=== PATIENT | female | born 1960 | race Caucasian/White ===

== ENCOUNTER → 2021-06-12 14:57 | Outpatient (BNVA) | payer MEDICARE, MEDICAID, SELFPAY | PROVIDERS: PCP Hospitalist | DX: R32 Unspecified urinary incontinence (principal); Z79.899 Other long term (current) drug therapy | CPT/HCPCS: 99212 ==

== ENCOUNTER → 2021-06-26 13:21 | Outpatient (BNVA) | payer MEDICARE, MEDICAID, SELFPAY | PROVIDERS: PCP Hospitalist | DX: R32 Unspecified urinary incontinence (principal) | CPT/HCPCS: 51798; 99212 ==

== ENCOUNTER 2021-12-26 09:36 | Outpatient (REF) | payer MEDICARE, MEDICAID, SELFPAY ==
--- NOTE | ~2021-12-26 | CT_ITS ---
EXAMINATION: CT HEAD WITHOUT CONTRAST CLINICAL INFORMATION: Muscle weakness. COMPARISON: None TECHNIQUE: Contiguous axial imaging was performed from the skull base to vertex without intravenous administration of contrast. This CT examination was performed using dose optimization techniques as appropriate, variously including the following: *Automated exposure control *Adjustment of mA and/or kV according to patient size (this includes techniques or standardized protocols for targeted exams where dose is matched to indication/reason for exam; i.e. extremities or head) *Use of iterative reconstruction technique DLP: 751 mGy-cm FINDINGS: There is no evidence of acute intracranial hemorrhage or territorial infarction. No abnormal mass effect or midline shift is seen. Holloway to white matter differentiation is well preserved. No extra-axial fluid collections are identified. The lateral ventricles are symmetrical in size but mildly enlarged. There is diffuse periventricular hypodensity in both cerebral hemispheres without mass effect suggestive of chronic small vessel ischemia. Bone windows reveal midline and left frontal craniotomy changes. No scalp soft tissue abnormality. There is complete opacification of right sphenoid sinus. Rest of the paranasal sinuses and mastoid air cells are well-aerated. CT/CT head/brain wo con IMPRESSION: No acute intracranial process seen. Chronic right maxillary sinus inflammatory changes. Left frontal and midline craniotomy from previous intervention.
== END 2021-12-26 09:37 | disposition home or self-care (01) ==
LOC: HO.CT 09:36
PROVIDERS: Visit Provider Hospitalist
DX: M62.81 Muscle weakness (generalized) (principal)
CPT/HCPCS: 70450

== ENCOUNTER 2022-01-15 10:09 | Inpatient (IN) | payer MEDICARE, MEDICAID, SELFPAY ==
[2022-01-15] VITALS (9 sets, daily range): BP systolic 107–140; BP diastolic 72–93; PULSE 68–126; RESP 18–35; TEMP 36.7–37.3; O2SAT 86–100; BMI 22.3
--- NOTE | ~2022-01-15 | CT_ITS ---
EXAMINATION: CT HEAD WITHOUT CONTRAST CLINICAL INFORMATION: Increased confusion. COMPARISON: CT head from 12/26/2021. TECHNIQUE: Contiguous axial imaging was performed from the skull base to vertex without intravenous administration of contrast. This CT examination was performed using dose optimization techniques as appropriate, variously including the following: *Automated exposure control. *Adjustment of mA and/or kV according to patient size (this includes techniques or standardized protocols for targeted exams where dose is matched to indication/reason for exam; i.e. extremities or head). *Use of iterative reconstruction technique. DLP: 690 mGy-cm FINDINGS: Changes of chronic frontal craniotomy. There is no evidence of acute intracranial hemorrhage or edematous territorial infarction. Confluent hypoattenuation in the periventricular and deep white matter. [place]ay-white matter differentiation is preserved. Proportional prominence of the ventricles and sulcal spaces. No evidence for obstructive hydrocephalus. No abnormal mass effect or midline shift. No extra-axial fluid collections. Calcific atherosclerotic disease of the intracranial internal carotid and vertebral arteries. No hyperdense vessel sign. No acute soft tissue or osseous abnormalities. Near complete opacification of the right sphenoid air cell. Mild mucosal thickening of the remaining paranasal sinuses. The mastoid air cells and middle ear cavities are clear. Moderate degenerative arthropathy of the temporomandibular joints. CT/CT head/brain wo con IMPRESSION: 1. No evidence of acute intracranial hemorrhage or edematous territorial infarction. 2. Extensive underlying white matter disease. 3. Moderate generalized cerebral volume loss. 4. Near complete opacification of the right sphenoid air cell.
--- NOTE | ~2022-01-15 | XR_ITS ---
EXAMINATION: XR ABDOMEN KUB CLINICAL INDICATION: Follow-up ileus COMPARISON: None TECHNIQUE: AP view of the abdomen. FINDINGS: There are still distended loops of small bowel and retained oral contrast in the small bowel. Differential would include ileus and partial small bowel obstruction. There is interval decrease in mild dilatation of the colon. There is no evidence of free air. There is evidence of atherosclerotic disease. There are surgical clips over the left groin. There are degenerative changes of the lower lumbar spine. XR/XR abdomen 1V IMPRESSION: Distended loops of small bowel and residual oral contrast seen in small bowel. Differential would include ileus and partial small bowel obstruction. There is interval decrease in large bowel distention from previous scan.
--- NOTE | ~2022-01-15 | XR_ITS ---
EXAMINATION: XR CHEST CLINICAL INFORMATION: AMS COMPARISON: April 28, 2016 TECHNIQUE: AP portable view of the chest was obtained. FINDINGS: There is elevation of the left hemidiaphragm with some basilar disease present. This is chronic and was present on study of April 28, 2016. The cardiopericardial silhouette is enlarged. No evidence of pulmonary edema. No pneumothorax. There is blunting of the right costophrenic angle likely related to combination of small pleural effusion and atelectatic change. There is severe degenerative change of both glenohumeral joints. There are some low density sclerotic marginated lesions within the proximal left humerus. There is a sclerotic density seen overlying the proximal right humerus. Vascular calcifications are noted. There is distention of loops of bowel within the abdomen. XR/XR chest 1V IMPRESSION: Chronic elevation of the left hemidiaphragm with basilar disease. Right lower lobe disease with probable small effusion. Cardiomegaly without pulmonary edema. Severe degenerative change of the glenohumeral joints with deformity of the humeral heads.
--- NOTE | ~2022-01-15 | CT_ITS ---
EXAMINATION: CT ABDOMEN AND PELVIS WITH CONTRAST CLINICAL INFORMATION: Diffuse abdominal pain. Tender to palpate COMPARISON: None TECHNIQUE: Multidetector volumetric images were obtained from the superior aspect of the liver through the pubic symphysis following administration 80 mL of Omnipaque 350 intravenous contrast. Sagittal and coronal reformatted images were obtained on the technologist's workstation. Oral contrast: No This CT examination was performed using dose optimization techniques as appropriate, variously including the following: *Automated exposure control *Adjustment of mA and/or kV according to patient size (this includes techniques or standardized protocols for targeted exams where dose is matched to indication/reason for exam; i.e. extremities or head) *Use of iterative reconstruction technique DLP: 799 mGy-cm FINDINGS: LUNG BASES: There is a left lower lobe airspace opacity suggestive of infiltrate. The right lower lobe compressive atelectasis and/or infiltrate. Heart size enlarged. LIVER, GALLBLADDER, AND BILIARY TREE: The liver is enlarged in size, normal shape, and attenuation. There is a 1.7 cm hypodensity right hepatic lobe probable cyst. No additional lesions seen. No intrahepatic ductal dilatation. The gallbladder is significantly distended with no radiopaque gallstones or wall thickening. PANCREAS: Unremarkable. SPLEEN: Unremarkable. ADRENAL GLANDS: Unremarkable. KIDNEYS AND URETERS: The kidneys are normal in size, shape, and attenuation. No hydronephrosis, hydroureter, or calculi seen. No perinephric stranding. There are multiple bilateral renal cysts. Largest cyst midpole left kidney measures 2.4 cm. There is an extrarenal left kidney pelvis BLADDER: The bladder is significantly distended without any radiopaque calculi or wall thickening. GASTROINTESTINAL TRACT: There is scattered stool and gas seen in the right hepatic flexure the small bowel loops are prominent and distended with fluid and an majority with gas. No free air or free fluid seen ABDOMINAL WALL: No significant hernia is appreciated. LYMPH NODES: Normal. VASCULAR: There is atherosclerotic calcification of abdominal aorta without aneurysmal dilatation. PELVIC VISCERA: There is no free fluid or free air. No abnormal pelvic lymph nodes seen. The uterus is anteverted and appears unremarkable OSSEOUS STRUCTURES: There is grade 1 anterolisthesis L4 over L5. There are severe degenerative disc changes L4-L5 and mild degenerative disc changes L3-L4 and L5-S1 disc levels. CT/CT abdomen pelvis w con IMPRESSION: Significantly distended gallbladder likely from decreased by mouth intake. No radiopaque gallstones, duodenal calculi or radiopaque urinary bladder. The urinary bladder is significantly distended. Moderate gaseous prominence of small bowel loops with some of the loops containing fluid. No free air or inflammatory process seen in the abdomen. Multiple bilateral renal cysts. Fleischner guidelines were followed.
--- NOTE | ~2022-01-15 | CT_ITS ---
EXAMINATION: CT ABDOMEN AND PELVIS WITHOUT CONTRAST CLINICAL INFORMATION: Rule out small bowel obstruction COMPARISON: Previous CT scan earlier the same day TECHNIQUE: Multidetector volumetric imaging was performed from the superior aspect of the liver through the pubic symphysis. Sagittal and coronal reformatted images were obtained on the technologist's workstation. This CT examination was performed using dose optimization techniques as appropriate, variously including the following: *Automated exposure control *Adjustment of mA and/or kV according to patient size (this includes techniques or standardized protocols for targeted exams where dose is matched to indication/reason for exam; i.e. extremities or head) *Use of iterative reconstruction technique DLP: 747 mGy-cm FINDINGS: LUNG BASES: There is bilateral lower lobe airspace disease with air bronchograms suggestive of bilateral lower lobe pneumonia. The heart is enlarged. There is no pleural effusion. LIVER, GALLBLADDER, AND BILIARY TREE: The liver is normal in size, shape, and attenuation. No focal hepatic lesion or biliary ductal dilatation is present. The gallbladder is enlarged. No gallstones are seen by CT scan. This is similar to previous exam. There is no biliary duct dilatation. PANCREAS: Unremarkable. SPLEEN: Unremarkable. ADRENAL GLANDS: Unremarkable. KIDNEYS AND URETERS: There is excreted contrast seen in the bilateral collecting systems and ureters.There are left renal cysts. BLADDER: There is a Carver catheter in the bladder. There is excreted contrast seen in the bladder. GASTROINTESTINAL TRACT: The stomach is dilated. There are dilated loops of fluid-filled small bowel. This is similar to earlier exam. A transition zone is not appreciated. Differential would include ileus and partial small bowel obstruction. There is a stool the colon and the colon is distended. No transition zone is seen to suggest large bowel obstruction. The appendix is not seen. There is trace ascites. ABDOMINAL WALL: No significant hernia is appreciated. LYMPH NODES: Normal. VASCULAR: There is evidence of atherosclerotic disease. There is an aorto to left iliac bypass graft. PELVIC VISCERA: Unremarkable. OSSEOUS STRUCTURES: There is anterior subluxation of L4 with respect L5 there are degenerative changes of the lower lumbar spine. The bones are osteopenic. CT/CT abdomen pelvis wo con IMPRESSION: Bilateral lower lobe pneumonia. Very dilated fluid and contrast filled stomach. Possible aspiration should be considered. Dilated fluid-filled small bowel questionable for partial small bowel obstruction versus ileus. Distended colon and constipation. Very distended gallbladder similar to earlier exam. Left renal cysts. Severe atherosclerotic disease. Fleischner guidelines were followed.
--- NOTE | 2022-01-15 10:42 | ECG_ITS ---
Test Reason : TACHYCARDIA Blood Pressure : / mmHG Vent. Rate : 119 BPM Atrial Rate : 119 BPM P-R Int : 172 ms QRS Dur : 120 ms QT Int : 332 ms P-R-T Axes : 019 -28 056 degrees QTc Int : 467 ms Sinus tachycardia with Premature supraventricular complexes and Premature ventricular complexes or Fusion complexes Inferior infarct , age undetermined Anterolateral infarct, age undetermined. Abnormal ECG No previous ECGs available Referred By: Sally Barksdale Electronically Signed By:Soy Bui
--- NOTE | 2022-01-15 10:54 | ED_ITS ---
HPI - Abdominal Pain General Chief Complaint: Abdominal Pain Stated Complaint: NOT EATING,? OBSTRUCTION PER MD OF SNF Time Seen by Provider: 01/15/22 10:29 Source: patient Mode of arrival: ambulatory History of Present Illness HPI narrative: 62-year-old female with a past medical history of dementia, schizophrenia, dysphasia, COPD, diabetes, anemia, ETOH dependence, depression, TBI, BIBA from [facility] for anorexia/decreased p.o. intake, and abdominal pain x2-3 days also with reported increased confusion and mental status change. Per EMS questionable ileus versus mass on KUB at [facility]. ROS limited secondary to patient's baseline mental status/acute mental state MD elicited complaint: abdominal pain Onset (ago): day(s) Related Data Home Medications Medication Instructions Recorded Confirmed clopidogrel 75 mg tablet 75 mg PO DAILY 06/12/21 01/15/22 cyclobenzaprine 5 mg tablet 5 mg PO TID 06/12/21 01/15/22 fluticasone furoate 200 1 ea INHALATION DAILY 06/12/21 01/15/22 mcg-vilanterol 25 mcg/dose inhalation powder (Breo Ellipta) lurasidone 40 mg tablet (Latuda) 40 mg PO BEDTIME 06/12/21 01/15/22 oxybutynin chloride 10 mg 10 mg PO DAILY 06/12/21 01/15/22 tablet,extended release 24 hr simvastatin 20 mg tablet 20 mg PO BEDTIME 06/12/21 01/15/22 famotidine 40 mg tablet 40 mg PO DAILY 06/26/21 01/15/22 furosemide 40 mg tablet 40 mg PO DAILY 06/26/21 01/15/22 hydrocodone 5 mg-acetaminophen 325 1 tab PO QID 06/26/21 01/15/22 mg tablet lurasidone 60 mg tablet (Latuda) 60 mg PO BEDTIME 06/26/21 01/15/22 mirabegron 50 mg tablet,extended 50 mg PO BEDTIME 06/26/21 01/15/22 release 24 hr (Myrbetriq) paliperidone palmitate 156 mg/mL 156 mg IM Q28D 06/26/21 01/15/22 intramuscular syringe (Invega Sustenna) pramipexole 0.25 mg tablet 0.25 mg PO BEDTIME 06/26/21 01/15/22 trihexyphenidyl 5 mg tablet 5 mg PO TID 06/26/21 01/15/22 acetaminophen 325 mg tablet 325 mg PO QID 01/15/22 01/15/22 albuterol sulfate 90 mcg/actuation 4 inh INHALATION Q4H PRN 01/15/22 01/15/22 breath activated powder inhaler,sensor ascorbic acid (vitamin C) 500 mg 500 mg PO DAILY 01/15/22 01/15/22 tablet aspirin 81 mg chewable tablet 81 mg PO DAILY 01/15/22 01/15/22 cholecalciferol (vitamin D3) 1,250 1,250 mcg PO MO 01/15/22 01/15/22 mcg (50,000 unit) tablet docusate sodium 100 mg tablet 100 mg PO BID 01/15/22 01/15/22 lactulose 10 gram/15 mL oral 20 g PO Q12H PRN 01/15/22 01/15/22 solution lanolin alcohols-mineral 1 appl TOPICAL QPM 01/15/22 01/15/22 oil-w.petrolatum-ceresin topical cream (Minerin Creme) lithium carbonate 300 mg 300 mg PO BEDTIME 01/15/22 01/15/22 tablet,extended release menthol 5 % topical patch (Bengay 1 patch TOPICAL DAILY PRN 01/15/22 01/15/22 Ultra Strength (menthol)) metoprolol tartrate 25 mg tablet 25 mg PO BID 01/15/22 01/15/22 sennosides 8.6 mg tablet (senna) 17.2 mg PO BID 01/15/22 01/15/22 Allergies Allergy/AdvReac Type Severity Reaction Status Date / Time codeine [CODEINE] Allergy Unknown UNKNOWN Verified 06/26/21 13:29 lactose [LACTOSE] Allergy Unknown UNKNOWN Verified 06/26/21 13:29 meloxicam [MELOXICAM] Allergy Unknown UNKNOWN Verified 06/26/21 13:29 penicillin V Allergy Unknown Unknown Verified 06/26/21 13:29 Penicillins [PENICILLINS] Allergy Unknown UNKNOWN Verified 06/26/21 13:29 tetracycline [TETRACYCLINE] Allergy Unknown UNKNOWN Verified 06/26/21 13:29 Review of Systems Review of Systems Constitutional: No Fever, +anorexia Cardiovascular: No Chest Pain, No SOB Respiratory: No Cough, No Dyspnea Gastrointestinal: No Nausea, No Vomiting, + Abdominal pain Skin: No Skin Lesions, No rash ROS limited secondary to patient's baseline mental status Yes all other systems are reviewed and are negative [facility] Past Medical History Attestation statement: The following information was validated with the patient. 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 Bone disease Chronic pain Depressive disorder Diabetes mellitus, type II Edema GERD (gastroesophageal reflux disease) Hepatitis C Hernia HTN (hypertension) Hyperprolactinemia Hyponatremia Polydipsia Schizophrenia Urinary incontinence Surgical History History of surgery Social History Social History Patient Tobacco Use Status: Former Tobacco user Advance Directives: No Advance Directives Information Provided: No Physical Exam ED Vital Signs: Vital Signs - 24 hr 01/15/22 10:28 01/15/22 10:40 01/15/22 11:40 Temperature 99.1 F 99.1 F Pulse Rate 118 H 68 122 H Respiratory Rate 22 H 18 35 H Blood Pressure 134/93 H 113/89 130/77 Pulse Oximetry 98 98 86 L 01/15/22 14:00 01/15/22 16:43 Temperature 98.4 F Pulse Rate 126 H 101 H Respiratory Rate 20 22 H Blood Pressure 140/83 H 126/78 Pulse Oximetry 94 98 BMI result Body Mass Index 22.3 Const Other: Intermittently agitated General: alert and awake Orientation/consciousness: oriented to person HENPA Head: Yes normal to inspection and Yes atraumatic Ears: hearing grossly normal bilaterally General nose exam: Normal external nose present Face and sinus: Yes normal facial exam Throat: Yes posterior oropharynx normal Eyes General: appearance normal, both eyes and all related structures Pupils: Equal, round and reactive pupils present EOM: EOMs intact bilaterally Neck Neck: Yes normal visual inspection and Yes no lymphadenopathy Resp Effort & Inspection: normal respiratory effort and no respiratory distress Auscultation: clear to auscultation bilaterally, no rales, no rhonchi and no wheezes Cardio Rate: regular rate Heart sounds: S1 normal heart sound present and S2 normal heart sound present GI Inspection: Yes normal to inspection Palpation (GI): Soft to palpation, Tenderness to palpation present (GI) (Diffusely), no guarding and not rigid General: Yes no CVA tenderness Back/Spine/Pelvis Back: no CVA tenderness Skin Other: Healing ecchymosis /wounds to bilateral lower extremities Rashes: no rashes Neuro General: oriented to person, tone normal and moves all extremities Cranial nerves: Yes Equal, round and reactive pupils present Course Course Course Narrative: -1330--no leukocytosis. AST/ALT elevated likely acute on chronic from ETOH abuse. Ammonia mildly elevated to 64. BNP 158. Initial troponin 13.3 >will obtain 3 hour repeat. Labs otherwise unremarkable -1534--repeat troponin 15.8, mi unlikely. UA negative -1535--COVID-19 positive --Per [facility] patient tested positive for COVID in November, concern for reinfection XR chest 1V IMPRESSION: Chronic elevation of the left hemidiaphragm with basilar disease. Right lower lobe disease with probable small effusion. Cardiomegaly without pulmonary edema.? Severe degenerative change of the glenohumeral joints with deformity of the humeral heads. ? CT head/brain wo con IMPRESSION: 1. No evidence of acute intracranial hemorrhage or edematous territorial infarction. 2. Extensive underlying white matter disease. 3. Moderate generalized cerebral volume loss. 4. Near complete opacification of the right sphenoid air cell. CT abdomen pelvis w con IMPRESSION: Significantly distended gallbladder likely from decreased by mouth intake. No radiopaque gallstones, duodenal calculi or radiopaque urinary bladder. The urinary bladder is significantly distended. Moderate gaseous prominence of small bowel loops with some of the loops containing fluid. No free air or inflammatory process seen in the abdomen. Multiple bilateral renal cysts. LUNG BASES: There is a left lower lobe airspace opacity suggestive of infiltrate. The right lower lobe compressive atelectasis and/or infiltrate. Heart size enlarged. >> 1552--will cover with Cefepime to cover HCAP. Infection now suspected. Discussed CT findings with radiologist, no evidence of obstruction, distended loops of bowel likely from decreased p.o. intake -1700--D-dimer negative, PE unlikely > tachycardia still suspected from dehydration -LDH/CRP elevated -spoke to hospitalist about admission, concern for SBO/ileus or intra-abdominal pathology, additionally spoke to surgery Dr. Barnett who suspicious for ileus/gastroenteritis however reports if there is continued concern to obtain p.o. contrast study. There is no radiologist on tonight to perform Gastrografin FL, will obtain p.o. contrast CT for further eval. 1814--ED care transferred to MELINA Guillen pending CT and admission ? MDM - Abdominal Pain MDM Narrative Medical decision making narrative: 62-year-old female with a past medical history of dementia, schizophrenia, dysphasia, COPD, diabetes, anemia, ETOH dependence, depression, TBI, BIBA from [facility] for anorexia/decreased p.o. intake, and abdominal pain x2-3 days also with reported increased confusion and mental status change. On exam tachycardic likely from dehyrdation, tachypneic, A&O x1 (hx TBI), lungs CTA, abdomen soft diffusely tender. Concern for SBO/ileus vs mass vs diverticulitis/appendicitis or other intra-abdominal pathology. Rule out other infectious etiology and metabolic abnormalities. Lower concern for CVA/TIA Plan: EKG, labs, UA, CXR, head CT, CT abdomen/pelvis, IVF. Low concern for severe sepsis at this time her tachycardia likely from dehydration/agitation Medical Records Attestation: I reviewed the patient's medical records. Lab Data Attestation: I reviewed the patient's lab results. Result diagrams: 01/15/22 12:03 01/15/22 12:03 Labs: Lab Results 01/15/22 01/15/22 01/15/22 Range/Units 12:02 12:03 12:03 WBC 8.1 (4.8-10.8) X10*3/uL RBC 3.74 L (4.20-5.50) X10*6/uL Hgb 11.3 L (12.0-16.0) g/dl Hct 36.0 L (37.0-47.0) % MCV 96.3 (80.0-98.0) fL MCH 30.2 (27.0-33.0) pg MCHC 31.4 (31.0-35.0) g/dl RDW 15.5 (11.0-16.0) % Plt Count 369 (160-400) X10*3/uL MPV 9.8 (9.4-12.3) fL Immature Gran % (Auto) 0.4 (0.0-0.4) % Neut % (Auto) 73.6 H (45-73) % Lymph % (Auto) 18.3 L (20-40) % Bowman % (Auto) 7.5 (2-11) % Eos % (Auto) 0.0 (0-4) % Baso % (Auto) 0.2 (0-2) % Lymph # (Auto) 1.5 (1.2-4.9) X10*3/uL Bowman # (Auto) 0.6 (0.1-1.2) X10*3/uL Eos # (Auto) 0.0 (0.0-0.4) X10*3/uL Baso # (Auto) 0.0 (0.0-0.2) X10*3/uL Abs Immat Gran (auto) 0.03 (0.00-0.03) X10*3/uL Absolute Neuts (auto) 5.9 (2.0-8.3) x10*3/uL Absolute Nucleated RBC 0.000 (0.0-0.012) X10*3/uL Nucleated RBC % (auto) 0.0 (0.0-0.2) /100WBC D-Dimer High Sensitivty NG/ML Sodium 135 (135-145) mmol/L Potassium 4.6 (3.3-5.1) mmol/L Chloride 100 (96-108) mmol/L Carbon Dioxide 25 (22-29) mmol/L Anion Gap 15 (12-20) BUN 5 L (9-16) mg/dL Creatinine 0.61 (0.5-1.4) mg/dL Estim Creat Clear Calc 90.5 Estimated GFR > 60 Random Glucose 105 (60-115) mg/dL Lactic Acid (0.5-2.0) mmol/L Calcium 8.7 (8.4-10.2) mg/dL Magnesium 1.7 (1.6-2.6) mg/dL Ferritin (10-250) ng/mL Total Bilirubin 1.0 (0.0-1.0) mg/dL Direct Bilirubin 0.4 (0.0-0.5) mg/dL AST 103 H (5-31) U/L ALT 47 H (0-31) U/L Alkaline Phosphatase 97 (39-117) U/L Ammonia 64 H (13-55) umol/L Lactate Dehydrogenase (122-220) U/L Troponin I High Sens (<3.5-17.0) ng/L C-Reactive Protein (< or = 0.50) mg/dL B-Natriuretic Peptide (<100) pg/mL Total Protein 6.1 L (6.5-8.0) g/dL Albumin 2.8 L (3.5-5.0) g/dL Lipase 4 L (8-78) U/L Procalcitonin ng/mL Urine Color Urine Appearance Urine pH (5.0-8.0) Ur Specific [place] (1.005-1.025) Urine Protein (NEG-TRACE) MG/DL Urine Glucose (UA) (NEG) MG/DL Urine Ketones (NEG) MG/DL Urine Blood (NEG) Urine Nitrite (NEG) Ur Leukocyte Esterase (NEG) COVID-19 (AI) (Negative) COVID-19 Clin Com 01/15/22 01/15/22 01/15/22 Range/Units 12:03 12:03 14:57 WBC (4.8-10.8) X10*3/uL RBC (4.20-5.50) X10*6/uL Hgb (12.0-16.0) g/dl Hct (37.0-47.0) % MCV (80.0-98.0) fL MCH (27.0-33.0) pg MCHC (31.0-35.0) g/dl RDW (11.0-16.0) % Plt Count (160-400) X10*3/uL MPV (9.4-12.3) fL Immature Gran % (Auto) (0.0-0.4) % Neut % (Auto) (45-73) % Lymph % (Auto) (20-40) % Bowman % (Auto) (2-11) % Eos % (Auto) (0-4) % Baso % (Auto) (0-2) % Lymph # (Auto) (1.2-4.9) X10*3/uL Bowman # (Auto) (0.1-1.2) X10*3/uL Eos # (Auto) (0.0-0.4) X10*3/uL Baso # (Auto) (0.0-0.2) X10*3/uL Abs Immat Gran (auto) (0.00-0.03) X10*3/uL Absolute Neuts (auto) (2.0-8.3) x10*3/uL Absolute Nucleated RBC (0.0-0.012) X10*3/uL Nucleated RBC % (auto) (0.0-0.2) /100WBC D-Dimer High Sensitivty NG/ML Sodium (135-145) mmol/L Potassium (3.3-5.1) mmol/L Chloride (96-108) mmol/L Carbon Dioxide (22-29) mmol/L Anion Gap (12-20) BUN (9-16) mg/dL Creatinine (0.5-1.4) mg/dL Estim Creat Clear Calc Estimated GFR Random Glucose (60-115) mg/dL Lactic Acid 1.9 (0.5-2.0) mmol/L Calcium (8.4-10.2) mg/dL Magnesium (1.6-2.6) mg/dL Ferritin (10-250) ng/mL Total Bilirubin (0.0-1.0) mg/dL Direct Bilirubin (0.0-0.5) mg/dL AST (5-31) U/L ALT (0-31) U/L Alkaline Phosphatase (39-117) U/L Ammonia (13-55) umol/L Lactate Dehydrogenase (122-220) U/L Troponin I High Sens 13.3 (<3.5-17.0) ng/L C-Reactive Protein (< or = 0.50) mg/dL B-Natriuretic Peptide 158 H (<100) pg/mL Total Protein (6.5-8.0) g/dL Albumin (3.5-5.0) g/dL Lipase (8-78) U/L Procalcitonin ng/mL Urine Color Urine Appearance Urine pH (5.0-8.0) Ur Specific [place] (1.005-1.025) Urine Protein (NEG-TRACE) MG/DL Urine Glucose (UA) (NEG) MG/DL Urine Ketones (NEG) MG/DL Urine Blood (NEG) Urine Nitrite (NEG) Ur Leukocyte Esterase (NEG) COVID-19 (AI) Positive A (Negative) COVID-19 Clin Com See Note 01/15/22 01/15/22 01/15/22 Range/Units 14:57 15:06 16:39 WBC (4.8-10.8) X10*3/uL RBC (4.20-5.50) X10*6/uL Hgb (12.0-16.0) g/dl Hct (37.0-47.0) % MCV (80.0-98.0) fL MCH (27.0-33.0) pg MCHC (31.0-35.0) g/dl RDW (11.0-16.0) % Plt Count (160-400) X10*3/uL MPV (9.4-12.3) fL Immature Gran % (Auto) (0.0-0.4) % Neut % (Auto) (45-73) % Lymph % (Auto) (20-40) % Bowman % (Auto) (2-11) % Eos % (Auto) (0-4) % Baso % (Auto) (0-2) % Lymph # (Auto) (1.2-4.9) X10*3/uL Bowman # (Auto) (0.1-1.2) X10*3/uL Eos # (Auto) (0.0-0.4) X10*3/uL Baso # (Auto) (0.0-0.2) X10*3/uL Abs Immat Gran (auto) (0.00-0.03) X10*3/uL Absolute Neuts (auto) (2.0-8.3) x10*3/uL Absolute Nucleated RBC (0.0-0.012) X10*3/uL Nucleated RBC % (auto) (0.0-0.2) /100WBC D-Dimer High Sensitivty 168 NG/ML Sodium (135-145) mmol/L Potassium (3.3-5.1) mmol/L Chloride (96-108) mmol/L Carbon Dioxide (22-29) mmol/L Anion Gap (12-20) BUN (9-16) mg/dL Creatinine (0.5-1.4) mg/dL Estim Creat Clear Calc Estimated GFR Random Glucose (60-115) mg/dL Lactic Acid (0.5-2.0) mmol/L Calcium (8.4-10.2) mg/dL Magnesium (1.6-2.6) mg/dL Ferritin (10-250) ng/mL Total Bilirubin (0.0-1.0) mg/dL Direct Bilirubin (0.0-0.5) mg/dL AST (5-31) U/L ALT (0-31) U/L Alkaline Phosphatase (39-117) U/L Ammonia (13-55) umol/L Lactate Dehydrogenase (122-220) U/L Troponin I High Sens 15.8 (<3.5-17.0) ng/L C-Reactive Protein (< or = 0.50) mg/dL B-Natriuretic Peptide (<100) pg/mL Total Protein (6.5-8.0) g/dL Albumin (3.5-5.0) g/dL Lipase (8-78) U/L Procalcitonin ng/mL Urine Color YELLOW Urine Appearance CLEAR Urine pH 6.0 (5.0-8.0) Ur Specific [place] <= 1.005 (1.005-1.025) Urine Protein NEG (NEG-TRACE) MG/DL Urine Glucose (UA) NEG (NEG) MG/DL Urine Ketones NEG (NEG) MG/DL Urine Blood NEG (NEG) Urine Nitrite NEG (NEG) Ur Leukocyte Esterase NEG (NEG) COVID-19 (AI) (Negative) COVID-19 Clin Com 01/15/22 01/15/22 Range/Units 16:39 16:39 WBC (4.8-10.8) X10*3/uL RBC (4.20-5.50) X10*6/uL Hgb (12.0-16.0) g/dl Hct (37.0-47.0) % MCV (80.0-98.0) fL MCH (27.0-33.0) pg MCHC (31.0-35.0) g/dl RDW (11.0-16.0) % Plt Count (160-400) X10*3/uL MPV (9.4-12.3) fL Immature Gran % (Auto) (0.0-0.4) % Neut % (Auto) (45-73) % Lymph % (Auto) (20-40) % Bowman % (Auto) (2-11) % Eos % (Auto) (0-4) % Baso % (Auto) (0-2) % Lymph # (Auto) (1.2-4.9) X10*3/uL [place]man # (Auto) (0.1-1.2) X10*3/uL Eos # (Auto) (0.0-0.4) X10*3/uL Baso # (Auto) (0.0-0.2) X10*3/uL Abs Immat Gran (auto) (0.00-0.03) X10*3/uL Absolute Neuts (auto) (2.0-8.3) x10*3/uL Absolute Nucleated RBC (0.0-0.012) X10*3/uL Nucleated RBC % (auto) (0.0-0.2) /100WBC D-Dimer High Sensitivty NG/ML Sodium (135-145) mmol/L Potassium (3.3-5.1) mmol/L Chloride (96-108) mmol/L Carbon Dioxide (22-29) mmol/L Anion Gap (12-20) BUN (9-16) mg/dL Creatinine (0.5-1.4) mg/dL Estim Creat Clear Calc Estimated GFR Random Glucose (60-115) mg/dL Lactic Acid (0.5-2.0) mmol/L Calcium (8.4-10.2) mg/dL Magnesium (1.6-2.6) mg/dL Ferritin 166 (10-250) ng/mL Total Bilirubin (0.0-1.0) mg/dL Direct Bilirubin (0.0-0.5) mg/dL AST (5-31) U/L ALT (0-31) U/L Alkaline Phosphatase (39-117) U/L Ammonia (13-55) umol/L Lactate Dehydrogenase 231 H (122-220) U/L Troponin I High Sens (<3.5-17.0) ng/L C-Reactive Protein 2.74 H (< or = 0.50) mg/dL B-Natriuretic Peptide (<100) pg/mL Total Protein (6.5-8.0) g/dL Albumin (3.5-5.0) g/dL Lipase (8-78) U/L Procalcitonin 10.28 ng/mL Urine Color Urine Appearance Urine pH (5.0-8.0) Ur Specific [place] (1.005-1.025) Urine Protein (NEG-TRACE) MG/DL Urine Glucose (UA) (NEG) MG/DL Urine Ketones (NEG) MG/DL Urine Blood (NEG) Urine Nitrite (NEG) Ur Leukocyte Esterase (NEG) COVID-19 (AI) (Negative) COVID-19 Clin Com ECG Data ECG interpretation date: 01/15/22 ECG interpretation time: 10:54 Prior ECG tracings: not available for review Interpretation: EKG sinus tachycardia with premature supraventricular complexes and premature ventricular complexes. Rated 119. QTC 467. No STEMI. No previous EKGs to compare Discharge Plan Discharge Clinical Impression: Pneumonia, Acute dehydration, COVID-19 Patient Disposition: Admitted As Inpatient
--- NOTE | 2022-01-15 11:14 | PHA.MEDREC ---
Pharmacy Consult ? Medication Reconciliation Pharmacy has completed the medication reconciliation. Patient came from [facility] with medication list. Tried to call to confirm last dose of Invega however RN was not at a computer and said she would call back. Blanche Dimas, AnnalisaD
[2022-01-15 12:22] LABS: MANUAL DIFF FLAG NO
[2022-01-15 12:26] LABS: Basophils Percent Auto 0.2 % (0-2); Hemoglobin 11.3 g/dl (12.0-16.0); Imm Gran Abs Auto 0.03 X10*3/uL (0.00-0.03); Imm Gran Pct Auto 0.4 % (0.0-0.4); Lymphocytes Absolute Auto 1.5 X10*3/uL (1.2-4.9); Lymphocytes Percent Auto 18.3 % (20-40); Mean Corpuscular HGB Conc 31.4 g/dl (31.0-35.0); Mean Corpuscular Hemoglobin 30.2 pg (27.0-33.0); Mean Corpuscular Volume 96.3 fL (80.0-98.0); Mean Platelet Volume 9.8 fL (9.4-12.3); Monocytes Absolute Auto 0.6 X10*3/uL (0.1-1.2); Monocytes Percent Auto 7.5 % (2-11); Neutrophils Absolute Auto 5.9 x10*3/uL (2.0-8.3); Neutrophils Percent Auto 73.6 % (45-73); Platelet Count 369 X10*3/uL (160-400); Red Blood Count 3.74 X10*6/uL (4.20-5.50); Red Cell Distribution Width 15.5 % (11.0-16.0); White Blood Count 8.1 X10*3/uL (4.8-10.8)
[2022-01-15 12:37] LABS: Lactic Acid 1.9 mmol/L (0.5-2.0)
[2022-01-15 12:45] LABS: Ammonia 64 umol/L (13-55)
[2022-01-15 12:48] LABS: B Type Natriuretic Peptide 158 pg/mL (<100); Troponin-I High Sensitivity 13.3 ng/L (<3.5-17.0)
[2022-01-15 12:59] LABS: Alanine Aminotransferase 47 U/L (0-31); Albumin Level 2.8 g/dL (3.5-5.0); Alkaline Phosphatase 97 U/L (39-117); Anion Gap 15 (12-20); Aspartate Amino Transferase 103 U/L (5-31); Bilirubin Direct 0.4 mg/dL (0.0-0.5); Blood Urea Nitrogen 5 mg/dL (9-16); Calcium 8.7 mg/dL (8.4-10.2); Carbon Dioxide 25 mmol/L (22-29); Chloride 100 mmol/L (96-108); Creatinine Clr Calc Pharmacy 90.5; Estimated Glomerular Filt Rate > 60; Glucose Random 105 mg/dL (60-115); Lipase 4 U/L (8-78); Magnesium 1.7 mg/dL (1.6-2.6); Potassium 4.6 mmol/L (3.3-5.1); Sodium 135 mmol/L (135-145); Total Protein 6.1 g/dL (6.5-8.0)
[2022-01-15] MEDS: 0.9 % Sodium Chloride 1,000 ML 999 ML IV ×2 (13:01→14:11)
--- NOTE | 2022-01-15 13:58 | PC.NURSE ---
Pt back from CT scan at this time, mood is labile, alternately yelling nonsensically at staff and then apologizing. Plan for straight cath to obtain a urine. Skin wd, resp reg and even, some congestion noted. 90-04% on room air, pt keeps removing nasal canula.
[2022-01-15] MEDS: iohexoL 350 MG/ML 100 ML INFUS..BTL IV (14:03)
[2022-01-15] MEDS: LORazepam 2 MG/ML VIAL 1 MG IVPUSH (14:08)
[2022-01-15 15:19] LABS: Appearance Urine CLEAR; Color Urine YELLOW; Glucose Urine UA NEG (NEG); Leukocyte Esterase Urine NEG (NEG); Nitrite Urine NEG (NEG); Specific Gravity - Urine <= 1.005 (1.005-1.025); Urine Blood NEG (NEG); Urine Ketones NEG (NEG); Urine Protein NEG (NEG-TRACE)
[2022-01-15 15:28] LABS: COVID-19 Test Positive (Negative)
[2022-01-15 15:30] LABS: Troponin-I High Sensitivity 15.8 ng/L (<3.5-17.0)
[2022-01-15 16:52] LABS: D Dimer High Sensitivity 168 NG/ML
[2022-01-15 16:56] LABS: C Reactive Protein 2.74 mg/dL (< or = 0.50); Lactate Dehydrogenase 231 U/L (122-220)
[2022-01-15] MEDS: cefEPime HCl 2 GM in 0.9 % Sodium Chloride 50 ML IV (16:56)
[2022-01-15 17:18] LABS: Procalcitonin 10.28 ng/mL
[2022-01-15 17:19] LABS: Ferritin 166 ng/mL (10-250)
[2022-01-15] MEDS: vancomycin HCL 750 MG in 0.9 % Sodium Chloride 250 ML 265 MG IV (19:47)
[2022-01-15] MEDS: Diatrizoate Meglumine, Sodium 30 ML SOLUTION PO (20:15)
--- NOTE | 2022-01-15 23:20 | P.HPHOSP_ITS ---
History of Present Illness Date of Service: 01/15/22 Chief Complaint: decreased oral intake 62-year-old female with a past medical history of hypertension, hyperlipidemia, diabetes, CAD, peripheral vascular disease, COPD on supplemental oxygen as needed, history of hep C, history of hyponatremia, history of TBI, history of recurrent left shoulder dislocation, generalized muscle weakness, paranoid schizophrenia, major depressive disorder, PTSD, GERD, dysphagia, history of hyperprolactinemia, diaphragmatic hernia, chronic pain syndrome, history of COVID-19 positive, [facility] with a c hief complaint of poor oral intake for the past few days and abdominal discomfort. patient unable to provide history. Most of the history obtained from the records and ER staff Per ER team who when spoken to the [facility] staff reported that patient has not been eating for the past 2-3 days and has been complaining of abdominal discomfort. KUB showed possible ileus; sent to the ER for further evaluation. ER team also reported that patient was more confused than her baseline. CT abdomen pelvis showed distended stomach, small bowel concerning for partial SBO, notified general surgery team. CT scan also showed multifocal pneumonia with concerns for aspiration. Patient was started on empiric antibiotics. Admitted to the hospital for further management PMFSH 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 Bone disease Chronic pain Depressive disorder Diabetes mellitus, type II Edema GERD (gastroesophageal reflux disease) Hepatitis C Hernia HTN (hypertension) Hyperprolactinemia Hyponatremia Polydipsia Schizophrenia Urinary incontinence Surgical History History of surgery Social History Alcohol intake: unknown Patient Tobacco Use Status: Former Tobacco user Use of substances other than those prescribed or required for medical reasons: Unknown Advance Directives: No Advance Directives Information Provided: No Meds Allergies Allergy/AdvReac Type Severity Reaction Status Date / Time codeine [CODEINE] Allergy Unknown UNKNOWN Verified 06/26/21 13:29 lactose [LACTOSE] Allergy Unknown UNKNOWN Verified 06/26/21 13:29 meloxicam [MELOXICAM] Allergy Unknown UNKNOWN Verified 06/26/21 13:29 penicillin V Allergy Unknown Unknown Verified 06/26/21 13:29 Penicillins [PENICILLINS] Allergy Unknown UNKNOWN Verified 06/26/21 13:29 tetracycline [TETRACYCLINE] Allergy Unknown UNKNOWN Verified 06/26/21 13:29 Active Medications: Current Medications Acetaminophen (Acetaminophen Supp 650 Mg Supp.Rect) 650 mg TN Q6H PRN PRN Reason: Pain, Mild (Pain Scale 1-3) Dexamethasone Sodium Phosphate (Dexamethasone Sod Phosphate 4 Mg/Ml Vial) 6 mg IVPUSH DAILY [facility] Enoxaparin Sodium (Enoxaparin Sodium 40 Mg/0.4 Ml Syringe) 40 mg SUBCUT Q24H [facility] Vancomycin HCl 1,000 mg/ (Sodium Chloride) 270 mls @ 270 mls/hr IV Q12H [facility] Ceftriaxone Sodium 1 gm/ (Sodium Chloride) 50 mls @ 100 mls/hr IV Q12H [facility] Pharmacy Consult (Consult Rx Perform Med Rec) 1 each MISCELLANE ONCE PRN PRN Reason: Consult order Pharmacy Consult (Consult Rx Vancomycin Dosing) 1 each MISCELLANE DAILY PRN PRN Reason: Consult order Sodium Chloride (0.9 % Sodium Chloride Flush 3 Ml Syringe) 3 ml IVFLUSH QSHIFT [facility] Home Medications Medication Instructions Recorded Confirmed Last Taken Type clopidogrel 75 mg tablet 75 mg PO DAILY 06/12/21 01/15/22 Unknown History cyclobenzaprine 5 mg tablet 5 mg PO TID 06/12/21 01/15/22 Unknown History fluticasone furoate 200 1 ea INHALATION DAILY 06/12/21 01/15/22 Unknown History mcg-vilanterol 25 mcg/dose inhalation powder (Breo Ellipta) lurasidone 40 mg tablet (Latuda) 40 mg PO BEDTIME 06/12/21 01/15/22 Unknown History oxybutynin chloride 10 mg 10 mg PO DAILY 06/12/21 01/15/22 Unknown History tablet,extended release 24 hr simvastatin 20 mg tablet 20 mg PO BEDTIME 06/12/21 01/15/22 Unknown History famotidine 40 mg tablet 40 mg PO DAILY 06/26/21 01/15/22 Unknown History furosemide 40 mg tablet 40 mg PO DAILY 06/26/21 01/15/22 Unknown History hydrocodone 5 mg-acetaminophen 325 1 tab PO QID 06/26/21 01/15/22 Unknown History mg tablet lurasidone 60 mg tablet (Latuda) 60 mg PO BEDTIME 06/26/21 01/15/22 Unknown History mirabegron 50 mg tablet,extended 50 mg PO BEDTIME 06/26/21 01/15/22 Unknown History release 24 hr (Myrbetriq) paliperidone palmitate 156 mg/mL 156 mg IM Q28D 06/26/21 01/15/22 Unknown History intramuscular syringe (Invega Sustenna) pramipexole 0.25 mg tablet 0.25 mg PO BEDTIME 06/26/21 01/15/22 Unknown History trihexyphenidyl 5 mg tablet 5 mg PO TID 06/26/21 01/15/22 Unknown History acetaminophen 325 mg tablet 325 mg PO QID 01/15/22 01/15/22 Unknown History albuterol sulfate 90 mcg/actuation 4 inh INHALATION Q4H PRN 01/15/22 01/15/22 Unknown History breath activated powder inhaler,sensor ascorbic acid (vitamin C) 500 mg 500 mg PO DAILY 01/15/22 01/15/22 Unknown History tablet aspirin 81 mg chewable tablet 81 mg PO DAILY 01/15/22 01/15/22 Unknown History cholecalciferol (vitamin D3) 1,250 1,250 mcg PO MO 01/15/22 01/15/22 Unknown History mcg (50,000 unit) tablet docusate sodium 100 mg tablet 100 mg PO BID 01/15/22 01/15/22 Unknown History lactulose 10 gram/15 mL oral 20 g PO Q12H PRN 01/15/22 01/15/22 Unknown History solution lanolin alcohols-mineral 1 appl TOPICAL QPM 01/15/22 01/15/22 Unknown History oil-w.petrolatum-ceresin topical cream (Minerin Creme) lithium carbonate 300 mg 300 mg PO BEDTIME 01/15/22 01/15/22 Unknown History tablet,extended release menthol 5 % topical patch (Bengay 1 patch TOPICAL DAILY PRN 01/15/22 01/15/22 Unknown History Ultra Strength (menthol)) metoprolol tartrate 25 mg tablet 25 mg PO BID 01/15/22 01/15/22 Unknown History sennosides 8.6 mg tablet (senna) 17.2 mg PO BID 01/15/22 01/15/22 Unknown History Physical Exam Vital Signs and Narrative: Vital Signs: Last Vital Signs Temp 98.0 F 01/15/22 22:20 Pulse 107 H 01/15/22 22:20 Resp 20 01/15/22 22:20 BP 107/72 01/15/22 22:20 Pulse Ox 100 01/15/22 22:20 Oxygen Flow Rate 2 01/15/22 10:40 BMI result Body Mass Index 22.3 Gen: Appears be in no acute distress. patient lying in the bed on supplemental oxygen. Mildly tachycardic and tachypneic on telemetry. Patient response to verbal stimulus by moaning and giving simple answers. Oriented james es 1-2. HEENT: NCAT, Moist mucosa. Pulmonary: Coarse breath sounds, fair air entry CVS: Normal S1-S2 Abdomen: BS+, Soft, Mildly tender diffusely. Extremities: Warm well perfused Neuro: Alert and awake. patient able to move extremities. Limited exam. Results Labs CBC and Chem 7: 01/15/22 12:03 01/15/22 12:03 Labs: Laboratory Results - last 24 hr 01/15/22 01/15/22 01/15/22 12:02 12:03 12:03 MCV 96.3 MCH 30.2 MCHC 31.4 RDW 15.5 Plt Count 369 MPV 9.8 Immature Gran % (Auto) 0.4 Neut % (Auto) 73.6 H Lymph % (Auto) 18.3 L [place] % (Auto) 7.5 Eos % (Auto) 0.0 Baso % (Auto) 0.2 Lymph # (Auto) 1.5 [place] # (Auto) 0.6 Eos # (Auto) 0.0 Baso # (Auto) 0.0 Abs Immat Gran (auto) 0.03 Absolute Neuts (auto) 5.9 Absolute Nucleated RBC 0.000 Nucleated RBC % (auto) 0.0 D-Dimer High Sensitivty Anion Gap 15 Estim Creat Clear Calc 90.5 Estimated GFR > 60 Random Glucose 105 Lactic Acid Calcium 8.7 Magnesium 1.7 Ferritin Total Bilirubin 1.0 Direct Bilirubin 0.4 AST 103 H ALT 47 H Alkaline Phosphatase 97 Ammonia 64 H Lactate Dehydrogenase C-Reactive Protein B-Natriuretic Peptide Total Protein 6.1 L Albumin 2.8 L Lipase 4 L Procalcitonin Urine Color Urine Appearance Urine pH Ur Specific [place] Urine Protein Urine Glucose (UA) Urine Ketones Urine Blood Urine Nitrite Ur Leukocyte Esterase COVID-19 (AI) COVID-19 Clin Com 0301/15/22 01/15/22 12:03 12:03 14:57 MCV MCH MCHC RDW Plt Count MPV Immature Gran % (Auto) Neut % (Auto) Lymph % (Auto) [place] % (Auto) Eos % (Auto) Baso % (Auto) Lymph # (Auto) [place] # (Auto) Eos # (Auto) Baso # (Auto) Abs Immat Gran (auto) Absolute Neuts (auto) Absolute Nucleated RBC Nucleated RBC % (auto) D-Dimer High Sensitivty Anion Gap Estim Creat Clear Calc Estimated GFR Random Glucose Lactic Acid 1.9 Calcium Magnesium Ferritin Total Bilirubin Direct Bilirubin AST ALT Alkaline Phosphatase Ammonia Lactate Dehydrogenase C-Reactive Protein B-Natriuretic Peptide 158 H Total Protein Albumin Lipase Procalcitonin Urine Color Urine Appearance Urine pH Ur Specific [place] Urine Protein Urine Glucose (UA) Urine Ketones Urine Blood Urine Nitrite Ur Leukocyte Esterase COVID-19 (AI) Positive [employer] Com See Note 01/15/22 01/15/22 01/15/22 14:57 16:39 16:39 MCV MCH MCHC RDW Plt Count MPV Immature Gran % (Auto) Neut % (Auto) Lymph % (Auto) [place] % (Auto) Eos % (Auto) Baso % (Auto) Lymph # (Auto) [place] # (Auto) Eos # (Auto) Baso # (Auto) Abs Immat Gran (auto) Absolute Neuts (auto) Absolute Nucleated RBC Nucleated RBC % (auto) D-Dimer High Sensitivty 168 Anion Gap Estim Creat Clear Calc Estimated GFR Random Glucose Lactic Acid Calcium Magnesium Ferritin 166 Total Bilirubin Direct Bilirubin AST ALT Alkaline Phosphatase Ammonia Lactate Dehydrogenase 231 H C-Reactive Protein 2.74 H B-Natriuretic Peptide Total Protein Albumin Lipase Procalcitonin Urine Color YELLOW Urine Appearance CLEAR Urine pH 6.0 Ur Specific [place] <= 1.005 Urine Protein NEG Urine Glucose (UA) NEG Urine Ketones NEG Urine Blood NEG Urine Nitrite NEG Ur Leukocyte Esterase NEG COVID-19 (AI) COVID-[employer] 01/15/22 16:39 MCV MCH MCHC RDW Plt Count MPV Immature Gran % (Auto) Neut % (Auto) Lymph % (Auto) [place] % (Auto) Eos % (Auto) Baso % (Auto) Lymph # (Auto) [place] # (Auto) Eos # (Auto) Baso # (Auto) Abs Immat Gran (auto) Absolute Neuts (auto) Absolute Nucleated RBC Nucleated RBC % (auto) D-Dimer High Sensitivty Anion Gap Estim Creat Clear Calc Estimated GFR Random Glucose Lactic Acid Calcium Magnesium Ferritin Total Bilirubin Direct Bilirubin AST ALT Alkaline Phosphatase Ammonia Lactate Dehydrogenase C-Reactive Protein B-Natriuretic Peptide Total Protein Albumin Lipase Procalcitonin 10.28 Urine Color Urine Appearance Urine pH Ur Specific [place] Urine Protein Urine Glucose (UA) Urine Ketones Urine Blood Urine Nitrite Ur Leukocyte Esterase COVID-19 (AI) COVID-19 Clin Com Imaging Radiologist's Impressions: Impressions Chest X-Ray 01/15/22 12:10 IMPRESSION: Chronic elevation of the left hemidiaphragm with basilar disease. Right lower lobe disease with probable small effusion. Cardiomegaly without pulmonary edema. Severe degenerative change of the glenohumeral joints with deformity of the humeral heads. Abdomen/Pelvis CT 01/15/22 14:01 IMPRESSION: Significantly distended gallbladder likely from decreased by mouth intake. No radiopaque gallstones, duodenal calculi or radiopaque urinary bladder. The urinary bladder is significantly distended. Moderate gaseous prominence of small bowel loops with some of the loops containing fluid. No free air or inflammatory process seen in the abdomen. Multiple bilateral renal cysts. Fleischner guidelines were followed. Head CT 01/15/22 14:01 IMPRESSION: 1. No evidence of acute intracranial hemorrhage or edematous territorial infarction. 2. Extensive underlying white matter disease. 3. Moderate generalized cerebral volume loss. 4. Near complete opacification of the right sphenoid air cell. Abdomen/Pelvis CT 01/15/22 21:36 IMPRESSION: Bilateral lower lobe pneumonia. Very dilated fluid and contrast filled stomach. Possible aspiration should be considered. Dilated fluid-filled small bowel questionable for partial small bowel obstruction versus ileus. Distended colon and constipation. Very distended gallbladder similar to earlier exam. Left renal cysts. Severe atherosclerotic disease. Fleischner guidelines were followed. Assessment and Plan (1) Pneumonia: Status: Acute (2) Acute dehydration: Status: Acute (3) COVID-19: Status: Acute (4) Failure to thrive in adult: Status: Acute Plan 62-year-old female with a past medical history of hypertension, hyperlipidemia, diabetes, CAD, peripheral vascular disease, COPD on supplemental oxygen as needed, history of hep C, history of hyponatremia, history of TBI, history of recurrent left shoulder dislocation, generalized muscle weakness, paranoid schizophrenia, major depressive disorder, PTSD, GERD, dysphagia, history of hyperprolactinemia, diaphragmatic hernia, chronic pain syndrome, history of COVID-19 positive, presented from the [facility] with a chief complaint of poor oral intake for the past few days and abdominal discomfort. Noted to have following conditions Altered mental status: Toxic metabolic encephalopathy. CT head showed no acute findings. Supportive care. COVID-19 Positive: patient hypoxic to 91% on room air. Will give the patient on Decadron 6 mg Id consult for further recommendations Pneumonia: Hcap/ concern for aspiration pneumonia. Continue IV vancomycin and Zosyn aspiration precautions Speech and swallow eval NPO Partial SBO /dilated stomach/dilated gallbladder: General surgery was notified by the ER team. History of diabetes: Insulin sliding scale History of hypertension: Continue home metoprolol with holding parameters history of schizoaffective disorder/PTSD /major depression: Continue home medications DVT prophylaxis: Lovenox Code status: Full code- as per paperwork from the [facility]. Tried to reach the patient's guardian -Kavya Frantz - [phone]; unable to reach; could not leave the message as voicemail is full. Quality Stroke Does the patient have a stroke diagnosis?: No VTE Prior VTE?: No VTE Risk Level:: Medical - moderate - high VTE Device Contraindication: Treatment Not Indicated VTE Drug Contraindication: N/A - Med Ordered
[2022-01-15] MEDS: Enoxaparin Sodium 40 MG/0.4 ML SYRINGE SUBCUT (23:59)
[2022-01-15] MEDS: cefTRIAXone sodium 1 GM in 0.9 % Sodium Chloride 50 ML IV (23:59)
--- NOTE | 2022-01-16 00:02 | PC.NURSE ---
Pharmacy called this RN to verify last time Invega shot was given as it is due q28d. This RN assessed MAR but was unable to find Invega listed. Pharmacy aware. Per pharmacy, plan for AM pharmacy to review. Pt medicated per MAR. Pt resting on stretcher in nad breathing with ease on RA, VSS.
[2022-01-16 00:13] VITALS: BP 116/74; PULSE 108; RESP 22; O2SAT 100
[2022-01-16 01:10] LABS: Glucose, Whole Blood 94 mg/dL (60-115)
--- NOTE | 2022-01-16 03:02 | PC.NURSE ---
Pt asleep on stretcher in between care in nad, breathing with ease on baseline NC with equal chest rise and fall bilaterally. Pt legs repositioned during rounding as pt's L leg was pressed against siderail of stretcher. Pt awoke and stated I was doing fine and I was comfortable until you came in here. This RN provides reassurance and encourages pt to return to sleep. Stretcher remains in low locked position, rails raised, call santiago within reach. Red fall prevention socks and red fall star sign posted.
[2022-01-16 03:03] VITALS: BP 124/78; PULSE 116; RESP 22; TEMP 37; O2SAT 98
[2022-01-16 05:44] VITALS: BP 125/77; PULSE 110; RESP 24; O2SAT 97
--- NOTE | 2022-01-16 05:45 | PC.NURSE ---
Pt yelled out requesting water. This RN to bedside, pt reminded that she is NPO but this RN provided swabs to mouth to provide moisture. Pt expresses appreciation, smiles, requests swab again. Pt then begins yelling again, requesting pepsi. This RN reminds pt of NPO status. This RN offers to reposition patient on stretcher. Pt yells, refuses, states get this monster out of here. Pt allowed to rest in position of comfort. Pt remains on bedside playground monitor, ST, VSS. Pt stretcher in low locked position, rails raised, call santiago within reach.
[2022-01-16 06:09] LABS: MANUAL DIFF FLAG NO
[2022-01-16 06:14] LABS: Basophils Percent Auto 0.2 % (0-2); Hematocrit 33.2 % (37.0-47.0); Hemoglobin 10.4 g/dl (12.0-16.0); Imm Gran Abs Auto 0.03 X10*3/uL (0.00-0.03); Imm Gran Pct Auto 0.5 % (0.0-0.4); Lymphocytes Percent Auto 16.3 % (20-40); Mean Corpuscular HGB Conc 31.3 g/dl (31.0-35.0); Mean Corpuscular Hemoglobin 30.2 pg (27.0-33.0); Mean Corpuscular Volume 96.5 fL (80.0-98.0); Mean Platelet Volume 9.6 fL (9.4-12.3); Monocytes Absolute Auto 0.5 X10*3/uL (0.1-1.2); Monocytes Percent Auto 7.8 % (2-11); Neutrophils Absolute Auto 4.8 x10*3/uL (2.0-8.3); Neutrophils Percent Auto 75.2 % (45-73); Platelet Count 325 X10*3/uL (160-400); Red Blood Count 3.44 X10*6/uL (4.20-5.50); Red Cell Distribution Width 15.6 % (11.0-16.0); White Blood Count 6.4 X10*3/uL (4.8-10.8)
[2022-01-16 06:34] LABS: Magnesium 1.5 mg/dL (1.6-2.6)
[2022-01-16 06:49] LABS: Anion Gap 10 (12-20); Blood Urea Nitrogen 6 mg/dL (9-16); Calcium 8.2 mg/dL (8.4-10.2); Carbon Dioxide 28 mmol/L (22-29); Chloride 106 mmol/L (96-108); Creatinine Clr Calc Pharmacy 110.5; Estimated Glomerular Filt Rate > 60; Glucose Random 91 mg/dL (60-115); Sodium 141 mmol/L (135-145)
--- NOTE | 2022-01-16 06:58 | PC.NURSE ---
Report given to GRICELDA Flanagan
--- NOTE | 2022-01-16 07:11 | PHA.PROG ---
Admission Date/Time: January 15, 2022 23:15 Indication: Pneumonia/COVID + Weight in k.7 kg Adjusted body weight in K.8 KG [place] body weight in K.6 kg Obesity Dosing Indication % IBW: 105 % Serum Creatinine - Last 168 Hours 01/15/22 01/16/22 12:03 06:05 Creatinine 0.61 0.50 Estimated CrCl and GFR - Last 168 Hours 01/15/22 01/16/22 12:03 06:05 Estim Creat Clear Calc 90.5 110.5 Estimated GFR > 60 > 60 Vancomycin Loading Dose: N/A Current Vancomycin Dosing Regimen: 1250 mg Q12H Date and Time for next Vancomycin Level to be drawn: 01/17 @ 0600 Pharmacist Comments on Vancomycin Plan: While patient is older patient has a great % IBW as well as kidney function First dose vancomycin 750 mg given in the ED 01/15 @ 1947. This is not an adequate loading dose for the patient. Will give vancomcyin 1250 mg Q12H for at least two dose to get patient is therapeutic levels after third dose. Vancomycin 1250 mg Q12H has an expected to a therapuetic regimen with an AUC of 564 with a trough of 16.4 If patient's trough is higher than expected will need to decrease dose to 1000 mg Q12H Pharmacy will continue to monitor renal function daily Blanche Dimas PharmD Vancomycin dosing will take advantage of [employer] as a clinical decision support tool that uses Bayesian modeling to calculate individual patient's pharmacokinetic parameters and forecast the patient's drug concentration time course with the target goal AUC 24 range of 400 - 600 mg/L/hr.
[2022-01-16 07:14] LABS: Potassium 2.8 mmol/L (3.3-5.1)
[2022-01-16 07:42] LABS: Glucose, Whole Blood 96 mg/dL (60-115)
[2022-01-16] MEDS: Clopidogrel Bisulfate 75 MG TABLET PO (08:14)
[2022-01-16] MEDS: Metoprolol Tartrate 25 MG TABLET PO ×2 (08:14→21:21)
[2022-01-16] MEDS: Sennosides 8.6 MG TABLET 17.2 MG PO ×2 (08:14→21:21)
[2022-01-16] MEDS: Aspirin 81 MG TAB.CHEW PO (08:14)
[2022-01-16] MEDS: Atorvastatin Calcium 10 MG TABLET PO (08:15)
[2022-01-16] MEDS: Cyclobenzaprine HCl 5 MG TABLET PO ×3 (08:15→21:20)
[2022-01-16] MEDS: Famotidine 20 MG TABLET 40 MG PO (08:15)
--- NOTE | 2022-01-16 08:18 | P.CONGS_ITS ---
History of Present Illness Consult details Consult date: 01/16/22 Narrative: 62-year-old female with multiple medical problems including traumatic brain injury, schizophrenia, COPD and coronary disease, brought to the ER from the half-way yesterday because of poor oral intake for a few days now. She apparently had also some abdominal discomfort. It was also reported that she may have had some altered mental status. There was no report of nausea or vomiting. The patient is a very poor historian. She answers some questions but mostly rambles and is difficult to understand. She seems to be bed-bound for years now. She did state to me that she had back pain and pain on her buttocks. She says she has pain all over her body as well. She had a CAT scan last night showing distended stomach and small bowel with question of partial small-bowel obstruction. Surgery was therefore consulted. 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 Bone disease Chronic pain Depressive disorder Diabetes mellitus, type II Edema GERD (gastroesophageal reflux disease) Hepatitis C Hernia HTN (hypertension) Hyperprolactinemia Hyponatremia Polydipsia Schizophrenia Urinary incontinence Surgical History Surgical History History of surgery Social History Social History Household Members: None Housing: [facility] Do you presently have visiting nurse or other home services: No (from snf) Unable to assess alcohol history related to: Unknown Alcohol intake: unknown Patient Tobacco Use Status: Former Tobacco user service: No Current occupational status: disabled Meds Allergies Allergy/AdvReac Type Severity Reaction Status Date / Time codeine [CODEINE] Allergy Unknown UNKNOWN Verified 06/26/21 13:29 lactose [LACTOSE] Allergy Unknown UNKNOWN Verified 06/26/21 13:29 meloxicam [MELOXICAM] Allergy Unknown UNKNOWN Verified 06/26/21 13:29 penicillin V Allergy Unknown Unknown Verified 06/26/21 13:29 Penicillins [PENICILLINS] Allergy Unknown UNKNOWN Verified 06/26/21 13:29 tetracycline [TETRACYCLINE] Allergy Unknown UNKNOWN Verified 06/26/21 13:29 Active Medications: Current Medications Acetaminophen (Acetaminophen Supp 650 Mg Supp.Rect) 650 mg [place] Q6H PRN PRN Reason: Pain, Mild (Pain Scale 1-3) Aspirin (Aspirin 81 Mg Tab.Chew) 81 mg PO DAILY [facility] Last Admin: 01/16/22 08:14 Dose: 81 mg Documented by: Atorvastatin Calcium (Atorvastatin Calcium 10 Mg Tablet) 10 mg PO DAILY [facility] Last Admin: 01/16/22 08:15 Dose: 10 mg Documented by: Clopidogrel Bisulfate (Clopidogrel Bisulfate 75 Mg Tablet) 75 mg PO DAILY [facility] Last Admin: 01/16/22 08:14 Dose: 75 mg Documented by: Cyclobenzaprine HCl (Cyclobenzaprine Hcl 5 Mg Tablet) 5 mg PO TID [facility] Last Admin: 01/16/22 08:15 Dose: 5 mg Documented by: Dextrose (Dextrose 50 % 25 Gm/50 Ml Syringe) 25 gm IVPUSH Q15M PRN; Protocol PRN Reason: per Hypoglycemia Standing Ord. Docusate Sodium (Docusate Sodium 100 Mg Capsule) 100 mg PO BID [facility] Enoxaparin Sodium (Enoxaparin Sodium 40 Mg/0.4 Ml Syringe) 40 mg SUBCUT Q24H [facility] Last Admin: 01/15/22 23:59 Dose: 40 mg Documented by: Famotidine (Famotidine 20 Mg Tablet) 40 mg PO DAILY [facility] Last Admin: 01/16/22 08:15 Dose: 40 mg Documented by: Glucose (Glucose Gel 15 Gm Gel..Gram.) 15 gm PO Q15M PRN; Protocol PRN Reason: per Hypoglycemia Standing Ord. Ceftriaxone Sodium 1 gm/ (Sodium Chloride) 50 mls @ 100 mls/hr IV Q12H [facility] Last Infusion: 01/16/22 01:05 Dose: Infused Documented by: Vancomycin HCl 1,250 mg/ (Sodium Chloride) 250 mls @ 166.667 mls/hr IV Q12H [facility] Insulin Human Lispro (Insulin Lispro 100 Unit/Ml 3 Ml Vial) 0 unit SUBCUT QIDACHS [facility]; Protocol Last Admin: 01/16/22 07:56 Dose: Not Given Documented by: Thornhill Carbonate (Thornhill Carbonate Er 300 Mg Tablet.Er) 300 mg PO BEDTIME [facility] Lurasidone HCl (Lurasidone Hcl 40 Mg Tablet) 40 mg PO BEDTIME [facility] Lurasidone HCl (Lurasidone Hcl 40 Mg Tablet) 60 mg PO BEDTIME [facility] Metoprolol Tartrate (Metoprolol Tartrate 25 Mg Tablet) 25 mg PO BID [facility]; Protocol Last Admin: 01/16/22 08:14 Dose: 25 mg Documented by: Mirabegron (Mirabegron 50 Mg Tab.Er.24h) 50 mg PO BEDTIME [facility] Paliperidone Palmitate (Paliperidone Palmitate 156 Mg/Ml Syringe) 156 mg IM Q28D [facility] Pharmacy Consult (Consult Rx Perform Med Rec) 1 each MISCELLANE ONCE PRN PRN Reason: Consult order Pharmacy Consult (Consult Rx Vancomycin Dosing) 1 each MISCELLANE DAILY PRN PRN Reason: Consult order Pramipexole Dihydrochloride (Pramipexole Di-Hcl 0.25 Mg Tablet) 0.25 mg PO BEDTIME [facility] Senna (Sennosides 8.6 Mg Tablet) 17.2 mg PO BID [facility] Last Admin: 01/16/22 08:14 Dose: 17.2 mg Documented by: Sodium Chloride (0.9 % Sodium Chloride Flush 3 Ml Syringe) 3 ml IVFLUSH QSHIFT [facility] Last Admin: 01/16/22 00:00 Dose: Not Given Documented by: Trihexyphenidyl HCl (Trihexyphenidyl Hcl 2 Mg Tablet) 5 mg PO TID [facility] Trolamine Salicylate/Aloe Vera (Trolamine Salicylate 10%/Aloe Cream 35.4 Gm) 1 appl TOPICAL DAILY PRN PRN Reason: LOWER BACK, RIGHT KNEE PAIN Home Medications Medication Instructions Recorded Confirmed Last Taken Type clopidogrel 75 mg tablet 75 mg PO DAILY 06/12/21 01/15/22 Unknown History cyclobenzaprine 5 mg tablet 5 mg PO TID 06/12/21 01/15/22 Unknown History fluticasone furoate 200 1 ea INHALATION DAILY 06/12/21 01/15/22 Unknown History mcg-vilanterol 25 mcg/dose inhalation powder (Breo Ellipta) lurasidone 40 mg tablet (Latuda) 40 mg PO BEDTIME 06/12/21 01/15/22 Unknown History oxybutynin chloride 10 mg 10 mg PO DAILY 06/12/21 01/15/22 Unknown History tablet,extended release 24 hr simvastatin 20 mg tablet 20 mg PO BEDTIME 06/12/21 01/15/22 Unknown History famotidine 40 mg tablet 40 mg PO DAILY 06/26/21 01/15/22 Unknown History furosemide 40 mg tablet 40 mg PO DAILY 06/26/21 01/15/22 Unknown History hydrocodone 5 mg-acetaminophen 325 1 tab PO QID 06/26/21 01/15/22 Unknown History mg tablet lurasidone 60 mg tablet (Latuda) 60 mg PO BEDTIME 06/26/21 01/15/22 Unknown History mirabegron 50 mg tablet,extended 50 mg PO BEDTIME 06/26/21 01/15/22 Unknown History release 24 hr (Myrbetriq) paliperidone palmitate 156 mg/mL 156 mg IM Q28D 06/26/21 01/15/22 Unknown History intramuscular syringe (Invega Sustenna) pramipexole 0.25 mg tablet 0.25 mg PO BEDTIME 06/26/21 01/15/22 Unknown History trihexyphenidyl 5 mg tablet 5 mg PO TID 06/26/21 01/15/22 Unknown History acetaminophen 325 mg tablet 325 mg PO QID 01/15/22 01/15/22 Unknown History albuterol sulfate 90 mcg/actuation 4 inh INHALATION Q4H PRN 01/15/22 01/15/22 Unknown History breath activated powder inhaler,sensor ascorbic acid (vitamin C) 500 mg 500 mg PO DAILY 01/15/22 01/15/22 Unknown History tablet aspirin 81 mg chewable tablet 81 mg PO DAILY 01/15/22 01/15/22 Unknown History cholecalciferol (vitamin D3) 1,250 1,250 mcg PO MO 01/15/22 01/15/22 Unknown History mcg (50,000 unit) tablet docusate sodium 100 mg tablet 100 mg PO BID 01/15/22 01/15/22 Unknown History lactulose 10 gram/15 mL oral 20 g PO Q12H PRN 01/15/22 01/15/22 Unknown History solution lanolin alcohols-mineral 1 appl TOPICAL QPM 01/15/22 01/15/22 Unknown History oil-w.petrolatum-ceresin topical cream (Minerin Creme) lithium carbonate 300 mg 300 mg PO BEDTIME 01/15/22 01/15/22 Unknown History tablet,extended release menthol 5 % topical patch (Bengay 1 patch TOPICAL DAILY PRN 01/15/22 01/15/22 Unknown History Ultra Strength (menthol)) metoprolol tartrate 25 mg tablet 25 mg PO BID 01/15/22 01/15/22 Unknown History sennosides 8.6 mg tablet (senna) 17.2 mg PO BID 01/15/22 01/15/22 Unknown History Physical Exam Vital Signs: Vital Signs: Last Vital Signs Temp 98.6 F 01/16/22 03:03 Pulse 110 H 01/16/22 05:44 Resp 24 H 01/16/22 05:44 BP 125/77 01/16/22 05:44 Pulse Ox 97 01/16/22 05:44 Oxygen Flow Rate 2 01/15/22 10:40 BMI result Body Mass Index 22.3 Const: Other: Awake, appears very frail answer some questions although often unintelligible and with repetitious words General: no acute distress Resp: Other: A little short of breath Cardio: Rate: tachycardic GI: Other: Soft, no guarding rebound, no obvious tenderness, no palpable masses Results Labs Result diagrams: 01/19/22 08:43 01/19/22 08:43 Labs: Abnormal lab results 01/15/22 01/15/22 01/15/22 Range/Units 12:02 12:03 12:03 RBC 3.74 L (4.20-5.50) X10*6/uL Hgb 11.3 L (12.0-16.0) g/dl Hct 36.0 L (37.0-47.0) % Immature Gran % (Auto) (0.0-0.4) % Neut % (Auto) 73.6 H (45-73) % Lymph % (Auto) 18.3 L (20-40) % Lymph # (Auto) (1.2-4.9) X10*3/uL Potassium (3.3-5.1) mmol/L Anion Gap (12-20) BUN 5 L (9-16) mg/dL Calcium (8.4-10.2) mg/dL Magnesium (1.6-2.6) mg/dL AST 103 H (5-31) U/L ALT 47 H (0-31) U/L Ammonia 64 H (13-55) umol/L Lactate Dehydrogenase (122-220) U/L C-Reactive Protein (< or = 0.50) mg/dL B-Natriuretic Peptide (<100) pg/mL Total Protein 6.1 L (6.5-8.0) g/dL Albumin 2.8 L (3.5-5.0) g/dL Lipase 4 L (8-78) U/L COVID-19 (AI) (Negative) 01/15/22 01/15/22 01/15/22 Range/Units 12:03 14:57 16:39 RBC (4.20-5.50) X10*6/uL Hgb (12.0-16.0) g/dl Hct (37.0-47.0) % Immature Gran % (Auto) (0.0-0.4) % Neut % (Auto) (45-73) % Lymph % (Auto) (20-40) % Lymph # (Auto) (1.2-4.9) X10*3/uL Potassium (3.3-5.1) mmol/L Anion Gap (12-20) BUN (9-16) mg/dL Calcium (8.4-10.2) mg/dL Magnesium (1.6-2.6) mg/dL AST (5-31) U/L ALT (0-31) U/L Ammonia (13-55) umol/L Lactate Dehydrogenase 231 H (122-220) U/L C-Reactive Protein 2.74 H (< or = 0.50) mg/dL B-Natriuretic Peptide 158 H (<100) pg/mL Total Protein (6.5-8.0) g/dL Albumin (3.5-5.0) g/dL Lipase (8-78) U/L COVID-19 (AI) Positive A (Negative) 01/16/22 01/16/22 01/16/22 Range/Units 06:05 06:05 06:05 RBC 3.44 L (4.20-5.50) X10*6/uL Hgb 10.4 L (12.0-16.0) g/dl Hct 33.2 L (37.0-47.0) % Immature Gran % (Auto) 0.5 H (0.0-0.4) % Neut % (Auto) 75.2 H (45-73) % Lymph % (Auto) 16.3 L (20-40) % Lymph # (Auto) 1.0 L (1.2-4.9) X10*3/uL Potassium 2.8 L D (3.3-5.1) mmol/L Anion Gap 10 L (12-20) BUN 6 L (9-16) mg/dL Calcium 8.2 L (8.4-10.2) mg/dL Magnesium 1.5 L (1.6-2.6) mg/dL AST (5-31) U/L ALT (0-31) U/L Ammonia (13-55) umol/L Lactate Dehydrogenase (122-220) U/L C-Reactive Protein (< or = 0.50) mg/dL B-Natriuretic Peptide (<100) pg/mL Total Protein (6.5-8.0) g/dL Albumin (3.5-5.0) g/dL Lipase (8-78) U/L COVID-19 (AI) (Negative) Short CBC 01/15/22 01/16/22 Range/Units 12:03 06:05 WBC 8.1 6.4 (4.8-10.8) X10*3/uL Hgb 11.3 L 10.4 L (12.0-16.0) g/dl Hct 36.0 L 33.2 L (37.0-47.0) % Plt Count 369 325 (160-400) X10*3/uL BMP 01/15/22 01/16/22 12:03 06:05 Sodium 135 141 Potassium 4.6 2.8 L D Chloride 100 106 Carbon Dioxide 25 28 BUN 5 L 6 L Creatinine 0.61 0.50 Calcium 8.7 8.2 L Liver Function 01/15/22 Range/Units 12:03 Total Bilirubin 1.0 (0.0-1.0) mg/dL Direct Bilirubin 0.4 (0.0-0.5) mg/dL AST 103 H (5-31) U/L ALT 47 H (0-31) U/L Alkaline Phosphatase 97 (39-117) U/L Albumin 2.8 L (3.5-5.0) g/dL Urine 01/15/22 Range/Units 14:57 Urine Color YELLOW Urine Appearance CLEAR Urine pH 6.0 (5.0-8.0) Ur Specific [place] <= 1.005 (1.005-1.025) Urine Protein NEG (NEG-TRACE) MG/DL Urine Glucose (UA) NEG (NEG) MG/DL All other labs normal. Assessment and Plan (1) Failure to thrive in adult: Status: Acute I have reviewed her CAT scan. The does have distension of the stomach and small bowel diffusely. However, I do not see any transition point. Furthermore, she does have gas in the distal colon and rectum. I do not feel that she has obstruction at this time. Overall clinical picture suggests more of an ileus.She has a very benign exam as well. Her imaging studies are suggestive of a pneumonia. I plan on reviewing her CAT scan with the radiologist. In the meantime, it may be best to also plan for swallow eval for her. I will follow along while she is in the hospital. Procedures Date of Service Date of Service: 01/16/22
[2022-01-16] MEDS: vancomycin HCL 1,250 MG in 0.9 % Sodium Chloride 250 ML 166.67 MG IV (08:26)
[2022-01-16] MEDS: Paliperidone Palmitate 156 MG/ML SYRINGE IM (08:30)
[2022-01-16] MEDS: Trihexyphenidyl HCL 2 MG TABLET 5 MG PO ×3 (08:35→21:19)
--- NOTE | 2022-01-16 09:51 | HO.PM.IMPN ---
Subjective Subjective Date of Service: 01/16/22 Interval History: cc: abnormal abd xray, decreased appetite interval history: no copmlaints, didnt know why she was in hospital Cardiovascular Cardiovascular: Reports no additional cardiovascular complaints Respiratory Respiratory: Reports no additional respiratory complaints Physical Exam Vital Signs: Vital Signs: Last Vital Signs Temp 98.6 F 01/16/22 03:03 Pulse 110 H 01/16/22 05:44 Resp 24 H 01/16/22 05:44 BP 125/77 01/16/22 05:44 Pulse Ox 97 01/16/22 05:44 Oxygen Flow Rate 2 01/15/22 10:40 BMI result Body Mass Index 22.3 General: AO X 2, no acute distress Resp: diminished bilateral, no accessory muscles used CVS: S1,S2,RRR GI: soft, distended, non tender Neuro: motor grossly intact, alert Psych: appropriate affect, impaired insight Objective Data Active Medications Acetaminophen (Acetaminophen Supp 650 Mg Supp.Rect) 650 mg MO Q6H PRN PRN Reason: Pain, Mild (Pain Scale 1-3) Aspirin (Aspirin 81 Mg Tab.Chew) 81 mg PO DAILY [facility] Last Admin: 01/16/22 08:14 Dose: 81 mg Documented by: EVELYN Atorvastatin Calcium (Atorvastatin Calcium 10 Mg Tablet) 10 mg PO DAILY [facility] Last Admin: 01/16/22 08:15 Dose: 10 mg Documented by: EVELYN Clopidogrel Bisulfate (Clopidogrel Bisulfate 75 Mg Tablet) 75 mg PO DAILY [facility] Last Admin: 01/16/22 08:14 Dose: 75 mg Documented by: EVELYN Cyclobenzaprine HCl (Cyclobenzaprine Hcl 5 Mg Tablet) 5 mg PO TID [facility] Last Admin: 01/16/22 08:15 Dose: 5 mg Documented by: EVELYN Dextrose (Dextrose 50 % 25 Gm/50 Ml Syringe) 25 gm IVPUSH Q15M PRN; Protocol PRN Reason: per Hypoglycemia Standing Ord. Docusate Sodium (Docusate Sodium 100 Mg Capsule) 100 mg PO BID [facility] Enoxaparin Sodium (Enoxaparin Sodium 40 Mg/0.4 Ml Syringe) 40 mg SUBCUT Q24H [facility] Last Admin: 01/15/22 23:59 Dose: 40 mg Documented by: PRAFUL Famotidine (Famotidine 20 Mg Tablet) 40 mg PO DAILY [facility] Last Admin: 01/16/22 08:15 Dose: 40 mg Documented by: EVELYN Glucose (Glucose Gel 15 Gm Gel..Gram.) 15 gm PO Q15M PRN; Protocol PRN Reason: per Hypoglycemia Standing Ord. Ceftriaxone Sodium 1 gm/ (Sodium Chloride) 50 mls @ 100 mls/hr IV Q12H [facility] Last Infusion: 01/16/22 01:05 Dose: 0 mls/hr Documented by: PRAFUL Insulin Human Lispro (Insulin Lispro 100 Unit/Ml 3 Ml Vial) 0 unit SUBCUT QIDACHS [facility]; Protocol Last Admin: 01/16/22 07:56 Dose: Not Given Documented by: EVELYN Non-Admin Reason: does not need coverage [place] Carbonate ([place] Carbonate Er 300 Mg Tablet.Er) 300 mg PO BEDTIME [facility] Lurasidone HCl (Lurasidone Hcl 40 Mg Tablet) 40 mg PO BEDTIME [facility] Lurasidone HCl (Lurasidone Hcl 40 Mg Tablet) 60 mg PO BEDTIME [facility] Magnesium Oxide (Magnesium Oxide 400 Mg Tablet) 400 mg PO BIDPC [facility] Metoprolol Tartrate (Metoprolol Tartrate 25 Mg Tablet) 25 mg PO BID [facility]; Protocol Last Admin: 01/16/22 08:14 Dose: 25 mg Documented by: EVELYN Mirabegron (Mirabegron 50 Mg Tab.Er.24h) 50 mg PO BEDTIME [facility] Paliperidone Palmitate (Paliperidone Palmitate 156 Mg/Ml Syringe) 156 mg IM Q28D [facility] Last Admin: 01/16/22 08:30 Dose: 156 mg Documented by: ITALO Pharmacy Consult (Consult Rx Perform Med Rec) 1 each MISCELLANE ONCE PRN PRN Reason: Consult order Pharmacy Consult (Consult Rx Vancomycin Dosing) 1 each MISCELLANE DAILY PRN PRN Reason: Consult order Pramipexole Dihydrochloride (Pramipexole Di-Hcl 0.25 Mg Tablet) 0.25 mg PO BEDTIME [facility] Senna (Sennosides 8.6 Mg Tablet) 17.2 mg PO BID [facility] Last Admin: 01/16/22 08:14 Dose: 17.2 mg Documented by: EVELYN Sodium Chloride (0.9 % Sodium Chloride Flush 3 Ml Syringe) 3 ml IVFLUSH QSHIFT [facility] Last Admin: 01/16/22 08:36 Dose: Not Given Documented by: ITALO Non-Admin Reason: IV Running Trihexyphenidyl HCl (Trihexyphenidyl Hcl 2 Mg Tablet) 5 mg PO TID [facility] Last Admin: 01/16/22 08:35 Dose: 5 mg Documented by: ITALO Trolamine Salicylate/Aloe Vera (Trolamine Salicylate 10%/Aloe Cream 35.4 Gm) 1 appl TOPICAL DAILY PRN PRN Reason: LOWER BACK, RIGHT KNEE PAIN Labs CBC & Chem 7: 01/16/22 06:05 01/16/22 06:05 Labs: Laboratory Results - last 24 hr 01/15/22 01/15/22 01/15/22 12:02 12:03 12:03 MCV 96.3 MCH 30.2 MCHC 31.4 RDW 15.5 Plt Count 369 MPV 9.8 Immature Gran % (Auto) 0.4 Neut % (Auto) 73.6 H Lymph % (Auto) 18.3 L [place] % (Auto) 7.5 Eos % (Auto) 0.0 Baso % (Auto) 0.2 Lymph # (Auto) 1.5 [place] # (Auto) 0.6 Eos # (Auto) 0.0 Baso # (Auto) 0.0 Abs Immat Gran (auto) 0.03 Absolute Neuts (auto) 5.9 Absolute Nucleated RBC 0.000 Nucleated RBC % (auto) 0.0 D-Dimer High Sensitivty Anion Gap 15 Estim Creat Clear Calc 90.5 Estimated GFR > 60 POC Glucose Random Glucose 105 Lactic Acid Calcium 8.7 Magnesium 1.7 Ferritin Total Bilirubin 1.0 Direct Bilirubin 0.4 AST 103 H ALT 47 H Alkaline Phosphatase 97 Ammonia 64 H Lactate Dehydrogenase C-Reactive Protein B-Natriuretic Peptide Total Protein 6.1 L Albumin 2.8 L Lipase 4 L Procalcitonin Urine Color Urine Appearance Urine pH Ur Specific Anita Urine Protein Urine Glucose (UA) Urine Ketones Urine Blood Urine Nitrite Ur Leukocyte Esterase COVID-19 (AI) COVID-19 Clin Com 01/15/22 01/15/22 01/15/22 12:03 12:03 14:57 MCV MCH MCHC RDW Plt Count MPV Immature Gran % (Auto) Neut % (Auto) Lymph % (Auto) [place] % (Auto) Eos % (Auto) Baso % (Auto) Lymph # (Auto) [place] # (Auto) Eos # (Auto) Baso # (Auto) Abs Immat Gran (auto) Absolute Neuts (auto) Absolute Nucleated RBC Nucleated RBC % (auto) D-Dimer High Sensitivty Anion Gap Estim Creat Clear Calc Estimated GFR POC Glucose Random Glucose Lactic Acid 1.9 Calcium Magnesium Ferritin Total Bilirubin Direct Bilirubin AST ALT Alkaline Phosphatase Ammonia Lactate Dehydrogenase C-Reactive Protein B-Natriuretic Peptide 158 H Total Protein Albumin Lipase Procalcitonin Urine Color Urine Appearance Urine pH Ur Specific [place]ita Urine Protein Urine Glucose (UA) Urine Ketones Urine Blood Urine Nitrite Ur Leukocyte Esterase COVID-19 (AI) Positive A COVID-19 Clin Com See Note 01/15/22 01/15/22 01/15/22 14:57 16:39 16:39 MCV MCH MCHC RDW Plt Count MPV Immature Gran % (Auto) Neut % (Auto) Lymph % (Auto) [place] % (Auto) Eos % (Auto) Baso % (Auto) Lymph # (Auto) [place] # (Auto) Eos # (Auto) Baso # (Auto) Abs Immat Gran (auto) Absolute Neuts (auto) Absolute Nucleated RBC Nucleated RBC % (auto) D-Dimer High Sensitivty 168 Anion Gap Estim Creat Clear Calc Estimated GFR POC Glucose Random Glucose Lactic Acid Calcium Magnesium Ferritin 166 Total Bilirubin Direct Bilirubin AST ALT Alkaline Phosphatase Ammonia Lactate Dehydrogenase 231 H C-Reactive Protein 2.74 H B-Natriuretic Peptide Total Protein Albumin Lipase Procalcitonin Urine Color YELLOW Urine Appearance CLEAR Urine pH 6.0 Ur Specific [place]ita <= 1.005 Urine Protein NEG Urine Glucose (UA) NEG Urine Ketones NEG Urine Blood NEG Urine Nitrite NEG Ur Leukocyte Esterase NEG COVID-19 (AI) COVID-19 Clin Com 01/15/22 01/16/22 01/16/22 16:39 01:06 06:05 MCV 96.5 MCH 30.2 MCHC 31.3 RDW 15.6 Plt Count 325 MPV 9.6 Immature Gran % (Auto) 0.5 H Neut % (Auto) 75.2 H Lymph % (Auto) 16.3 L [place] % (Auto) 7.8 Eos % (Auto) 0.0 Baso % (Auto) 0.2 Lymph # (Auto) 1.0 L [place] # (Auto) 0.5 Eos # (Auto) 0.0 Baso # (Auto) 0.0 Abs Immat Gran (auto) 0.03 Absolute Neuts (auto) 4.8 Absolute Nucleated RBC 0.000 Nucleated RBC % (auto) 0.0 D-Dimer High Sensitivty Anion Gap Estim Creat Clear Calc Estimated GFR POC Glucose 94 Random Glucose Lactic Acid Calcium Magnesium Ferritin Total Bilirubin Direct Bilirubin AST ALT Alkaline Phosphatase Ammonia Lactate Dehydrogenase C-Reactive Protein B-Natriuretic Peptide Total Protein Albumin Lipase Procalcitonin 10.28 Urine Color Urine Appearance Urine pH Ur Specific [place] Urine Protein Urine Glucose (UA) Urine Ketones Urine Blood Urine Nitrite Ur Leukocyte Esterase COVID-19 (AI) COVID-19 Clin Com 01/16/22 01/16/22 01/16/22 06:05 06:05 07:38 MCV MCH MCHC RDW Plt Count MPV Immature Gran % (Auto) Neut % (Auto) Lymph % (Auto) [place] % (Auto) Eos % (Auto) Baso % (Auto) Lymph # (Auto) [place] # (Auto) Eos # (Auto) Baso # (Auto) Abs Immat Gran (auto) Absolute Neuts (auto) Absolute Nucleated RBC Nucleated RBC % (auto) D-Dimer High Sensitivty Anion Gap 10 L Estim Creat Clear Calc 110.5 Estimated GFR > 60 POC Glucose 96 Random Glucose 91 Lactic Acid Calcium 8.2 L Magnesium 1.5 L Ferritin Total Bilirubin Direct Bilirubin AST ALT Alkaline Phosphatase Ammonia Lactate Dehydrogenase C-Reactive Protein B-Natriuretic Peptide Total Protein Albumin Lipase Procalcitonin Urine Color Urine Appearance Urine pH Ur Specific [place]ita Urine Protein Urine Glucose (UA) Urine Ketones Urine Blood Urine Nitrite Ur Leukocyte Esterase COVID-19 (AI) COVID-19 Clin Com Assessment and Plan (1) Failure to thrive in adult: Status: Acute Plan 62F sent in for decreased appetite. decreased appetite, FTT due to ileus. hold opiates, oxybutinin surgery following covid 19 positive was also positive about 6 weeks ago, ?reinfection vs slow clearance not hypoxic, will dc decadron follow up ID, keep airborne precautions for now hypokalemia 2.8, replace and monitor hypomagnesemia 1.5, replace and monitor bilateral lung opacities on CT concern for aspiratoin pneumonia dc vancomycin conitnue rocephin BIRTHING NURSE eval chronic hypoxic respiratory failue due to COPD on 2L home o2 at baseline DM insulin schizoaffective latuda, lithium invega received today CAD/PVD DAPL, statin reason for continued hospitalization: severe electrolyte abnormalities requiring close monitoring and replacement, awaiting return of bowel function dvt prophylaxis - lovenox full code Quality Stroke Does the patient have a stroke diagnosis?: No VTE Prior VTE?: No VTE Risk Level:: Medical - moderate - high VTE Device Contraindication: Treatment Not Indicated VTE Drug Contraindication: N/A - Med Ordered
[2022-01-16] MEDS: Potassium Chloride ER 20 MEQ TAB.ER.PRT 40 MEQ PO (10:34)
[2022-01-16] MEDS: Magnesium Oxide 400 MG TABLET PO ×2 (10:35→18:10)
--- NOTE | 2022-01-16 11:24 | MHC.SL.SWA ---
Speech Pathologist Impression: Risk of Aspiration Due to: Medically Fragile Neurological Condition History of Pneumonia Poor PO Intake Reduced Cognition Dysphasia Diet Status: Liquid Consistency and Strategies for Safe Swallow: Liquid Intake Recommendation: [place] Thick Liquid Intake Strategies: Small Sips No Straws Liquids by Teaspoon Only Solid Food Consistency: Dietary Recommendations: Pureed (NDD1) Additional Modifications to Solid Foods: Close supervision & 1-1 support during all meals, w/ monitor for signs of aspiration. Oral Medication Intake: Crushed with Puree Please contact the pharmacy regarding appropriate crushable or liquid drug formulations that are available whenever modified delivery is recommended. Compensatory Strategies and Precautions to be Taken for Safe Swallow: Sitting Upright (90 deg) No Straw Liquids from Spoon Small Bites and Sips Alternate Liquids/Solids Oral Check Supervision While Eating and Drinking for Safe Swallow: Total Supervision (1:1) Foods to Avoid: sticky, very congealed foods. Swallowing Recommended Treatments: Compens. Strategy Educat. Recommendation for Speech: Inpatient Speech Therapy Comment: Pt presents w/Oral Phase Dysphagia, w/ clinical s/s aspiration on cup sip of thin liquid, aspiration risk due to reduced cognition, maladaptive oral transit of liquid/solid bolus. Pt masticates liquid and solid textures w/prolonged, disorganized oral phase of swallow. If currently advancing from NPO, recommend diet consistencies of PUREE (NDD1) w/NECTAR THICK liquids, PILLS CRUSHED in PUREE. Pt will need full assistance and full supervision for all meals w/ close monitor to include: Alternating liquids and solids, periodic oral check, liquids from tsp, close monitor for signs of aspiration. Recommend continue to provide frequent oral care, to include damp swabs to moisturize mouth. MD, Nursing, Nutrition notified of recommendation by secure text. Frequency/Duration: Date Range for Service Req: Timeline to reassess: Lace Roller Operator Clinican/Clinical Fellow: No Supervisory Statement: I have reviewed and agree with the student/clinical fellow's documentation: N/A Speech Language Pathologist: Silvana Roberts M.A., CCC-FISH BUTCHER
[2022-01-16 11:30] VITALS: BP 116/74; PULSE 84; RESP 19; O2SAT 95
[2022-01-16] MEDS: Potassium Chloride/H20 10 MEQ/100 ML PIGGYBACK 100 MEQ IV ×2 (11:37→13:17)
[2022-01-16] MEDS: cefTRIAXone sodium 1 GM in 0.9 % Sodium Chloride 50 ML IV ×2 (11:41→22:32)
--- NOTE | 2022-01-16 12:46 | P.CNID_ITS ---
History of Present Illness Data of Consult Service Date: 01/16/22 Requesting physician: Adriel Montoya Primary Care Provider: Unknown Physician HPI Reason for consult: aspiration,positive COVID [facility] with abdominal discomfort epigastric 5/10 She has bilatera LLL pneumonia and distended GB There is concern over SBO She has positive COVID,unknown duration here Review of Systems Review of Systems: Yes Unobtainable due to mental condition [facility] Past Medical History Medical History (Updated 01/18/22 @ 15:01 by Caitie Ji MD) Anemia Aspiration pneumonia 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 Bone disease Chronic pain Depressive disorder Diabetes mellitus, type II Edema GERD (gastroesophageal reflux disease) Hepatitis C Hernia HTN (hypertension) Hyperprolactinemia Hyponatremia Polydipsia Schizophrenia Urinary incontinence Family History Family history: reviewed and not pertinent Surgical History Surgical History History of surgery Social History Social History Household Members: None Housing: [facility] Do you presently have visiting nurse or other home services: No (from snf) Unable to assess alcohol history related to: Unknown Alcohol intake: unknown Patient Tobacco Use Status: Former Tobacco user service: No Current occupational status: disabled Meds Allergies Allergy/AdvReac Type Severity Reaction Status Date / Time codeine [CODEINE] Allergy Unknown UNKNOWN Verified 06/26/21 13:29 lactose [LACTOSE] Allergy Unknown UNKNOWN Verified 06/26/21 13:29 meloxicam [MELOXICAM] Allergy Unknown UNKNOWN Verified 06/26/21 13:29 penicillin V Allergy Unknown Unknown Verified 06/26/21 13:29 Penicillins [PENICILLINS] Allergy Unknown UNKNOWN Verified 06/26/21 13:29 tetracycline [TETRACYCLINE] Allergy Unknown UNKNOWN Verified 06/26/21 13:29 Active Medications: Current Medications Acetaminophen (Acetaminophen Supp 650 Mg Supp.Rect) 650 mg MO Q6H PRN PRN Reason: Pain, Mild (Pain Scale 1-3) Aspirin (Aspirin 81 Mg Tab.Chew) 81 mg PO DAILY [facility] Last Admin: 01/16/22 08:14 Dose: 81 mg Documented by: Atorvastatin Calcium (Atorvastatin Calcium 10 Mg Tablet) 10 mg PO DAILY [facility] Last Admin: 01/16/22 08:15 Dose: 10 mg Documented by: Clopidogrel Bisulfate (Clopidogrel Bisulfate 75 Mg Tablet) 75 mg PO DAILY [facility] Last Admin: 01/16/22 08:14 Dose: 75 mg Documented by: Cyclobenzaprine HCl (Cyclobenzaprine Hcl 5 Mg Tablet) 5 mg PO TID [facility] Last Admin: 01/16/22 08:15 Dose: 5 mg Documented by: Dextrose (Dextrose 50 % 25 Gm/50 Ml Syringe) 25 gm IVPUSH Q15M PRN; Protocol PRN Reason: per Hypoglycemia Standing Ord. Docusate Sodium (Docusate Sodium 100 Mg Capsule) 100 mg PO BID [facility] Last Admin: 01/16/22 10:40 Dose: Not Given Documented by: Enoxaparin Sodium (Enoxaparin Sodium 40 Mg/0.4 Ml Syringe) 40 mg SUBCUT Q24H [facility] Last Admin: 01/15/22 23:59 Dose: 40 mg Documented by: Famotidine (Famotidine 20 Mg Tablet) 40 mg PO DAILY [facility] Last Admin: 01/16/22 08:15 Dose: 40 mg Documented by: Glucose (Glucose Gel 15 Gm Gel..Gram.) 15 gm PO Q15M PRN; Protocol PRN Reason: per Hypoglycemia Standing Ord. Ceftriaxone Sodium 1 gm/ (Sodium Chloride) 50 mls @ 100 mls/hr IV Q12H [facility] Last Infusion: 01/16/22 12:13 Dose: Infused Documented by: Insulin Human Lispro (Insulin Lispro 100 Unit/Ml 3 Ml Vial) 0 unit SUBCUT QIDACHS [facility]; Protocol Last Admin: 01/16/22 07:56 Dose: Not Given Documented by: [place] Carbonate ([place] Carbonate Er 300 Mg Tablet.Er) 300 mg PO BEDTIME [facility] Lurasidone HCl (Lurasidone Hcl 40 Mg Tablet) 40 mg PO BEDTIME [facility] Lurasidone HCl (Lurasidone Hcl 40 Mg Tablet) 60 mg PO BEDTIME [facility] Magnesium Oxide (Magnesium Oxide 400 Mg Tablet) 400 mg [facility] Last Admin: 01/16/22 10:35 Dose: 400 mg Documented by: Metoprolol Tartrate (Metoprolol Tartrate 25 Mg Tablet) 25 mg PO BID [facility]; Protocol Last Admin: 01/16/22 08:14 Dose: 25 mg Documented by: Mirabegron (Mirabegron 50 Mg Tab.Er.24h) 50 mg PO BEDTIME [facility] Paliperidone Palmitate (Paliperidone Palmitate 156 Mg/Ml Syringe) 156 mg IM Q28D [facility] Last Admin: 01/16/22 08:30 Dose: 156 mg Documented by: Pharmacy Consult (Consult Rx Perform Med Rec) 1 each MISCELLANE ONCE PRN PRN Reason: Consult order Pharmacy Consult (Consult Rx Vancomycin Dosing) 1 each MISCELLANE DAILY PRN PRN Reason: Consult order Pramipexole Dihydrochloride (Pramipexole Di-Hcl 0.25 Mg Tablet) 0.25 mg PO BEDTIME [facility] Senna (Sennosides 8.6 Mg Tablet) 17.2 mg PO BID [facility] Last Admin: 01/16/22 08:14 Dose: 17.2 mg Documented by: Sodium Chloride (0.9 % Sodium Chloride Flush 3 Ml Syringe) 3 ml IVFLUSH QSHIFT [facility] Last Admin: 01/16/22 08:36 Dose: Not Given Documented by: Trihexyphenidyl HCl (Trihexyphenidyl Hcl 2 Mg Tablet) 5 mg PO TID [facility] Last Admin: 01/16/22 08:35 Dose: 5 mg Documented by: Trolamine Salicylate/Aloe Vera (Trolamine Salicylate 10%/Aloe Cream 35.4 Gm) 1 appl TOPICAL DAILY PRN PRN Reason: LOWER BACK, RIGHT KNEE PAIN Home Medications Medication Instructions Recorded Confirmed Last Taken Type clopidogrel 75 mg tablet 75 mg PO DAILY 06/12/21 01/15/22 Unknown History fluticasone furoate 200 1 ea INHALATION DAILY 06/12/21 01/15/22 Unknown History mcg-vilanterol 25 mcg/dose inhalation powder (Breo Ellipta) lurasidone 40 mg tablet (Latuda) 40 mg PO BEDTIME 06/12/21 01/15/22 Unknown History simvastatin 20 mg tablet 20 mg PO BEDTIME 06/12/21 01/15/22 Unknown History famotidine 40 mg tablet 40 mg PO DAILY 06/26/21 01/15/22 Unknown History lurasidone 60 mg tablet (Latuda) 60 mg PO BEDTIME 06/26/21 01/15/22 Unknown History mirabegron 50 mg tablet,extended 50 mg PO BEDTIME 06/26/21 01/15/22 Unknown History release 24 hr (Myrbetriq) paliperidone palmitate 156 mg/mL 156 mg IM Q28D 06/26/21 01/15/22 Unknown History intramuscular syringe (Invega Sustenna) pramipexole 0.25 mg tablet 0.25 mg PO BEDTIME 06/26/21 01/15/22 Unknown History trihexyphenidyl 5 mg tablet 5 mg PO TID 06/26/21 01/15/22 Unknown History acetaminophen 325 mg tablet 325 mg PO QID 01/15/22 01/15/22 Unknown History albuterol sulfate 90 mcg/actuation 4 inh INHALATION Q4H PRN 01/15/22 01/15/22 Unknown History breath activated powder inhaler,sensor ascorbic acid (vitamin C) 500 mg 500 mg PO DAILY 01/15/22 01/15/22 Unknown History tablet aspirin 81 mg chewable tablet 81 mg PO DAILY 01/15/22 01/15/22 Unknown History cholecalciferol (vitamin D3) 1,250 1,250 mcg PO MO 01/15/22 01/15/22 Unknown History mcg (50,000 unit) tablet docusate sodium 100 mg tablet 100 mg PO BID 01/15/22 01/15/22 Unknown History lactulose 10 gram/15 mL oral 20 g PO Q12H PRN 01/15/22 01/15/22 Unknown History solution lanolin alcohols-mineral 1 appl TOPICAL QPM 01/15/22 01/15/22 Unknown History oil-w.petrolatum-ceresin topical cream (Minerin Creme) lithium carbonate 300 mg 300 mg PO BEDTIME 01/15/22 01/15/22 Unknown History tablet,extended release menthol 5 % topical patch (Bengay 1 patch TOPICAL DAILY PRN 01/15/22 01/15/22 Unknown History Ultra Strength (menthol)) metoprolol tartrate 25 mg tablet 25 mg PO BID 01/15/22 01/15/22 Unknown History sennosides 8.6 mg tablet (senna) 17.2 mg PO BID 01/15/22 01/15/22 Unknown History Physical Exam Vital Signs: Vital Signs: Last Vital Signs Temp 98.6 F 01/16/22 03:03 Pulse 84 01/16/22 11:30 Resp 19 01/16/22 11:30 BP 116/74 01/16/22 11:30 Pulse Ox 95 01/16/22 11:30 Oxygen Flow Rate 2 01/15/22 10:40 BMI result Body Mass Index 22.3 Const: General: cooperative HENMT: Head: Yes normal to inspection Mouth: Normal oral and palatal mucosa present Resp: Other: decreased breath sounds two liters Cardio: Rate: regular rate Rhythm: regular rhythm GI: Palpation (GI): Soft to palpation and nontender Extrem: Other: bruises left leg Results Labs CBC & Chem 7: 01/21/22 06:11 01/21/22 06:11 Labs: Short CBC 01/16/22 Range/Units 06:05 WBC 6.4 (4.8-10.8) X10*3/uL Hgb 10.4 L (12.0-16.0) g/dl Hct 33.2 L (37.0-47.0) % Plt Count 325 (160-400) X10*3/uL BMP 01/15/22 01/16/22 12:03 06:05 Sodium 135 141 Potassium 4.6 2.8 L D Chloride 100 106 Carbon Dioxide 25 28 BUN 5 L 6 L Creatinine 0.61 0.50 Calcium 8.7 8.2 L Liver Function 01/15/22 Range/Units 12:03 Total Bilirubin 1.0 (0.0-1.0) mg/dL Direct Bilirubin 0.4 (0.0-0.5) mg/dL AST 103 H (5-31) U/L ALT 47 H (0-31) U/L Alkaline Phosphatase 97 (39-117) U/L Albumin 2.8 L (3.5-5.0) g/dL Urine 01/15/22 Range/Units 14:57 Urine Color YELLOW Urine Appearance CLEAR Urine pH 6.0 (5.0-8.0) Ur Specific [place] <= 1.005 (1.005-1.025) Urine Protein NEG (NEG-TRACE) MG/DL Urine Glucose (UA) NEG (NEG) MG/DL Assessment and Plan (1) Pneumonia: Status: Acute Likely aspiration Would favor 5-7 days Cefepime and Flagyl (2) COVID-19: Status: Acute There is COVID but not sure if old as patient says had COVID before but is unreliable historian Plan Will research prior COVID tests No COVID treatment at this time and isolate until further info available
[2022-01-16 12:56] LABS: Glucose, Whole Blood 96 mg/dL (60-115)
[2022-01-16] MEDS: metroNIDAZOLE/NS 500 MG/100 ML PIGGYBACK 100 MG IV ×2 (14:38→21:22)
--- NOTE | 2022-01-16 16:03 | MHC.CM.PN ---
PT IS A LTC RESIDENT OF [facility]. A T/C WAS PLACED TO PTS LEGAL GUARDIAN, GLEN SANTOS ([phone]) A VM MESSAGE WAS LEFT INFORMING HER OF PTS ADMISSION AND MEDICARE RIGHTS. A COPY OF PTS IMM WILL BE FAXED TO HER AT THE NUMBER PROVIDED ON HER VM [phone]. DCP RETURN TO [facility] VIA BLS
[2022-01-16] MEDS: 0.9 % Sodium Chloride Flush 3 ML SYRINGE IVFLUSH ×2 (16:31→21:21)
[2022-01-16 17:36] VITALS: BP 130/82; PULSE 107; RESP 15; TEMP 36.5; O2SAT 91
[2022-01-16 17:46] LABS: Glucose, Whole Blood 103 mg/dL (60-115)
--- NOTE | 2022-01-16 19:07 | PC.NURSE ---
While getting report, Panchito MADISON makes this RN aware that pt had removed rutledge catheter today. Pt has since been incontinent of urine and inc care has been provided per Panchito. This RN made Dr Bergman aware as Panchito [facility] hospitalist was not made aware previously.
[2022-01-16 20:00] VITALS: BP 120/72; PULSE 120; RESP 18; TEMP 37.2; O2SAT 96
--- NOTE | 2022-01-16 20:04 | PC.NURSE ---
Pt bladder scanned, 10ml in bladder, Dr Bergman made aware. No orders for rutledge at this time.
[2022-01-16 20:48] LABS: Glucose, Whole Blood 98 mg/dL (60-115)
[2022-01-16 21:20] VITALS: BMI 22.3
[2022-01-16] MEDS: Lurasidone HCl 40 MG TABLET 60 MG PO (21:20)
[2022-01-16] MEDS: Lurasidone HCl 40 MG TABLET PO (21:20)
[2022-01-16] MEDS: Pramipexole Di-HCL 0.25 MG TABLET PO (21:20)
[2022-01-16] MEDS: Lithium Carbonate ER 300 MG TABLET.ER PO (21:21)
[2022-01-16] MEDS: Mirabegron 50 MG TAB.ER.24H PO (21:21)
[2022-01-16] MEDS: Enoxaparin Sodium 40 MG/0.4 ML SYRINGE SUBCUT (22:32)
[2022-01-17] VITALS (8 sets, daily range): BP systolic 97–140; BP diastolic 60–86; PULSE 89–124; RESP 18–30; TEMP 35.7–37.1; O2SAT 90–98
[2022-01-17] MEDS: metroNIDAZOLE/NS 500 MG/100 ML PIGGYBACK 100 MG IV ×3 (05:28→20:36)
[2022-01-17 07:18] LABS: Anion Gap 9 (12-20); Blood Urea Nitrogen 6 mg/dL (9-16); Calcium 8.1 mg/dL (8.4-10.2); Carbon Dioxide 25 mmol/L (22-29); Chloride 109 mmol/L (96-108); Creatinine Clr Calc Pharmacy 112.7; Estimated Glomerular Filt Rate > 60; Glucose Fasting 91 mg/dL (60-99); Magnesium 1.8 mg/dL (1.6-2.6); Potassium 3.2 mmol/L (3.3-5.1); Sodium 140 mmol/L (135-145)
[2022-01-17 07:26] LABS: Glucose, Whole Blood 82 mg/dL (60-115)
[2022-01-17] MEDS: Potassium Chloride ER 20 MEQ TAB.ER.PRT 40 MEQ PO (08:37)
[2022-01-17] MEDS: Sennosides 8.6 MG TABLET 17.2 MG PO ×2 (08:38→20:38)
[2022-01-17] MEDS: Famotidine 20 MG TABLET 40 MG PO (08:38)
[2022-01-17] MEDS: 0.9 % Sodium Chloride Flush 3 ML SYRINGE IVFLUSH ×3 (08:38→20:40)
[2022-01-17] MEDS: Cyclobenzaprine HCl 5 MG TABLET PO ×3 (08:38→20:38)
[2022-01-17] MEDS: Clopidogrel Bisulfate 75 MG TABLET PO (08:38)
[2022-01-17] MEDS: Trihexyphenidyl HCL 2 MG TABLET 5 MG PO ×3 (08:39→20:37)
[2022-01-17] MEDS: Aspirin 81 MG TAB.CHEW PO (08:39)
[2022-01-17] MEDS: Magnesium Oxide 400 MG TABLET PO ×2 (08:39→17:27)
[2022-01-17] MEDS: Atorvastatin Calcium 10 MG TABLET PO (08:39)
[2022-01-17 09:26] LABS: Hematocrit 32.4 % (37.0-47.0); Mean Corpuscular HGB Conc 30.9 g/dl (31.0-35.0); Mean Corpuscular Volume 97.3 fL (80.0-98.0); Mean Platelet Volume 9.3 fL (9.4-12.3); Platelet Count 329 X10*3/uL (160-400); Red Blood Count 3.33 X10*6/uL (4.20-5.50); White Blood Count 5.1 X10*3/uL (4.8-10.8)
--- NOTE | 2022-01-17 09:53 | P.PNIM_ITS ---
Subjective Subjective Date of Service: 01/17/22 Interval History: cc: ftt, abd distension interval history: feeling better, hungy Cardiovascular Cardiovascular: Reports no additional cardiovascular complaints Respiratory Respiratory: Reports no additional respiratory complaints Physical Exam Vital Signs: Vital Signs: Last Vital Signs Temp 98.5 F 01/17/22 07:25 Pulse 90 01/17/22 07:25 Resp 19 01/17/22 07:25 BP 97/73 01/17/22 07:25 Pulse Ox 92 01/17/22 07:25 Oxygen Flow Rate 2 01/15/22 10:40 BMI result Body Mass Index 22.3 General: AO X 2, no acute distress Resp:? diminished bilateral, no accessory muscles used CVS: S1,S2,RRR GI: soft, distension resolved, non tender Neuro:? motor grossly intact, alert Psych: appropriate affect, impaired insight? Objective Data Active Medications Acetaminophen (Acetaminophen Supp 650 Mg Supp.Rect) 650 mg [place] Q6H PRN PRN Reason: Pain, Mild (Pain Scale 1-3) Aspirin (Aspirin 81 Mg Tab.Chew) 81 mg PO DAILY [facility] Last Admin: 01/17/22 08:39 Dose: 81 mg Documented by: DONA Atorvastatin Calcium (Atorvastatin Calcium 10 Mg Tablet) 10 mg PO DAILY [facility] Last Admin: 01/17/22 08:39 Dose: 10 mg Documented by: DONA Clopidogrel Bisulfate (Clopidogrel Bisulfate 75 Mg Tablet) 75 mg PO DAILY [facility] Last Admin: 01/17/22 08:38 Dose: 75 mg Documented by: DONA Cyclobenzaprine HCl (Cyclobenzaprine Hcl 5 Mg Tablet) 5 mg PO TID [facility] Last Admin: 01/17/22 08:38 Dose: 5 mg Documented by: DONA Dextrose (Dextrose 50 % 25 Gm/50 Ml Syringe) 25 gm IVPUSH Q15M PRN; Protocol PRN Reason: per Hypoglycemia Standing Ord. Docusate Sodium (Docusate Sodium 100 Mg Capsule) 100 mg PO BID [facility] Last Admin: 01/17/22 09:03 Dose: Not Given Documented by: DONA Non-Admin Reason: pt spit out Enoxaparin Sodium (Enoxaparin Sodium 40 Mg/0.4 Ml Syringe) 40 mg SUBCUT Q24H [facility] Last Admin: 01/16/22 22:32 Dose: 40 mg Documented by: JOHN Famotidine (Famotidine 20 Mg Tablet) 40 mg PO DAILY [facility] Last Admin: 01/17/22 08:38 Dose: 40 mg Documented by: DONA Glucose (Glucose Gel 15 Gm Gel..Gram.) 15 gm PO Q15M PRN; Protocol PRN Reason: per Hypoglycemia Standing Ord. Ceftriaxone Sodium 1 gm/ (Sodium Chloride) 50 mls @ 100 mls/hr IV Q12H [facility] Last Infusion: 01/16/22 23:34 Dose: 0 mls/hr Documented by: JOHN Metronidazole (Flagyl) 500 mg in 100 mls @ 100 mls/hr IV Q8H [facility] Last Infusion: 01/17/22 07:26 Dose: 0 mls/hr Documented by: DONA Insulin Human Lispro (Insulin Lispro 100 Unit/Ml 3 Ml Vial) 0 unit SUBCUT QIDACHS [facility]; Protocol Last Admin: 01/17/22 07:48 Dose: Not Given Documented by: DONA Non-Admin Reason: No Insulin Coverage [place] Carbonate ([place] Carbonate Er 300 Mg Tablet.Er) 300 mg PO BEDTIME [facility] Last Admin: 01/16/22 21:21 Dose: 300 mg Documented by: JOHN Lurasidone HCl (Lurasidone Hcl 40 Mg Tablet) 40 mg PO BEDTIME [facility] Last Admin: 01/16/22 21:20 Dose: 40 mg Documented by: JOHN Lurasidone HCl (Lurasidone Hcl 40 Mg Tablet) 60 mg PO BEDTIME [facility] Last Admin: 01/16/22 21:20 Dose: 60 mg Documented by: JOHN [facility] ([facility] Mg [facility] Last Admin: 01/17/22 08:39 Dose: 400 mg Documented by: DONA Metoprolol Tartrate (Metoprolol Tartrate 25 Mg Tablet) 25 mg PO BID [facility]; Pr otocol Last Admin: 01/17/22 08:40 Dose: Not Given Documented by: DONA Non-Admin Reason: Decreased Blood Pressure Mirabegron (Mirabegron 50 Mg Tab.Er.24h) 50 mg PO BEDTIME [facility] Last Admin: 01/16/22 21:21 Dose: 50 mg Documented by: JOHN Paliperidone Palmitate (Paliperidone Palmitate 156 Mg/Ml Syringe) 156 mg IM Q28D [facility] Last Admin: 01/16/22 08:30 Dose: 156 mg Documented by: ITALO Pharmacy Consult (Consult Rx Perform Med Rec) 1 each MISCELLANE ONCE PRN PRN Reason: Consult order Pharmacy Consult (Consult Rx Vancomycin Dosing) 1 each MISCELLANE DAILY PRN PRN Reason: Consult order Pramipexole Dihydrochloride (Pramipexole Di-Hcl 0.25 Mg Tablet) 0.25 mg PO BEDTIME [facility] Last Admin: 01/16/22 21:20 Dose: 0.25 mg Documented by: ANTOIC Senna (Sennosides 8.6 Mg Tablet) 17.2 mg PO BID [facility] Last Admin: 01/17/22 08:38 Dose: 17.2 mg Documented by: DONA Sodium Chloride (0.9 % Sodium Chloride Flush 3 Ml Syringe) 3 ml IVFLUSH QSHIFT [facility] Last Admin: 01/17/22 08:38 Dose: 3 ml Documented by: DONA Trihexyphenidyl HCl (Trihexyphenidyl Hcl 2 Mg Tablet) 5 mg PO TID [facility] Last Admin: 01/17/22 08:39 Dose: 5 mg Documented by: DONA Trolamine Salicylate/Aloe Vera (Trolamine Salicylate 10%/Aloe Cream 35.4 Gm) 1 appl TOPICAL DAILY PRN PRN Reason: LOWER BACK, RIGHT KNEE PAIN Labs CBC & Chem 7: 01/17/22 09:12 01/17/22 06:32 Labs: Laboratory Results - last 24 hr 01/16/22 01/16/22 01/16/22 12:51 17:42 20:41 MCV MCH MCHC RDW Plt Count MPV Absolute Nucleated RBC Nucleated RBC % (auto) Anion Gap Estim Creat Clear Calc Estimated GFR POC Glucose 96 103 98 Fasting Glucose Calcium Magnesium 01/17/22 01/17/22 01/17/22 06:32 07:18 09:12 MCV 97.3 MCH 30.0 MCHC 30.9 L RDW 16.0 Plt Count 329 MPV 9.3 L Absolute Nucleated RBC 0.000 Nucleated RBC % (auto) 0.0 Anion Gap 9 L Estim Creat Clear Calc 112.7 Estimated GFR > 60 POC Glucose 82 Fasting Glucose 91 Calcium 8.1 L Magnesium 1.8 Microbiology Microbiology Results: Microbiology 01/15/22 15:06 Blood Culture - Preliminary Blood - Venous No growth after 24 hours. 01/15/22 12:02 Blood Culture - Preliminary Blood - Venous No growth after 24 hours. Assessment and Plan (1) Failure to thrive in adult: Status: Acute Plan 62F sent in for decreased appetite. decreased appetite, FTT due to ileus. holding opiates, oxybutinin appears improving check repeat kub, advance diet covid 19 positive was also positive 11/26/21 ID appreciated, likely nonviable viral shedding would not retest for 3 months from infection hypokalemia improved to 3.2, replace and monitor hypomagnesemia improved to 1.8, replace and monitor bilateral lung opacities on CT concern for aspiration pneumonia rocephin, flagyl [employer] appreciated - nectar thick liquids chronic hypoxic respiratory failue due to COPD on 2L home o2 at baseline DM insulin schizoaffective latuda, lithium invega received 01/16/22 CAD/PVD DAPL, statin reason for continued hospitalization: improved, but awaiting return of bowel function and ability to tolerate po as high risk for recurrent ileus and ftt. dvt prophylaxis - lovenox full code Quality Stroke Does the patient have a stroke diagnosis?: No VTE Prior VTE?: No VTE Risk Level:: Medical - moderate - high VTE Device Contraindication: Treatment Not Indicated VTE Drug Contraindication: N/A - Med Ordered
--- NOTE | 2022-01-17 10:29 | MHC.IC ---
COVID admission reported to renny Cornejo RN patient tested positive for COVID on 12/08/21 done at [facility] reference lab, patient vaccinated with Pfizer, 11/21/20, 12/12/20 and 09/08/21
--- NOTE | 2022-01-17 11:08 | PC.NURSE ---
Skin/Wound assessment completed. Patient has incontinent skin dermatitis to leon area, groin, buttocks and sacrum/lower back. Queenie barrier cream applied to all areas and an incontinent wrap applied. Patient also has scabbed blisters to left leg. Sween 24 moisturizer applied to bilateral legs. Right arm is swollen with some bruising. Airloss mattress and repositioning q 2 h implemented.
--- NOTE | 2022-01-17 11:11 | MHC.SLORD ---
Speech Language Pathology Order Status: Offered oral care with substantially dry mouth and observable debris removed and dry mucosa. She was then offered small sips of water with good effect. Though she is known to have a premorbid diet of nectar thick liquid at her facility, she may be a candidate for the Sanders free water Protocol .
[2022-01-17 11:13] LABS: Glucose, Whole Blood 93 mg/dL (60-115)
[2022-01-17] MEDS: cefTRIAXone sodium 1 GM in 0.9 % Sodium Chloride 50 ML IV ×2 (11:19→22:33)
--- NOTE | 2022-01-17 12:59 | MHC.CM.PN ---
Female 62 DX HCAP COVID per MD rounds Illeus+. No discharge today. Plan is to advance diet. DP return to [facility] via S.
--- NOTE | 2022-01-17 13:57 | P.PNGS_ITS ---
Subjective Subjective Date of Service: 01/20/22 Interval history: tested positive for COVID no vomitting tolerating oral intake pt difficult to understand Physical Exam Vital Signs: Vital Signs: Last Vital Signs Temp 96.2 F L 01/17/22 11:30 Pulse 109 H 01/17/22 13:30 Resp 22 H 01/17/22 13:30 BP 97/64 01/17/22 11:30 Pulse Ox 93 01/17/22 11:30 Oxygen Flow Rate 2 01/15/22 10:40 BMI result Body Mass Index 22.3 Const: General: comfortable and no acute distress Resp: Other: some shortness of breath Cardio: Rate: regular rate GI: Palpation (GI): Soft to palpation and nontender Objective Data Active Medications Acetaminophen (Acetaminophen Supp 650 Mg Supp.Rect) 650 mg [place] Q6H PRN PRN Reason: Pain, Mild (Pain Scale 1-3) Aspirin (Aspirin 81 Mg Tab.Chew) 81 mg PO DAILY [facility] Last Admin: 01/17/22 08:39 Dose: 81 mg Documented by: DONA Atorvastatin Calcium (Atorvastatin Calcium 10 Mg Tablet) 10 mg PO DAILY [facility] Last Admin: 01/17/22 08:39 Dose: 10 mg Documented by: DONA Clopidogrel Bisulfate (Clopidogrel Bisulfate 75 Mg Tablet) 75 mg PO DAILY [facility] Last Admin: 01/17/22 08:38 Dose: 75 mg Documented by: DONA Cyclobenzaprine HCl (Cyclobenzaprine Hcl 5 Mg Tablet) 5 mg PO TID [facility] Last Admin: 01/17/22 08:38 Dose: 5 mg Documented by: DONA Dextrose (Dextrose 50 % 25 Gm/50 Ml Syringe) 25 gm IVPUSH Q15M PRN; Protocol PRN Reason: per Hypoglycemia Standing Ord. Docusate Sodium (Docusate Sodium 100 Mg Capsule) 100 mg PO BID [facility] Last Admin: 01/17/22 09:03 Dose: Not Given Documented by: DONA Non-Admin Reason: pt spit out Enoxaparin Sodium (Enoxaparin Sodium 40 Mg/0.4 Ml Syringe) 40 mg SUBCUT Q24H [facility] Last Admin: 01/16/22 22:32 Dose: 40 mg Documented by: ANTOIC Famotidine (Famotidine 20 Mg Tablet) 40 mg PO DAILY [facility] Last Admin: 01/17/22 08:38 Dose: 40 mg Documented by: DONA Glucose (Glucose Gel 15 Gm Gel..Gram.) 15 gm PO Q15M PRN; Protocol PRN Reason: per Hypoglycemia Standing Ord. Ceftriaxone Sodium 1 gm/ (Sodium Chloride) 50 mls @ 100 mls/hr IV Q12H [facility] Last Infusion: 01/17/22 11:54 Dose: 0 mls/hr Documented by: DONA Metronidazole (Flagyl) 500 mg in 100 mls @ 100 mls/hr IV Q8H [facility] Last Admin: 01/17/22 13:06 Dose: 100 mls/hr Documented by: DONA Insulin Human Lispro (Insulin Lispro 100 Unit/Ml 3 Ml Vial) 0 unit SUBCUT QIDACHS [facility]; Protocol Last Admin: 01/17/22 11:17 Dose: Not Given Documented by: DONA Non-Admin Reason: No Insulin Coverage [place] Carbonate ([place] Carbonate Er 300 Mg Tablet.Er) 300 mg PO BEDTIME [facility] Last Admin: 01/16/22 21:21 Dose: 300 mg Documented by: JOHN Lurasidone HCl (Lurasidone Hcl 40 Mg Tablet) 40 mg PO BEDTIME [facility] Last Admin: 01/16/22 21:20 Dose: 40 mg Documented by: JOHN Lurasidone HCl (Lurasidone Hcl 40 Mg Tablet) 60 mg PO BEDTIME [facility] Last Admin: 01/16/22 21:20 Dose: 60 mg Documented by: JOHN Magnesium Oxide (Magnesium Oxide 400 Mg Tablet) 400 mg PO BIDPC [facility] Last Admin: 01/17/22 08:39 Dose: 400 mg Documented by: DONA Metoprolol Tartrate (Metoprolol Tartrate 25 Mg Tablet) 25 mg PO BID [facility]; Protocol Last Admin: 01/17/22 08:40 Dose: Not Given Documented by: DONA Non-Admin Reason: Decreased Blood Pressure Mirabegron (Mirabegron 50 Mg Tab.Er.24h) 50 mg PO BEDTIME [facility] Last Admin: 01/16/22 21:21 Dose: 50 mg Documented by: JOHN Paliperidone Palmitate (Paliperidone Palmitate 156 Mg/Ml Syringe) 156 mg IM Q28D [facility] Last Admin: 01/16/22 08:30 Dose: 156 mg Documented by: ITALO Pharmacy Consult (Consult Rx Perform Med Rec) 1 each MISCELLANE ONCE PRN PRN Reason: Consult order Pharmacy Consult (Consult Rx Vancomycin Dosing) 1 each MISCELLANE DAILY PRN PRN Reason: Consult order Pramipexole Dihydrochloride (Pramipexole Di-Hcl 0.25 Mg Tablet) 0.25 mg PO BEDTIME [facility] Last Admin: 01/16/22 21:20 Dose: 0.25 mg Documented by: ANTOIC Senna (Sennosides 8.6 Mg Tablet) 17.2 mg PO BID [facility] Last Admin: 01/17/22 08:38 Dose: 17.2 mg Documented by: DONA Sodium Chloride (0.9 % Sodium Chloride Flush 3 Ml Syringe) 3 ml IVFLUSH QSHIFT [facility] Last Admin: 01/17/22 08:38 Dose: 3 ml Documented by: DONA Trihexyphenidyl HCl (Trihexyphenidyl Hcl 2 Mg Tablet) 5 mg PO TID [facility] Last Admin: 01/17/22 08:39 Dose: 5 mg Documented by: DONA Trolamine Salicylate/Aloe Vera (Trolamine Salicylate 10%/Aloe Cream 35.4 Gm) 1 appl TOPICAL DAILY PRN PRN Reason: LOWER BACK, RIGHT KNEE PAIN Labs CBC & Chem 7: 01/19/22 08:43 01/19/22 08:43 Labs: Laboratory Results - last 24 hr 01/16/22 01/16/22 01/17/22 17:42 20:41 06:32 MCV MCH MCHC RDW Plt Count MPV Absolute Nucleated RBC Nucleated RBC % (auto) Anion Gap 9 L Estim Creat Clear Calc 112.7 Estimated GFR > 60 POC Glucose 103 98 Fasting Glucose 91 Calcium 8.1 L Magnesium 1.8 01/17/22 01/17/22 01/17/22 07:18 09:12 11:04 MCV 97.3 MCH 30.0 MCHC 30.9 L RDW 16.0 Plt Count 329 MPV 9.3 L Absolute Nucleated RBC 0.000 Nucleated RBC % (auto) 0.0 Anion Gap Estim Creat Clear Calc Estimated GFR POC Glucose 82 93 Fasting Glucose Calcium Magnesium Microbiology Microbiology Results: Microbiology 01/15/22 15:06 Blood Culture - Preliminary Blood - Venous No growth after 24 hours. 01/15/22 12:02 Blood Culture - Preliminary Blood - Venous No growth after 24 hours. Procedures Date of Service Date of Service: 01/17/22 Progress Note: A&P Assessment and plan (1) Failure to thrive in adult: Status: Acute Assessment and Plan: abdl exam benign no obvious tenderness, no rebound or guarding ffup KUB - distended small bowel loops, less distension of colon likely ileus no surgical intervention necessary at this time Fall Risk Details Current Medications: Current Medications Acetaminophen (Acetaminophen Supp 650 Mg Supp.Rect) 650 mg [place] Q6H PRN PRN Reason: Pain, Mild (Pain Scale 1-3) Aspirin (Aspirin 81 Mg Tab.Chew) 81 mg PO DAILY [facility] Last Admin: 01/17/22 08:39 Dose: 81 mg Documented by: Atorvastatin Calcium (Atorvastatin Calcium 10 Mg Tablet) 10 mg PO DAILY [facility] Last Admin: 01/17/22 08:39 Dose: 10 mg Documented by: Clopidogrel Bisulfate (Clopidogrel Bisulfate 75 Mg Tablet) 75 mg PO DAILY [facility] Last Admin: 01/17/22 08:38 Dose: 75 mg Documented by: Cyclobenzaprine HCl (Cyclobenzaprine Hcl 5 Mg Tablet) 5 mg PO TID [facility] Last Admin: 01/17/22 08:38 Dose: 5 mg Documented by: Dextrose (Dextrose 50 % 25 Gm/50 Ml Syringe) 25 gm IVPUSH Q15M PRN; Protocol PRN Reason: per Hypoglycemia Standing Ord. Docusate Sodium (Docusate Sodium 100 Mg Capsule) 100 mg PO BID [facility] Last Admin: 01/17/22 09:03 Dose: Not Given Documented by: Enoxaparin Sodium (Enoxaparin Sodium 40 Mg/0.4 Ml Syringe) 40 mg SUBCUT Q24H [facility] Last Admin: 01/16/22 22:32 Dose: 40 mg Documented by: Famotidine (Famotidine 20 Mg Tablet) 40 mg PO DAILY [facility] Last Admin: 01/17/22 08:38 Dose: 40 mg Documented by: Glucose (Glucose Gel 15 Gm Gel..Gram.) 15 gm PO Q15M PRN; Protocol PRN Reason: per Hypoglycemia Standing Ord. Ceftriaxone Sodium 1 gm/ (Sodium Chloride) 50 mls @ 100 mls/hr IV Q12H [facility] Last Infusion: 01/17/22 11:54 Dose: Infused Documented by: Metronidazole (Flagyl) 500 mg in 100 mls @ 100 mls/hr IV Q8H [facility] Last Admin: 01/17/22 13:06 Dose: 100 mls/hr Documented by: Insulin Human Lispro (Insulin Lispro 100 Unit/Ml 3 Ml Vial) 0 unit SUBCUT QIDACHS [facility]; Protocol Last Admin: 01/17/22 11:17 Dose: Not Given Documented by: [place] Carbonate ([place] Carbonate Er 300 Mg Tablet.Er) 300 mg PO BEDTIME [facility] Last Admin: 01/16/22 21:21 Dose: 300 mg Documented by: Lurasidone HCl (Lurasidone Hcl 40 Mg Tablet) 40 mg PO BEDTIME [facility] Last Admin: 01/16/22 21:20 Dose: 40 mg Documented by: Lurasidone HCl (Lurasidone Hcl 40 Mg Tablet) 60 mg PO BEDTIME [facility] Last Admin: 01/16/22 21:20 Dose: 60 mg Documented by: Magnesium Oxide (Magnesium Oxide 400 Mg Tablet) [facility] Last Admin: 01/17/22 08:39 Dose: 400 mg Documented by: Metoprolol Tartrate (Metoprolol Tartrate 25 Mg Tablet) 25 mg PO BID [facility]; Protocol Last Admin: 01/17/22 08:40 Dose: Not Given Documented by: Mirabegron (Mirabegron 50 Mg Tab.Er.24h) 50 mg PO BEDTIME [facility] Last Admin: 01/16/22 21:21 Dose: 50 mg Documented by: Paliperidone Palmitate (Paliperidone Palmitate 156 Mg/Ml Syringe) 156 mg IM Q28D [facility] Last Admin: 01/16/22 08:30 Dose: 156 mg Documented by: Pharmacy Consult (Consult Rx Perform Med Rec) 1 each MISCELLANE ONCE PRN PRN Reason: Consult order Pharmacy Consult (Consult Rx Vancomycin Dosing) 1 each MISCELLANE DAILY PRN PRN Reason: Consult order Pramipexole Dihydrochloride (Pramipexole Di-Hcl 0.25 Mg Tablet) 0.25 mg PO BEDTIME [facility] Last Admin: 01/16/22 21:20 Dose: 0.25 mg Documented by: Senna (Sennosides 8.6 Mg Tablet) 17.2 mg PO BID [facility] Last Admin: 01/17/22 08:38 Dose: 17.2 mg Documented by: Sodium Chloride (0.9 % Sodium Chloride Flush 3 Ml Syringe) 3 ml IVFLUSH QSHIFT [facility] Last Admin: 01/17/22 08:38 Dose: 3 ml Documented by: Trihexyphenidyl HCl (Trihexyphenidyl Hcl 2 Mg Tablet) 5 mg PO TID [facility] Last Admin: 01/17/22 08:39 Dose: 5 mg Documented by: Trolamine Salicylate/Aloe Vera (Trolamine Salicylate 10%/Aloe Cream 35.4 Gm) 1 appl TOPICAL DAILY PRN PRN Reason: LOWER BACK, RIGHT KNEE PAIN Time Spent With Patient Time: Total time spent is greater than 50% in coordination of care (as documented) at patient's floor/unit and/or counseling patient: Time with patient: 15 - 24 minutes Quality Stroke Does the patient have a stroke diagnosis?: No VTE Prior VTE?: No VTE Risk Level:: Medical - moderate - high VTE Device Contraindication: Treatment Not Indicated VTE Drug Contraindication: N/A - Med Ordered
[2022-01-17 15:34] LABS: Glucose, Whole Blood 129 mg/dL (60-115)
[2022-01-17 19:50] LABS: Glucose, Whole Blood 126 mg/dL (60-115)
[2022-01-17] MEDS: Lurasidone HCl 40 MG TABLET PO (20:37)
[2022-01-17] MEDS: Lurasidone HCl 40 MG TABLET 60 MG PO (20:37)
[2022-01-17] MEDS: Mirabegron 50 MG TAB.ER.24H PO (20:37)
[2022-01-17] MEDS: Docusate Sodium 100 MG CAPSULE PO (20:38)
[2022-01-17] MEDS: Metoprolol Tartrate 25 MG TABLET PO (20:38)
[2022-01-17] MEDS: Lithium Carbonate ER 300 MG TABLET.ER PO (20:39)
[2022-01-17] MEDS: Pramipexole Di-HCL 0.25 MG TABLET PO (20:39)
[2022-01-17] MEDS: Enoxaparin Sodium 40 MG/0.4 ML SYRINGE SUBCUT (22:33)
[2022-01-18 03:45] VITALS: BP 123/74; PULSE 85; RESP 19; TEMP 36.8; O2SAT 99
[2022-01-18] MEDS: metroNIDAZOLE/NS 500 MG/100 ML PIGGYBACK 100 MG IV ×3 (06:03→20:29)
[2022-01-18 06:45] LABS: Anion Gap 7 (12-20); Blood Urea Nitrogen 4 mg/dL (9-16); Calcium 8.6 mg/dL (8.4-10.2); Carbon Dioxide 27 mmol/L (22-29); Chloride 110 mmol/L (96-108); Creatinine Clr Calc Pharmacy 108.3; Estimated Glomerular Filt Rate > 60; Glucose Fasting 125 mg/dL (60-99); Potassium 3.7 mmol/L (3.3-5.1); Sodium 140 mmol/L (135-145)
[2022-01-18 07:32] VITALS: BP 124/83; PULSE 95; RESP 18; TEMP 36.6; O2SAT 99
[2022-01-18 07:40] LABS: Glucose, Whole Blood 106 mg/dL (60-115)
--- NOTE | 2022-01-18 10:14 | HO.PM.IMPN ---
Subjective Subjective Date of Service: 01/18/22 Interval History: cc: abd pain, ftt interval history: no complaints, but has not passed stool, reports being hungry but has not eaten much Cardiovascular Cardiovascular: Reports no additional cardiovascular complaints Respiratory Respiratory: Reports no additional respiratory complaints Physical Exam Vital Signs: Vital Signs: Last Vital Signs Temp 97.8 F 01/18/22 07:32 Pulse 95 01/18/22 07:32 Resp 18 01/18/22 07:32 BP 124/83 01/18/22 07:32 Pulse Ox 99 01/18/22 07:32 Oxygen Flow Rate 2 01/15/22 10:40 BMI result Body Mass Index 22.3 General: AO X 2, no acute distress Resp:? diminished bilateral, no accessory muscles used CVS: S1,S2,RRR, 1+ le edema GI: soft, distension improved, non tender Neuro:? contracted, alert Psych: flat affect, impaired insight? Objective Data Active Medications Acetaminophen (Acetaminophen Supp 650 Mg Supp.Rect) 650 mg [place] Q6H PRN PRN Reason: Pain, Mild (Pain Scale 1-3) Aspirin (Aspirin 81 Mg Tab.Chew) 81 mg PO DAILY [facility] Last Admin: 01/17/22 08:39 Dose: 81 mg Documented by: DONA Atorvastatin Calcium (Atorvastatin Calcium 10 Mg Tablet) 10 mg PO DAILY [facility] Last Admin: 01/17/22 08:39 Dose: 10 mg Documented by: DONA Clopidogrel Bisulfate (Clopidogrel Bisulfate 75 Mg Tablet) 75 mg PO DAILY [facility] Last Admin: 01/17/22 08:38 Dose: 75 mg Documented by: DONA Cyclobenzaprine HCl (Cyclobenzaprine Hcl 5 Mg Tablet) 5 mg PO TID [facility] Last Admin: 01/17/22 20:38 Dose: 5 mg Documented by: ANGELIQUE Dextrose (Dextrose 50 % 25 Gm/50 Ml Vial) 25 gm IVPUSH Q15M PRN; Protocol PRN Reason: per Hypoglycemia Standing Ord. Docusate Sodium (Docusate Sodium 100 Mg Capsule) 100 mg PO BID [facility] Last Admin: 01/17/22 20:38 Dose: 100 mg Documented by: ANGELIQUE Enoxaparin Sodium (Enoxaparin Sodium 40 Mg/0.4 Ml Syringe) 40 mg SUBCUT Q24H [facility] Last Admin: 01/17/22 22:33 Dose: 40 mg Documented by: ANGELIQUE Famotidine (Famotidine 20 Mg Tablet) 40 mg PO DAILY [facility] Last Admin: 01/17/22 08:38 Dose: 40 mg Documented by: DONA Glucose (Glucose Gel 15 Gm Gel..Gram.) 15 gm PO Q15M PRN; Protocol PRN Reason: per Hypoglycemia Standing Ord. Ceftriaxone Sodium 1 gm/ (Sodium Chloride) 50 mls @ 100 mls/hr IV Q12H [facility] Last Infusion: 01/17/22 23:12 Dose: 0 mls/hr Documented by: ANGELIQUE Metronidazole (Flagyl) 500 mg in 100 mls @ 100 mls/hr IV Q8H [facility] Last Infusion: 01/18/22 07:06 Dose: 0 mls/hr Documented by: ANGELIQUE Insulin Human Lispro (Insulin Lispro 100 Unit/Ml 3 Ml Vial) 0 unit SUBCUT QIDACHS [facility]; Protocol Last Admin: 01/17/22 20:39 Dose: Not Given Documented by: ANGELIQUE Non-Admin Reason: No Insulin Coverage [place] Carbonate ([place] Carbonate Er 300 Mg Tablet.Er) 300 mg PO BEDTIME [facility] Last Admin: 01/17/22 20:39 Dose: 300 mg Documented by: ANGELIQUE Lurasidone HCl (Lurasidone Hcl 40 Mg Tablet) 40 mg PO BEDTIME [facility] Last Admin: 01/17/22 20:37 Dose: 40 mg Documented by: ANGELIQUE Lurasidone HCl (Lurasidone Hcl 40 Mg Tablet) 60 mg PO BEDTIME [facility] Last Admin: 01/17/22 20:37 Dose: 60 mg Documented by: ANGELIQUE Magnesium Oxide (Magnesium Oxide 400 Mg Tablet) 400 mg PO BIDPC [facility] Last Admin: 01/17/22 17:27 Dose: 400 mg Documented by: DONA Metoprolol Tartrate (Metoprolol Tartrate 25 Mg Tablet) 25 mg PO BID [facility]; Protocol Last Admin: 01/17/22 20:38 Dose: 25 mg Documented by: ANGELIQUE Mirabegron (Mirabegron 50 Mg Tab.Er.24h) 50 mg PO BEDTIME [facility] Last Admin: 01/17/22 20:37 Dose: 50 mg Documented by: ANGELIQUE Paliperidone Palmitate (Paliperidone Palmitate 156 Mg/Ml Syringe) 156 mg IM Q28D [facility] Last Admin: 01/16/22 08:30 Dose: 156 mg Documented by: ITALO Pharmacy Consult (Consult Rx Perform Med Rec) 1 each MISCELLANE ONCE PRN PRN Reason: Consult order Pharmacy Consult (Consult Rx Vancomycin Dosing) 1 each MISCELLANE DAILY PRN PRN Reason: Consult order Pramipexole Dihydrochloride (Pramipexole Di-Hcl 0.25 Mg Tablet) 0.25 mg PO BEDTIME [facility] Last Admin: 01/17/22 20:39 Dose: 0.25 mg Documented by: ANGELIQUE Senna (Sennosides 8.6 Mg Tablet) 17.2 mg PO BID [facility] Last Admin: 01/17/22 20:38 Dose: 17.2 mg Documented by: ANGELIQUE Sodium Chloride (0.9 % Sodium Chloride Flush 3 Ml Syringe) 3 ml IVFLUSH QSHIFT [facility] Last Admin: 01/17/22 20:40 Dose: 3 ml Documented by: ANGELIQUE Trihexyphenidyl HCl (Trihexyphenidyl Hcl 2 Mg Tablet) 5 mg PO TID [facility] Last Admin: 01/17/22 20:37 Dose: 5 mg Documented by: ANGELIQUE Trolamine Salicylate/Aloe Vera (Trolamine Salicylate 10%/Aloe Cream 35.4 Gm) 1 appl TOPICAL DAILY PRN PRN Reason: LOWER BACK, RIGHT KNEE PAIN Labs CBC & Chem 7: 01/17/22 09:12 01/18/22 06:13 Labs: Laboratory Results - last 24 hr 01/17/22 01/17/22 01/17/22 11:04 15:28 19:41 Anion Gap Estim Creat Clear Calc Estimated GFR POC Glucose 93 129 H 126 H Fasting Glucose Calcium Magnesium 01/18/22 01/18/22 06:13 07:34 Anion Gap 7 L Estim Creat Clear Calc 108.3 Estimated GFR > 60 POC Glucose 106 Fasting Glucose 125 H Calcium 8.6 D Magnesium 2.0 Microbiology Microbiology Results: Microbiology 01/15/22 15:06 Blood Culture - Preliminary Blood - Venous No growth after 48 hours. 01/15/22 12:02 Blood Culture - Preliminary Blood - Venous No growth after 48 hours. Assessment and Plan (1) Failure to thrive in adult: Status: Acute Plan 62F sent in for decreased appetite. decreased appetite, FTT due to ileus. 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 dvt prophylaxis - lovenox full code Quality Stroke Does the patient have a stroke diagnosis?: No VTE Prior VTE?: No VTE Risk Level:: Medical - moderate - high VTE Device Contraindication: Treatment Not Indicated VTE Drug Contraindication: N/A - Med Ordered
[2022-01-18 10:49] VITALS: BP 109/83; PULSE 100; RESP 18; TEMP 36.6; O2SAT 99
[2022-01-18 11:06] LABS: Glucose, Whole Blood 109 mg/dL (60-115)
[2022-01-18] MEDS: Trihexyphenidyl HCL 2 MG TABLET 5 MG PO ×3 (11:14→20:31)
[2022-01-18] MEDS: Famotidine 20 MG TABLET 40 MG PO (11:18)
[2022-01-18] MEDS: Magnesium Oxide 400 MG TABLET PO ×2 (11:18→18:00)
[2022-01-18] MEDS: Clopidogrel Bisulfate 75 MG TABLET PO (11:19)
[2022-01-18] MEDS: Sennosides 8.6 MG TABLET 17.2 MG PO ×2 (11:19→20:31)
[2022-01-18] MEDS: Cyclobenzaprine HCl 5 MG TABLET PO ×3 (11:19→20:31)
[2022-01-18] MEDS: Metoprolol Tartrate 25 MG TABLET PO ×2 (11:20→20:30)
[2022-01-18] MEDS: Atorvastatin Calcium 10 MG TABLET PO (11:21)
[2022-01-18] MEDS: Aspirin 81 MG TAB.CHEW PO (11:21)
[2022-01-18] MEDS: 0.9 % Sodium Chloride Flush 3 ML SYRINGE IVFLUSH ×3 (11:27→20:30)
[2022-01-18] MEDS: cefTRIAXone sodium 1 GM in 0.9 % Sodium Chloride 50 ML IV ×2 (11:27→22:38)
--- NOTE | 2022-01-18 15:00 | P.PNID_ITS ---
Subjective Subjective Date of Service: 01/18/22 Critical Care Time (minutes): 15 Comment: patient no change day Ceftriaxone and flagyl Objective Data Labs CBC & Chem 7: 01/21/22 06:11 01/21/22 06:11 Labs: Laboratory Results - last 24 hr 01/17/22 01/17/22 01/18/22 15:28 19:41 06:13 Sodium 140 Potassium 3.7 Chloride 110 H Carbon Dioxide 27 Anion Gap 7 L BUN 4 L Creatinine 0.51 Estim Creat Clear Calc 108.3 Estimated GFR > 60 POC Glucose 129 H 126 H Fasting Glucose 125 H Calcium 8.6 D Magnesium 2.0 01/18/22 01/18/22 07:34 10:53 Sodium Potassium Chloride Carbon Dioxide Anion Gap BUN Creatinine Estim Creat Clear Calc Estimated GFR POC Glucose 106 109 Fasting Glucose Calcium Magnesium Microbiology Microbiology Results: Microbiology 01/15/22 15:06 Blood - Venous Blood Culture - Preliminary No growth after 48 hours. 01/15/22 12:02 Blood - Venous Blood Culture - Preliminary No growth after 48 hours. Physical Exam 2 Vital Signs: Vital Signs: Last Vital Signs Temp 97.9 F 01/18/22 10:49 Pulse 100 01/18/22 10:49 Resp 18 01/18/22 10:49 BP 109/83 01/18/22 10:49 Pulse Ox 99 01/18/22 10:49 Oxygen Flow Rate 2 01/15/22 10:40 BMI result Body Mass Index 22.3 Const: General: cooperative Resp: Effort & Inspection: normal respiratory effort Cardio: Rate: regular rate Rhythm: regular rhythm GI: Palpation (GI): Soft to palpation and nontender Skin: General skin exam: no rashes or lesions noted Assessment and Plan Assessment and plan (1) Aspiration pneumonia: Status: Acute Assessment and Plan: Day Ceftriaxone and Flagyl Plan Continue above antibiotics Ensure swallowing well Time Spent With Patient Time: Total time spent is greater than 50% in coordination of care (as documented) at patient's floor/unit and/or counseling patient: Time with patient: 15 - 24 minutes
[2022-01-18 15:34] VITALS: BP 110/70; PULSE 94; RESP 18; TEMP 36.1; O2SAT 94
[2022-01-18 16:19] LABS: Glucose, Whole Blood 184 mg/dL (60-115)
[2022-01-18 17:44] LABS: Estimated Average Glucose 91 mg/dL; Hemoglobin A1c % 4.8 %
[2022-01-18] MEDS: Insulin Lispro 100 UNIT/ML 3 ML VIAL SUBCUT (18:01)
[2022-01-18 19:55] VITALS: BP 131/85; PULSE 88; RESP 16; TEMP 36.1; O2SAT 98
[2022-01-18 20:16] LABS: Glucose, Whole Blood 94 mg/dL (60-115)
[2022-01-18] MEDS: Lurasidone HCl 40 MG TABLET 60 MG PO (20:30)
[2022-01-18] MEDS: Mirabegron 50 MG TAB.ER.24H PO (20:30)
[2022-01-18] MEDS: Lurasidone HCl 40 MG TABLET PO (20:30)
[2022-01-18] MEDS: Lithium Carbonate ER 300 MG TABLET.ER PO (20:31)
[2022-01-18] MEDS: Pramipexole Di-HCL 0.25 MG TABLET PO (20:31)
[2022-01-18] MEDS: Docusate Sodium 100 MG CAPSULE PO (20:32)
[2022-01-18] MEDS: Enoxaparin Sodium 40 MG/0.4 ML SYRINGE SUBCUT (22:38)
[2022-01-19] VITALS: BP 120/78; PULSE 112; RESP 24; TEMP 37.1; O2SAT 94
[2022-01-19 03:03] VITALS: BP 125/92; PULSE 92; RESP 20; TEMP 36.4; O2SAT 100
[2022-01-19] MEDS: metroNIDAZOLE/NS 500 MG/100 ML PIGGYBACK 100 MG IV ×3 (05:04→22:27)
[2022-01-19 07:17] LABS: Glucose, Whole Blood 85 mg/dL (60-115)
[2022-01-19 08:00] VITALS: BP 117/73; PULSE 111; RESP 16; TEMP 36.7; O2SAT 94
[2022-01-19 08:50] LABS: Hematocrit 38.1 % (37.0-47.0); Hemoglobin 11.7 g/dl (12.0-16.0); Mean Corpuscular HGB Conc 30.7 g/dl (31.0-35.0); Mean Corpuscular Hemoglobin 30.7 pg (27.0-33.0); Mean Platelet Volume 9.3 fL (9.4-12.3); Platelet Count 314 X10*3/uL (160-400); Red Blood Count 3.81 X10*6/uL (4.20-5.50); Red Cell Distribution Width 16.4 % (11.0-16.0); White Blood Count 7.8 X10*3/uL (4.8-10.8)
[2022-01-19 09:09] LABS: Anion Gap 11 (12-20); Blood Urea Nitrogen 4 mg/dL (9-16); Calcium 9.6 mg/dL (8.4-10.2); Carbon Dioxide 26 mmol/L (22-29); Chloride 109 mmol/L (96-108); Creatinine Clr Calc Pharmacy 106.3; Estimated Glomerular Filt Rate > 60; Glucose Fasting 87 mg/dL (60-99); Potassium 3.8 mmol/L (3.3-5.1); Sodium 142 mmol/L (135-145)
--- NOTE | 2022-01-19 09:18 | HO.PM.IMPN ---
Subjective Subjective Date of Service: 01/19/22 Interval History: cc: ftt interval history: no distress, but not eating much, no bm Cardiovascular Cardiovascular: Reports no additional cardiovascular complaints Respiratory Respiratory: Reports no additional respiratory complaints Physical Exam Vital Signs: Vital Signs: Last Vital Signs Temp 98.0 F 01/19/22 08:00 Pulse 111 H 01/19/22 08:00 Resp 16 01/19/22 08:00 BP 117/73 01/19/22 08:00 Pulse Ox 94 01/19/22 08:00 Oxygen Flow Rate 2 01/15/22 10:40 BMI result Body Mass Index 22.3 General: AO X 2, no acute distress Resp:? diminished bilateral, no accessory muscles used CVS: S1,S2,RRR, 1+ le edema GI: soft, distension improved, non tender Neuro:? contracted, alert Psych: flat affect, impaired insight? Objective Data Active Medications Acetaminophen (Acetaminophen Supp 650 Mg Supp.Rect) 650 mg [place] Q6H PRN PRN Reason: Pain, Mild (Pain Scale 1-3) Aspirin (Aspirin 81 Mg Tab.Chew) 81 mg PO DAILY [facility] Last Admin: 01/18/22 11:21 Dose: 81 mg Documented by: ZAINA Atorvastatin Calcium (Atorvastatin Calcium 10 Mg Tablet) 10 mg PO DAILY [facility] Last Admin: 01/18/22 11:21 Dose: 10 mg Documented by: ZAINA Clopidogrel Bisulfate (Clopidogrel Bisulfate 75 Mg Tablet) 75 mg PO DAILY [facility] Last Admin: 01/18/22 11:19 Dose: 75 mg Documented by: ZAINA Cyclobenzaprine HCl (Cyclobenzaprine Hcl 5 Mg Tablet) 5 mg PO TID [facility] Last Admin: 01/18/22 20:31 Dose: 5 mg Documented by: ANGELIQUE Dextrose (Dextrose 50 % 25 Gm/50 Ml Vial) 25 gm IVPUSH Q15M PRN; Protocol PRN Reason: per Hypoglycemia Standing Ord. Docusate Sodium (Docusate Sodium 100 Mg Capsule) 100 mg PO BID [facility] Last Admin: 01/18/22 20:32 Dose: 100 mg Documented by: ANGELIQUE Enoxaparin Sodium (Enoxaparin Sodium 40 Mg/0.4 Ml Syringe) 40 mg SUBCUT Q24H [facility]PL[facility] Last Admin: 01/18/22 22:38 Dose: 40 mg Documented by: ANGELIQUE Famotidine (Famotidine 20 Mg Tablet) 40 mg PO DAILY [facility] Last Admin: 01/18/22 11:18 Dose: 40 mg Documented by: ZAINA Glucose (Glucose Gel 15 Gm Gel..Gram.) 15 gm PO Q15M PRN; Protocol PRN Reason: per Hypoglycemia Standing Ord. Ceftriaxone Sodium 1 gm/ (Sodium Chloride) 50 mls @ 100 mls/hr IV Q12H [facility]PL[facility] Last Infusion: 01/18/22 23:08 Dose: 0 mls/hr Documented by: ANGELIQUE Metronidazole (Flagyl) 500 mg in 100 mls @ 100 mls/hr IV Q8H [facility]PL[facility] Last Infusion: 01/19/22 06:10 Dose: 0 mls/hr Documented by: ANGELIQUE Insulin Human Lispro (Insulin Lispro 100 Unit/Ml 3 Ml Vial) 0 unit SUBCUT QIDACHS REPLACED BY [facility]; Protocol Last Admin: 01/18/22 20:30 Dose: Not Given Documented by: ANGELIQUE Non-Admin Reason: No Insulin Coverage [place] Carbonate ([place] Carbonate Er 300 Mg Tablet.Er) 300 mg PO BEDTIME REPL[facility]ED [facility] Last Admin: 01/18/22 20:31 Dose: 300 mg Documented by: ANGELIQUE Lurasidone HCl (Lurasidone Hcl 40 Mg Tablet) 40 mg PO BEDTIME [facility]PL[facility] Last Admin: 01/18/22 20:30 Dose: 40 mg Documented by: ANGELIQUE Lurasidone HCl (Lurasidone Hcl 40 Mg Tablet) 60 mg PO BEDTIME [facility]PL[facility] Last Admin: 01/18/22 20:30 Dose: 60 mg Documented by: ANGELIQUE Magnesium Oxide (Magnesium Oxide 400 Mg Tablet) 400 mg PO BIDPC REPLACED BY [facility] Last Admin: 01/18/22 18:00 Dose: 400 mg Documented by: ZAINA Metoprolol Tartrate (Metoprolol Tartrate 25 Mg Tablet) 25 mg PO BID [facility]; Protocol Last Admin: 01/18/22 20:30 Dose: 25 mg Documented by: ANGELIQUE Mirabegron (Mirabegron 50 Mg Tab.Er.24h) 50 mg PO BEDTIME [facility]PL[facility] Last Admin: 01/18/22 20:30 Dose: 50 mg Documented by: ANGELIQUE Paliperidone Palmitate (Paliperidone Palmitate 156 Mg/Ml Syringe) 156 mg IM Q28D [facility]PL[facility] Last Admin: 01/16/22 08:30 Dose: 156 mg Documented by: ITALO Pharmacy Consult (Consult Rx Perform Med Rec) 1 each MISCELLANE ONCE PRN PRN Reason: Consult order Pharmacy Consult (Consult Rx Vancomycin Dosing) 1 each MISCELLANE DAILY PRN PRN Reason: Consult order Pramipexole Dihydrochloride (Pramipexole Di-Hcl 0.25 Mg Tablet) 0.25 mg PO BEDTIME [facility]PL[facility] Last Admin: 01/18/22 20:31 Dose: 0.25 mg Documented by: ANGELIQUE Senna (Sennosides 8.6 Mg Tablet) 17.2 mg PO BID [facility]PL[facility] Last Admin: 01/18/22 20:31 Dose: 17.2 mg Documented by: ANGELIQUE Sodium Chloride (0.9 % Sodium Chloride Flush 3 Ml Syringe) 3 ml IVFLUSH QSHIFT REPLACED BY [facility] Last Admin: 01/18/22 20:30 Dose: 3 ml Documented by: ANGELIQUE Trihexyphenidyl HCl (Trihexyphenidyl Hcl 2 Mg Tablet) 5 mg PO TID [facility] Last Admin: 01/18/22 20:31 Dose: 5 mg Documented by: ANGELIQUE Trolamine Salicylate/Aloe Vera (Trolamine Salicylate 10%/Aloe Cream 35.4 Gm) 1 appl TOPICAL DAILY PRN PRN Reason: LOWER BACK, RIGHT KNEE PAIN Labs CBC & Chem 7: 01/19/22 08:43 01/19/22 08:43 Labs: Laboratory Results - last 24 hr 01/17/22 01/18/22 01/18/22 09:12 06:13 10:53 MCV Cancelled MCH Cancelled MCHC Cancelled RDW Cancelled Plt Count Cancelled MPV Cancelled Absolute Nucleated RBC Cancelled Nucleated RBC % (auto) Cancelled Anion Gap Estim Creat Clear Calc Estimated GFR POC Glucose 109 Fasting Glucose Estimat Average Glucose 91 Hemoglobin A1c % 4.8 Calcium 01/18/22 01/18/22 01/19/22 16:05 19:57 07:12 MCV MCH MCHC RDW Plt Count MPV Absolute Nucleated RBC Nucleated RBC % (auto) Anion Gap Estim Creat Clear Calc Estimated GFR POC Glucose 184 H 94 85 Fasting Glucose Estimat Average Glucose Hemoglobin A1c % Calcium 01/19/22 01/19/22 08:43 08:43 MCV 100.0 H MCH 30.7 MCHC 30.7 L RDW 16.4 H Plt Count 314 MPV 9.3 L Absolute Nucleated RBC 0.000 Nucleated RBC % (auto) 0.0 Anion Gap 11 L Estim Creat Clear Calc 106.3 Estimated GFR > 60 POC Glucose Fasting Glucose 87 Estimat Average Glucose Hemoglobin A1c % Calcium 9.6 D Assessment and Plan (1) Failure to thrive in adult: Status: Acute Plan 62F sent in for decreased appetite. decreased appetite, FTT due to ileus. 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 dvt prophylaxis - lovenox full code Quality Stroke Does the patient have a stroke diagnosis?: No VTE Prior VTE?: No VTE Risk Level:: Medical - moderate - high VTE Device Contraindication: Treatment Not Indicated VTE Drug Contraindication: N/A - Med Ordered
[2022-01-19] MEDS: Famotidine 20 MG TABLET 40 MG PO (11:04)
[2022-01-19] MEDS: Aspirin 81 MG TAB.CHEW PO (11:05)
[2022-01-19] MEDS: Metoprolol Tartrate 25 MG TABLET PO ×2 (11:05→20:47)
[2022-01-19] MEDS: Clopidogrel Bisulfate 75 MG TABLET PO (11:06)
[2022-01-19] MEDS: Cyclobenzaprine HCl 5 MG TABLET PO ×3 (11:06→20:46)
[2022-01-19] MEDS: Atorvastatin Calcium 10 MG TABLET PO (11:06)
[2022-01-19] MEDS: Magnesium Oxide 400 MG TABLET PO ×2 (11:06→15:57)
[2022-01-19] MEDS: Trihexyphenidyl HCL 2 MG TABLET 5 MG PO ×3 (11:07→20:45)
[2022-01-19] MEDS: Sennosides 8.6 MG TABLET 17.2 MG PO ×2 (11:07→20:44)
[2022-01-19] MEDS: cefTRIAXone sodium 1 GM in 0.9 % Sodium Chloride 50 ML IV ×2 (11:13→23:34)
[2022-01-19] MEDS: 0.9 % Sodium Chloride Flush 3 ML SYRINGE IVFLUSH ×2 (11:13→20:51)
[2022-01-19 11:22] LABS: Glucose, Whole Blood 152 mg/dL (60-115)
[2022-01-19 12:00] VITALS: BP 100/64; PULSE 106; RESP 16; TEMP 36.8; O2SAT 93
[2022-01-19 15:43] VITALS: BP 100/61; PULSE 97; RESP 18; TEMP 36.1; O2SAT 100
[2022-01-19 16:14] LABS: Glucose, Whole Blood 143 mg/dL (60-115)
--- NOTE | 2022-01-19 16:56 | PC.NURSE ---
Pt has a skin tear on her right lower arm, maybe from tape removal? MD notified, photo taken and placed in chart, foam dressing applied.
[2022-01-19 19:16] VITALS: BP 117/62; PULSE 97; RESP 17; TEMP 36.2; O2SAT 94
[2022-01-19 20:08] LABS: Glucose, Whole Blood 149 mg/dL (60-115)
[2022-01-19] MEDS: Docusate Sodium 100 MG CAPSULE PO (20:46)
[2022-01-19] MEDS: Lurasidone HCl 40 MG TABLET 60 MG PO (20:47)
[2022-01-19] MEDS: Lurasidone HCl 40 MG TABLET PO (20:47)
[2022-01-19] MEDS: Pramipexole Di-HCL 0.25 MG TABLET PO (20:48)
[2022-01-19] MEDS: Mirabegron 50 MG TAB.ER.24H PO (20:48)
[2022-01-19] MEDS: Lithium Carbonate ER 300 MG TABLET.ER PO (20:48)
[2022-01-19] MEDS: Enoxaparin Sodium 40 MG/0.4 ML SYRINGE SUBCUT (23:35)
[2022-01-20] VITALS: BP 117/82; PULSE 86; RESP 19; O2SAT 92
[2022-01-20 03:38] VITALS: BP 128/78; PULSE 82; RESP 18; TEMP 35.9; O2SAT 96
[2022-01-20] MEDS: metroNIDAZOLE/NS 500 MG/100 ML PIGGYBACK 100 MG IV ×3 (06:09→21:32)
[2022-01-20 07:14] VITALS: BP 132/79; PULSE 98; RESP 20; TEMP 36.8; O2SAT 92
[2022-01-20 07:40] LABS: Glucose, Whole Blood 102 mg/dL (60-115)
[2022-01-20] MEDS: Atorvastatin Calcium 10 MG TABLET PO (08:35)
[2022-01-20] MEDS: Magnesium Oxide 400 MG TABLET PO ×2 (08:35→16:03)
[2022-01-20] MEDS: Metoprolol Tartrate 25 MG TABLET PO ×2 (08:35→21:29)
[2022-01-20] MEDS: Cyclobenzaprine HCl 5 MG TABLET PO ×3 (08:35→21:30)
[2022-01-20] MEDS: Famotidine 20 MG TABLET 40 MG PO (08:35)
[2022-01-20] MEDS: Docusate Sodium 100 MG CAPSULE PO ×2 (08:35→21:30)
[2022-01-20] MEDS: Clopidogrel Bisulfate 75 MG TABLET PO (08:36)
[2022-01-20] MEDS: Sennosides 8.6 MG TABLET 17.2 MG PO ×2 (08:37→21:31)
[2022-01-20] MEDS: Trihexyphenidyl HCL 2 MG TABLET 5 MG PO ×3 (08:37→21:29)
[2022-01-20] MEDS: Aspirin 81 MG TAB.CHEW PO (08:37)
[2022-01-20] MEDS: 0.9 % Sodium Chloride Flush 3 ML SYRINGE IVFLUSH ×2 (08:38→15:09)
--- NOTE | 2022-01-20 08:58 | P.PNIM_ITS ---
Subjective Subjective Date of Service: 01/20/22 Interval History: cc: ftt interval history: no bm, poor intake Cardiovascular Cardiovascular: Reports no additional cardiovascular complaints Respiratory Respiratory: Reports no additional respiratory complaints Physical Exam Vital Signs: Vital Signs: Last Vital Signs Temp 98.2 F 01/20/22 07:14 Pulse 98 01/20/22 07:14 Resp 20 01/20/22 07:14 BP 132/79 01/20/22 07:14 Pulse Ox 92 01/20/22 07:14 Oxygen Flow Rate 2 01/15/22 10:40 BMI result Body Mass Index 22.3 General: AO X 2, no acute distress Resp:? diminished bilateral, no accessory muscles used CVS: S1,S2,RRR, 1+ le edema GI: soft, distension improved, non tender Neuro:? contracted, alert Psych: flat affect, impaired insight? Objective Data Active Medications Acetaminophen (Acetaminophen Supp 650 Mg Supp.Rect) 650 mg [place] Q6H PRN PRN Reason: Pain, Mild (Pain Scale 1-3) Aspirin (Aspirin 81 Mg Tab.Chew) 81 mg PO DAILY [facility] Last Admin: 01/20/22 08:37 Dose: 81 mg Documented by: TRISTAN Atorvastatin Calcium (Atorvastatin Calcium 10 Mg Tablet) 10 mg PO DAILY [facility] Last Admin: 01/20/22 08:35 Dose: 10 mg Documented by: TRISTAN Clopidogrel Bisulfate (Clopidogrel Bisulfate 75 Mg Tablet) 75 mg PO DAILY [facility] Last Admin: 01/20/22 08:36 Dose: 75 mg Documented by: TRISTAN Cyclobenzaprine HCl (Cyclobenzaprine Hcl 5 Mg Tablet) 5 mg PO TID [facility] Last Admin: 01/20/22 08:35 Dose: 5 mg Documented by: TRISTAN Dextrose (Dextrose 50 % 25 Gm/50 Ml Vial) 25 gm IVPUSH Q15M PRN; Protocol PRN Reason: per Hypoglycemia Standing Ord. Docusate Sodium (Docusate Sodium 100 Mg Capsule) 100 mg PO BID [facility] Last Admin: 01/20/22 08:35 Dose: 100 mg Documented by: TRISTAN Enoxaparin Sodium (Enoxaparin Sodium 40 Mg/0.4 Ml Syringe) 40 mg SUBCUT Q24H [facility] Last Admin: 01/19/22 23:35 Dose: 40 mg Documented by: DANY Famotidine (Famotidine 20 Mg Tablet) 40 mg PO DAILY [facility] Last Admin: 01/20/22 08:35 Dose: 40 mg Documented by: TRISTAN Glucose (Glucose Gel 15 Gm Gel..Gram.) 15 gm PO Q15M PRN; Protocol PRN Reason: per Hypoglycemia Standing Ord. Ceftriaxone Sodium 1 gm/ (Sodium Chloride) 50 mls @ 100 mls/hr IV Q12H [facility] Last Infusion: 01/20/22 00:37 Dose: 0 mls/hr Documented by: DANY Metronidazole (Flagyl) 500 mg in 100 mls @ 100 mls/hr IV Q8H [facility] Last Infusion: 01/20/22 08:26 Dose: 100 mls/hr Documented by: TRISTAN Insulin Human Lispro (Insulin Lispro 100 Unit/Ml 3 Ml Vial) 0 unit SUBCUT QIDACHS [facility]; Protocol Last Admin: 01/20/22 08:24 Dose: Not Given Documented by: TRISTAN Non-Admin Reason: No Insulin Coverage [place] Carbonate ([place] Carbonate Er 300 Mg Tablet.Er) 300 mg PO BEDTIME [facility] Last Admin: 01/19/22 20:48 Dose: 300 mg Documented by: DANY Lurasidone HCl (Lurasidone Hcl 40 Mg Tablet) 40 mg PO BEDTIME [facility] Last Admin: 01/19/22 20:47 Dose: 40 mg Documented by: DANY Lurasidone HCl (Lurasidone Hcl 40 Mg Tablet) 60 mg PO BEDTIME [facility] Last Admin: 01/19/22 20:47 Dose: 60 mg Documented by: DANY Comments: y Magnesium Oxide (Magnesium Oxide 400 Mg Tablet) 400 mg PO BIDPC [facility] Last Admin: 01/20/22 08:35 Dose: 400 mg Documented by: TRISTAN Metoprolol Tartrate (Metoprolol Tartrate 25 Mg Tablet) 25 mg PO BID [facility]; Protocol Last Admin: 01/20/22 08:35 Dose: 25 mg Documented by: TRISTAN Mirabegron (Mirabegron 50 Mg Tab.Er.24h) 50 mg PO BEDTIME [facility] Last Admin: 01/19/22 20:48 Dose: 50 mg Documented by: DANY Paliperidone Palmitate (Paliperidone Palmitate 156 Mg/Ml Syringe) 156 mg IM Q28D [facility] Last Admin: 01/16/22 08:30 Dose: 156 mg Documented by: ITALO Pharmacy Consult (Consult Rx Perform Med Rec) 1 each MISCELLANE ONCE PRN PRN Reason: Consult order Pharmacy Consult (Consult Rx Vancomycin Dosing) 1 each MISCELLANE DAILY PRN PRN Reason: Consult order Pramipexole Dihydrochloride (Pramipexole Di-Hcl 0.25 Mg Tablet) 0.25 mg PO BEDTIME [facility] Last Admin: 01/19/22 20:48 Dose: 0.25 mg Documented by: DANY Senna (Sennosides 8.6 Mg Tablet) 17.2 mg PO BID [facility] Last Admin: 01/20/22 08:37 Dose: 17.2 mg Documented by: TRISTAN Sodium Chloride (0.9 % Sodium Chloride Flush 3 Ml Syringe) 3 ml IVFLUSH QSHIFT [facility] Last Admin: 01/20/22 08:38 Dose: 3 ml Documented by: TRISTAN Trihexyphenidyl HCl (Trihexyphenidyl Hcl 2 Mg Tablet) 5 mg PO TID [facility] Last Admin: 01/20/22 08:37 Dose: 5 mg Documented by: TRISTAN Trolamine Salicylate/Aloe Vera (Trolamine Salicylate 10%/Aloe Cream 35.4 Gm) 1 appl TOPICAL DAILY PRN PRN Reason: LOWER BACK, RIGHT KNEE PAIN Labs CBC & Chem 7: 01/19/22 08:43 01/19/22 08:43 Labs: Laboratory Results - last 24 hr 01/19/22 01/19/22 01/19/22 08:43 11:18 16:10 Anion Gap 11 L Estim Creat Clear Calc 106.3 Estimated GFR > 60 POC Glucose 152 H 143 H Fasting Glucose 87 Calcium 9.6 D 01/19/22 01/20/22 20:04 07:13 Anion Gap Estim Creat Clear Calc Estimated GFR POC Glucose 149 H 102 Fasting Glucose Calcium Assessment and Plan (1) Failure to thrive in adult: Status: Acute Plan 62F sent in for decreased appetite. decreased appetite, FTT due to ileus. 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 dvt prophylaxis - lovenox full code Quality Stroke Does the patient have a stroke diagnosis?: No VTE Prior VTE?: No VTE Risk Level:: Medical - moderate - high VTE Device Contraindication: Treatment Not Indicated VTE Drug Contraindication: N/A - Med Ordered
--- NOTE | 2022-01-20 10:57 | MHC.CM.PN ---
Per ROUNDS discussion, Patient is not yet medically cleared to return to [facility] (has not passed stool, not eating, IV Ceftriaxone, IV Flagyl);CM will continue to follow for dc planning.
[2022-01-20 11:13] LABS: Glucose, Whole Blood 165 mg/dL (60-115)
[2022-01-20] MEDS: cefTRIAXone sodium 1 GM in 0.9 % Sodium Chloride 50 ML IV ×2 (12:25→22:30)
[2022-01-20] MEDS: Insulin Lispro 100 UNIT/ML 3 ML VIAL SUBCUT (12:25)
[2022-01-20 15:41] VITALS: BP 117/80; PULSE 89; RESP 18; TEMP 37.1; O2SAT 98
[2022-01-20 16:00] LABS: Glucose, Whole Blood 83 mg/dL (60-115)
--- NOTE | 2022-01-20 16:27 | MHC.SLORD ---
Speech Language Pathology Order Status: [employer] BLACKSMITH called and spoke to staff at [facility]- She is reportedly on minced and moist solids and thin liquids at baseline. Patient evaluated by [employer] BLACKSMITH during this admission and recommended pureed solids (NDD1) and nectar thick liquids. Plan to re-evaluate tomorrow.
[2022-01-20 19:11] VITALS: BP 118/86; PULSE 88; RESP 18; TEMP 37.1; O2SAT 91
[2022-01-20 19:37] LABS: Glucose, Whole Blood 103 mg/dL (60-115)
[2022-01-20] MEDS: Lithium Carbonate ER 300 MG TABLET.ER PO (21:30)
[2022-01-20] MEDS: Mirabegron 50 MG TAB.ER.24H PO (21:31)
[2022-01-20] MEDS: Lurasidone HCl 40 MG TABLET PO (21:31)
[2022-01-20] MEDS: Pramipexole Di-HCL 0.25 MG TABLET PO (21:32)
[2022-01-20] MEDS: Lurasidone HCl 40 MG TABLET 60 MG PO (21:32)
[2022-01-20] MEDS: Enoxaparin Sodium 40 MG/0.4 ML SYRINGE SUBCUT (22:30)
[2022-01-20 23:56] VITALS: BP 116/78; PULSE 82; RESP 18; TEMP 35.8; O2SAT 93
[2022-01-21] MEDS: 0.9 % Sodium Chloride Flush 3 ML SYRINGE IVFLUSH ×2 (02:10→08:09)
[2022-01-21 04:00] VITALS: BP 119/68; PULSE 80; RESP 18; TEMP 36; O2SAT 94
[2022-01-21] MEDS: metroNIDAZOLE/NS 500 MG/100 ML PIGGYBACK 100 MG IV (05:45)
[2022-01-21 06:27] LABS: Hematocrit 33.2 % (37.0-47.0); Hemoglobin 10.4 g/dl (12.0-16.0); Mean Corpuscular HGB Conc 31.3 g/dl (31.0-35.0); Mean Corpuscular Hemoglobin 30.7 pg (27.0-33.0); Mean Corpuscular Volume 97.9 fL (80.0-98.0); Mean Platelet Volume 9.6 fL (9.4-12.3); Platelet Count 259 X10*3/uL (160-400); Red Blood Count 3.39 X10*6/uL (4.20-5.50); Red Cell Distribution Width 16.7 % (11.0-16.0); White Blood Count 6.5 X10*3/uL (4.8-10.8)
[2022-01-21 06:42] LABS: Anion Gap 6 (12-20); Blood Urea Nitrogen 6 mg/dL (9-16); Calcium 9.1 mg/dL (8.4-10.2); Carbon Dioxide 28 mmol/L (22-29); Chloride 111 mmol/L (96-108); Creatinine Clr Calc Pharmacy 112.7; Estimated Glomerular Filt Rate > 60; Glucose Fasting 81 mg/dL (60-99); Potassium 3.9 mmol/L (3.3-5.1); Sodium 141 mmol/L (135-145)
[2022-01-21 07:31] VITALS: BP 128/81; PULSE 98; RESP 18; TEMP 36.6; O2SAT 96
[2022-01-21 07:44] LABS: Glucose, Whole Blood 78 mg/dL (60-115)
[2022-01-21] MEDS: Docusate Sodium 100 MG CAPSULE PO (08:08)
[2022-01-21] MEDS: Sennosides 8.6 MG TABLET 17.2 MG PO (08:08)
[2022-01-21] MEDS: Aspirin 81 MG TAB.CHEW PO (08:08)
[2022-01-21] MEDS: Cyclobenzaprine HCl 5 MG TABLET PO (08:08)
[2022-01-21] MEDS: Metoprolol Tartrate 25 MG TABLET PO (08:09)
[2022-01-21] MEDS: Trihexyphenidyl HCL 2 MG TABLET 5 MG PO (08:09)
[2022-01-21] MEDS: Atorvastatin Calcium 10 MG TABLET PO (08:09)
[2022-01-21] MEDS: Magnesium Oxide 400 MG TABLET PO (08:09)
[2022-01-21] MEDS: Clopidogrel Bisulfate 75 MG TABLET PO (08:09)
[2022-01-21] MEDS: Famotidine 20 MG TABLET 40 MG PO (08:09)
--- NOTE | 2022-01-21 09:45 | PM.DS ---
DS: Providers Provider Date of Service: 01/21/22 Date of admission: 01/15/22 23:15 Primary care physician: Javier Torres DO Consults: 01/15/22 23:15 Consult to Infectious Diseases Routine Consulting Provider: Caitie Ji Reason for consultation: covid; hcap 01/16/22 00:49 Consult to General Surgery Routine Consulting Provider: Edel Barnett Reason for consultation: Partial SBO /dilated stomach/dilated gallbladder DS: Diagnosis Discharge Diagnosis (1) Failure to thrive in adult: Status: Acute DS: Summary Hospital Course Hospital Course: from initital hpi: Chief Complaint: decreased oral intake ? 62-year-old female with a past medical history of hypertension, hyperlipidemia, diabetes,? CAD, peripheral vascular disease, COPD on supplemental oxygen as needed, history of hep C, history of hyponatremia, history of TBI, history of recurrent left shoulder dislocation, generalized muscle weakness, paranoid schizophrenia, major depressive disorder, PTSD, GERD, dysphagia, history of hyperprolactinemia,? diaphragmatic hernia, chronic pain syndrome, history of COVID-19 positive, presented from the [place] [facility] with a chief complaint of poor oral intake for the past few days and abdominal discomfort. ?patient unable to provide history.? Most of the history obtained from the records and ER staff Per ER team who when spoken to the [place] staff reported that patient has not been eating for the past 2-3 days and has been complaining of abdominal discomfort.? KUB showed possible ileus; sent to the ER for further evaluation.? ER team also reported that patient was more confused than her baseline. CT abdomen pelvis showed distended stomach, small bowel concerning for partial SBO,? notified general surgery team.? ? CT scan also showed multifocal pneumonia with concerns for aspiration.? Patient was started on empiric antibiotics.? Admitted to the hospital for further management hospital course: patient was admitted for decreased appetite, failure to thrive due to ileus. Her opiates and oxybutynin were held, she was given small frequent meals and eventually passed stool. Her abdomen is much less distended and she is not complaining of any pain, her appetite significantly improved. Patient incidentally tested positive for COVID-19. She was seen by infectious disease who felt that this was likely nonviable viral shedding from her previous infection in November of 2021, recommended no further retesting for 3 months from initial infection ( 02/24/2022). patient had some electrolyte abnormalities of hypokalemia and hypomagnesemia which were repleted and resolved. Patient was also noted to have aspiration pneumonia. She was treated with 6 days of ceftriaxone and Flagyl. She was seen by speech therapy recommended continuing pureed solids and nectar thick liquids. For patient's chronic hypoxic respiratory failure due to COPD she was continued on 2 L home O2. for Her diabetes she was considered to on insulin. for her schizoaffective disorder she was continued on Latuda lithium, she received her Invega dose on 01/16/2022. For her coronary disease and peripheral vascular disease she was continued on dual antiplatelet and statin. Patient is back to baseline will be discharged to group home facility. Time Spent with Patient Time attestation: Total time spent providing and/or coordinating discharge services: Discharge coordination time: Greater than 30 minutes Quality: Stroke Does the patient have a stroke diagnosis?: No Physical Exam Vital Signs: Vital Signs: Last Vital Signs Temp 97.8 F 01/21/22 07:31 Pulse 98 01/21/22 07:31 Resp 18 01/21/22 07:31 BP 128/81 01/21/22 07:31 Pulse Ox 96 01/21/22 07:31 Oxygen Flow Rate 2 01/15/22 10:40 BMI result Body Mass Index 22.3 General: AO X 2, no acute distress Resp:? diminished bilateral, no accessory muscles used CVS: S1,S2,RRR, 1+ le edema GI: soft, distension improved, non tender Neuro:? contracted, alert Psych: flat affect, impaired insight? DS: Data Data Completed and Pending Labs on day of discharge: Laboratory Results - last 24 hr 01/20/22 01/20/22 01/20/22 10:59 15:42 19:17 WBC RBC Hgb Hct MCV MCH MCHC RDW Plt Count MPV Absolute Nucleated RBC Nucleated RBC % (auto) Sodium Potassium Chloride Carbon Dioxide Anion Gap BUN Creatinine Estim Creat Clear Calc Estimated GFR POC Glucose 165 H 83 103 Fasting Glucose Calcium 01/21/22 01/21/22 01/21/22 06:11 06:11 07:34 WBC 6.5 RBC 3.39 L Hgb 10.4 L Hct 33.2 L MCV 97.9 MCH 30.7 MCHC 31.3 RDW 16.7 H Plt Count 259 MPV 9.6 Absolute Nucleated RBC 0.000 Nucleated RBC % (auto) 0.0 Sodium 141 Potassium 3.9 Chloride 111 H Carbon Dioxide 28 Anion Gap 6 L BUN 6 L Creatinine 0.49 L Estim Creat Clear Calc 112.7 Estimated GFR > 60 POC Glucose 78 Fasting Glucose 81 Calcium 9.1 Discharge Plan Discharge Patient Disposition: Xfer SNF Discharge Diagnosis: pneumonia, ileus Referrals: Javier Torres DO [Primary Care Provider] - 1 Week Discharge Medications: Continued sennosides [senna] 8.6 mg Tablet 17.2 mg PO BID 0RF acetaminophen 325 mg Tablet 325 mg PO QID 0RF lithium carbonate 300 mg Tablet Extended Release 300 mg PO BEDTIME 0RF ascorbic acid (vitamin C) 500 mg Tablet 500 mg PO DAILY 0RF aspirin 81 mg Tablet,Chewable 81 mg PO DAILY 0RF docusate sodium 100 mg Tablet 100 mg PO BID 0RF Bengay Ultra Strength(menthol) 5 % Adhesive Patch,Medicated 1 patch TOPICAL DAILY PRN (Reason: LOWER BACK, RIGHT KNEE PAIN) 0RF metoprolol tartrate 25 mg Tablet 25 mg PO BID 0RF lactulose 10 gram/15 mL Solution 20 g PO Q12H PRN (Reason: Constipation) 0RF Minerin Creme Cream 1 appl TOPICAL QPM 0RF cholecalciferol (vitamin D3) 1,250 mcg (50,000 unit) Tablet 1,250 mcg PO MO 0RF albuterol sulfate 90 mcg/actuation Aero Powdr Breath Act W/Sensor 4 inh INHALATION Q4H PRN (Reason: Wheezing) 0RF clopidogrel 75 mg tablet 75 mg PO DAILY 0RF Latuda 40 mg tablet 40 mg PO BEDTIME 0RF simvastatin 20 mg tablet 20 mg PO BEDTIME 0RF Breo Ellipta 200-25 mcg/dose blister with device 1 ea inhalation DAILY 0RF Myrbetriq 50 mg tablet extended release 24 hr 50 mg PO BEDTIME 0RF Invega Sustenna 156 mg/mL syringe 156 mg IM Q28D 0RF Latuda 60 mg tablet 60 mg PO BEDTIME 0RF famotidine 40 mg tablet 40 mg PO DAILY 0RF pramipexole 0.25 mg tablet 0.25 mg PO BEDTIME 0RF trihexyphenidyl 5 mg tablet 5 mg PO TID 0RF Discontinued cyclobenzaprine 5 mg tablet 5 mg PO TID 0RF oxybutynin chloride 10 mg tablet extended release 24hr 10 mg PO DAILY 0RF hydrocodone-acetaminophen 5-325 mg tablet 1 tab PO QID 0RF furosemide 40 mg tablet 40 mg PO DAILY 0RF Discharge Orders: Discharge Order (Routine); Ordered 01/21/22 Ordered By: Adriel Montoya Diet: advance to usual diet Activity on Discharge: As tolerated Stand Alone Forms: Patient Portal Discharge page Care Plan Goals: avoid hospitalizations Health Concerns: ileus Plan of Treatment: stop meds that promote ileus such as oxybutini, opiates, flexeril small frequent meals pureed solids with nectar thick liquids to avoid aspiratoin Assessment: see above
[2022-01-21 11:21] LABS: COVID-19 Test Positive (Negative); IDNOW Serial# 16C4AD1C
--- NOTE | 2022-01-21 11:28 | MHC.CM.PN ---
Patient has been medically cleared for dc to SNF/LTC today. Patient will return to [facility] today at 1PM, via [facility]. CM has left a detailed message for Guardian/Kavya, informing her of the dc plan and addressing the IMM. Original IMM will be mailed certified letter to Kavya and a copy has been placed on the chart.
[2022-01-21 11:35] LABS: Glucose, Whole Blood 133 mg/dL (60-115)
[2022-01-21] MEDS: cefTRIAXone sodium 1 GM in 0.9 % Sodium Chloride 50 ML IV (12:33)
--- NOTE | 2022-01-21 12:43 | MHC.INPTTRAN ---
Patient known to facility. Patient denying abdomenal pain, no nausea/vomiting. +bowel sounds.
--- NOTE | 2022-01-21 13:21 | MHC.SL.SWA ---
Speech Pathologist Impression: Risk of Aspiration Due to: Medically Fragile Neurological Condition History of Pneumonia Poor PO Intake Reduced Cognition Dysphasia Diet Status: Liquid Consistency and Strategies for Safe Swallow: Liquid Intake Recommendation: [place] Thick Liquid Intake Strategies: Small Sips No Straws Solid Food Consistency: Dietary Recommendations: Pureed (NDD1) Additional Modifications to Solid Foods: Close supervision & 1-1 support during all meals, w/ monitor for signs of aspiration. Oral Medication Intake: Crushed with Puree Please contact the pharmacy regarding appropriate crushable or liquid drug formulations that are available whenever modified delivery is recommended. Compensatory Strategies and Precautions to be Taken for Safe Swallow: Sitting Upright (90 deg) No Straw Liquids from Cup Liquids from Spoon Alternate Liquids/Solids Supervision While Eating and Drinking for Safe Swallow: Total Supervision (1:1) Foods to Avoid: sticky, very congealed foods. Swallowing Recommended Treatments: Compens. Strategy Educat. Recommendation for Speech: Inpatient Speech Therapy Comment: Pt seen this morning for re-assessment/toleration of current diet. Pt was very talkative, but communication was not coherent. Pt readily took tsps of puree, with chewing and mashing of the tongue still evident, w/slow transit of bolus as a result, timely swallow w/no clinical signs of aspiration. Pt again demonstrated maladaptive chewing/mashing behavior on thin liquid, w/ anterior escape of liquid noted. Pt tolerated nectar thick consistency, although again produced maladaptive/disorganized oral phase, no clinical s/s aspiration. Recommend continue on current diet of PUREE (NDD1) w/ NECTAR thick liquids. Frequency/Duration: Date Range for Service Req: Timeline to reassess: Automobile Racer Clinican/Clinical Fellow: No Supervisory Statement: I have reviewed and agree with the student/clinical fellow's documentation: N/A Speech Language Pathologist: Silvana Roberts M.A., CCC-RN INTERN
== END 2022-01-21 14:30 | disposition skilled nursing facility (03) | DRG 177 ==
LOC: HO.ED 18:21 → HO.EDOVER 23:22 → HO.IMC 01-16 18:44
PROVIDERS: Physician Assistant; Admitting Provider Hospitalist; Emergency Provider Emergency Medicine; PCP Hospitalist; Visit Provider Internal Medicine
DX: J69.0 Pneumonitis due to inhalation of food and vomit (principal); U07.1 COVID-19; J96.11 Chronic respiratory failure with hypoxia; K56.7 Ileus, unspecified; F03.90 Unspecified dementia, unspecified severity, without behavioral disturbance, psychotic disturbance, mood disturbance, and anxiety; F20.9 Schizophrenia, unspecified; I25.10 Atherosclerotic heart disease of native coronary artery without angina pectoris; E86.0 Dehydration; R62.7 Adult failure to thrive; E83.42 Hypomagnesemia; E87.6 Hypokalemia; E11.51 Type 2 diabetes mellitus with diabetic peripheral angiopathy without gangrene; Z68.22 Body mass index [BMI] 22.0-22.9, adult; G89.4 Chronic pain syndrome; Z87.820 Personal history of traumatic brain injury; Z99.81 Dependence on supplemental oxygen; Z87.891 Personal history of nicotine dependence; Z88.0 Allergy status to penicillin; Z88.5 Allergy status to narcotic agent; Z88.6 Allergy status to analgesic agent; Z79.02 Long term (current) use of antithrombotics/antiplatelets; Z79.51 Long term (current) use of inhaled steroids; Z79.82 Long term (current) use of aspirin; Z79.899 Other long term (current) drug therapy
CPT/HCPCS: 36415; 70450; 71045; 74018; 74176; 74177; 80048; 80076; 81003; 82140; 82728; 82947; 83036; 83605; 83615; 83690; 83735; 83880; 84145; 84484; 85025; 85027; 85379; 86140; 87040; 87635; 92526; 92610; 93005; 96361; 96365; 96375; 99285; J0692; J0696; J1650; J2060; J2426; J3370; Q9967

== ENCOUNTER → 2022-02-11 14:40 | Outpatient (BNVA) | payer MEDICARE, MEDICAID, SELFPAY | PROVIDERS: PCP Hospitalist | DX: Z13.89 Encounter for screening for other disorder (principal) | CPT/HCPCS: Q3014 ==

== ENCOUNTER 2022-03-13 09:44 | Inpatient (IN) | payer MEDICARE, MEDICAID, SELFPAY ==
[2022-03-13] VITALS (26 sets, daily range): BP systolic 67–138; BP diastolic 37–76; PULSE 25–129; RESP 12–34; TEMP 35–37.4; O2SAT 93–100; BMI 21.1; BMI 20.9
--- NOTE | ~2022-03-13 | XR_ITS ---
EXAMINATION: XR CHEST CLINICAL INFORMATION: ET tube placement COMPARISON: Film same day TECHNIQUE: Frontal view of the chest was obtained. FINDINGS: The ET tube appears to terminate 6.3 cm above the vera. Developing left basilar opacity consistent with atelectasis/infiltrate. The right lung shows some minimal developing opacity in the right midlung. No obvious failure. XR/XR chest 1V IMPRESSION: ET tube appears to terminate 6.3 cm above the vera. At the level the clavicular heads. Developing left basilar infiltrate/atelectasis.
--- NOTE | ~2022-03-13 | XR_ITS ---
EXAMINATION: XR CHEST CLINICAL INFORMATION: Shortness of breath COMPARISON: 01/15/2022 TECHNIQUE: Frontal view of the chest was obtained. FINDINGS: Again seen is cardiomegaly and chronic elevation of the left hemidiaphragm with gaseous distention of bowel beneath. Previously seen right-sided pleural effusion appears to have resolved. Some minimal bibasilar atelectasis appears improved since the prior study. Again noted are severe degenerative changes in both shoulders. XR/XR chest 1V IMPRESSION: No acute intrathoracic disease. Chronic elevation of hemidiaphragm.
--- NOTE | ~2022-03-13 | CT_ITS ---
EXAMINATION: CT ABDOMEN AND PELVIS WITHOUT AND WITH CONTRAST CLINICAL INFORMATION: GI bleed with bright red blood per rectum COMPARISON: CT abdomen pelvis 01/15/2022 TECHNIQUE: Multidetector volumetric imaging was performed from the superior aspect of the liver through the pubic symphysis initially without contrast and subsequently following administration of 80 mL of Omnipaque 350. A third set of CT scans was performed after 2 minutes delay. Sagittal and coronal reformatted images were obtained on the technologist's workstation. This CT examination was performed using dose optimization techniques as appropriate, variously including the following: *Automated exposure control *Adjustment of mA and/or kV according to patient size (this includes techniques or standardized protocols for targeted exams where dose is matched to indication/reason for exam; i.e. extremities or head) *Use of iterative reconstruction technique DLP: 1348 mGy-cm FINDINGS: LUNG BASES: Again seen is bilateral lower lobe atelectasis/scarring and a elevated left hemidiaphragm. LIVER, GALLBLADDER, AND BILIARY TREE: The liver is enlarged measuring 21.9 cm in greatest cephalocaudad dimension. Previously, the liver was even larger at 24.4 cm. Attenuation is normal. A benign cyst is noted just beneath the right hemidiaphragm, unchanged.. No worrisome solid focal hepatic lesion or biliary ductal dilatation is present. The gallbladder is contracted on the current scan exam whereas it was rather markedly dilated on the prior study. Some small posteriorly layering gallstones are present without evidence of cholecystitis. PANCREAS: Unremarkable. SPLEEN: Unremarkable. ADRENAL GLANDS: Small fat density adrenal nodules are seen consistent with benign adenomas. KIDNEYS AND URETERS: The kidneys are normal in size, shape, and attenuation. Bilateral benign Bosniak class I renal cysts are present measuring under 1 cm to up to 2.2 cm. No solid renal masses. No hydronephrosis, hydroureter, or calculi seen. No perinephric stranding. BLADDER: Unremarkable. GASTROINTESTINAL TRACT: There is no evidence of active GI bleeding. High density material seen in the cecum with present on the noncontrast exams (9:56). There is a rounded dense area of calcification seen in a small bowel loop which was also present on noncontrast sequences (9:69). The small and large bowel are otherwise unremarkable. The appendix is not seen. ABDOMINAL WALL: No significant hernia is appreciated. LYMPH NODES: No retroperitoneal lymphadenopathy. VASCULAR: Extensive vascular atherosclerotic disease is present involving the aorta and iliofemoral vessels with a aorta to left iliac artery bypass graft. PELVIC VISCERA: A retroverted uterus is present. A small amount of air is seen in the endometrial canal. An abnormal adnexal mass or free intraperitoneal fluid is not seen. An ovoid calcification in the right cul-de-sac is unchanged, possibly an old infarcted epiploic appendage. This is not a worrisome finding. OSSEOUS STRUCTURES: Severe degenerative changes present at L4-L5 with marked grade 1 anterolisthesis of L4 upon L5. Milder changes present at L5-S1. CT/CT gi bleed abd pel wo/w con IMPRESSION: 1. There is no evidence of active bleeding at this time. 2. Incidental note made of hepatomegaly, cholelithiasis, adrenal adenomas extensive peripheral vascular disease and severe degenerative changes in the lower lumbosacral spine. Fleischner guidelines were followed.
--- NOTE | ~2022-03-13 | XR_ITS ---
EXAMINATION: XR CHEST CLINICAL INFORMATION: Intubation. COMPARISON: Chest radiograph 03/05/2022 7:[address] abdomen 03/13/2022. TECHNIQUE: Frontal view of the chest was obtained. FINDINGS: An endotracheal tube terminates 5 cm superior to the vera. A right internal jugular catheter terminates in the region of the caval atrial junction. The heart size is normal. Airspace opacification obscuring the left hemidiaphragmatic margin is noted. Dense mitral annulus calcifications. No pneumothoraces. Chronic degenerative changes of the left and right shoulders. Chronic appearing posterior manic deformity of multiple right lateral rib segments. Partial visualization of multiple thoracic vertebral body compression deformities. XR/XR chest 1V IMPRESSION: *Endotracheal tube terminating 5 cm superior to the vera. *Right internal jugular catheter terminating in the region of the cavoatrial junction. *Moderate focal left base airspace opacity unchanged compared with 03/13/2022 7:13 PM suspicious for atelectasis and/or consolidation.
--- NOTE | 2022-03-13 09:45 | ECG_ITS ---
Test Reason : hypotensive Blood Pressure : / mmHG Vent. Rate : 120 BPM Atrial Rate : 120 BPM P-R Int : 152 ms QRS Dur : 104 ms QT Int : 284 ms P-R-T Axes : 042 -27 158 degrees QTc Int : 401 ms Sinus tachycardia with occasional Premature ventricular complexes Inferior infarct (cited on or before 15-JAN-2022) Anterolateral infarct , age undetermined Abnormal ECG When compared with ECG of 15-JAN-2022 10:54, No significant changes seen Referred By: Samara Rashid Electronically Signed By:PRINCESS GONZALEZ
--- NOTE | 2022-03-13 10:12 | ED.GIBLEED ---
HPI - GI Bleed General Chief complaint: GI Bleed Stated complaint: rectal bleeding/low bp 75/49 Time Seen by Provider: 03/13/22 09:45 Source: patient, EMS and old records reviewed Mode of arrival: EMS Limitations: other (poor historian) History of Present Illness HPI Narrative: on aspirin and plavix - had large amounts of black watery diarrhea this AM at SNF was hypotensive and hypoxic per SNF on levofloxacin for URI at this time. MD complaint: melena Onset (ago): hour(s) (at 9am this AM) Pain Consistency: constant Severity: severe Relieving factors: none Exacerbating factors: none Context: other (aspirin, plavix, chronic steroid use) Associated symptoms: nausea, malaise and easy bruising Treatments Prior to Arrival: none Related Data Home Medications Medication Instructions Recorded Confirmed clopidogrel 75 mg tablet 75 mg PO DAILY 06/12/21 03/13/22 fluticasone furoate 200 1 ea INHALATION DAILY 06/12/21 03/13/22 mcg-vilanterol 25 mcg/dose inhalation powder (Breo Ellipta) lurasidone 40 mg tablet (Latuda) 40 mg PO BEDTIME 06/12/21 03/13/22 simvastatin 20 mg tablet 20 mg PO BEDTIME 06/12/21 03/13/22 famotidine 40 mg tablet 40 mg PO BEDTIME 06/26/21 03/13/22 lurasidone 60 mg tablet (Latuda) 60 mg PO BEDTIME 06/26/21 03/13/22 paliperidone palmitate 156 mg/mL 156 mg IM Q28D 06/26/21 03/13/22 intramuscular syringe (Invega Sustenna) pramipexole 0.25 mg tablet 0.25 mg PO BEDTIME 06/26/21 03/13/22 trihexyphenidyl 5 mg tablet 5 mg PO TID 06/26/21 03/13/22 acetaminophen 325 mg tablet 650 mg PO Q4H PRN 01/15/22 03/13/22 albuterol sulfate 90 mcg/actuation 4 inh INHALATION Q4H PRN 01/15/22 03/13/22 breath activated powder inhaler,sensor ascorbic acid (vitamin C) 500 mg 500 mg PO DAILY 01/15/22 03/13/22 tablet aspirin 81 mg chewable tablet 81 mg PO DAILY 01/15/22 03/13/22 docusate sodium 100 mg tablet 100 mg PO BID 01/15/22 03/13/22 lactulose 10 gram/15 mL oral 20 g PO Q12H PRN 01/15/22 03/13/22 solution lanolin alcohols-mineral 1 appl TOPICAL BEDTIME 01/15/22 03/13/22 oil-w.petrolatum-ceresin topical cream (Minerin Creme) lithium carbonate 300 mg 300 mg PO BEDTIME 01/15/22 03/13/22 tablet,extended release menthol 5 % topical patch (Bengay 1 patch TOPICAL DAILY PRN 01/15/22 03/13/22 Ultra Strength (menthol)) metoprolol tartrate 25 mg tablet 25 mg PO BID 01/15/22 03/13/22 sennosides 8.6 mg tablet (senna) 17.2 mg PO BID PRN 01/15/22 03/13/22 furosemide 40 mg tablet 40 mg PO DAILY 02/11/22 03/13/22 acetaminophen 325 mg tablet 325 mg PO QID 03/13/22 03/13/22 aluminum-mag hydroxide-simethicone 30 ml PO Q6H PRN 03/13/22 03/13/22 200 mg-200 mg-20 mg/5 mL oral susp bisacodyl 10 mg rectal suppository 10 mg TN DAILY PRN 03/13/22 03/13/22 glucagon HCl 1 mg solution for 1 mg SUBCUT Q20M PRN 03/13/22 03/13/22 injection (Glucagon (HCl) Emergency Kit) guaifenesin 100 mg/5 mL oral liquid 200 mg PO Q6H PRN 03/13/22 03/13/22 levofloxacin 500 mg tablet 1 tab PO DAILY 03/13/22 03/13/22 naloxone 4 mg/actuation nasal 4 mg INTRANASAL Q3M PRN 03/13/22 03/13/22 spray (Narcan) prednisone 10 mg tablet 30 mg PO DAILY 03/13/22 03/13/22 sodium phosphates 19 gram-7 118 ml TN DAILY PRN 03/13/22 03/13/22 gram/118 mL enema (Fleet Enema) Allergies Allergy/AdvReac Type Severity Reaction Status Date / Time codeine [CODEINE] Allergy Unknown UNKNOWN Verified 02/11/22 14:47 lactose [LACTOSE] Allergy Unknown UNKNOWN Verified 02/11/22 14:47 meloxicam [MELOXICAM] Allergy Unknown UNKNOWN Verified 02/11/22 14:47 penicillin V Allergy Unknown Unknown Verified 02/11/22 14:47 Penicillins [PENICILLINS] Allergy Unknown UNKNOWN Verified 02/11/22 14:47 tetracycline [TETRACYCLINE] Allergy Unknown UNKNOWN Verified 02/11/22 14:47 Review of Systems Review of Systems: Constitutional : No Weight loss, No Fever, pos Chills ENT/Mouth : No sore throat, No Rhinorrhea Eyes: No Swelling, No Redness Cardiovascular : No Chest Pain, pos SOB, NoEdema Respiratory : No Cough, No Sputum, No Wheezing Gastrointestinal : Positive Nausea, no Vomiting, positive Diarrhea, positive abdominal Pain, No Hematochezia, pos Melena Genitourinary : No Dysuria, No Urinary Frequency, No Hematuria, No Urgency Musculoskeletal : No joint pain, No Myalgias, No Joint Swelling Skin : No Skin Lesions, No rash Neuro : pos Weakness, No Numbness, No Dizziness, No Headache Psych : No Anxiety/Panic, No Depression Heme/Lymph: No Bruising, No Lymphadenopathy Endocrine : No Polyuria, No Polydipsia All other systems reviewed and are negative. [facility], [facility] Past Medical History Attestation statement: The following information was validated with the patient. 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 Bone disease Chronic pain Depressive disorder Diabetes mellitus, type II Edema GERD (gastroesophageal reflux disease) Hepatitis C Hernia HTN (hypertension) Hyperprolactinemia Hyponatremia Polydipsia Schizophrenia Urinary incontinence Surgical History History of surgery Social History Social History Household Members: None Housing: Intermediate Do you presently have visiting nurse or other home services: No (from [facility]) Unable to assess alcohol history related to: Unknown Alcohol intake: unknown Patient Tobacco Use Status: Former Tobacco user Use of substances other than those prescribed or required for medical reasons: Unable to respond Advance Directives: No Advance Directives Information Provided: No Patient : No service: No Current occupational status: disabled Physical Exam Vital Signs: Vital Signs: Last Vital Signs Temp 98.4 F 03/13/22 13:39 Pulse 123 H 04/28/22 13:39 Resp 28 H 03/13/22 13:39 BP 127/73 03/13/22 13:39 Pulse Ox 99 03/13/22 10:16 BMI result Body Mass Index 21.1 Appearance: Alert. Oriented X2 person and place. Mild acute distress. Eyes: Pupils equal, round and reactive to light. ENT: Pharynx dry MM Neck: Normal inspection. Neck supple. CVS: tachycardic heart rate and rhythm. Pulses normal. Respiratory: No respiratory distress. Breath sounds very coarse with a loud cough Abdomen: Soft and nontender. Rectum: black stools noted Skin: Skin warm and dry. pale skin color. poor skin turgor. Extremities: No lower extremity edema. diffuse bruising noted on extremities Neuro: Oriented [address] No motor deficit. No sensory deficit. Course Course Course Narrative: 100% on 2L NC after xopenex taken off NRB 2 UPRBCs ordered BP currently stable lactic acidosis elevated due to GIB and not infection or severe sepsis delay in type and screen - active bleeding, tachycardic, dropped 5 points one unit of uncrossmatched blood ordered message sent to Dr. Duque [id number] - at bedside will repeat CBC after blood plan for endoscopy this afternoon Kavya Rios legal appointed guardian aware of plan and transfusions as well as need for endoscopy admit to ICU given plan EGD and suspect she will fail procedure and will need good post care recovery MDM - GI Bleed MDM Narrative Medical decision making narrative: 62 [facility] female [facility] with schizophrenia, chronic resp failure on O2, CAD on aspirin and plavix, PVD, is also on chronic steroids - she has been on levofloxacin for reported URI symptoms comes in with c/o multiple bouts of black stools at [facility] - found to be hypotensive and tachycardic - at this time IVF, type and screen, protonix and drip ordered, needs neb treatment will try to wean to NC, suspect UGIB source at this time. Planned admit. Patient is full code per SNF forms. Lab Data Result diagrams: 03/13/22 10:14 03/13/22 10:13 Labs: Lab Results 03/13/22 03/13/22 03/13/22 Range/Units 10:13 10:13 10:13 WBC (4.8-10.8) X10*3/uL RBC (4.20-5.50) X10*6/uL Hgb (12.0-16.0) g/dl Hct (37.0-47.0) % MCV (80.0-98.0) fL MCH (27.0-33.0) pg MCHC (31.0-35.0) g/dl RDW (11.0-16.0) % Plt Count (160-400) X10*3/uL MPV (9.4-12.3) fL Immature Gran % (Auto) (0.0-0.4) % Neut % (Auto) (45-73) % Lymph % (Auto) (20-40) % [place] % (Auto) (2-11) % Eos % (Auto) (0-4) % Baso % (Auto) (0-2) % Lymph # (Auto) (1.2-4.9) X10*3/uL Richardson # (Auto) (0.1-1.2) X10*3/uL Eos # (Auto) (0.0-0.4) X10*3/uL Baso # (Auto) (0.0-0.2) X10*3/uL Abs Immat Gran (auto) (0.00-0.03) X10*3/uL Absolute Neuts (auto) (2.0-8.3) x10*3/uL Absolute Nucleated RBC (0.0-0.012) X10*3/uL Nucleated RBC % (auto) (0.0-0.2) /100WBC PT (9.9-13.0) SEC INR (0.9-1.1) APTT (24.1-38.0) SEC Sodium 130 L (135-145) mmol/L Potassium 4.5 (3.3-5.1) mmol/L Chloride 94 L (96-108) mmol/L Carbon Dioxide 30 H (22-29) mmol/L Anion Gap 11 L (12-20) BUN 54 H D (9-16) mg/dL Creatinine 0.58 (0.5-1.4) mg/dL Estim Creat Clear Calc 88.1 Estimated GFR > 60 Random Glucose 139 H (60-115) mg/dL Lactic Acid 3.1 H* (0.5-2.0) mmol/L Calcium 9.4 (8.4-10.2) mg/dL Magnesium 1.5 L (1.6-2.6) mg/dL Total Bilirubin 0.3 (0.0-1.0) mg/dL Direct Bilirubin < 0.2 (0.0-0.5) mg/dL AST 13 D (5-31) U/L ALT 10 (0-31) U/L Alkaline Phosphatase 24 L D (39-117) U/L Troponin I High Sens (<3.5-17.0) ng/L B-Natriuretic Peptide (<100) pg/mL Total Protein 4.5 L D (6.5-8.0) g/dL Albumin 2.8 L (3.5-5.0) g/dL Lipase 7 L (8-78) U/L Stool Occult Blood (NEGATIVE) [place] (0.60-1.20) mmol/L COVID-19 (AI) Negative (Negative) COVID-19 Clin Com See Note Blood Type Antibody Screen Crossmatch 03/13/22 03/13/22 03/13/22 Range/Units 10:14 10:14 10:14 WBC 13.8 H (4.8-10.8) X10*3/uL RBC 1.82 L D (4.20-5.50) X10*6/uL Hgb 5.1 L* D (12.0-16.0) g/dl Hct 16.4 L* D (37.0-47.0) % MCV 90.1 (80.0-98.0) fL MCH 28.0 (27.0-33.0) pg MCHC 31.1 (31.0-35.0) g/dl RDW 14.1 (11.0-16.0) % Plt Count 295 (160-400) X10*3/uL MPV 10.1 (9.4-12.3) fL Immature Gran % (Auto) 0.7 H (0.0-0.4) % Neut % (Auto) 88.9 H (45-73) % Lymph % (Auto) 4.6 L (20-40) % Richardson % (Auto) 5.7 (2-11) % Eos % (Auto) 0.0 (0-4) % Baso % (Auto) 0.1 (0-2) % Lymph # (Auto) 0.6 L (1.2-4.9) X10*3/uL Richardson # (Auto) 0.8 (0.1-1.2) X10*3/uL Eos # (Auto) 0.0 (0.0-0.4) X10*3/uL Baso # (Auto) 0.0 (0.0-0.2) X10*3/uL Abs Immat Gran (auto) 0.10 H (0.00-0.03) X10*3/uL Absolute Neuts (auto) 12.3 H (2.0-8.3) x10*3/uL Absolute Nucleated RBC 0.000 (0.0-0.012) X10*3/uL Nucleated RBC % (auto) 0.0 (0.0-0.2) /100WBC PT 14.5 H (9.9-13.0) SEC INR 1.3 H (0.9-1.1) APTT 20.6 L (24.1-38.0) SEC Sodium (135-145) mmol/L Potassium (3.3-5.1) mmol/L Chloride (96-108) mmol/L Carbon Dioxide (22-29) mmol/L Anion Gap (12-20) BUN (9-16) mg/dL Creatinine (0.5-1.4) mg/dL Estim Creat Clear Calc Estimated GFR Random Glucose (60-115) mg/dL Lactic Acid (0.5-2.0) mmol/L Calcium (8.4-10.2) mg/dL Magnesium (1.6-2.6) mg/dL Total Bilirubin (0.0-1.0) mg/dL Direct Bilirubin (0.0-0.5) mg/dL AST (5-31) U/L ALT (0-31) U/L Alkaline Phosphatase (39-117) U/L Troponin I High Sens 20.1 H (<3.5-17.0) ng/L B-Natriuretic Peptide 259 H (<100) pg/mL Total Protein (6.5-8.0) g/dL Albumin (3.5-5.0) g/dL Lipase (8-78) U/L Stool Occult Blood (NEGATIVE) [place] (0.60-1.20) mmol/L COVID-19 (AI) (Negative) COVID-19 Clin Com Blood Type Antibody Screen Crossmatch 03/13/22 03/13/22 03/13/22 Range/Units 10:14 10:14 10:49 WBC (4.8-10.8) X10*3/uL RBC (4.20-5.50) X10*6/uL Hgb (12.0-16.0) g/dl Hct (37.0-47.0) % MCV (80.0-98.0) fL MCH (27.0-33.0) pg MCHC (31.0-35.0) g/dl RDW (11.0-16.0) % Plt Count (160-400) X10*3/uL MPV (9.4-12.3) fL Immature Gran % (Auto) (0.0-0.4) % Neut % (Auto) (45-73) % Lymph % (Auto) (20-40) % Richardson % (Auto) (2-11) % Eos % (Auto) (0-4) % Baso % (Auto) (0-2) % Lymph # (Auto) (1.2-4.9) X10*3/uL Richardson # (Auto) (0.1-1.2) X10*3/uL Eos # (Auto) (0.0-0.4) X10*3/uL Baso # (Auto) (0.0-0.2) X10*3/uL Abs Immat Gran (auto) (0.00-0.03) X10*3/uL Absolute Neuts (auto) (2.0-8.3) x10*3/uL Absolute Nucleated RBC (0.0-0.012) X10*3/uL Nucleated RBC % (auto) (0.0-0.2) /100WBC PT (9.9-13.0) SEC INR (0.9-1.1) APTT (24.1-38.0) SEC Sodium (135-145) mmol/L Potassium (3.3-5.1) mmol/L Chloride (96-108) mmol/L Carbon Dioxide (22-29) mmol/L Anion Gap (12-20) BUN (9-16) mg/dL Creatinine (0.5-1.4) mg/dL Estim Creat Clear Calc Estimated GFR Random Glucose (60-115) mg/dL Lactic Acid (0.5-2.0) mmol/L Calcium (8.4-10.2) mg/dL Magnesium (1.6-2.6) mg/dL Total Bilirubin (0.0-1.0) mg/dL Direct Bilirubin (0.0-0.5) mg/dL AST (5-31) U/L ALT (0-31) U/L Alkaline Phosphatase (39-117) U/L Troponin I High Sens (<3.5-17.0) ng/L B-Natriuretic Peptide (<100) pg/mL Total Protein (6.5-8.0) g/dL Albumin (3.5-5.0) g/dL Lipase (8-78) U/L Stool Occult Blood POSITIVE (NEGATIVE) [place] 0.41 L (0.60-1.20) mmol/L COVID-19 (AI) (Negative) COVID-19 Clin Com Blood Type A Positive Antibody Screen NEGATIVE Crossmatch See Detail ECG Data Attestation: I personally reviewed and interpreted this ECG as follows: ECG interpretation date: 03/13/22 ECG interpretation time: 10:49 Interpretation: Rate: 120 Rhythm: sinus tachycardia [place]: normal Normal P waves. Normal JARAD. Normal QRS complex. ST T wave : nonspecific no BONI qTC: normal prior studies: no acute ischemia The study has been interpreted contemporaneously by me. . Procedures EJ/Peripheral Line Neck R: Time Out Performed: Yes Skin Cleansed in Sterile Fashion: Yes Size (gauge): 18 IV Secured and Dressing Applied: Yes Patient Tolerated Procedure: well and no complications Critical Care Time Critical Care Time Critical Care Time: Yes Total Critical Care Time: 90 Attestation: review of records, IVF bolus, transfusion of 3 packed units of RBCs, medical consult, discussion with guardian I attest to this time spent taking care of the patient Discharge Plan Discharge Clinical Impression: Acute upper gastrointestinal bleeding, Acute blood loss anemia, Acidosis, lactic Patient Disposition: Admitted As Inpatient
[2022-03-13 10:21] LABS: MANUAL DIFF FLAG NO
[2022-03-13] MEDS: Pantoprazole Sodium 40 MG/10 ML VIAL IVPUSH (10:23)
[2022-03-13] MEDS: 0.9 % Sodium Chloride 1,000 ML 999 ML IVCONT (10:24)
[2022-03-13 10:30] LABS: Basophils Percent Auto 0.1 % (0-2); Imm Gran Pct Auto 0.7 % (0.0-0.4); Lymphocytes Absolute Auto 0.6 X10*3/uL (1.2-4.9); Lymphocytes Percent Auto 4.6 % (20-40); Mean Corpuscular HGB Conc 31.1 g/dl (31.0-35.0); Mean Corpuscular Volume 90.1 fL (80.0-98.0); Mean Platelet Volume 10.1 fL (9.4-12.3); Monocytes Absolute Auto 0.8 X10*3/uL (0.1-1.2); Monocytes Percent Auto 5.7 % (2-11); Neutrophils Absolute Auto 12.3 x10*3/uL (2.0-8.3); Neutrophils Percent Auto 88.9 % (45-73); Platelet Count 295 X10*3/uL (160-400); Red Blood Count 1.82 X10*6/uL (4.20-5.50); Red Cell Distribution Width 14.1 % (11.0-16.0); White Blood Count 13.8 X10*3/uL (4.8-10.8)
[2022-03-13 10:36] LABS: OBS Int Ctl Valid YES; OBS1 POSITIVE (NEGATIVE)
[2022-03-13 10:38] LABS: Lithium 0.41 mmol/L (0.60-1.20)
[2022-03-13 10:42] LABS: Lactic Acid 3.1 mmol/L (0.5-2.0)
[2022-03-13 10:44] LABS: Hematocrit 16.4 % (37.0-47.0); Hemoglobin 5.1 g/dl (12.0-16.0)
[2022-03-13 10:45] LABS: Alanine Aminotransferase 10 U/L (0-31); Albumin Level 2.8 g/dL (3.5-5.0); Alkaline Phosphatase 24 U/L (39-117); Anion Gap 11 (12-20); Aspartate Amino Transferase 13 U/L (5-31); Bilirubin Direct < 0.2 mg/dL (0.0-0.5); Bilirubin Total 0.3 mg/dL (0.0-1.0); Blood Urea Nitrogen 54 mg/dL (9-16); COVID-19 Test Negative (Negative); Calcium 9.4 mg/dL (8.4-10.2); Carbon Dioxide 30 mmol/L (22-29); Chloride 94 mmol/L (96-108); Creatinine Clr Calc Pharmacy 88.1; Estimated Glomerular Filt Rate > 60; Glucose Random 139 mg/dL (60-115); IDNOW Serial# 16C4AD1C; Lipase 7 U/L (8-78); Magnesium 1.5 mg/dL (1.6-2.6); Potassium 4.5 mmol/L (3.3-5.1); Sodium 130 mmol/L (135-145); Total Protein 4.5 g/dL (6.5-8.0)
[2022-03-13 10:47] LABS: INTERNATIONAL NORM RATIO 1.3 (0.9-1.1); Prothrombin Time 14.5 SEC (9.9-13.0)
[2022-03-13 10:48] LABS: B Type Natriuretic Peptide 259 pg/mL (<100); Troponin-I High Sensitivity 20.1 ng/L (<3.5-17.0)
--- NOTE | 2022-03-13 11:02 | PHA.MEDREC ---
Pharmacy Consult ? Medication Reconciliation Pharmacy has completed the medication reconciliation. Pt was put on levofloxacin 500mg QD x 10 days on 03/04/22. She was also started on a prednisone taper on 03/11/22 for 30mg qd x 3 days, 20mg qd x 3 days, 10mg qd x 3 days. Rosalinda Montenegro, AnnalisaD
[2022-03-13 11:04] LABS: Partial Thromboplastin Time 20.6 SEC (24.1-38.0)
[2022-03-13] MEDS: iohexoL 350 MG/ML 100 ML INFUS..BTL 80 ML IV (11:28)
--- NOTE | 2022-03-13 11:33 | P.CNGI_ITS ---
History of Present Illness Data of Consult Service Date: 03/13/22 Requesting physician: Samara Rashid Primary Care Provider: Javier Torres DO HPI Reason for consult: UGI Bleed 62 YF with schizophrenia, type 2 diabetes mellitus, hypertension, hepatitis C, hyperprolactinemia, hyponatremia, urinary frequency and incontinence, history of alcohol dependence, GERD, bone disease. Pt was transferred from [facility] to [facility] with GI bleeding today Pt has atherosclerotic cardiovascular disease involving the retina and is on aspirin and plavix. Patient has COPD and is on home oxygen at 2 liters/minute by nasal cannula. Pt reported to have a large amounts of black watery diarrhea at 9 am today at SNF and was hypotensive and hypoxic per SNF Pt is on levofloxacin for URI at this time. Context: other (aspirin, plavix, chronic steroid use) Associated symptoms: nausea, malaise and easy bruising Pt is a poor historian due to schizophrenia and is alert and oriented Labs showed H&H of 5.1 and 16.4 (H&H was 10.4 and 33.2 on 01/21/2022). BUN elevated at 54, INR 1.3. Stool Hemoccult was positive. IMAGING STUDIES: 03/13/[address] SCAN SHOWED: 1.? There is no evidence of active bleeding at this time. 2.? Incidental note made of hepatomegaly, cholelithiasis, adrenal adenomas extensive peripheral vascular disease and severe degenerative changes in the lower lumbosacral spine.? Review of Systems Review of Systems: Cardiovascular : No Chest Pain, pos SOB, NoEdema Respiratory : No Cough, No Sputum, No Wheezing Gastrointestinal : Positive Nausea, no Vomiting, positive Diarrhea, positive abdominal Pain, No Hematochezia, pos Melena Genitourinary : No Dysuria, No Urinary Frequency, No Hematuria, No Urgency Musculoskeletal : No joint pain, No Myalgias, No Joint Swelling Skin : No Skin Lesions, No rash Neuro : pos Weakness, No Numbness, No Dizziness, No Headache Psych : No Anxiety/Panic, No Depression Heme/Lymph: No Bruising, No Lymphadenopathy Endocrine : No Polyuria, No Polydipsia All other systems reviewed and are negative. Constitutional: Constitutional: Denies fever(s) and Denies weight loss Gastrointestinal: Gastrointestinal: Denies abdominal pain, Reports diarrhea and Reports nausea PMFSH Past Medical History Medical History (Updated 03/14/22 @ 10:30 by Jim Odom MD) Anemia Aspiration pneumonia 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 Bone disease Chronic pain Depressive disorder Diabetes mellitus, type II Edema GERD (gastroesophageal reflux disease) Hepatitis C Hernia HTN (hypertension) Hyperprolactinemia Hyponatremia Polydipsia Schizophrenia Urinary incontinence Surgical History Surgical History History of surgery Social History Social History Household Members: Unknown / Unable to assess Housing: [facility] Housing Other:: [facility] Do you presently have visiting nurse or other home services: No (from snf) Unable to assess alcohol history related to: Unknown Alcohol intake: unknown Patient Tobacco Use Status: Former Tobacco user service: No Current occupational status: disabled Meds Allergies Allergy/AdvReac Type Severity Reaction Status Date / Time codeine [CODEINE] Allergy Unknown UNKNOWN Verified 02/11/22 14:47 lactose [LACTOSE] Allergy Unknown UNKNOWN Verified 02/11/22 14:47 meloxicam [MELOXICAM] Allergy Unknown UNKNOWN Verified 02/11/22 14:47 penicillin V Allergy Unknown Unknown Verified 02/11/22 14:47 Penicillins [PENICILLINS] Allergy Unknown UNKNOWN Verified 02/11/22 14:47 tetracycline [TETRACYCLINE] Allergy Unknown UNKNOWN Verified 02/11/22 14:47 Active Medications: Current Medications Pantoprazole Sodium 80 mg/ (Sodium Chloride) 100 mls @ 10 mls/hr IV .Q10H [facility] Pharmacy Consult (Consult Rx Perform Med Rec) 1 each MISCELLANE ONCE PRN PRN Reason: Consult order Home Medications Medication Instructions Recorded Confirmed Last Taken Type clopidogrel 75 mg tablet 75 mg PO DAILY 06/12/21 03/13/22 Unknown History fluticasone furoate 200 1 ea INHALATION DAILY 06/12/21 03/13/22 Unknown History mcg-vilanterol 25 mcg/dose inhalation powder (Breo Ellipta) lurasidone 40 mg tablet (Latuda) 40 mg PO BEDTIME 06/12/21 03/13/22 Unknown History simvastatin 20 mg tablet 20 mg PO BEDTIME 06/12/21 03/13/22 Unknown History famotidine 40 mg tablet 40 mg PO BEDTIME 06/26/21 03/13/22 Unknown History lurasidone 60 mg tablet (Latuda) 60 mg PO BEDTIME 06/26/21 03/13/22 Unknown History paliperidone palmitate 156 mg/mL 156 mg IM Q28D 06/26/21 03/13/22 02/13/22 History intramuscular syringe (Invega Sustenna) pramipexole 0.25 mg tablet 0.25 mg PO BEDTIME 06/26/21 03/13/22 Unknown History trihexyphenidyl 5 mg tablet 5 mg PO TID 06/26/21 03/13/22 Unknown History acetaminophen 325 mg tablet 650 mg PO Q4H PRN 01/15/22 03/13/22 Unknown History albuterol sulfate 90 mcg/actuation 4 inh INHALATION Q4H PRN 01/15/22 03/13/22 Unknown History breath activated powder inhaler,sensor ascorbic acid (vitamin C) 500 mg 500 mg PO DAILY 01/15/22 03/13/22 Unknown History tablet aspirin 81 mg chewable tablet 81 mg PO DAILY 01/15/22 03/13/22 Unknown History docusate sodium 100 mg tablet 100 mg PO BID 01/15/22 03/13/22 Unknown History lactulose 10 gram/15 mL oral 20 g PO Q12H PRN 01/15/22 03/13/22 Unknown History solution lanolin alcohols-mineral 1 appl TOPICAL BEDTIME 01/15/22 03/13/22 Unknown History oil-w.petrolatum-ceresin topical cream (Minerin Creme) lithium carbonate 300 mg 300 mg PO BEDTIME 01/15/22 03/13/22 Unknown History tablet,extended release menthol 5 % topical patch (Bengay 1 patch TOPICAL DAILY PRN 01/15/22 03/13/22 Unknown History Ultra Strength (menthol)) metoprolol tartrate 25 mg tablet 25 mg PO BID 01/15/22 03/13/22 Unknown History sennosides 8.6 mg tablet (senna) 17.2 mg PO BID PRN 01/15/22 03/13/22 Unknown History furosemide 40 mg tablet 40 mg PO DAILY 02/11/22 03/13/22 Unknown History acetaminophen 325 mg tablet 325 mg PO QID 03/13/22 03/13/22 Unknown History aluminum-mag hydroxide-simethicone 30 ml PO Q6H PRN 03/13/22 03/13/22 Unknown History 200 mg-200 mg-20 mg/5 mL oral susp bisacodyl 10 mg rectal suppository 10 mg [place] DAILY PRN 03/13/22 03/13/22 Unknown History glucagon HCl 1 mg solution for 1 mg SUBCUT Q20M PRN 03/13/22 03/13/22 Unknown History injection (Glucagon (HCl) Emergency Kit) guaifenesin 100 mg/5 mL oral liquid 200 mg PO Q6H PRN 03/13/22 03/13/22 Unknown History levofloxacin 500 mg tablet 1 tab PO DAILY 03/13/22 03/13/22 Unknown History naloxone 4 mg/actuation nasal 4 mg INTRANASAL Q3M PRN 03/13/22 03/13/22 Unknown History spray (Narcan) prednisone 10 mg tablet 30 mg PO DAILY 03/13/22 03/13/22 Unknown History sodium phosphates 19 gram-7 118 ml [place] DAILY PRN 03/13/22 03/13/22 Unknown History gram/118 mL enema (Fleet Enema) Physical Exam Vital Signs: Vital Signs: Last Vital Signs Temp 98.0 F 03/13/22 09:52 Pulse 103 H 03/13/22 10:26 Resp 26 H 03/13/22 10:26 BP 103/57 L 03/13/22 09:52 Pulse Ox 99 03/13/22 10:16 BMI result Body Mass Index 21.1 Const: General: healthy appearing and no acute distress Nutritional Appearance: average body habitus Orientation/consciousness: patient oriented x3 Limitations: no limitations HEENT: Head: Yes normal to inspection Ears: hearing grossly normal bilaterally Eyes: Sclerae: sclerae normal Pupils: Equal, round and reactive pupils present Neck: Neck: Yes normal visual inspection Chest: Chest palpation & inspection: normal inspection of the chest Resp: Effort & Inspection: normal respiratory effort Auscultation: diminished lung sounds Cardio: Palpation: normal PMI Rate: regular rate Rhythm: regular rhythm Heart sounds: S1 normal heart sound present, S2 normal heart sound present and no murmurs GI: Palpation (GI): Soft to palpation, nontender and No hepatosplenomegaly present Auscultation: normal bowel sounds Rectal Exam - Female: deferred Skin: General skin exam: no rashes or lesions noted Neuro: General: patient oriented x3, gait normal and moves all extremities Cranial nerves: Yes Equal, round and reactive pupils present Psych: Appearance: grossly normal Mental Status: mental status grossly normal Results Labs CBC & Chem 7: 03/14/22 14:14 03/14/22 05:13 Labs: Short CBC 03/13/22 03/13/22 03/13/22 Range/Units 10:13 10:14 10:14 WBC 13.8 H (4.8-10.8) X10*3/uL Hgb 5.1 L* D (12.0-16.0) g/dl Hct 16.4 L* D (37.0-47.0) % Plt Count 295 (160-400) X10*3/uL BUN 54 H D (9-16) mg/dL Troponin I High Sens 20.1 H (<3.5-17.0) ng/L BMP 03/13/22 10:13 Sodium 130 L Potassium 4.5 Chloride 94 L Carbon Dioxide 30 H BUN 54 H D Creatinine 0.58 Calcium 9.4 Liver Function 03/13/22 Range/Units 10:13 Total Bilirubin 0.3 (0.0-1.0) mg/dL Direct Bilirubin < 0.2 (0.0-0.5) mg/dL AST 13 D (5-31) U/L ALT 10 (0-31) U/L Alkaline Phosphatase 24 L D (39-117) U/L Albumin 2.8 L (3.5-5.0) g/dL Assessment and Plan (1) Acute upper gastrointestinal bleeding: Status: Acute (2) Acute blood loss anemia: Status: Acute Plan 62 YF with schizophrenia, type 2 diabetes mellitus, hypertension, hepatitis C, hyperprolactinemia, hyponatremia, urinary frequency and incontinence, history of alcohol dependence, GERD, bone disease. Pt has atherosclerotic cardiovascular disease involving the retina and is on aspirin and plavix. Patient has COPD and is on home oxygen at 2 liters/minute by nasal cannula. She was transferred from [facility] to [facility] with GI bleeding today Pt reported to have a large amounts of black watery diarrhea at 9 am today at SNF and was hypotensive and hypoxic per SNF Labs showed H&H of 5.1 and 16.4 (H&H was 10.4 and 33.2 on 01/21/2022). BUN elevated at 54, INR 1.3. Stool Hemoccult was positive. UGI bleed likely from PUD, UGI AVM or dieulafoy, erosive esophagitis. Esophageal or gastric varices are less likely since pt does not have a hx of cirrhosis. RECOMMENDATIONS: 1. Agree with resuscitation with 3 units of packed red blood cells. 2. IV PPI infusion 3. Proceed with urgent upper endoscopy after patient has been transfused. Pt's legal guardian is Kavya Rios # [phone]. Patient's legal guardian was called and she was not available till Thursday (03/17/22) and voice mail not accepting messages. EGD was declared emergent and consent form was signed by Dr Alexandra (an esthesiologist) and Dr Duque since patient unable to give consent and her legal guardian was not available Procedures Date of Service Date of Service: 03/13/22
[2022-03-13] MEDS: Pantoprazole Sodium 80 MG in 0.9 % Sodium Chloride 80 ML 10 MG IV ×2 (11:36→21:40)
--- NOTE | 2022-03-13 11:40 | PC.NURSE ---
BP remains alert. BP stable. O-negative blood infusing at this time. Sats high 90s on 2 liters which is her baseline. GI and ER physician at bedside. Plan for continued transfusions as needed and EGD. Guardian updated by physician on pt's care.
--- NOTE | 2022-03-13 11:47 | PC.NURSE ---
Assisting RN attempted to document 15min VS in TAR but was unable. VS documented seperately. No S/S of transfusion reaction noted at this time.
[2022-03-13 12:18] LABS: Reflex Lactate? Lactic Acid Added
--- NOTE | 2022-03-13 13:27 | PC.NURSE ---
Second unit of blood transfusing at this time via right EJ. BP stable. HR in 120s. Pt's mentation remains unchaged. Protonix infusing. No BM noted since arrival to the ED. [facility] at bedside for eval.
--- NOTE | 2022-03-13 14:09 | PC.NURSE ---
Report given to surgical staff
[2022-03-13 14:13] LABS: Troponin-I High Sensitivity 24.2 ng/L (<3.5-17.0)
[2022-03-13 14:17] LABS: ~Lactic Acid-LAB USE ONLY 2.8 mmol/L (0.5-2.0)
--- NOTE | 2022-03-13 14:49 | PM.CCHP ---
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 and an EKG that demonstrates probable anterior 0 apical infarct of on dated age presents with Ng increased shortness of breath hypotension and melanotic stool found to have a hemoglobin of 5 and of course guaiac-positive clearly an upper GI bleed she responded to a L of IV fluids and is receiving the 2nd of 3 units of packed red cells due later to have a an EGD currently has a negative CT scan evidence of a left-sided diaphragmatic defect probably with some bowel in the left chest and then my bedside echo confirmed that there is extensive apical akinesis and and relative hypokinesis of the base of the heart as well so she is diffusely myopathic at best 25% ejection fraction with heavy mitral annular calcification but no evidence of aortic stenosis Review of Systems Review of Systems: Yes Unobtainable due to mental status PMFSH Past Medical History 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 Bone disease Chronic pain Depressive disorder Diabetes mellitus, type II Edema GERD (gastroesophageal reflux disease) Hepatitis C Hernia HTN (hypertension) Hyperprolactinemia Hyponatremia Polydipsia Schizophrenia Urinary incontinence Surgical History Surgical History History of surgery Social History Social History Household Members: None Housing: [facility] Do you presently have visiting nurse or other home services: No (from snf) Unable to assess alcohol history related to: Unknown Alcohol intake: unknown Patient Tobacco Use Status: Former Tobacco user Use of substances other than those prescribed or required for medical reasons: Unable to respond Advance Directives: No Advance Directives Information Provided: No Patient : No service: No Current occupational status: disabled Meds Allergies Allergy/AdvReac Type Severity Reaction Status Date / Time codeine [CODEINE] Allergy Unknown UNKNOWN Verified 02/11/22 14:47 lactose [LACTOSE] Allergy Unknown UNKNOWN Verified 02/11/22 14:47 meloxicam [MELOXICAM] Allergy Unknown UNKNOWN Verified 02/11/22 14:47 penicillin V Allergy Unknown Unknown Verified 02/11/22 14:47 Penicillins [PENICILLINS] Allergy Unknown UNKNOWN Verified 02/11/22 14:47 tetracycline [TETRACYCLINE] Allergy Unknown UNKNOWN Verified 02/11/22 14:47 Active Medications: Current Medications Albuterol/Ipratropium (Albuterol/Iprat 2.5/0.5mg 3 Ml Ampul.Neb) 3 ml INHALE RQ4H [facility] Hydrocortisone Sodium Succinate (Hydrocortisone Sod Succ/Pf 100 Mg Vial) 50 mg IVPUSH BID [facility] Pantoprazole Sodium 80 mg/ (Sodium Chloride) 100 mls @ 10 mls/hr IV .Q10H [facility] Last Admin: 03/13/22 11:36 Dose: 8 mg/hr, 10 mls/hr Documented by: Phenylephrine HCl 20 mg/ (Sodium Chloride) 252 mls @ 0 mls/hr IVCONT .Q0M BR[facility]; Protocol Hurt Carbonate (Hurt Carbonate Er 300 Mg Tablet.Er) 300 mg PO BEDTIME [facility] Lurasidone HCl (Lurasidone Hcl 20 Mg Tablet) 60 mg PO BEDTIME [facility] Lurasidone HCl (Lurasidone Hcl 40 Mg Tablet) 40 mg PO BEDTIME [facility] Metoprolol Tartrate (Metoprolol Tartrate 25 Mg Tablet) 25 mg PO BID BRENT; Protocol Pharmacy Consult (Consult Rx Perform Med Rec) 1 each MISCELLANE ONCE PRN PRN Reason: Consult order Pramipexole Dihydrochloride (Pramipexole Di-Hcl 0.25 Mg Tablet) 0.25 mg PO BEDTIME [facility] Home Medications Medication Instructions Recorded Confirmed Last Taken Type clopidogrel 75 mg tablet 75 mg PO DAILY 06/12/21 03/13/22 Unknown History fluticasone furoate 200 1 ea INHALATION DAILY 06/12/21 03/13/22 Unknown History mcg-vilanterol 25 mcg/dose inhalation powder (Breo Ellipta) lurasidone 40 mg tablet (Latuda) 40 mg PO BEDTIME 06/12/21 03/13/22 Unknown History simvastatin 20 mg tablet 20 mg PO BEDTIME 06/12/21 03/13/22 Unknown History famotidine 40 mg tablet 40 mg PO BEDTIME 06/26/21 03/13/22 Unknown History lurasidone 60 mg tablet (Latuda) 60 mg PO BEDTIME 06/26/21 03/13/22 Unknown History paliperidone palmitate 156 mg/mL 156 mg IM Q28D 06/26/21 03/13/22 02/13/22 History intramuscular syringe (Invega Sustenna) pramipexole 0.25 mg tablet 0.25 mg PO BEDTIME 06/26/21 03/13/22 Unknown History trihexyphenidyl 5 mg tablet 5 mg PO TID 06/26/21 03/13/22 Unknown History acetaminophen 325 mg tablet 650 mg PO Q4H PRN 01/15/22 03/13/22 Unknown History albuterol sulfate 90 mcg/actuation 4 inh INHALATION Q4H PRN 01/15/22 03/13/22 Unknown History breath activated powder inhaler,sensor ascorbic acid (vitamin C) 500 mg 500 mg PO DAILY 01/15/22 03/13/22 Unknown History tablet aspirin 81 mg chewable tablet 81 mg PO DAILY 01/15/22 03/13/22 Unknown History docusate sodium 100 mg tablet 100 mg PO BID 01/15/22 03/13/22 Unknown History lactulose 10 gram/15 mL oral 20 g PO Q12H PRN 01/15/22 03/13/22 Unknown History solution lanolin alcohols-mineral 1 appl TOPICAL BEDTIME 01/15/22 03/13/22 Unknown History oil-w.petrolatum-ceresin topical cream (Minerin Creme) lithium carbonate 300 mg 300 mg PO BEDTIME 01/15/22 03/13/22 Unknown History tablet,extended release menthol 5 % topical patch (Bengay 1 patch TOPICAL DAILY PRN 01/15/22 03/13/22 Unknown History Ultra Strength (menthol)) metoprolol tartrate 25 mg tablet 25 mg PO BID 01/15/22 03/13/22 Unknown History sennosides 8.6 mg tablet (senna) 17.2 mg PO BID PRN 01/15/22 03/13/22 Unknown History furosemide 40 mg tablet 40 mg PO DAILY 02/11/22 03/13/22 Unknown History acetaminophen 325 mg tablet 325 mg PO QID 03/13/22 03/13/22 Unknown History aluminum-mag hydroxide-simethicone 30 ml PO Q6H PRN 03/13/22 03/13/22 Unknown History 200 mg-200 mg-20 mg/5 mL oral susp bisacodyl 10 mg rectal suppository 10 mg [place] DAILY PRN 03/13/22 03/13/22 Unknown History glucagon HCl 1 mg solution for 1 mg SUBCUT Q20M PRN 03/13/22 03/13/22 Unknown History injection (Glucagon (HCl) Emergency Kit) guaifenesin 100 mg/5 mL oral liquid 200 mg PO Q6H PRN 03/13/22 03/13/22 Unknown History levofloxacin 500 mg tablet 1 tab PO DAILY 03/13/22 03/13/22 Unknown History naloxone 4 mg/actuation nasal 4 mg INTRANASAL Q3M PRN 03/13/22 03/13/22 Unknown History spray (Narcan) prednisone 10 mg tablet 30 mg PO DAILY 03/13/22 03/13/22 Unknown History sodium phosphates 19 gram-7 118 ml [place] DAILY PRN 03/13/22 03/13/22 Unknown History gram/118 mL enema (Fleet Enema) Physical Exam Vital Signs: Vital Signs: Last Vital Signs Temp 98.4 F 03/13/22 13:39 Pulse 123 H 03/13/22 13:39 Resp 28 H 03/13/22 13:39 BP 127/73 03/13/22 13:39 Pulse Ox 99 03/13/22 10:16 BMI result Body Mass Index 21.1 Blood pressure is now 128 but heart rate remains in sinus mechanism at 01:28 as well and she is making some diaphragmatic effort for expiration Abdomen is soft no organomegaly Cardiac function by bedside echo Markedly diminished breath sounds bilaterally Skin is intact no acrocyanosis Results Labs CBC and Chem 7: 03/13/22 10:14 03/13/22 10:13 Labs: Laboratory Results - last 24 hr 03/13/22 03/13/22 03/13/22 10:13 10:13 10:13 MCV MCH MCHC RDW Plt Count MPV Immature Gran % (Auto) Neut % (Auto) Lymph % (Auto) [place] % (Auto) Eos % (Auto) Baso % (Auto) Lymph # (Auto) [place] # (Auto) Eos # (Auto) Baso # (Auto) Abs Immat Gran (auto) Absolute Neuts (auto) Absolute Nucleated RBC Nucleated RBC % (auto) PT INR APTT Anion Gap 11 L Estim Creat Clear Calc 88.1 Estimated GFR > 60 Random Glucose 139 H Lactic Acid 3.1 H* Lactic Acid F/U @ 2Hr Calcium 9.4 Magnesium 1.5 L Total Bilirubin 0.3 Direct Bilirubin < 0.2 AST 13 D ALT 10 Alkaline Phosphatase 24 L D Troponin I High Sens B-Natriuretic Peptide Total Protein 4.5 L D Albumin 2.8 L Lipase 7 L Stool Occult Blood Hurt COVID-19 (AI) Negative COVID-19 Clin Com See Note Blood Type Antibody Screen Crossmatch 03/13/22 03/13/22 03/13/22 10:14 10:14 10:14 MCV 90.1 MCH 28.0 MCHC 31.1 RDW 14.1 Plt Count 295 MPV 10.1 Immature Gran % (Auto) 0.7 H Neut % (Auto) 88.9 H Lymph % (Auto) 4.6 L [place] % (Auto) 5.7 Eos % (Auto) 0.0 Baso % (Auto) 0.1 Lymph # (Auto) 0.6 L [place] # (Auto) 0.8 Eos # (Auto) 0.0 Baso # (Auto) 0.0 Abs Immat Gran (auto) 0.10 H Absolute Neuts (auto) 12.3 H Absolute Nucleated RBC 0.000 Nucleated RBC % (auto) 0.0 PT 14.5 H INR 1.3 H APTT 20.6 L Anion Gap Estim Creat Clear Calc Estimated GFR Random Glucose Lactic Acid Lactic Acid F/U @ 2Hr Calcium Magnesium Total Bilirubin Direct Bilirubin AST ALT Alkaline Phosphatase Troponin I High Sens 20.1 H B-Natriuretic Peptide 259 H Total Protein Albumin Lipase Stool Occult Blood Hurt COVID-19 (AI) COVID-19 opvizor Com Blood Type Antibody Screen Crossmatch 03/13/22 03/13/22 03/13/22 10:14 10:14 10:49 MCV MCH MCHC RDW Plt Count MPV Immature Gran % (Auto) Neut % (Auto) Lymph % (Auto) [place] % (Auto) Eos % (Auto) Baso % (Auto) Lymph # (Auto) [place] # (Auto) Eos # (Auto) Baso # (Auto) Abs Immat Gran (auto) Absolute Neuts (auto) Absolute Nucleated RBC Nucleated RBC % (auto) PT INR APTT Anion Gap Estim Creat Clear Calc Estimated GFR Random Glucose Lactic Acid Lactic Acid F/U @ 2Hr Calcium Magnesium Total Bilirubin Direct Bilirubin AST ALT Alkaline Phosphatase Troponin I High Sens B-Natriuretic Peptide Total Protein Albumin Lipase Stool Occult Blood POSITIVE Hurt 0.41 L COVID-19 (AI) COVID-19 opvizor Com Blood Type A Positive Antibody Screen NEGATIVE Crossmatch See Detail 03/13/22 03/13/22 13:43 13:43 MCV MCH MCHC RDW Plt Count MPV Immature Gran % (Auto) Neut % (Auto) Lymph % (Auto) [place] % (Auto) Eos % (Auto) Baso % (Auto) Lymph # (Auto) [place] # (Auto) Eos # (Auto) Baso # (Auto) Abs Immat Gran (auto) Absolute Neuts (auto) Absolute Nucleated RBC Nucleated RBC % (auto) PT INR APTT Anion Gap Estim Creat Clear Calc Estimated GFR Random Glucose Lactic Acid Lactic Acid F/U @ 2Hr 2.8 H* Calcium Magnesium Total Bilirubin Direct Bilirubin AST ALT Alkaline Phosphatase Troponin I High Sens 24.2 H B-Natriuretic Peptide Total Protein Albumin Lipase Stool Occult Blood Hurt COVID-19 (AI) COVID-19 opvizor Com Blood Type Antibody Screen Crossmatch Imaging Radiologist's Impressions: Impressions Chest X-Ray 03/13/22 10:40 IMPRESSION: No acute intrathoracic disease. Chronic elevation of hemidiaphragm. Abdomen/Pelvis CT 03/13/22 11:33 IMPRESSION: 1. There is no evidence of active bleeding at this time. 2. Incidental note made of hepatomegaly, cholelithiasis, adrenal adenomas extensive peripheral vascular disease and severe degenerative changes in the lower lumbosacral spine. Fleischner guidelines were followed. Assessment and Plan (1) Acute upper gastrointestinal bleeding: Status: Acute (2) Acute blood loss anemia: Status: Acute (3) Acidosis, lactic: Status: Acute (4) Old anterior wall myocardial infarction: Status: Acute (5) CHF (congestive heart failure): Status: Acute (6) COPD (chronic obstructive pulmonary disease) with emphysema: Status: Acute Plan In this instance but complicates her is the acute blood loss anemia creating a a problem with high output congestive heart failure because she has an underlying ischemic cardiomyopathy and a previous anterior wall infarct and that is the cause of her lactic acidosis this is not at all aseptic issue and of course she is a significant risk the no for the EGD which a is a necessity in I would of course personally recommend that she be intubated and possibly even remain intubated overnight once all done peak and I would try to keep and an NG tube in if possible just due to be able to give her some of her necessary medicines for her schizophrenia and once we hopefully achieve source control for the bleeding we have to be very careful about volume of fluid administration and risk of a congestive heart failure which I think the ventilator with play a large role in preventing
[2022-03-13 15:47] LABS: Reflex Lactate? 2 Y
[2022-03-13 16:07] LABS: Hematocrit 26.5 % (37.0-47.0); Hemoglobin 8.9 g/dl (12.0-16.0); Mean Corpuscular HGB Conc 33.6 g/dl (31.0-35.0); Mean Corpuscular Hemoglobin 30.4 pg (27.0-33.0); Mean Corpuscular Volume 90.4 fL (80.0-98.0); Mean Platelet Volume 10.4 fL (9.4-12.3); Platelet Count 179 X10*3/uL (160-400); Red Blood Count 2.93 X10*6/uL (4.20-5.50); White Blood Count 23.4 X10*3/uL (4.8-10.8)
[2022-03-13 16:37] LABS: Cancel Lactic Acid Canceled
[2022-03-13 16:41] LABS: ~Lactic Acid-LAB USE ONLY 2.1 mmol/L (0.5-2.0)
--- NOTE | 2022-03-13 17:27 | PC.NURSE ---
Report given to [employer] and OR nurse. OR staff here for pt pick-up
--- NOTE | 2022-03-13 17:38 | P.CONAN_ITS ---
HPI - Anesthesia Eval Consult details Narrative: Acute GI bleeding PMFSH Active Problems Active Problems: All Active Problems (Updated 03/13/22 @ 15:05 by Bakari Bailey MD) COPD (chronic obstructive pulmonary disease) with emphysema (Acute) CHF (congestive heart failure) (Acute) Old anterior wall myocardial infarction (Acute) Acute upper gastrointestinal bleeding (Acute) Acute blood loss anemia (Acute) Acidosis, lactic (Acute) Aspiration pneumonia (Acute) Failure to thrive in adult (Acute) Pneumonia (Acute) Acute dehydration (Acute) COVID-19 (Acute) Urinary incontinence (Acute) Past Medical History 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 Bone disease Chronic pain Depressive disorder Diabetes mellitus, type II Edema GERD (gastroesophageal reflux disease) Hepatitis C Hernia HTN (hypertension) Hyperprolactinemia Hyponatremia Polydipsia Schizophrenia Urinary incontinence Family History Family history of problems with anesthesia: No Surgical History Surgical History History of surgery History of Problems with Anesthesia: No Social History Social History Household Members: None Housing: Long Term Do you presently have visiting nurse or other home services: No (from snf) Unable to assess alcohol history related to: Unknown Alcohol intake: unknown Patient Tobacco Use Status: Former Tobacco user Use of substances other than those prescribed or required for medical reasons: Unable to respond Advance Directives: No Advance Directives Information Provided: No Patient : No service: No Current occupational status: disabled Meds Allergies Allergy/AdvReac Type Severity Reaction Status Date / Time codeine [CODEINE] Allergy Unknown UNKNOWN Verified 02/11/22 14:47 lactose [LACTOSE] Allergy Unknown UNKNOWN Verified 02/11/22 14:47 meloxicam [MELOXICAM] Allergy Unknown UNKNOWN Verified 02/11/22 14:47 penicillin V Allergy Unknown Unknown Verified 02/11/22 14:47 Penicillins [PENICILLINS] Allergy Unknown UNKNOWN Verified 02/11/22 14:47 tetracycline [TETRACYCLINE] Allergy Unknown UNKNOWN Verified 02/11/22 14:47 Active Medications: Current Medications Albuterol/Ipratropium (Albuterol/Iprat 2.5/0.5mg 3 Ml Ampul.Neb) 3 ml INHALE RQ4H [facility] Last Admin: 03/13/22 15:34 Dose: Not Given Documented by: Hydrocortisone Sodium Succinate (Hydrocortisone Sod Succ/Pf 100 Mg Vial) 50 mg IVPUSH BID BRENT Pantoprazole Sodium 80 mg/ (Sodium Chloride) 100 mls @ 10 mls/hr IV .Q10H [facility] Last Admin: 03/13/22 11:36 Dose: 8 mg/hr, 10 mls/hr Documented by: Phenylephrine HCl 20 mg/ (Sodium Chloride) 252 mls @ 0 mls/hr IVCONT .Q0M BRENT; Protocol Norborne Carbonate (Norborne Carbonate Er 300 Mg Tablet.Er) 300 mg PO BEDTIME BRENT Lurasidone HCl (Lurasidone Hcl 20 Mg Tablet) 60 mg PO BEDTIME BRENT Lurasidone HCl (Lurasidone Hcl 40 Mg Tablet) 40 mg PO BEDTIME BRENT Metoprolol Tartrate (Metoprolol Tartrate 25 Mg Tablet) 25 mg PO BID BRENT; Protocol Pharmacy Consult (Consult Rx Perform Med Rec) 1 each MISCELLANE ONCE PRN PRN Reason: Consult order Pramipexole Dihydrochloride (Pramipexole Di-Hcl 0.25 Mg Tablet) 0.25 mg PO BEDTIME [facility] Home Medications Medication Instructions Recorded Confirmed Last Taken Type clopidogrel 75 mg tablet 75 mg PO DAILY 06/12/21 03/13/22 Unknown History fluticasone furoate 200 1 ea INHALATION DAILY 06/12/21 03/13/22 Unknown History mcg-vilanterol 25 mcg/dose inhalation powder (Breo Ellipta) lurasidone 40 mg tablet (Latuda) 40 mg PO BEDTIME 06/12/21 03/13/22 Unknown History simvastatin 20 mg tablet 20 mg PO BEDTIME 06/12/21 03/13/22 Unknown History famotidine 40 mg tablet 40 mg PO BEDTIME 06/26/21 03/13/22 Unknown History lurasidone 60 mg tablet (Latuda) 60 mg PO BEDTIME 06/26/21 03/13/22 Unknown History paliperidone palmitate 156 mg/mL 156 mg IM Q28D 06/26/21 03/13/22 02/13/22 History intramuscular syringe (Invega Sustenna) pramipexole 0.25 mg tablet 0.25 mg PO BEDTIME 06/26/21 03/13/22 Unknown History trihexyphenidyl 5 mg tablet 5 mg PO TID 06/26/21 03/13/22 Unknown History acetaminophen 325 mg tablet 650 mg PO Q4H PRN 01/15/22 03/13/22 Unknown History albuterol sulfate 90 mcg/actuation 4 inh INHALATION Q4H PRN 01/15/22 03/13/22 Unknown History breath activated powder inhaler,sensor ascorbic acid (vitamin C) 500 mg 500 mg PO DAILY 01/15/22 03/13/22 Unknown History tablet aspirin 81 mg chewable tablet 81 mg PO DAILY 01/15/22 03/13/22 Unknown History docusate sodium 100 mg tablet 100 mg PO BID 01/15/22 03/13/22 Unknown History lactulose 10 gram/15 mL oral 20 g PO Q12H PRN 01/15/22 03/13/22 Unknown History solution lanolin alcohols-mineral 1 appl TOPICAL BEDTIME 01/15/22 03/13/22 Unknown History oil-w.petrolatum-ceresin topical cream (Minerin Creme) lithium carbonate 300 mg 300 mg PO BEDTIME 01/15/22 03/13/22 Unknown History tablet,extended release menthol 5 % topical patch (Bengay 1 patch TOPICAL DAILY PRN 01/15/22 03/13/22 Unknown History Ultra Strength (menthol)) metoprolol tartrate 25 mg tablet 25 mg PO BID 01/15/22 03/13/22 Unknown History sennosides 8.6 mg tablet (senna) 17.2 mg PO BID PRN 01/15/22 03/13/22 Unknown History furosemide 40 mg tablet 40 mg PO DAILY 02/11/22 03/13/22 Unknown History acetaminophen 325 mg tablet 325 mg PO QID 03/13/22 03/13/22 Unknown History aluminum-mag hydroxide-simethicone 30 ml PO Q6H PRN 03/13/22 03/13/22 Unknown History 200 mg-200 mg-20 mg/5 mL oral susp bisacodyl 10 mg rectal suppository 10 mg [place] DAILY PRN 03/13/22 03/13/22 Unknown History glucagon HCl 1 mg solution for 1 mg SUBCUT Q20M PRN 03/13/22 03/13/22 Unknown History injection (Glucagon (HCl) Emergency Kit) guaifenesin 100 mg/5 mL oral liquid 200 mg PO Q6H PRN 03/13/22 03/13/22 Unknown History levofloxacin 500 mg tablet 1 tab PO DAILY 03/13/22 03/13/22 Unknown History naloxone 4 mg/actuation nasal 4 mg INTRANASAL Q3M PRN 03/13/22 03/13/22 Unknown History spray (Narcan) prednisone 10 mg tablet 30 mg PO DAILY 03/13/22 03/13/22 Unknown History sodium phosphates 19 gram-7 118 ml [place] DAILY PRN 03/13/22 03/13/22 Unknown History gram/118 mL enema (Fleet Enema) Exam Exam Date and Time: March 13, 2022 1738 Height,Weight and Vital Signs: Height 5 ft 5 in Weight 57.5 kg Last Vital Signs Temp 98.6 F 03/13/22 15:36 Pulse 129 H 03/13/22 15:37 Resp 20 03/13/22 15:54 BP 128/72 03/13/22 15:37 Pulse Ox 99 03/13/22 10:16 Pertinent Lab Results Pertinent Lab Results: Laboratory Tests 03/13/22 03/13/22 03/13/22 10:13 10:13 10:13 WBC RBC Hgb Hct MCV MCH MCHC RDW Plt Count MPV Immature Gran % (Auto) Neut % (Auto) Lymph % (Auto) [place] % (Auto) Eos % (Auto) Baso % (Auto) Lymph # (Auto) [place] # (Auto) Eos # (Auto) Baso # (Auto) Abs Immat Gran (auto) Absolute Neuts (auto) Absolute Nucleated RBC Nucleated RBC % (auto) PT INR APTT Sodium 130 L Potassium 4.5 Chloride 94 L Carbon Dioxide 30 H Anion Gap 11 L BUN 54 H D Creatinine 0.58 Estim Creat Clear Calc 88.1 Estimated GFR > 60 Random Glucose 139 H Lactic Acid 3.1 H* Lactic Acid F/U @ 2Hr Lactic Acid F/U @ 4Hr Calcium 9.4 Magnesium 1.5 L Total Bilirubin 0.3 Direct Bilirubin < 0.2 AST 13 D ALT 10 Alkaline Phosphatase 24 L D Troponin I High Sens B-Natriuretic Peptide Total Protein 4.5 L D Albumin 2.8 L Lipase 7 L Stool Occult Blood Norborne COVID-19 (AI) Negative COVID-19 Clin Com See Note Blood Type Antibody Screen Crossmatch 04/28/22 04/28/22 04/28/22 10:14 10:14 10:14 WBC 13.8 H RBC 1.82 L D Hgb 5.1 L* D Hct 16.4 L* D MCV 90.1 MCH 28.0 MCHC 31.1 RDW 14.1 Plt Count 295 MPV 10.1 Immature Gran % (Auto) 0.7 H Neut % (Auto) 88.9 H Lymph % (Auto) 4.6 L [place] % (Auto) 5.7 Eos % (Auto) 0.0 Baso % (Auto) 0.1 Lymph # (Auto) 0.6 L [place] # (Auto) 0.8 Eos # (Auto) 0.0 Baso # (Auto) 0.0 Abs Immat Gran (auto) 0.10 H Absolute Neuts (auto) 12.3 H Absolute Nucleated RBC 0.000 Nucleated RBC % (auto) 0.0 PT 14.5 H INR 1.3 H APTT 20.6 L Sodium Potassium Chloride Carbon Dioxide Anion Gap BUN Creatinine Estim Creat Clear Calc Estimated GFR Random Glucose Lactic Acid Lactic Acid F/U @ 2Hr Lactic Acid F/U @ 4Hr Calcium Magnesium Total Bilirubin Direct Bilirubin AST ALT Alkaline Phosphatase Troponin I High Sens 20.1 H B-Natriuretic Peptide 259 H Total Protein Albumin Lipase Stool Occult Blood Norborne COVID-19 (AI) Quvium Blood Type Antibody Screen Crossmatch 03/13/22 03/13/22 03/13/22 10:14 10:14 10:49 WBC RBC Hgb Hct MCV MCH MCHC RDW Plt Count MPV Immature Gran % (Auto) Neut % (Auto) Lymph % (Auto) [place] % (Auto) Eos % (Auto) Baso % (Auto) Lymph # (Auto) [place] # (Auto) Eos # (Auto) Baso # (Auto) Abs Immat Gran (auto) Absolute Neuts (auto) Absolute Nucleated RBC Nucleated RBC % (auto) PT INR APTT Sodium Potassium Chloride Carbon Dioxide Anion Gap BUN Creatinine Estim Creat Clear Calc Estimated GFR Random Glucose Lactic Acid Lactic Acid F/U @ 2Hr Lactic Acid F/U @ 4Hr Calcium Magnesium Total Bilirubin Direct Bilirubin AST ALT Alkaline Phosphatase Troponin I High Sens B-Natriuretic Peptide Total Protein Albumin Lipase Stool Occult Blood POSITIVE Norborne 0.41 L COVID-19 (AI) CallsFreeCallsIDRisktail Blood Type A Positive Antibody Screen NEGATIVE Crossmatch See Detail 0403/13/22 03/13/22 13:43 13:43 15:03 WBC Cancelled RBC Cancelled Hgb Cancelled Hct Cancelled MCV Cancelled MCH Cancelled MCHC Cancelled RDW Cancelled Plt Count Cancelled MPV Cancelled Immature Gran % (Auto) Neut % (Auto) Lymph % (Auto) [place] % (Auto) Eos % (Auto) Baso % (Auto) Lymph # (Auto) [place] # (Auto) Eos # (Auto) Baso # (Auto) Abs Immat Gran (auto) Absolute Neuts (auto) Absolute Nucleated RBC Cancelled Nucleated RBC % (auto) Cancelled PT INR APTT Sodium Potassium Chloride Carbon Dioxide Anion Gap BUN Creatinine Estim Creat Clear Calc Estimated GFR Random Glucose Lactic Acid Lactic Acid F/U @ 2Hr 2.8 H* Lactic Acid F/U @ 4Hr Calcium Magnesium Total Bilirubin Direct Bilirubin AST ALT Alkaline Phosphatase Troponin I High Sens 24.2 H B-Natriuretic Peptide Total Protein Albumin Lipase Stool Occult Blood Norborne COVID-19 (AI) COVIDRisktail Blood Type Antibody Screen Crossmatch 03/13/22 03/13/22 15:53 16:19 WBC 23.4 H RBC 2.93 L D Hgb 8.9 L D Hct 26.5 L D MCV 90.4 MCH 30.4 MCHC 33.6 RDW 14.0 Plt Count 179 D MPV 10.4 Immature Gran % (Auto) Neut % (Auto) Lymph % (Auto) [place] % (Auto) Eos % (Auto) Baso % (Auto) Lymph # (Auto) [place] # (Auto) Eos # (Auto) Baso # (Auto) Abs Immat Gran (auto) Absolute Neuts (auto) Absolute Nucleated RBC 0.000 Nucleated RBC % (auto) 0.0 PT INR APTT Sodium Potassium Chloride Carbon Dioxide Anion Gap BUN Creatinine Estim Creat Clear Calc Estimated GFR Random Glucose Lactic Acid Lactic Acid F/U @ 2Hr Lactic Acid F/U @ 4Hr 2.1 H* Calcium Magnesium Total Bilirubin Direct Bilirubin AST ALT Alkaline Phosphatase Troponin I High Sens B-Natriuretic Peptide Total Protein Albumin Lipase Stool Occult Blood Norborne COVID-19 (AI) COVID-REPP Blood Type Antibody Screen Crossmatch Airway Mallampati Class: II TM Dist: >3cm Neck ROM: Full Heart: RRR Lungs: CTA Assessment and Plan Assessment Anesthesia Assessment: Anesthesia Plan Discussed and Chart Reviewed Final Anesthetic Review Family History of Problems with Anesthesia: No History of Problems with Anesthesia: No NPO: Yes ASA Class: IV and Emergency Final Preanesthetic Review: Meds/Haygs Chart Reviewed and Consent Obtained/Reviewed Patient Risk: High Procedure Risk: Low Anesthetic Plan Anesthetic Plan: GA Disposition: Inp. Admit - ICU
--- NOTE | 2022-03-13 18:25 | PM.OP ---
Brief Operative Note Date of Service: 03/13/22 Pre-op diagnosis: UGI bleed Post-op diagnosis: other (DU with visible vessel, hiatal hernia, GERD) Procedure: FLEXIBLE TRANSORAL UPPER GASTROINTESTINAL ENDOSCOPY WITH HEMOCLIP PLACEMENT Consent: Indications for the procedure and potential complications of bleeding, perforation, reaction to medications and missed diagnosis were discussed with the patient and informed consent was obtained. Instrument: Olympus GIF H 190 mid size upper endoscope Monitoring: Vital signs and clinical assessment, continuous EKG monitoring, Pulse oximetry, Carbon Dioxide monitoring and blood pressure monitoring were done throughout the procedure. Procedure: The patient was placed in the left lateral decubitis position and pre-procedure medications were administered and a bite block was placed. The endoscope was inserted into the mouth and advanced under direct vision to the third part of duodenum. A careful inspection was made as the upper endoscope was withdrawn including a retroflexed examination of the proximal stomach; Findings and interventions are described below. Findings: Larynx: ETT in place Esophagus: Tortuous esophagus with increased tertiary contractions without stricture or ring. GE junction at 34 cms, small hiatal hernia from 34-36 cm. Two 2-3 cms long tongues of suspected Contreras's - no biopsies were obtained since pt is on Plavix and aspirin Stomach: Clear bile noted in the stomach which was suctioned. Mild gastric erythema. Grade 2 flap valve on retroflexed examination of the cardia. Duodenum: A large 2.5 to 3 cms ulcer in the posterosuperior wall of the duodenal bulb with a non bleeding visible vessel at the lower edge of the ulcer. A resolution clip was placed over the visible veseel Normal descending duodenum Intervention: Hemoclip placement. No biopsies were obtained since pt is on Plavix and aspirin Impression and Post Procedure Diagnosis: Endoscopy Findings: ESOPHAGUS: Tortuous esophagus with increased tertiary contractions without stricture or ring. GE junction at 34 cms, small hiatal hernia from 34-36 cm. Two 2-3 cms long tongues of suspected Contreras's STOMACH: Clear bile noted in the stomach which was suctioned. Mild gastric erythema. DUODENUM: A large 2.5 to 3 cms ulcer in the posterosuperior wall of the duodenal bulb with a non bleeding visible vessel at the lower edge of the ulcer. Plan: Monitor H & H q 8 hrly x 24 hrs. Continue IV PPI infusion for 72 hrs. Repeat EGD in 6 to 8 weeks for confirm DU has healed. Above findings were reviewed with the Dr Odom Surgeon: Mari Duque MD Anesthesia: GETA (Dr Alexandra) Was an African History Professor used for this Procedure?: Yes African History Professor: Tami Ramirez Estimated blood loss (mL): 0 Pathology: none sent Condition: stable Disposition: ICU
--- NOTE | 2022-03-13 18:43 | W.PM.OPN ---
Operative Note Operative Note Date of Service: 03/13/22 Narrative: Pre-op diagnosis: UGI bleed Post-op diagnosis: other (DU with visible vessel, hiatal hernia, GERD) Procedure: FLEXIBLE TRANSORAL UPPER GASTROINTESTINAL ENDOSCOPY WITH HEMOCLIP PLACEMENT Consent:?Indications for the procedure and potential complications of bleeding, perforation, reaction to medications and missed diagnosis were discussed with the patient and informed consent was obtained. Instrument:?Olympus GIF H 190 mid size upper endoscope Monitoring: Vital signs and clinical assessment, continuous EKG monitoring, Pulse oximetry, Carbon Dioxide monitoring and blood pressure monitoring were done throughout the procedure. Procedure:?The patient was placed in the left lateral decubitis position and pre-procedure medications were administered and a bite block was placed. The endoscope was inserted into the mouth and advanced under direct vision to the third part of duodenum. A careful inspection was made as the upper endoscope was withdrawn including a retroflexed examination of the proximal stomach; Findings and interventions are described below. Findings: Larynx:? ETT in place Esophagus:? Tortuous esophagus with increased tertiary contractions without stricture or ring. GE junction at 34 cms, small hiatal hernia from 34-36 cm.? Two 2-3 cms long tongues of suspected Contreras's - no biopsies were obtained since pt is on Plavix and aspirin Stomach: Clear bile noted in the stomach which was suctioned.? Mild gastric erythema. Grade 2 flap valve on retroflexed examination of the cardia. Duodenum: A large 2.5 to 3 cms ulcer in the posterosuperior wall of the duodenal bulb with a non bleeding visible vessel at the lower edge of the ulcer.? A resolution clip was placed over the visible veseel Normal descending duodenum Intervention: Hemoclip placement.? No biopsies were obtained since pt is on Plavix and aspirin Impression and Post Procedure Diagnosis: Endoscopy Findings: ESOPHAGUS: Tortuous esophagus with increased tertiary contractions without stricture or ring. GE junction at 34 cms, small hiatal hernia from 34-36 cm.? Two 2-3 cms long tongues of suspected Contreras's STOMACH: Clear bile noted in the stomach which was suctioned.? Mild gastric erythema. DUODENUM: A large 2.5 to 3 cms ulcer in the posterosuperior wall of the duodenal bulb with a non bleeding visible vessel at the lower edge of the ulcer. Plan: Monitor H & H q 8 hrly x 24 hrs. Continue IV PPI infusion for 72 hrs. Repeat EGD in 6 to 8 weeks for confirm DU has healed. Above findings were reviewed with the Dr Odom Surgeon: Mari Duque MD Anesthesia: GETA (Dr Alexandra) Was an Financial Institution Manager used for this Procedure?: Yes Financial Institution Manager: Tami Ramirez Estimated blood loss (mL): 0 Pathology: none sent Condition: stable Disposition: ICU
[2022-03-13] MEDS: propofoL 1,000 MG/100 ML VIAL 10.35 MG IVCONT (18:51)
--- NOTE | 2022-03-13 19:30 | PC.NURSE ---
OG NOT PLACED PER MD.
[2022-03-13] MEDS: Phenylephrine HCL 20 MG in 0.9 % Sodium Chloride 250 ML 21.74 MG IVCONT (19:48)
[2022-03-13] MEDS: Albuterol/Iprat 2.5/0.5MG 3 ML AMPUL.NEB INHALE (20:39)
[2022-03-13 22:09] LABS: MANUAL DIFF FLAG NO
[2022-03-13 22:11] LABS: Basophils Percent Auto 0.1 % (0-2); Hematocrit 29.3 % (37.0-47.0); Hemoglobin 10.1 g/dl (12.0-16.0); Imm Gran Abs Auto 0.16 X10*3/uL (0.00-0.03); Imm Gran Pct Auto 0.7 % (0.0-0.4); Lymphocytes Absolute Auto 2.1 X10*3/uL (1.2-4.9); Lymphocytes Percent Auto 8.7 % (20-40); Mean Corpuscular HGB Conc 34.5 g/dl (31.0-35.0); Mean Corpuscular Hemoglobin 30.9 pg (27.0-33.0); Mean Corpuscular Volume 89.6 fL (80.0-98.0); Mean Platelet Volume 10.1 fL (9.4-12.3); Monocytes Absolute Auto 1.2 X10*3/uL (0.1-1.2); Monocytes Percent Auto 4.9 % (2-11); Neutrophils Absolute Auto 20.8 x10*3/uL (2.0-8.3); Neutrophils Percent Auto 85.6 % (45-73); Platelet Count 252 X10*3/uL (160-400); Red Blood Count 3.27 X10*6/uL (4.20-5.50); SCAN SMEAR FLAG 1; White Blood Count 24.3 X10*3/uL (4.8-10.8)
[2022-03-13] MEDS: Chlorhexidine Gluc Oral Rinse 15 ML MOUTHWASH BUCCAL (22:27)
[2022-03-13 22:30] LABS: Anion Gap 10 (12-20); Blood Urea Nitrogen 39 mg/dL (9-16); Calcium 9.1 mg/dL (8.4-10.2); Carbon Dioxide 27 mmol/L (22-29); Chloride 100 mmol/L (96-108); Creatinine Clr Calc Pharmacy 89.7; Estimated Glomerular Filt Rate > 60; Glucose Random 138 mg/dL (60-115); Magnesium 1.5 mg/dL (1.6-2.6); Potassium 3.2 mmol/L (3.3-5.1); Sodium 134 mmol/L (135-145)
[2022-03-13] MEDS: 0.9 % Sodium Chloride Flush 3 ML SYRINGE IVFLUSH (23:45)
[2022-03-13] MEDS: Phenylephrine HCL 20 MG in 0.9 % Sodium Chloride 250 ML 86.94 MG IVCONT (23:52)
[2022-03-14] VITALS (36 sets, daily range): BP systolic 97–122; BP diastolic 49–71; PULSE 75–114; RESP 14–94; TEMP 34.9–37.6; O2SAT 90–99; BMI 21.6
--- NOTE | 2022-03-14 00:04 | W.PM.CCHP ---
Procedures Date of Service Date of Service: 03/14/22 Central Line Placement Right IJ: Central Line Comments: venous access Consent for Procedure: Emergent-no informed consent obtained Time out performed: Yes Sterile Technique Used: Yes Patient placed on monitor/pulse ox: Yes MD prep: mask, gown and gloves Central line prep: Chlorhexidine scrub Ultrasound used for placement: Yes Central line lumen inserted: triple Post procedure: sutured in place, good blood return, all ports aspirated, flushed, capped and sterile dressing applied Post procedure x-ray: tip of catheter in good position and no pneumothorax seen Patient tolerated procedure: well and no complications Complications: none
[2022-03-14] MEDS: Albuterol/Iprat 2.5/0.5MG 3 ML AMPUL.NEB INHALE ×6 (00:36→21:25)
[2022-03-14] MEDS: Potassium Chloride/H20 40 MEQ/100 ML PIGGYBACK 50 MEQ IV (00:42)
[2022-03-14] MEDS: Magnesium Sulfate/H2O 2 GM/50 ML PIGGYBACK IV (00:42)
[2022-03-14] MEDS: propofoL 1,000 MG/100 ML VIAL 17.25 MG IVCONT (00:46)
[2022-03-14] MEDS: Phenylephrine HCL 20 MG in 0.9 % Sodium Chloride 250 ML 86.94 MG IVCONT (02:32)
--- NOTE | 2022-03-14 04:08 | PC.NURSE ---
CARE ASSUMED 23:15...REMAINS TUBED/VENTED....PROPOFOL/NEOSYNEPHRINE/PROTONIX DRIPS PER JAN....IV'S INFUSING TO RIGHT FOOT AND ARM...ELECTROLYTE REPLACEMENTS ORDERED BY ICU PA....PERIPHERAL IV ACCESS MARGINAL...ICU PA INSERTED RIGHT JUGULAR TLC W/O INCIDENT.....CXR DONE ..ETT ADVANCED 2CM TO 22CM PER ICU PA...NSR..FREQUENT PAC'S AND PVC'S AT ...KCL/MGSO4 INFUSED PER JAN WITH DECREASED ECTOPY...MULTIPLE WOUNDS/BRUISES TO EXTREMETIES AND BUTTOCKS/SACRUM...SEE PHOTOS
[2022-03-14] MEDS: Phenylephrine HCL 20 MG in 0.9 % Sodium Chloride 250 ML 60.86 MG IVCONT (05:05)
[2022-03-14] MEDS: propofoL 1,000 MG/100 ML VIAL 13.8 MG IVCONT (05:05)
[2022-03-14] MEDS: Pantoprazole Sodium 80 MG in 0.9 % Sodium Chloride 80 ML 10 MG IV ×2 (05:17→16:49)
[2022-03-14 05:34] LABS: VBG Base Excess 3.5 mmol/L; VBG HCO3 27 mmol/L (22-26); VBG pCO2 37 mmHg; VBG pH 7.46 (7.32-7.43); VBG pO2 57 mmHg
[2022-03-14 05:36] LABS: MANUAL DIFF FLAG NO
[2022-03-14 05:43] LABS: Basophils Percent Auto 0.1 % (0-2); Hematocrit 26.3 % (37.0-47.0); Hemoglobin 8.9 g/dl (12.0-16.0); Imm Gran Abs Auto 0.09 X10*3/uL (0.00-0.03); Imm Gran Pct Auto 0.5 % (0.0-0.4); Lymphocytes Absolute Auto 1.5 X10*3/uL (1.2-4.9); Lymphocytes Percent Auto 7.4 % (20-40); Mean Corpuscular HGB Conc 33.8 g/dl (31.0-35.0); Mean Corpuscular Hemoglobin 30.4 pg (27.0-33.0); Mean Corpuscular Volume 89.8 fL (80.0-98.0); Monocytes Absolute Auto 0.8 X10*3/uL (0.1-1.2); Monocytes Percent Auto 4.2 % (2-11); NRBC Pct Auto 0.1 /100WBC (0.0-0.2); Neutrophils Absolute Auto 17.3 x10*3/uL (2.0-8.3); Neutrophils Percent Auto 87.8 % (45-73); Platelet Count 274 X10*3/uL (160-400); Red Blood Count 2.93 X10*6/uL (4.20-5.50); Red Cell Distribution Width 14.3 % (11.0-16.0); White Blood Count 19.7 X10*3/uL (4.8-10.8)
[2022-03-14 05:58] LABS: Alanine Aminotransferase 18 U/L (0-31); Albumin Level 2.7 g/dL (3.5-5.0); Alkaline Phosphatase 27 U/L (39-117); Anion Gap 9 (12-20); Aspartate Amino Transferase 22 U/L (5-31); Bilirubin Total 1.1 mg/dL (0.0-1.0); Blood Urea Nitrogen 29 mg/dL (9-16); Calcium 9.1 mg/dL (8.4-10.2); Carbon Dioxide 28 mmol/L (22-29); Chloride 104 mmol/L (96-108); Creatinine Clr Calc Pharmacy 92.9; Estimated Glomerular Filt Rate > 60; Glucose Random 122 mg/dL (60-115); Magnesium 2.2 mg/dL (1.6-2.6); Potassium 3.5 mmol/L (3.3-5.1); Sodium 137 mmol/L (135-145); Total Protein 4.4 g/dL (6.5-8.0)
[2022-03-14] MEDS: Potassium Phosphate/NS 15 MMOL/250 ML PLAST..BAG 62.5 MMOL IV (06:59)
[2022-03-14] MEDS: 0.9 % Sodium Chloride Flush 3 ML SYRINGE IVFLUSH ×2 (07:01→16:49)
[2022-03-14 08:44] LABS: Venous Blood Gas Refer to POC result
[2022-03-14] MEDS: Albumin Human 25 % 100 ML IV ×3 (08:56→20:02)
[2022-03-14] MEDS: Chlorhexidine Gluc Oral Rinse 15 ML MOUTHWASH BUCCAL (08:56)
--- NOTE | 2022-03-14 09:48 | MHC.CM.PN ---
Pt presented to ICU from [facility] where she is a LTC resident. Pt with repaired UGIB in OR. Presently being extubated with plans to transfer to the MS floor later in the day if she remains stable. Call placed to pt's guardian Kavya Rios at [phone] to update her on pt's status and plans for return to [facility]: message left requesting a callback. Call placed to [facility]; spoke with the community arts [facility] manager, Noreen. Pt is nonambulatory and a 2 assist for all transfers and toileting. She is able to feed herself with supervision. Pt is vaxed x 3 and is a full code. Plans are for a return to [facility] when medically stable via BLS
--- NOTE | 2022-03-14 10:10 | P.CDIC_ITS ---
CDI Concurrent Query Documentation Clarification: PHYSICIAN'S DOCUMENTATION REQUEST Date of Query: 03/14/22 1011 Patient Name: Radha Martinez Admit Date: 03/13/22 Dear Doctor, A review of the medical record indicates additional documentation may be needed. Please review below and update the documentation accordingly. Clinical Indicators: Risk Factors/Clinical Indicators/Treatments GI consult 03/13 - COPD on home oxygen, 2 liters/min by NC. Hypoxic per SNF. RR 25/ 34 on RA placed on 2 liters NC ICU admit-mechanical vent support. Recognized standard criteria for respiratory failure includes: (Source: [facility] Hospitalist Sep 2013) ABGs (1 or more) Symptoms: ? PO2 <60 or RA SpO2 <91% ? Tachypnea, SOB, dyspnea ? PcO2 >50 and pH <7.35 ? Pallor or cyanosis ? pO2 decrease or pcO2 increase ? Anxiety or restlessness by 10 mm/Hg from baseline if known Supplemental O2 requirement of 40% or more Intubation is not required Clarify which of the following accurately represents the patient's respiratory status: * Chronic respiratory failure home O2 dependent * Acute on chronic hypoxic respiratory failure * COPD exacerbation * COPD with acute lower respiratory infection * Hypoxia * Other (please specify) * Unable to determine Use of terms such as suspected, likely, concern for, or probable (associated with a specific diagnosis that is being evaluated, monitored, or treated as if it exists) are acceptable and can be coded in the inpatient setting, when documented at the time of discharge. Thank you, Petty Sam [facility], CDIS Extension: [phone] Please use your independent medical judgment in providing your response. THIS QUERY IS PART OF THE PERMANENT MEDICAL RECORD Provider Response: Other (Chronic respiratory failure supplemental oxygen dependent.) Other Diagnosis: Chronic respiratory failure supplemental oxygen dependent.
--- NOTE | 2022-03-14 10:27 | PM.CCPN ---
Subjective Subjective Date of Service: 03/14/22 Interval History: 62-year-old lady with underlying history of schizophrenia, [facility] resident, also systolic congestive heart failure with EF of 25-30%, COPD on 2 L of supplemental O2, diabetes mellitus, hepatitis-C admitted on 03/13/2022 with melanotic stools and initial hemoglobin level of 5 point taper. Patient was evaluated by Gastroenterology and has had upper endoscopy demonstrating large duodenal ulcer with visible vessel but no active bleeding that was clipped. Patient remained intubated after the procedure and was transferred to intensive care unit on vasopressor support. She received 3 units of packed red blood cells. Her hemoglobin stabilized at 9. No events overnight. No rebleeding. Extubated this a.m.. Critical Care Time (minutes): 45 Physical Exam Vital Signs: Vital Signs: Last Vital Signs Temp 99.3 F 03/14/22 10:00 Pulse 99 03/14/22 10:00 Resp 34 H 03/14/22 10:00 BP 101/55 L 03/14/22 10:00 Pulse Ox 95 03/14/22 10:00 BMI result Body Mass Index 21.6 Const: General: no acute distress, alert and awake Eyes: Sclerae: sclerae normal EOM: EOMs intact bilaterally Neck: Neck: Yes no lymphadenopathy, Yes trachea midline and Yes supple Resp: Effort & Inspection: normal respiratory effort and no respiratory distress Auscultation: clear to auscultation bilaterally Cardio: Rate: tachycardic Rhythm: regular rhythm Heart sounds: no gallops, no murmurs and no rubs GI: Palpation (GI): Soft to palpation and Other GI palpation findings present ( Nontender) Auscultation: normal bowel sounds Extrem: General: Yes no pedal edema, No clubbing and No cyanosis Objective Data Labs CBC & Chem 7: 03/14/22 05:13 03/14/22 05:13 Labs: Laboratory Results - last 24 hr 03/13/22 03/13/22 03/13/22 10:13 10:13 10:13 WBC RBC Hgb Hct MCV MCH MCHC RDW Plt Count MPV Immature Gran % (Auto) Neut % (Auto) Lymph % (Auto) Desha % (Auto) Eos % (Auto) Baso % (Auto) Lymph # (Auto) Desha # (Auto) Eos # (Auto) Baso # (Auto) Abs Immat Gran (auto) Absolute Neuts (auto) Absolute Nucleated RBC Nucleated RBC % (auto) Smear Path Review PT INR APTT VBG pH VBG pCO2 VBG pO2 VBG HCO3 VBG O2 Saturation VBG Base Excess Sodium 130 L Potassium 4.5 Chloride 94 L Carbon Dioxide 30 H Anion Gap 11 L BUN 54 H D Creatinine 0.58 Estim Creat Clear Calc 88.1 Estimated GFR > 60 Random Glucose 139 H Lactic Acid 3.1 H* Lactic Acid F/U @ 2Hr Lactic Acid F/U @ 4Hr Calcium 9.4 Phosphorus Magnesium 1.5 L Total Bilirubin 0.3 Direct Bilirubin < 0.2 AST 13 D ALT 10 Alkaline Phosphatase 24 L D Troponin I High Sens B-Natriuretic Peptide Total Protein 4.5 L D Albumin 2.8 L Lipase 7 L Stool Occult Blood [place] COVID-19 (AI) Negative COVID-19 Clin Com See Note Blood Type Antibody Screen Crossmatch 03/13/22 03/13/22 03/13/22 10:14 10:14 10:14 WBC 13.8 H RBC 1.82 L D Hgb 5.1 L* D Hct 16.4 L* D MCV 90.1 MCH 28.0 MCHC 31.1 RDW 14.1 Plt Count 295 MPV 10.1 Immature Gran % (Auto) 0.7 H Neut % (Auto) 88.9 H Lymph % (Auto) 4.6 L Desha % (Auto) 5.7 Eos % (Auto) 0.0 Baso % (Auto) 0.1 Lymph # (Auto) 0.6 L Desha # (Auto) 0.8 Eos # (Auto) 0.0 Baso # (Auto) 0.0 Abs Immat Gran (auto) 0.10 H Absolute Neuts (auto) 12.3 H Absolute Nucleated RBC 0.000 Nucleated RBC % (auto) 0.0 Smear Path Review SEE NOTE PT 14.5 H INR 1.3 H APTT 20.6 L VBG pH VBG pCO2 VBG pO2 VBG HCO3 VBG O2 Saturation VBG Base Excess Sodium Potassium Chloride Carbon Dioxide Anion Gap BUN Creatinine Estim Creat Clear Calc Estimated GFR Random Glucose Lactic Acid Lactic Acid F/U @ 2Hr Lactic Acid F/U @ 4Hr Calcium Phosphorus Magnesium Total Bilirubin Direct Bilirubin AST ALT Alkaline Phosphatase Troponin I High Sens 20.1 H B-Natriuretic Peptide 259 H Total Protein Albumin Lipase Stool Occult Blood [place] COVID-19 (AI) [employer] Blood Type Antibody Screen Crossmatch 03/13/22 03/13/22 03/13/22 10:14 10:14 10:49 WBC RBC Hgb Hct MCV MCH MCHC RDW Plt Count MPV Immature Gran % (Auto) Neut % (Auto) Lymph % (Auto) Desha % (Auto) Eos % (Auto) Baso % (Auto) Lymph # (Auto) Desha # (Auto) Eos # (Auto) Baso # (Auto) Abs Immat Gran (auto) Absolute Neuts (auto) Absolute Nucleated RBC Nucleated RBC % (auto) Smear Path Review PT INR APTT VBG pH VBG pCO2 VBG pO2 VBG HCO3 VBG O2 Saturation VBG Base Excess Sodium Potassium Chloride Carbon Dioxide Anion Gap BUN Creatinine Estim Creat Clear Calc Estimated GFR Random Glucose Lactic Acid Lactic Acid F/U @ 2Hr Lactic Acid F/U @ 4Hr Calcium Phosphorus Magnesium Total Bilirubin Direct Bilirubin AST ALT Alkaline Phosphatase Troponin I High Sens B-Natriuretic Peptide Total Protein Albumin Lipase Stool Occult Blood POSITIVE [place] 0.41 L COVID-19 (AI) [employer] Blood Type A Positive Antibody Screen NEGATIVE Crossmatch See Detail 03/13/22 03/13/22 03/13/22 13:43 13:43 15:03 WBC Cancelled RBC Cancelled Hgb Cancelled Hct Cancelled MCV Cancelled MCH Cancelled MCHC Cancelled RDW Cancelled Plt Count Cancelled MPV Cancelled Immature Gran % (Auto) Neut % (Auto) Lymph % (Auto) Desha % (Auto) Eos % (Auto) Baso % (Auto) Lymph # (Auto) Desha # (Auto) Eos # (Auto) Baso # (Auto) Abs Immat Gran (auto) Absolute Neuts (auto) Absolute Nucleated RBC Cancelled Nucleated RBC % (auto) Cancelled Smear Path Review PT INR APTT VBG pH VBG pCO2 VBG pO2 VBG HCO3 VBG O2 Saturation VBG Base Excess Sodium Potassium Chloride Carbon Dioxide Anion Gap BUN Creatinine Estim Creat Clear Calc Estimated GFR Random Glucose Lactic Acid Lactic Acid F/U @ 2Hr 2.8 H* Lactic Acid F/U @ 4Hr Calcium Phosphorus Magnesium Total Bilirubin Direct Bilirubin AST ALT Alkaline Phosphatase Troponin I High Sens 24.2 H B-Natriuretic Peptide Total Protein Albumin Lipase Stool Occult Blood [place] COVID-19 (AI) [employer]-[email or web address] Clin Com Blood Type Antibody Screen Crossmatch 03/13/22 03/13/22 03/13/22 15:53 16:19 22:05 WBC 23.4 H 24.3 H RBC 2.93 L D 3.27 L Hgb 8.9 L D 10.1 L Hct 26.5 L D 29.3 L MCV 90.4 89.6 MCH 30.4 30.9 MCHC 33.6 34.5 RDW 14.0 14.0 Plt Count 179 D 252 D MPV 10.4 10.1 Immature Gran % (Auto) 0.7 H Neut % (Auto) 85.6 H Lymph % (Auto) 8.7 L Desha % (Auto) 4.9 Eos % (Auto) 0.0 Baso % (Auto) 0.1 Lymph # (Auto) 2.1 Desha # (Auto) 1.2 Eos # (Auto) 0.0 Baso # (Auto) 0.0 Abs Immat Gran (auto) 0.16 H Absolute Neuts (auto) 20.8 H Absolute Nucleated RBC 0.000 0.000 Nucleated RBC % (auto) 0.0 0.0 Smear Path Review PT INR APTT VBG pH VBG pCO2 VBG pO2 VBG HCO3 VBG O2 Saturation VBG Base Excess Sodium Potassium Chloride Carbon Dioxide Anion Gap BUN Creatinine Estim Creat Clear Calc Estimated GFR Random Glucose Lactic Acid Lactic Acid F/U @ 2Hr Lactic Acid F/U @ 4Hr 2.1 H* Calcium Phosphorus Magnesium Total Bilirubin Direct Bilirubin AST ALT Alkaline Phosphatase Troponin I High Sens B-Natriuretic Peptide Total Protein Albumin Lipase Stool Occult Blood [place] COVID-19 (AI) COVID-19 [employer] Com Blood Type Antibody Screen Crossmatch 03/13/22 03/14/22 03/14/22 22:05 05:13 05:13 WBC 19.7 H RBC 2.93 L Hgb 8.9 L Hct 26.3 L MCV 89.8 MCH 30.4 MCHC 33.8 RDW 14.3 Plt Count 274 MPV 10.0 Immature Gran % (Auto) 0.5 H Neut % (Auto) 87.8 H Lymph % (Auto) 7.4 L Desha % (Auto) 4.2 Eos % (Auto) 0.0 Baso % (Auto) 0.1 Lymph # (Auto) 1.5 Desha # (Auto) 0.8 Eos # (Auto) 0.0 Baso # (Auto) 0.0 Abs Immat Gran (auto) 0.09 H Absolute Neuts (auto) 17.3 H Absolute Nucleated RBC 0.020 H Nucleated RBC % (auto) 0.1 Smear Path Review PT INR APTT VBG pH VBG pCO2 VBG pO2 VBG HCO3 VBG O2 Saturation VBG Base Excess Sodium 134 L 137 Potassium 3.2 L D 3.5 Chloride 100 104 Carbon Dioxide 27 28 Anion Gap 10 L 9 L BUN 39 H 29 H Creatinine 0.57 0.55 Estim Creat Clear Calc 89.7 92.9 Estimated GFR > 60 > 60 Random Glucose 138 H 122 H Lactic Acid Lactic Acid F/U @ 2Hr Lactic Acid F/U @ 4Hr Calcium 9.1 9.1 Phosphorus 2.0 L Magnesium 1.5 L 2.2 Total Bilirubin 1.1 H Direct Bilirubin AST 22 D ALT 18 Alkaline Phosphatase 27 L Troponin I High Sens B-Natriuretic Peptide Total Protein 4.4 L Albumin 2.7 L Lipase Stool Occult Blood [place] COVID-19 (AI) [employer] Blood Type Antibody Screen Crossmatch 03/14/22 05:26 WBC RBC Hgb Hct MCV MCH MCHC RDW Plt Count MPV Immature Gran % (Auto) Neut % (Auto) Lymph % (Auto) Desha % (Auto) Eos % (Auto) Baso % (Auto) Lymph # (Auto) Desha # (Auto) Eos # (Auto) Baso # (Auto) Abs Immat Gran (auto) Absolute Neuts (auto) Absolute Nucleated RBC Nucleated RBC % (auto) Smear Path Review PT INR APTT VBG pH 7.46 H VBG pCO2 37 VBG pO2 57 VBG HCO3 27 H VBG O2 Saturation 87.0 VBG Base Excess 3.5 Sodium Potassium Chloride Carbon Dioxide Anion Gap BUN Creatinine Estim Creat Clear Calc Estimated GFR Random Glucose Lactic Acid Lactic Acid F/U @ 2Hr Lactic Acid F/U @ 4Hr Calcium Phosphorus Magnesium Total Bilirubin Direct Bilirubin AST ALT Alkaline Phosphatase Troponin I High Sens B-Natriuretic Peptide Total Protein Albumin Lipase Stool Occult Blood [place] COVID-19 (AI) [employer] Blood Type Antibody Screen Crossmatch Progress Note: A&P Assessment and plan (1) Acute upper gastrointestinal bleeding: Status: Acute (2) CHF (congestive heart failure): Status: Acute (3) COPD (chronic obstructive pulmonary disease) with emphysema: Status: Acute (4) Schizophrenia: Status: Acute (5) Diabetes mellitus, type II: Status: Acute (6) Hepatitis C: Status: Acute Plan Assessment: 62-year-old lady with underlying schizophrenia and systolic congestive heart failure admitted with subacute upper GI bleed, now status post endoscopy with clipping of a vessel in a large duodenal also Plan: Neuro: No acute issues. Cardiac: Titrated off pressor support. Underlying history of systolic congestive heart failure. Pulmonary: Extubated this a.m. uneventfully. Underlying COPD on 2 L of supplemental O2. Renal: No acute issues. Underlying history of chronic hyponatremia. Endo: No acute issues. Underlying history of diabetes mellitus. GI: Subacute upper GI bleed status post endoscopic evaluation demonstrating large duodenal ulcer with non bleeding vessel that was clipped. Gastroenterology service care appreciated. Continue PPI drip for 72 hours as per GI recommendations. ID: No acute issues Heme/Onc: Subacute hemorrhagic anemia. Hemoglobin stabilized. Transfusion threshold of 7. Continue to monitor hemoglobin level. Psych: No acute issues. Underlying history of schizophrenia. Miscellaneous: No acute issues. Prophylaxis: PPI drip Diet: NPO Critical care time spent: 45 minutes Quality Stroke Does the patient have a stroke diagnosis?: No VTE Prior VTE?: No VTE Risk Level:: Medical - moderate - high VTE Device Contraindication: N/A - Device Ordered VTE Drug Contraindication: Treatment Not Tolerated
--- NOTE | 2022-03-14 11:31 | MHC.CDI.CONC ---
CDI Concurrent Query Documentation Clarification: PHYSICIAN'S DOCUMENTATION REQUEST Date of Query: 03/14/22 1131 Patient Name: Radha Martinez Admit Date: 03/13/22 Dear Doctor, A review of the medical record indicates additional documentation may be needed. Please review below and update the documentation accordingly. Risk Factors/Clinical Indicators/Treatments Lab findings: magnesium 1.5 L Magnesium sulfate IV once - 03/13/22. Please indicate in your progress notes if you are in agreement that the above diagnosis is valid for this patient: LABS: Hypomagnesemia or other etiology of labs: Yes, [ ] is a valid diagnosis for this patient No, [ ] is a not a valid diagnosis for this patient Other (please specify) Unable to determine Use of terms such as suspected, likely, concern for, or probable (associated with a specific diagnosis that is being evaluated, monitored, or treated as if it exists) are acceptable and can be coded in the inpatient setting, when documented at the time of discharge. Thank you, Petty Sam [facility], CDIS Extension: [phone] Please use your independent medical judgment in providing your response. THIS QUERY IS PART OF THE PERMANENT MEDICAL RECORD Provider Response: Other ( Hypomagnesemia) Other Diagnosis: Hypomagnesemia
[2022-03-14 14:18] LABS: MANUAL DIFF FLAG NO
[2022-03-14 14:24] LABS: Basophils Percent Auto 0.1 % (0-2); Hematocrit 22.8 % (37.0-47.0); Hemoglobin 7.5 g/dl (12.0-16.0); Imm Gran Abs Auto 0.05 X10*3/uL (0.00-0.03); Imm Gran Pct Auto 0.5 % (0.0-0.4); Lymphocytes Absolute Auto 0.7 X10*3/uL (1.2-4.9); Lymphocytes Percent Auto 7.4 % (20-40); Mean Corpuscular HGB Conc 32.9 g/dl (31.0-35.0); Mean Corpuscular Hemoglobin 30.1 pg (27.0-33.0); Mean Corpuscular Volume 91.6 fL (80.0-98.0); Mean Platelet Volume 9.8 fL (9.4-12.3); Monocytes Absolute Auto 0.5 X10*3/uL (0.1-1.2); Monocytes Percent Auto 4.9 % (2-11); Neutrophils Absolute Auto 8.2 x10*3/uL (2.0-8.3); Neutrophils Percent Auto 87.1 % (45-73); Platelet Count 161 X10*3/uL (160-400); Red Blood Count 2.49 X10*6/uL (4.20-5.50); Red Cell Distribution Width 14.6 % (11.0-16.0); White Blood Count 9.4 X10*3/uL (4.8-10.8)
--- NOTE | 2022-03-14 14:42 | HO.POSTANES ---
Post Anesthesia Evaluation Post Anesthesia Evaluation Vital Signs: Vital Signs Temp Pulse Resp BP Pulse Ox 03/14/22 14:00 103 H 26 H 106/61 93 03/14/22 13:00 105 H 25 H 102/53 L 97 03/14/22 12:00 105 H 94 H 101/60 93 03/14/22 11:25 94 28 H 03/14/22 11:00 98.4 F 95 21 H 105/56 L 91 L 03/14/22 10:00 99.3 F 99 34 H 101/55 L 95 03/14/22 09:30 96 102/64 03/14/22 09:15 89 116/68 03/14/22 09:00 99.3 F 87 14 120/69 98 03/14/22 08:00 99.3 F 88 16 97/59 L 98 03/14/22 07:33 75 16 03/14/22 07:00 99.7 F 77 16 98/57 L 96 03/14/22 05:59 99.5 F 88 16 106/69 96 03/14/22 05:02 78 16 03/14/22 05:00 99.3 F 82 16 107/67 97 03/14/22 04:00 99.3 F 76 16 106/63 96 03/14/22 03:00 99.3 F 86 16 101/62 98 Anesthesia: General Endotracheal-GETA Mental Status: Awake Pain Control: Satisfactory Nausea/Vomiting: None Hydration: Adequate Anesthesia-Related Issues: No Anes. Related Issues
--- NOTE | 2022-03-14 16:55 | P.CONWO_ITS ---
History of Present Illness Data of Consult Service Date: 03/14/22 Requesting physician: Jim Odom Primary Care Provider: Javier Torres DO HPI Reason for consult: wounds The pt is a 62 year old Schizophrenic pt at [facility] who was brought to the ER with severe anemia and underwent transfusions and treatment with an esophagogastric duodenoscopy where GI found duodenal ulcer and clipped the bleeding vessel. The patient had been unstable and was intubated was on pressors in the ICU. Eventually the pressor was weaned off and she was extubated. She came in with skin tears to her arms and deep tissue wounds in other parts of her body. She has been on protective air mattress and has been undergoing rotation and repositioning as much as her intubation and pressor support can tolerate. 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 Do you presently have visiting nurse or other home services: No (from snf) Unable to assess alcohol history related to: Unknown Alcohol intake: unknown Patient Tobacco Use Status: Former Tobacco user service: No Current occupational status: disabled Meds Allergies Allergy/AdvReac Type Severity Reaction Status Date / Time codeine [CODEINE] Allergy Unknown UNKNOWN Verified 02/11/22 14:47 lactose [LACTOSE] Allergy Unknown UNKNOWN Verified 02/11/22 14:47 meloxicam [MELOXICAM] Allergy Unknown UNKNOWN Verified 02/11/22 14:47 penicillin V Allergy Unknown Unknown Verified 02/11/22 14:47 Penicillins [PENICILLINS] Allergy Unknown UNKNOWN Verified 02/11/22 14:47 tetracycline [TETRACYCLINE] Allergy Unknown UNKNOWN Verified 02/11/22 14:47 Active Medications: Current Medications Albuterol/Ipratropium (Albuterol/Iprat 2.5/0.5mg 3 Ml Ampul.Neb) 3 ml INHALE RQ4H [facility] Last Admin: 03/17/22 07:10 Dose: 3 ml Documented by: [place] Carbonate ([place] Carbonate Er 300 Mg Tablet.Er) 300 mg PO BEDTIME [facility] Last Admin: 03/16/22 20:48 Dose: 300 mg Documented by: Lurasidone HCl (Lurasidone Hcl 80 Mg Tablet) 80 mg PO BEDTIME [facility] Last Admin: 03/16/22 20:48 Dose: 80 mg Documented by: Pharmacy Consult (Consult Rx Perform Med Rec) 1 each MISCELLANE ONCE PRN PRN Reason: Consult order Sodium Chloride (0.9 % Sodium Chloride Flush 3 Ml Syringe) 3 ml IVFLUSH QSHIFT [facility] Last Admin: 03/16/22 23:56 Dose: 3 ml Documented by: Home Medications Medication Instructions Recorded Confirmed Last Taken Type clopidogrel 75 mg tablet 75 mg PO DAILY 06/12/21 03/13/22 Unknown History fluticasone furoate 200 1 ea INHALATION DAILY 06/12/21 03/13/22 Unknown History mcg-vilanterol 25 mcg/dose inhalation powder (Breo Ellipta) lurasidone 40 mg tablet (Latuda) 40 mg PO BEDTIME 06/12/21 03/13/22 Unknown History simvastatin 20 mg tablet 20 mg PO BEDTIME 06/12/21 03/13/22 Unknown History famotidine 40 mg tablet 40 mg PO BEDTIME 06/26/21 03/13/22 Unknown History lurasidone 60 mg tablet (Latuda) 60 mg PO BEDTIME 06/26/21 03/13/22 Unknown History paliperidone palmitate 156 mg/mL 156 mg IM Q28D 06/26/21 03/13/22 02/13/22 History intramuscular syringe (Invega Sustenna) pramipexole 0.25 mg tablet 0.25 mg PO BEDTIME 06/26/21 03/13/22 Unknown History trihexyphenidyl 5 mg tablet 5 mg PO TID 06/26/21 03/13/22 Unknown History acetaminophen 325 mg tablet 650 mg PO Q4H PRN 01/15/22 03/13/22 Unknown History albuterol sulfate 90 mcg/actuation 4 inh INHALATION Q4H PRN 01/15/22 03/13/22 Unknown History breath activated powder inhaler,sensor ascorbic acid (vitamin C) 500 mg 500 mg PO DAILY 01/15/22 03/13/22 Unknown History tablet aspirin 81 mg chewable tablet 81 mg PO DAILY 01/15/22 03/13/22 Unknown History docusate sodium 100 mg tablet 100 mg PO BID 01/15/22 03/13/22 Unknown History lactulose 10 gram/15 mL oral 20 g PO Q12H PRN 01/15/22 03/13/22 Unknown History solution lanolin alcohols-mineral 1 appl TOPICAL BEDTIME 01/15/22 03/13/22 Unknown History oil-w.petrolatum-ceresin topical cream (Minerin Creme) lithium carbonate 300 mg 300 mg PO BEDTIME 01/15/22 03/13/22 Unknown History tablet,extended release menthol 5 % topical patch (Bengay 1 patch TOPICAL DAILY PRN 01/15/22 03/13/22 Unknown History Ultra Strength (menthol)) metoprolol tartrate 25 mg tablet 25 mg PO BID 01/15/22 03/13/22 Unknown History sennosides 8.6 mg tablet (senna) 17.2 mg PO BID PRN 01/15/22 03/13/22 Unknown History furosemide 40 mg tablet 40 mg PO DAILY 02/11/22 03/13/22 Unknown History acetaminophen 325 mg tablet 325 mg PO QID 03/13/22 03/13/22 Unknown History aluminum-mag hydroxide-simethicone 30 ml PO Q6H PRN 03/13/22 03/13/22 Unknown History 200 mg-200 mg-20 mg/5 mL oral susp bisacodyl 10 mg rectal suppository 10 mg TX DAILY PRN 03/13/22 03/13/22 Unknown History glucagon HCl 1 mg solution for 1 mg SUBCUT Q20M PRN 03/13/22 03/13/22 Unknown History injection (Glucagon (HCl) Emergency Kit) guaifenesin 100 mg/5 mL oral liquid 200 mg PO Q6H PRN 03/13/22 03/13/22 Unknown History levofloxacin 500 mg tablet 1 tab PO DAILY 03/13/22 03/13/22 Unknown History naloxone 4 mg/actuation nasal 4 mg INTRANASAL Q3M PRN 03/13/22 03/13/22 Unknown History spray (Narcan) prednisone 10 mg tablet 30 mg PO DAILY 03/13/22 03/13/22 Unknown History sodium phosphates 19 gram-7 118 ml TX DAILY PRN 03/13/22 03/13/22 Unknown History gram/118 mL enema (Fleet Enema) Physical Exam Vital Signs and Narrative: Vital Signs: Last Vital Signs Temp 97.9 F 03/17/22 08:00 Pulse 103 H 03/17/22 08:00 Resp 24 H 03/17/22 08:00 BP 137/80 03/17/22 08:00 Pulse Ox 93 03/17/22 08:00 BMI result Body Mass Index 22.1 Skin: Other: Patient has multiple small skin tears on her upper extremities as her skin is very thin and she has very frail arms. Dressings here have secured these mult iple small bilateral skin tears. On her buttock area she has more pressure stage I skin changes but generally this area looks good. Her heels are secured in bunny boots and she has a small area of DTI present here but without any skin breakdown. Now her foot feels a little warm. Patient's left lower leg lateral aspect has an area of skin breakdown to the fatty tissue uncertain etiology. This is not quite venous stasis as her leg is not tremendously edematous and there does not appear to be other chronic venous hypertension changes. There is some slough that was debrided off with a gauze and the size of the wound with 2 areas clustered 6.8 x 2.9 cm depth is 0.1 cm. There is no erythema no evidence of infection. Neuro: Other: Patient is awake and complaining of pain and confused. She just recently got extubated. Results Labs CBC and Chem 7: 03/17/22 05:16 03/17/22 05:39 Labs: Laboratory Results - last 24 hr 03/16/22 03/17/22 03/17/22 23:22 05:16 05:39 MCV 97.8 97.7 MCH 30.0 29.9 MCHC 30.7 L 30.6 L RDW 14.6 14.7 Plt Count 146 L 146 L MPV 9.7 10.0 Immature Gran % (Auto) 0.4 0.6 H Neut % (Auto) 83.8 H 83.8 H Lymph % (Auto) 8.9 L 9.1 L [place] % (Auto) 6.2 5.9 Eos % (Auto) 0.4 0.3 Baso % (Auto) 0.3 0.3 Lymph # (Auto) 0.7 L 0.6 L [place] # (Auto) 0.5 0.4 Eos # (Auto) 0.0 0.0 Baso # (Auto) 0.0 0.0 Abs Immat Gran (auto) 0.03 0.04 H Absolute Neuts (auto) 6.5 5.7 Absolute Nucleated RBC 0.000 0.000 Nucleated RBC % (auto) 0.0 0.0 Anion Gap 13 Estim Creat Clear Calc 113.6 Estimated GFR > 60 Random Glucose 82 Calcium 8.9 Phosphorus 2.6 L Magnesium 1.8 Assessment and Plan (1) Pressure injury of deep tissue of heel: Status: Acute (2) Pressure injury of sacral region, stage 1: Status: Acute (3) Leg wound, left: Status: Acute Plan 62-year-old female who was significantly ill with chronic anemia probable poor nutrition with bleeding ulcer requiring emergency procedure intubated and on pressors with multiple small skin and soft tissue wounds. In regards to the arm wounds these are all fine and will be healing care to be taken with any bandages and IV dressings to her arm. At this point patient has no need for arm restraints. Continue with repositioning as this will improve any risk for pressure injury to the bony prominences specifically of the sacral buttock area and the heel areas. She is tolerating her bunny boots while and nursing staff has repositioned her on her sides. Hip tissue looks fine. The left leg wound question etiology does not appear to be typical of venous wound and now being off pressors with better hemoglobin any potential ischemic t issue should be improving with improved vascularization. Continue just alginate dressing to this wound and wrapping. No need to do any compression bandage here. Plan discussed with the nursing team of the ICU
[2022-03-14 19:12] LABS: MANUAL DIFF FLAG NO
[2022-03-14 19:13] LABS: Basophils Percent Auto 0.1 % (0-2); Hematocrit 22.6 % (37.0-47.0); Hemoglobin 7.4 g/dl (12.0-16.0); Imm Gran Abs Auto 0.03 X10*3/uL (0.00-0.03); Imm Gran Pct Auto 0.3 % (0.0-0.4); Lymphocytes Absolute Auto 0.9 X10*3/uL (1.2-4.9); Lymphocytes Percent Auto 9.7 % (20-40); Mean Corpuscular HGB Conc 32.7 g/dl (31.0-35.0); Mean Corpuscular Hemoglobin 30.3 pg (27.0-33.0); Mean Corpuscular Volume 92.6 fL (80.0-98.0); Mean Platelet Volume 9.7 fL (9.4-12.3); Monocytes Absolute Auto 0.5 X10*3/uL (0.1-1.2); Monocytes Percent Auto 5.3 % (2-11); Neutrophils Absolute Auto 7.6 x10*3/uL (2.0-8.3); Neutrophils Percent Auto 84.6 % (45-73); Platelet Count 149 X10*3/uL (160-400); Red Blood Count 2.44 X10*6/uL (4.20-5.50); Red Cell Distribution Width 14.7 % (11.0-16.0); White Blood Count 8.9 X10*3/uL (4.8-10.8)
[2022-03-15] VITALS (30 sets, daily range): BP systolic 92–126; BP diastolic 53–79; PULSE 82–107; RESP 13–36; TEMP 36.1–37.1; O2SAT 93–100; BMI 21.6
[2022-03-15] MEDS: Albumin Human 25 % 100 ML IV (02:00)
[2022-03-15] MEDS: 0.9 % Sodium Chloride Flush 3 ML SYRINGE IVFLUSH ×4 (02:07→22:18)
[2022-03-15] MEDS: Pantoprazole Sodium 80 MG in 0.9 % Sodium Chloride 80 ML 10 MG IV ×3 (02:35→22:17)
[2022-03-15 04:58] LABS: MANUAL DIFF FLAG NO
[2022-03-15 05:08] LABS: Eosinophils Percent Auto 0.1 % (0-4); Imm Gran Abs Auto 0.03 X10*3/uL (0.00-0.03); Imm Gran Pct Auto 0.4 % (0.0-0.4); Lymphocytes Absolute Auto 0.8 X10*3/uL (1.2-4.9); Lymphocytes Percent Auto 11.1 % (20-40); Mean Corpuscular HGB Conc 32.4 g/dl (31.0-35.0); Mean Corpuscular Hemoglobin 30.4 pg (27.0-33.0); Mean Platelet Volume 9.7 fL (9.4-12.3); Monocytes Absolute Auto 0.3 X10*3/uL (0.1-1.2); Monocytes Percent Auto 3.7 % (2-11); Neutrophils Percent Auto 84.7 % (45-73); Platelet Count 127 X10*3/uL (160-400); Red Blood Count 2.17 X10*6/uL (4.20-5.50); Red Cell Distribution Width 14.7 % (11.0-16.0)
[2022-03-15 05:19] LABS: Hematocrit 20.4 % (37.0-47.0); Hemoglobin 6.6 g/dl (12.0-16.0)
[2022-03-15 05:24] LABS: Albumin Level 3.5 g/dL (3.5-5.0); Anion Gap 8 (12-20); Blood Urea Nitrogen 13 mg/dL (9-16); Carbon Dioxide 28 mmol/L (22-29); Chloride 104 mmol/L (96-108); Creatinine Clr Calc Pharmacy 108.8; Estimated Glomerular Filt Rate > 60; Glucose Random 101 mg/dL (60-115); Phosphorus 2.5 mg/dL (2.7-4.5); Potassium 3.2 mmol/L (3.3-5.1); Sodium 137 mmol/L (135-145)
[2022-03-15] MEDS: Potassium Phosphate/NS 15 MMOL/250 ML PLAST..BAG 62.5 MMOL IV ×2 (08:24→11:57)
--- NOTE | 2022-03-15 10:20 | P.PNCC_ITS ---
Subjective Subjective Date of Service: 03/15/22 Interval History: 62-year-old lady with underlying history of schizophrenia, [facility] resident, also systolic congestive heart failure with EF of 25-30%, COPD on 2 L of supplemental O2, diabetes mellitus, hepatitis-C admitted on 03/13/2022 with melanotic stools and initial hemoglobin level of 5 point taper. Patient was evaluated by Gastroenterology and has had upper endoscopy demonstrating large duodenal ulcer with visible vessel but no active bleeding that was clipped. Patient remained intubated after the procedure and was transferred to intensive care unit on vasopressor support. She received 3 units of packed red blood cells. hemoglobin continues to drift down, but no overt bleeding is noted. Critical Care Time (minutes): 0 Physical Exam Vital Signs: Vital Signs: Last Vital Signs Temp 98.6 F 03/15/22 08:26 Pulse 97 03/15/22 10:00 Resp 18 03/15/22 10:00 BP 111/74 03/15/22 10:00 Pulse Ox 99 03/15/22 10:00 BMI result Body Mass Index 21.6 Const: General: no acute distress, alert and awake Eyes: Sclerae: sclerae normal EOM: EOMs intact bilaterally Neck: Neck: Yes no lymphadenopathy, Yes trachea midline and Yes supple Resp: Effort & Inspection: normal respiratory effort and no respiratory distress Auscultation: clear to auscultation bilaterally Cardio: Rate: regular rate Rhythm: regular rhythm Heart sounds: no gallops, no murmurs and no rubs GI: Palpation (GI): Soft to palpation and Other GI palpation findings present ( Nontender) Auscultation: normal bowel sounds Extrem: General: Yes no pedal edema, No clubbing and No cyanosis Objective Data Labs CBC & Chem 7: 03/15/22 04:49 03/15/22 04:48 Labs: Laboratory Results - last 24 hr 03/13/22 03/14/22 03/14/22 10:49 14:14 19:10 WBC 9.4 8.9 RBC 2.49 L 2.44 L Hgb 7.5 L 7.4 L Hct 22.8 L 22.6 L MCV 91.6 92.6 MCH 30.1 30.3 MCHC 32.9 32.7 RDW 14.6 14.7 Plt Count 161 D 149 L MPV 9.8 9.7 Immature Gran % (Auto) 0.5 H 0.3 Neut % (Auto) 87.1 H 84.6 H Lymph % (Auto) 7.4 L 9.7 L [place] % (Auto) 4.9 5.3 Eos % (Auto) 0.0 0.0 Baso % (Auto) 0.1 0.1 Lymph # (Auto) 0.7 L 0.9 L [place] # (Auto) 0.5 0.5 Eos # (Auto) 0.0 0.0 Baso # (Auto) 0.0 0.0 Abs Immat Gran (auto) 0.05 H 0.03 Absolute Neuts (auto) 8.2 7.6 Absolute Nucleated RBC 0.000 0.000 Nucleated RBC % (auto) 0.0 0.0 Sodium Potassium Chloride Carbon Dioxide Anion Gap BUN Creatinine Estim Creat Clear Calc Estimated GFR Random Glucose Calcium Phosphorus Magnesium Albumin Blood Type A Positive Antibody Screen NEGATIVE Crossmatch See Detail 03/15/22 03/15/22 04:48 04:49 WBC 7.0 RBC 2.17 L Hgb 6.6 L* Hct 20.4 L* MCV 94.0 MCH 30.4 MCHC 32.4 RDW 14.7 Plt Count 127 L MPV 9.7 Immature Gran % (Auto) 0.4 Neut % (Auto) 84.7 H Lymph % (Auto) 11.1 L [place] % (Auto) 3.7 Eos % (Auto) 0.1 Baso % (Auto) 0.0 Lymph # (Auto) 0.8 L [place] # (Auto) 0.3 Eos # (Auto) 0.0 Baso # (Auto) 0.0 Abs Immat Gran (auto) 0.03 Absolute Neuts (auto) 6.0 Absolute Nucleated RBC 0.000 Nucleated RBC % (auto) 0.0 Sodium 137 Potassium 3.2 L Chloride 104 Carbon Dioxide 28 Anion Gap 8 L BUN 13 D Creatinine 0.47 L Estim Creat Clear Calc 108.8 Estimated GFR > 60 Random Glucose 101 Calcium 9.0 Phosphorus 2.5 L Magnesium 2.0 Albumin 3.5 D Blood Type Antibody Screen Crossmatch Progress Note: A&P Assessment and plan (1) Hepatitis C: Status: Acute (2) Diabetes mellitus, type II: Status: Acute (3) Schizophrenia: Status: Acute (4) COPD (chronic obstructive pulmonary disease) with emphysema: Status: Acute (5) CHF (congestive heart failure): Status: Acute (6) Acute upper gastrointestinal bleeding: Status: Acute (7) Acute blood loss anemia: Status: Acute Plan Assessment: 62-year-old lady with underlying schizophrenia and systolic congestive heart failure admitted with subacute upper GI bleed, now status post endoscopy with clipping of a vessel in a large duodenal also Plan: Neuro: No acute issues. Cardiac: Titrated off pressor support. Underlying history of systolic congestive heart failure. Pulmonary: Extubated on 03/14/2022. Underlying COPD on 2 L of supplemental O2. Renal: No acute issues. Underlying history of chronic hyponatremia. Endo: No acute issues. Underlying history of diabetes mellitus. GI: Subacute upper GI bleed status post endoscopic evaluation demonstrating l arge duodenal ulcer with non bleeding vessel that was clipped. Gastroenterology service care appreciated. Continue PPI drip for 72 hours as per GI recommendations. ID: No acute issues Heme/Onc: Subacute hemorrhagic anemia. Hemoglobin continues to drift down, no over bleeding noted. Transfused 1 unit of packed red blood cells this a.m.. Transfusion threshold of 7. Continue to monitor hemoglobin level. Psych: No acute issues. Underlying history of schizophrenia. Miscellaneous: No acute issues. Prophylaxis: PPI drip Diet: Clear liquids Quality Stroke Does the patient have a stroke diagnosis?: No VTE Prior VTE?: No VTE Risk Level:: Medical - moderate - high VTE Device Contraindication: N/A - Device Ordered VTE Drug Contraindication: Treatment Not Tolerated
--- NOTE | 2022-03-15 11:02 | MHC.CM.PN ---
Patient remains in ICU on phenylephrine drip. Patient is a LTC resident of [facility] and has a guardian. Patient is vaxxed and boosted. Anticipate patient will return to [facility] via BLS when medically stable. Continue to monitor for d/c needs.
[2022-03-15 12:05] LABS: MANUAL DIFF FLAG NO
[2022-03-15 12:08] LABS: Basophils Percent Auto 0.1 % (0-2); Eosinophils Percent Auto 0.2 % (0-4); Hematocrit 25.2 % (37.0-47.0); Hemoglobin 8.1 g/dl (12.0-16.0); Imm Gran Abs Auto 0.03 X10*3/uL (0.00-0.03); Imm Gran Pct Auto 0.3 % (0.0-0.4); Lymphocytes Absolute Auto 0.6 X10*3/uL (1.2-4.9); Lymphocytes Percent Auto 6.7 % (20-40); Mean Corpuscular HGB Conc 32.1 g/dl (31.0-35.0); Mean Corpuscular Hemoglobin 30.3 pg (27.0-33.0); Mean Corpuscular Volume 94.4 fL (80.0-98.0); Mean Platelet Volume 9.8 fL (9.4-12.3); Monocytes Absolute Auto 0.4 X10*3/uL (0.1-1.2); Neutrophils Absolute Auto 8.2 x10*3/uL (2.0-8.3); Neutrophils Percent Auto 88.7 % (45-73); Platelet Count 141 X10*3/uL (160-400); Red Blood Count 2.67 X10*6/uL (4.20-5.50); Red Cell Distribution Width 14.8 % (11.0-16.0); White Blood Count 9.2 X10*3/uL (4.8-10.8)
[2022-03-15] MEDS: Albuterol/Iprat 2.5/0.5MG 3 ML AMPUL.NEB INHALE ×3 (15:17→23:25)
[2022-03-15 21:36] LABS: MANUAL DIFF FLAG NO
[2022-03-15 21:54] LABS: Basophils Percent Auto 0.1 % (0-2); Eosinophils Absolute Auto 0.1 X10*3/uL (0.0-0.4); Hemoglobin 8.1 g/dl (12.0-16.0); Imm Gran Abs Auto 0.04 X10*3/uL (0.00-0.03); Imm Gran Pct Auto 0.4 % (0.0-0.4); Lymphocytes Absolute Auto 0.7 X10*3/uL (1.2-4.9); Lymphocytes Percent Auto 7.6 % (20-40); Mean Corpuscular HGB Conc 32.4 g/dl (31.0-35.0); Mean Corpuscular Hemoglobin 30.9 pg (27.0-33.0); Mean Corpuscular Volume 95.4 fL (80.0-98.0); Monocytes Absolute Auto 0.5 X10*3/uL (0.1-1.2); Monocytes Percent Auto 4.7 % (2-11); Neutrophils Absolute Auto 8.2 x10*3/uL (2.0-8.3); Neutrophils Percent Auto 86.2 % (45-73); Platelet Count 141 X10*3/uL (160-400); Red Blood Count 2.62 X10*6/uL (4.20-5.50); Red Cell Distribution Width 14.6 % (11.0-16.0); White Blood Count 9.6 X10*3/uL (4.8-10.8)
[2022-03-15 21:55] LABS: Blood Urea Nitrogen 9 mg/dL (9-16); Calcium 8.9 mg/dL (8.4-10.2); Creatinine Clr Calc Pharmacy 104.3; Estimated Glomerular Filt Rate > 60; Glucose Random 95 mg/dL (60-115); Phosphorus 3.3 mg/dL (2.7-4.5)
[2022-03-15 22:22] LABS: Anion Gap 8 (12-20); Carbon Dioxide 28 mmol/L (22-29); Chloride 108 mmol/L (96-108); Potassium 3.9 mmol/L (3.3-5.1); Sodium 140 mmol/L (135-145)
[2022-03-16] VITALS (25 sets, daily range): BP systolic 88–139; BP diastolic 47–85; PULSE 83–108; RESP 15–34; TEMP 37.2; O2SAT 93–100; BMI 21.5
[2022-03-16 05:49] LABS: MANUAL DIFF FLAG NO
[2022-03-16 05:52] LABS: Basophils Percent Auto 0.2 % (0-2); Eosinophils Percent Auto 0.4 % (0-4); Hematocrit 26.7 % (37.0-47.0); Hemoglobin 8.4 g/dl (12.0-16.0); Imm Gran Abs Auto 0.03 X10*3/uL (0.00-0.03); Imm Gran Pct Auto 0.4 % (0.0-0.4); Lymphocytes Absolute Auto 0.6 X10*3/uL (1.2-4.9); Lymphocytes Percent Auto 7.7 % (20-40); Mean Corpuscular HGB Conc 31.5 g/dl (31.0-35.0); Mean Corpuscular Hemoglobin 30.4 pg (27.0-33.0); Mean Corpuscular Volume 96.7 fL (80.0-98.0); Monocytes Absolute Auto 0.4 X10*3/uL (0.1-1.2); Monocytes Percent Auto 4.4 % (2-11); Neutrophils Absolute Auto 7.3 x10*3/uL (2.0-8.3); Neutrophils Percent Auto 86.9 % (45-73); Platelet Count 144 X10*3/uL (160-400); Red Blood Count 2.76 X10*6/uL (4.20-5.50); Red Cell Distribution Width 14.8 % (11.0-16.0); White Blood Count 8.4 X10*3/uL (4.8-10.8)
[2022-03-16 06:08] LABS: Albumin Level 3.4 g/dL (3.5-5.0); Anion Gap 13 (12-20); Blood Urea Nitrogen 9 mg/dL (9-16); Calcium 9.1 mg/dL (8.4-10.2); Carbon Dioxide 25 mmol/L (22-29); Chloride 106 mmol/L (96-108); Creatinine Clr Calc Pharmacy 104.3; Estimated Glomerular Filt Rate > 60; Glucose Random 102 mg/dL (60-115); Phosphorus 3.2 mg/dL (2.7-4.5); Sodium 140 mmol/L (135-145)
--- NOTE | 2022-03-16 07:44 | P.PNCC_ITS ---
Subjective Subjective Date of Service: 03/16/22 Interval History: 62-year-old lady with underlying history of schizophrenia, [facility] resident, also systolic congestive heart failure with EF of 25-30%, COPD on 2 L of supplemental O2, diabetes mellitus, hepatitis-C admitted on 03/13/2022 with melanotic stools and initial hemoglobin level of 5 point taper. Patient was evaluated by Gastroenterology and has had upper endoscopy demonstrating large duodenal ulcer with visible vessel but no active bleeding that was clipped. Patient remained intubated after the procedure and was transferred to intensive care unit on vasopressor support. She received 3 units of packed red blood cells on 03/13/2022, and another unit of packed red blood cells on 03/15/2022. Events overnight. No rebleeding. Hemoglobin stabilized. Critical Care Time (minutes): 0 Physical Exam Vital Signs: Vital Signs: Last Vital Signs Temp 98.4 F 03/15/22 16:00 Pulse 94 03/16/22 06:52 Resp 21 H 03/16/22 06:52 BP 124/75 03/16/22 06:52 Pulse Ox 98 03/16/22 06:52 BMI result Body Mass Index 21.5 Const: General: no acute distress, alert and awake Eyes: Sclerae: sclerae normal EOM: EOMs intact bilaterally Neck: Neck: Yes no lymphadenopathy, Yes trachea midline and Yes supple Resp: Effort & Inspection: normal respiratory effort and no respiratory distress Auscultation: clear to auscultation bilaterally Cardio: Rate: regular rate Rhythm: regular rhythm Heart sounds: no g allops, no murmurs and no rubs GI: Palpation (GI): Soft to palpation and Other GI palpation findings present ( Nontender) Auscultation: normal bowel sounds Extrem: General: Yes no pedal edema, No clubbing and No cyanosis Objective Data Labs CBC & Chem 7: 03/16/22 05:26 03/16/22 05:26 Labs: Laboratory Results - last 24 hr 03/13/22 03/15/22 03/15/22 10:49 12:01 21:28 WBC 9.2 9.6 RBC 2.67 L D 2.62 L Hgb 8.1 L D 8.1 L Hct 25.2 L D 25.0 L MCV 94.4 95.4 MCH 30.3 30.9 MCHC 32.1 32.4 RDW 14.8 14.6 Plt Count 141 L 141 L MPV 9.8 10.0 Immature Gran % (Auto) 0.3 0.4 Neut % (Auto) 88.7 H 86.2 H Lymph % (Auto) 6.7 L 7.6 L [place] % (Auto) 4.0 4.7 Eos % (Auto) 0.2 1.0 Baso % (Auto) 0.1 0.1 Lymph # (Auto) 0.6 L 0.7 L [place] # (Auto) 0.4 0.5 Eos # (Auto) 0.0 0.1 Baso # (Auto) 0.0 0.0 Abs Immat Gran (auto) 0.03 0.04 H Absolute Neuts (auto) 8.2 8.2 Absolute Nucleated RBC 0.000 0.000 Nucleated RBC % (auto) 0.0 0.0 Sodium Potassium Chloride Carbon Dioxide Anion Gap BUN Creatinine Estim Creat Clear Calc Estimated GFR Random Glucose Calcium Phosphorus Magnesium Albumin Crossmatch See Detail 03/15/22 03/16/22 03/16/22 21:28 05:26 05:26 WBC 8.4 RBC 2.76 L Hgb 8.4 L Hct 26.7 L MCV 96.7 MCH 30.4 MCHC 31.5 RDW 14.8 Plt Count 144 L MPV 10.0 Immature Gran % (Auto) 0.4 Neut % (Auto) 86.9 H Lymph % (Auto) 7.7 L [place] % (Auto) 4.4 Eos % (Auto) 0.4 Baso % (Auto) 0.2 Lymph # (Auto) 0.6 L [place] # (Auto) 0.4 Eos # (Auto) 0.0 Baso # (Auto) 0.0 Abs Immat Gran (auto) 0.03 Absolute Neuts (auto) 7.3 Absolute Nucleated RBC 0.000 Nucleated RBC % (auto) 0.0 Sodium 140 140 Potassium 3.9 D 4.0 Chloride 108 106 Carbon Dioxide 28 25 Anion Gap 8 L 13 BUN 9 9 Creatinine 0.49 L 0.49 L Estim Creat Clear Calc 104.3 104.3 Estimated GFR > 60 > 60 Random Glucose 95 102 Calcium 8.9 9.1 Phosphorus 3.3 3.2 Magnesium 2.0 2.0 Albumin 3.4 L Crossmatch Progress Note: A&P Assessment and plan (1) Hepatitis C: Status: Acute (2) Diabetes mellitus, type II: Status: Acute (3) Schizophrenia: Status: Acute (4) COPD (chronic obstructive pulmonary disease) with emphysema: Status: Acute (5) CHF (congestive heart failure): Status: Acute (6) Acute upper gastrointestinal bleeding: Status: Acute Plan Assessment: 62-year-old lady with underlying schizophrenia and systolic congestive heart failure admitted with subacute upper GI bleed, now status post endoscopy with clipping of a vessel in a large duodenal also Plan: Neuro: No acute issues. Cardiac: Titrated off pressor support. Underlying history of systolic congestive heart failure. Pulmonary: Extubated on 03/14/2022. Underlying COPD on 2 L of supplemental O2. Renal: No acute issues. Underlying history of chronic hyponatremia. Endo: No acute issues. Underlying history of diabetes mellitus. GI: Subacute upper GI bleed status post endoscopic evaluation demonstrating large duodenal ulcer with non bleeding vessel that was clipped. Gastroenterology service care appreciated. Continue PPI drip for 72 hours as per GI recommendations through 03/16/2022. ID: No acute issues Heme/Onc: Subacute hemorrhagic anemia. Hemoglobin stabilized. Transfusion threshold of 7. Continue to monitor hemoglobin level. Psych: No acute issues. Underlying history of schizophrenia. Miscellaneous: No acute issues. Prophylaxis: PPI drip Diet: regular diet Quality Stroke Does the patient have a stroke diagnosis?: No VTE Prior VTE?: No VTE Risk Level:: Medical - moderate - high VTE Device Contraindication: N/A - Device Ordered VTE Drug Contraindication: Treatment Not Tolerated
[2022-03-16] MEDS: Pantoprazole Sodium 80 MG in 0.9 % Sodium Chloride 80 ML 10 MG IV (08:34)
--- NOTE | 2022-03-16 12:42 | P.EN_ITS ---
Event Note Date of Service: 03/16/22 Event Note: day hospitalist update S tired; no complaints; no further bleeding O VS- T 99, BP 126/78, HR 101, R 30, SaO2 97 on 2L NC gen- NAD lungs- CTAB CV- RRR no murmurs abd- soft/NT skin- extensive bruising psych- impaired insight A/P 62yo F LTC resident at [facility] with chronic HFrEF [25-30%], COPD with chronic hypoxic RF on 2L O2, DM2, HCV, schizophrenia admitted to ICU 03/13/22 with severe anemia from UGIB, Hb 6.6; EGD demonstrated large duodenal ulcer, clipped; remained intubated and on pressor support post- EGD; transfused 3u pRBCs 03/13/22 + 1u pRBCs 03/15/22, extubated 03/14/22 stepped down to hospitalist service 03/16/22 # acute blood loss anemia due to UGIB due to duodenal ulcer - IV PPI x72hr through tonight, GI f/u # schizophrenia - lithium, Latuda # VTE ppx - SCDs, no heparin
[2022-03-16] MEDS: Lurasidone HCl 80 MG TABLET PO (20:48)
[2022-03-16] MEDS: Lithium Carbonate ER 300 MG TABLET.ER PO (20:48)
[2022-03-16] MEDS: Albuterol/Iprat 2.5/0.5MG 3 ML AMPUL.NEB INHALE ×2 (20:53→23:28)
[2022-03-16 23:27] LABS: MANUAL DIFF FLAG NO
[2022-03-16 23:31] LABS: Basophils Percent Auto 0.3 % (0-2); Eosinophils Percent Auto 0.4 % (0-4); Hematocrit 26.1 % (37.0-47.0); Imm Gran Abs Auto 0.03 X10*3/uL (0.00-0.03); Imm Gran Pct Auto 0.4 % (0.0-0.4); Lymphocytes Absolute Auto 0.7 X10*3/uL (1.2-4.9); Lymphocytes Percent Auto 8.9 % (20-40); Mean Corpuscular HGB Conc 30.7 g/dl (31.0-35.0); Mean Corpuscular Volume 97.8 fL (80.0-98.0); Mean Platelet Volume 9.7 fL (9.4-12.3); Monocytes Absolute Auto 0.5 X10*3/uL (0.1-1.2); Monocytes Percent Auto 6.2 % (2-11); Neutrophils Absolute Auto 6.5 x10*3/uL (2.0-8.3); Neutrophils Percent Auto 83.8 % (45-73); Platelet Count 146 X10*3/uL (160-400); Red Blood Count 2.67 X10*6/uL (4.20-5.50); Red Cell Distribution Width 14.6 % (11.0-16.0); White Blood Count 7.7 X10*3/uL (4.8-10.8)
[2022-03-16] MEDS: 0.9 % Sodium Chloride Flush 3 ML SYRINGE IVFLUSH (23:56)
[2022-03-17] VITALS (14 sets, daily range): BP systolic 90–137; BP diastolic 47–83; PULSE 80–107; RESP 16–32; TEMP 36.5–37.5; O2SAT 92–98; BMI 22.1
[2022-03-17] MEDS: 0.9 % Sodium Chloride 500 ML 50 ML IV (00:20)
[2022-03-17 05:45] LABS: MANUAL DIFF FLAG NO
[2022-03-17 05:50] LABS: Basophils Percent Auto 0.3 % (0-2); Eosinophils Percent Auto 0.3 % (0-4); Hematocrit 25.8 % (37.0-47.0); Hemoglobin 7.9 g/dl (12.0-16.0); Imm Gran Abs Auto 0.04 X10*3/uL (0.00-0.03); Imm Gran Pct Auto 0.6 % (0.0-0.4); Lymphocytes Absolute Auto 0.6 X10*3/uL (1.2-4.9); Lymphocytes Percent Auto 9.1 % (20-40); Mean Corpuscular HGB Conc 30.6 g/dl (31.0-35.0); Mean Corpuscular Hemoglobin 29.9 pg (27.0-33.0); Mean Corpuscular Volume 97.7 fL (80.0-98.0); Monocytes Absolute Auto 0.4 X10*3/uL (0.1-1.2); Monocytes Percent Auto 5.9 % (2-11); Neutrophils Absolute Auto 5.7 x10*3/uL (2.0-8.3); Neutrophils Percent Auto 83.8 % (45-73); Platelet Count 146 X10*3/uL (160-400); Red Blood Count 2.64 X10*6/uL (4.20-5.50); Red Cell Distribution Width 14.7 % (11.0-16.0); White Blood Count 6.8 X10*3/uL (4.8-10.8)
[2022-03-17 06:04] LABS: Anion Gap 13 (12-20); Blood Urea Nitrogen 8 mg/dL (9-16); Calcium 8.9 mg/dL (8.4-10.2); Carbon Dioxide 26 mmol/L (22-29); Chloride 107 mmol/L (96-108); Creatinine Clr Calc Pharmacy 113.6; Estimated Glomerular Filt Rate > 60; Glucose Random 82 mg/dL (60-115); Magnesium 1.8 mg/dL (1.6-2.6); Phosphorus 2.6 mg/dL (2.7-4.5); Potassium 3.7 mmol/L (3.3-5.1); Sodium 142 mmol/L (135-145)
[2022-03-17] MEDS: Albuterol/Iprat 2.5/0.5MG 3 ML AMPUL.NEB INHALE ×2 (07:10→20:30)
--- NOTE | 2022-03-17 11:52 | P.PNIM_ITS ---
Subjective Subjective Date of Service: 03/17/22 Interval History: Tolerating diet. Some abd pain, no N/V, no overt melena Review of Systems Review of Systems: Yes all other systems are reviewed and are negative Physical Exam Vital Signs: Vital Signs: Last Vital Signs Temp 97.9 F 03/17/22 08:00 Pulse 103 H 03/17/22 08:00 Resp 24 H 03/17/22 08:00 BP 137/80 03/17/22 08:00 Pulse Ox 93 03/17/22 08:00 BMI result Body Mass Index 22.1 Gen: in no acute distress HEENT: sclera anicteric, moist mucus membranes Neck: supple, 3LC in RIJ without signs of infection Lungs: clear to auscultation bilaterally Heart: regular rate and rhythm, no murmurs Abd: soft, non-tender, non-distended Ext: no edema Skin: warm/well-perfused Neuro: alert and oriented x3, no focal findings Psych: appropriate affect but impaired insight Objective Data Active Medications Albuterol/Ipratropium (Albuterol/Iprat 2.5/0.5mg 3 Ml Ampul.Neb) 3 ml INHALE RQ4H [facility] Last Admin: 03/17/22 07:10 Dose: 3 ml Documented by: ANA [place] Carbonate ([place] Carbonate Er 300 Mg Tablet.Er) 300 mg PO BEDTIME [facility] Last Admin: 03/16/22 20:48 Dose: 300 mg Documented by: TAMIKO Lurasidone HCl (Lurasidone Hcl 80 Mg Tablet) 80 mg PO BEDTIME [facility] Last Admin: 03/16/22 20:48 Dose: 80 mg Documented by: TAMIKO Omeprazole (Omeprazole 40 Mg Capsule.Dr) 40 mg PO BID@0630,1630 [facility] Pharmacy Consult (Consult Rx Perform Med Rec) 1 each MISCELLANE ONCE PRN PRN Reason: Consult order Sodium Chloride (0.9 % Sodium Chloride Flush 3 Ml Syringe) 3 ml IVFLUSH QSHIFT [facility] Last Admin: 03/16/22 23:56 Dose: 3 ml Documented by: ROEL Labs CBC & Chem 7: 03/17/22 05:16 03/17/22 05:39 Labs: Laboratory Results - last 24 hr 03/16/22 03/17/22 03/17/22 23:22 05:16 05:39 MCV 97.8 97.7 MCH 30.0 29.9 MCHC 30.7 L 30.6 L RDW 14.6 14.7 Plt Count 146 L 146 L MPV 9.7 10.0 Immature Gran % (Auto) 0.4 0.6 H Neut % (Auto) 83.8 H 83.8 H Lymph % (Auto) 8.9 L 9.1 L [place] % (Auto) 6.2 5.9 Eos % (Auto) 0.4 0.3 Baso % (Auto) 0.3 0.3 Lymph # (Auto) 0.7 L 0.6 L [place] # (Auto) 0.5 0.4 Eos # (Auto) 0.0 0.0 Baso # (Auto) 0.0 0.0 Abs Immat Gran (auto) 0.03 0.04 H Absolute Neuts (auto) 6.5 5.7 Absolute Nucleated RBC 0.000 0.000 Nucleated RBC % (auto) 0.0 0.0 Anion Gap 13 Estim Creat Clear Calc 113.6 Estimated GFR > 60 Random Glucose 82 Calcium 8.9 Phosphorus 2.6 L Magnesium 1.8 Assessment and Plan (1) Acute blood loss anemia: Status: [facility] d#5 62yo F LTC resident at [facility] with chronic HFrEF [25-30%], COPD with chronic hypoxic RF on 2L O2, DM2, HCV, schizophrenia admitted to ICU 03/13/22 with severe anemia from UGIB, Hb 6.6; EGD demonstrated large duodenal ulcer, clipped; remained intubated and on pressor support post-EGD; transfused 3u pRBCs 03/13/22 + 1u pRBCs 03/15/22, extubated 03/14/22 stepped down to hospitalist service 03/16/22 # acute blood loss anemia due to UGIB due to duodenal ulcer - IV PPI x72hr completed, switch to PO PPI today - monitor Hb - needs outpt GI f/u # schizophrenia - lithium, Latuda # VTE ppx - SCDs, no heparin In my clinical judgment, the patient requires continued hospitalization for the following reasons: Hb monitoring Quality Stroke Does the patient have a stroke diagnosis?: No VTE Prior VTE?: No VTE Risk Level:: Medical - moderate - high VTE Device Contraindication: N/A - Device Ordered VTE Drug Contraindication: Treatment Not Tolerated
[2022-03-17] MEDS: 0.9 % Sodium Chloride Flush 3 ML SYRINGE IVFLUSH ×2 (13:50→16:53)
[2022-03-17] MEDS: Omeprazole 40 MG CAPSULE.DR PO ×2 (13:50→16:53)
--- NOTE | 2022-03-17 19:38 | PC.NURSE ---
After multiple patient attempts at removing triple Lumen central line, this nurse reached out to Dr. Rodriguez who advised to remove triple lumen. This nurse successfully removed central line intact and applied DSD and Tegaderm to site. Will continue to monitor.
[2022-03-17] MEDS: Lurasidone HCl 80 MG TABLET PO (21:08)
[2022-03-17] MEDS: Lithium Carbonate ER 300 MG TABLET.ER PO (21:08)
[2022-03-18] VITALS (9 sets, daily range): BP systolic 118–146; BP diastolic 73–85; PULSE 75–106; RESP 14–30; TEMP 36–37; O2SAT 82–100
[2022-03-18] MEDS: Albuterol/Iprat 2.5/0.5MG 3 ML AMPUL.NEB INHALE ×3 (00:31→19:32)
[2022-03-18] MEDS: 0.9 % Sodium Chloride Flush 3 ML SYRINGE IVFLUSH (01:09)
[2022-03-18] MEDS: Omeprazole 40 MG CAPSULE.DR PO ×2 (05:50→18:08)
[2022-03-18 06:04] LABS: Hematocrit 31.3 % (37.0-47.0); Hemoglobin 9.7 g/dl (12.0-16.0); Mean Corpuscular Hemoglobin 30.3 pg (27.0-33.0); Mean Corpuscular Volume 97.8 fL (80.0-98.0); Mean Platelet Volume 10.3 fL (9.4-12.3); Platelet Count 172 X10*3/uL (160-400); Red Cell Distribution Width 14.6 % (11.0-16.0); White Blood Count 8.2 X10*3/uL (4.8-10.8)
--- NOTE | 2022-03-18 11:56 | PM.DS ---
DS: Providers Provider Date of Service: 03/18/22 Date of admission: 03/13/22 14:42 Primary care physician: Javier Torres DO Consults: 03/14/22 05:43 Consult to Wound Care Routine Consulting Provider: Yocasta Souza Reason for consultation: multiple wounds to extremeties/buttocks/sacrum--see photos DS: Diagnosis Discharge Diagnosis (1) Acute blood loss anemia: Status: Acute DS: Summary Hospital Course Hospital Course: History of presenting illness Chief Complaint: Shortness of breath and melena 62-year-old female [facility] schizophrenia with a history of diffuse vasculopathy and an aorto ileal bypass and an EKG that demonstrates probable anterior 0 apical infarct of on dated age presents with Ng increased shortness of breath hypotension and melanotic stool found to have a hemoglobin of 5 and of course guaiac-positive clearly an upper GI bleed she responded to a L of IV fluids and is receiving the 2nd of 3 units of packed red cells due later to have a an EGD currently has a negative CT scan evidence of a left-sided diaphragmatic defect probably with some bowel in the left chest and then my bedside echo confirmed that there is extensive apical akinesis and and relative hypokinesis of the base of the heart as well so she is diffusely myopathic at best 25% ejection fraction with heavy mitral annular calcification but no evidence of aortic stenosis. Hospital course 62yo F LTC resident at [facility] with chronic HFrEF [25-30%], COPD with chronic hypoxic RF on 2L O2, DM2, HCV, schizophrenia,admitted to ICU 03/13/22 with severe anemia from UGIB, Hb 6.6; EGD demonstrated large duodenal ulcer, clipped; remained intubated and on pressor support post-EGD; transfused 3u pRBCs 03/13/22 + 1u pRBCs 03/15/22, extubated 03/14/22,stepped down to hospitalist service 03/16/22 # Acute blood loss anemia due to UGIB due to duodenal ulcer, post upper endoscopy patient treated with IV Protonix for 72 hours and was subsequently transitioned to by mouth Prilosec patient hematocrit remains stable therefore being discharged back to rehab facility has been recommended to hold aspirin and Plavix for 4 weeks and to undergo repeat upper endoscopy by Dr. Duque in 6-8 weeks # schizophrenia no acute psychiatric decompensation noted continue lithium, and Latuda. # chronic heart failure with reduced EF 25-30% dose of Lasix reduced to 20 mg by mouth daily due to hypotension, recommend to monitor closely for fluid overload. Time Spent with Patient Time attestation: Total time spent providing and/or coordinating discharge services: Discharge coordination time: Greater than 30 minutes Quality: Safe Use of Opioids Does Pt have an Active Cancer Diagnosis on the Problem List?: No Quality: Stroke Does the patient have a stroke diagnosis?: No Physical Exam Vital Signs: Vital Signs: Last Vital Signs Temp 97.7 F 03/18/22 08:00 Pulse 78 03/18/22 11:40 Resp 28 H 03/18/22 11:40 BP 146/85 H 03/18/22 08:00 Pulse Ox 97 03/18/22 08:00 BMI result Body Mass Index 22.1 Const: Other: Gen: in no acute distress Neck: supple Lungs: clear to auscultation bilaterally Heart: regular rate and rhythm, no murmurs Abd: soft, non-tender, non-distended Ext: no edema Skin: warm/well-perfused Neuro: alert and oriented x3, no focal findings Psych: appropriate affect but impaired insight ? DS: Data Data Completed and Pending Labs on day of discharge: Laboratory Results - last 24 hr 03/18/22 05:33 WBC 8.2 RBC 3.20 L D Hgb 9.7 L D Hct 31.3 L D MCV 97.8 MCH 30.3 MCHC 31.0 RDW 14.6 Plt Count 172 MPV 10.3 Absolute Nucleated RBC 0.000 Nucleated RBC % (auto) 0.0 Discharge Plan Discharge Patient Disposition: [facility] Discharge Diagnosis: Blood loss anemia due to upper GI bleed due to duodenal ulcer Referrals: [facility] [Outside] - 1 Week Javier Torres DO [Primary Care Provider] - 1 Week Discharge Medications: New omeprazole 40 mg Capsule,Delayed Release(Dr/Ec) 40 mg PO BID@0630,1630 Qty: 60 0RF furosemide [Lasix] 20 mg tablet 20 mg PO DAILY Qty: 30 0RF Continued sennosides [senna] 8.6 mg Tablet 17.2 mg PO BID PRN (Reason: Constipation) 0RF acetaminophen 325 mg Tablet 650 mg PO Q4H PRN (Reason: Pain) 0RF lithium carbonate 300 mg Tablet Extended Release 300 mg PO BEDTIME 0RF ascorbic acid (vitamin C) 500 mg Tablet 500 mg PO DAILY 0RF docusate sodium 100 mg Tablet 100 mg PO BID 0RF [place] Ultra Strength(menthol) 5 % Adhesive Patch,Medicated 1 patch TOPICAL DAILY PRN (Reason: LOWER BACK, RIGHT KNEE PAIN) 0RF metoprolol tartrate 25 mg Tablet 25 mg PO BID 0RF lactulose 10 gram/15 mL Solution 20 g PO Q12H PRN (Reason: Constipation) 0RF Minerin Creme Cream 1 appl TOPICAL BEDTIME 0RF albuterol sulfate 90 mcg/actuation Aero Powdr Breath Act W/Sensor 4 inh INHALATION Q4H PRN (Reason: Wheezing) 0RF acetaminophen 325 mg Tablet 325 mg PO QID 0RF guaifenesin 100 mg/5 mL Liquid 200 mg PO Q6H PRN (Reason: Cough) 0RF bisacodyl 10 mg Suppository 10 mg [place] DAILY PRN (Reason: Constipation) 0RF Fleet Enema 19-7 gram/118 mL Enema 118 ml [place] DAILY PRN (Reason: Constipation) 0RF alum-mag hydroxide-simeth 200-200-20 mg/5 mL Suspension 30 ml PO Q6H PRN (Reason: Heartburn) 0RF naloxone [Narcan] 4 mg/actuation [place],Non-Aerosol 4 mg INTRANASAL Q3M PRN (Reason: Opioid Overdose) 0RF Rx Instructions: spray 1 dose into ONE nostril; alternate nostrils w each dose until help arrives Glucagon (HCl) Emergency Kit 1 mg Recon Soln 1 mg SUBCUT Q20M PRN (Reason: Hypoglycemia) 0RF Rx Instructions: until target blood sugar attained Latuda 40 mg tablet 40 mg PO BEDTIME 0RF simvastatin 20 mg tablet 20 mg PO BEDTIME 0RF Breo Ellipta 200-25 mcg/dose blister with device 1 ea inhalation DAILY 0RF Invega Sustenna 156 mg/mL syringe 156 mg IM Q28D 0RF Latuda 60 mg tablet 60 mg PO BEDTIME 0RF pramipexole 0.25 mg tablet 0.25 mg PO BEDTIME 0RF trihexyphenidyl 5 mg tablet 5 mg PO TID 0RF Held aspirin 81 mg Tablet,Chewable 81 mg PO DAILY 0RF Hold Instructions: Resume on 04/15/22. Hold aspirin and Plavix for 4 weeks, due to duodenal ulcer cover repeat upper endoscopy 6-8 weeks clopidogrel 75 mg tablet 75 mg PO DAILY 0RF Hold Instructions: Resume on 04/15/22. Discontinued prednisone 10 mg Tablet 30 mg PO DAILY 0RF Rx Instructions: part of taper; decrease by 10mg daily Q 3 days levofloxacin 500 mg tablet 1 tab PO DAILY 0RF famotidine 40 mg tablet 40 mg PO BEDTIME 0RF furosemide 40 mg tablet 40 mg PO DAILY 0RF Discharge Orders: Discharge Order (Routine); Ordered 03/18/22 Ordered By: Basilio Chauhan Diet: advance to usual diet Activity on Discharge: As tolerated Stand Alone Forms: Patient Portal Discharge page Care Plan Goals: Follow-up with gastroenterology in 6-8 weeks for repeat EGD, continue Prilosec as prescribed avoid aspirin and NSAIDs Health Concerns: Continue all other home medications as before Plan of Treatment: Follow-up with PCP and Gastroenterology Dr. Duque at [facility] call to make an appointment Assessment: per dc summary
[2022-03-18] MEDS: Sodium,Potassium Phosphates POWD.PACK 1 PACKET PO (12:00)
[2022-03-18 12:24] LABS: COVID-19 Test Negative (Negative); IDNOW Serial# 16C4AD1C
--- NOTE | 2022-03-18 12:36 | MHC.CM.PN ---
Addendum entered by Kelsie Larson 03/18/22 13:49: PATIENT TO TRANSFER TO [facility] FOR 1800 [facility]IA [facility] (REQUEST MADE FOR THIS TIME) RN, UNIT, AND [facility] AT [place] ADMISSIONS AWARE AND IN AGREEMENT IMM 53 IN CHART Original Note: CALL TO JUAN C CARROLL @ [phone] CALL WENT TO VOICEMAIL WHICH INDICATES THAT SHE IS AWAY FROM THE OFFICE AND WILL NOT BE RETURNING UNTIL THURSDAY NO DATE WAS LEFT ON OUTGOING MAIL. NO ABILITY TO LEAVE A MESSAGE MAILBOX IS FULL IMM 3 TO BE MAILED CERTIFIED. PLAN IS TO TRANSFER PATIENT BACK TO [facility] TODAY [facility]IA [facility] ONCE TIME IS ESTABLISHED, RN AND UNIT WILL BE MADE AWARE.
[2022-03-18] MEDS: Lithium Carbonate ER 300 MG TABLET.ER PO (20:50)
[2022-03-18] MEDS: Lurasidone HCl 80 MG TABLET PO (20:50)
== END 2022-03-18 22:31 | disposition skilled nursing facility (03) | DRG 327 ==
LOC: HO.ED 10:53 → HO.EDOVER 14:53 → HO.ICU 16:39 → HO.S3 03-17 07:41
PROVIDERS: Family Medicine; Hospitalist; Internal Medicine Gastroenterology; Internal Medicine Pulmonary Disease; Physician Assistant; Admitting Provider Internal Medicine Cardiovascular Disease; Emergency Provider Emergency Medicine; PCP Hospitalist; Visit Provider Hospitalist
PROC: 0DJ08ZZ Inspection of Upper Intestinal Tract, Via Natural or Artificial Opening Endoscopic (ICD-10-PCS; CPT 43235; principal; 2022-03-13 16:50)
DX: K26.4 Chronic or unspecified duodenal ulcer with hemorrhage (principal); E87.2 Acidosis; D62 Acute posthemorrhagic anemia; J96.11 Chronic respiratory failure with hypoxia; I50.22 Chronic systolic (congestive) heart failure; F20.9 Schizophrenia, unspecified; I95.9 Hypotension, unspecified; F10.21 Alcohol dependence, in remission; I25.10 Atherosclerotic heart disease of native coronary artery without angina pectoris; J98.6 Disorders of diaphragm; I25.2 Old myocardial infarction; K44.9 Diaphragmatic hernia without obstruction or gangrene; E11.51 Type 2 diabetes mellitus with diabetic peripheral angiopathy without gangrene; I25.5 Ischemic cardiomyopathy; J43.9 Emphysema, unspecified; K22.4 Dyskinesia of esophagus; B19.20 Unspecified viral hepatitis C without hepatic coma; L89.606 Pressure-induced deep tissue damage of unspecified heel; L89.151 Pressure ulcer of sacral region, stage 1; E83.42 Hypomagnesemia; K22.70 Barrett's esophagus without dysplasia; Z20.822 Contact with and (suspected) exposure to COVID-19; Z87.891 Personal history of nicotine dependence; Z99.81 Dependence on supplemental oxygen; Z88.0 Allergy status to penicillin; Z88.1 Allergy status to other antibiotic agents; Z88.5 Allergy status to narcotic agent; Z88.6 Allergy status to analgesic agent; Z79.02 Long term (current) use of antithrombotics/antiplatelets; Z79.52 Long term (current) use of systemic steroids; Z79.82 Long term (current) use of aspirin; Z79.899 Other long term (current) drug therapy
CPT/HCPCS: 36415; 36430; 71045; 74178; 80048; 80053; 80076; 80178; 82040; 82272; 82803; 83605; 83690; 83735; 83880; 84100; 84484; 85025; 85027; 85610; 85730; 86850; 86900; 86901; 86920; 86923; 87635; 93005; 94002; 94003; 94640; 96361; 96365; 96366; 96375; 99285; C1758; J0171; J0330; J2370; J2405; J3475; P9016; P9047; Q9967

== ENCOUNTER 2022-03-21 10:52 | Inpatient (IN) | payer MEDICARE, MEDICAID, SELFPAY ==
[2022-03-21] VITALS (8 sets, daily range): BP systolic 85–138; BP diastolic 54–79; PULSE 45–91; RESP 15–28; TEMP 36.1–37; O2SAT 90–97; BMI 21.5
--- NOTE | ~2022-03-21 | XR_ITS ---
EXAMINATION: XR SHOULDER-BILATERAL CLINICAL INFORMATION: Bilateral shoulder deformities. COMPARISON: Chest radiograph done earlier today. TECHNIQUE: Single frontal view of each shoulder. FINDINGS: Deformity of both humeral heads (left greater than right) and moderate diffuse osteopenia. XR/XR shoulder LT 1V IMPRESSION: Abnormal radiographic appearance of both humeral heads.
--- NOTE | ~2022-03-21 | CT_ITS ---
EXAMINATION: CT HEAD WITHOUT CONTRAST CLINICAL INFORMATION: Reason for Exam: Fall. Altered mental status. COMPARISON: CT of the head done on 01/15/2022. TECHNIQUE: Imaging was performed from the skull base to vertex without intravenous administration of contrast. In addition, helical noncontrast CT imaging was acquired through the cervical spine and source images were reviewed along with axial reconstructions and sagittal and coronal MPRs. This CT examination was performed using dose optimization techniques as appropriate, variously including the following: *Automated exposure control. *Adjustment of mA and/or kV according to patient size (this includes techniques or standardized protocols for targeted exams where dose is matched to indication/reason for exam; i.e. extremities or head). *Use of iterative reconstruction technique. Total exam dose-length product 964 mGy-cm FINDINGS: HEAD: No intracranial mass, hemorrhage, or midline shift is visualized. The ventricles and sulci are proportionately, unchanged. No extra-axial collections are identified. Bilateral symmetric subcortical and deep periventricular white matter hypodensities are noted, most consistent with chronic microvascular deep white matter the tibia, unchanged since 01/15/2022. Interval development of small air-fluid level is noted within the right maxillary sinus, given the history of trauma, likely represent intrasinus hemorrhage. Persistent near complete opacification of the right sphenoid sinus is noted, unchanged. Interval development of minimal mucoperiosteal thickening is noted within the right frontal sinus, unchanged. Postsurgical changes of prior frontal craniotomy appear unchanged. Bilateral mastoid air cells are unremarkable, unchanged. CT/CT head/brain wo con IMPRESSION: 1. Interval development of small air-fluid level is noted within the right maxillary sinus, given the patient history of recent fall, most consistent with intrasinus hemorrhage. Mild mucoperiosteal thickening is also noted within the right frontal sinus, new since most recent prior study dated 01/15/2022. 3. No other significant interval change since the prior CT of the head dated 01/15/2022.
--- NOTE | ~2022-03-21 | XR_ITS ---
EXAMINATION: XR CHEST CLINICAL INFORMATION: Altered mental status. COMPARISON: Chest radiograph done on 03/14/2022. TECHNIQUE: Frontal view of the chest was obtained. FINDINGS: The cardiomediastinal silhouette is mildly enlarged. Obliteration of the left hemidiaphragm and partial silhouetting of the right hemidiaphragm and dense retrocardiac opacity, consistent with bilateral pleural effusions (left greater than right). Retrocardiac opacity may represent left lower lobar collapse consolidation. Pulmonary venous congestion is noted. Deformity of both shoulders appears similar. The visualized upper abdomen is unremarkable. XR/XR chest 1V IMPRESSION: Abnormal chest radiograph showing features most consistent with CHF with or without superimposed pneumonia at left lung base.
--- NOTE | ~2022-03-21 | XR_ITS ---
EXAMINATION: XR CHEST CLINICAL INFORMATION: Central line placement COMPARISON: Chest x-ray 03/21/2022 TECHNIQUE: Frontal portable view of the chest was obtained. 6:31 PM FINDINGS: Left IJ catheter tip in right paratracheal location in the area of the superior vena cava junction with the azygos vein. No pneumothorax. Heart size enlarged. Central pulmonary vascular congestion similar prior study. Calcified mitral valve annulus. Dense left lung base due to left pleural effusion and left basilar consolidation/atelectasis unchanged since prior study. Mild blunting right costophrenic angle likely due to small pleural effusion unchanged since prior study. Multilevel degenerative spondylosis spine. Chronic dislocation deformity of the glenohumeral joint bilateral. XR/XR chest 1V IMPRESSION: 1. Left IJ catheter tip near the junction of superior vena cava and the azygos vein. No pneumothorax. 2. Continued dense consolidation left lung base. 3. Mild blunting right costophrenic angle consistent with pleural effusion. 4. Cardiomegaly. Persistent central pulmonary vascular congestion.
--- NOTE | ~2022-03-21 | XR_ITS ---
EXAMINATION: XR SHOULDER-BILATERAL CLINICAL INFORMATION: Bilateral shoulder deformities. COMPARISON: Chest radiograph done earlier today. TECHNIQUE: Single frontal view of each shoulder. FINDINGS: Deformity of both humeral heads (left greater than right) and moderate diffuse osteopenia. XR/XR shoulder RT 1V IMPRESSION: Abnormal radiographic appearance of both humeral heads.
--- NOTE | ~2022-03-21 | CT_ITS ---
EXAMINATION: CT CERVICAL SPINE WITHOUT CONTRAST CLINICAL INFORMATION: Fall. Neck pain. COMPARISON: None TECHNIQUE: CT of the cervical spine was performed without contrast. Multiplanar reformats were rendered and reviewed. This CT examination was performed using dose optimization techniques as appropriate, variously including the following: *Automated exposure control *Adjustment of mA and/or kV according to patient size (this includes techniques or standardized protocols for targeted exams where dose is matched to indication/reason for exam; i.e. extremities or head) *Use of iterative reconstruction technique DLP: 961 mGy-cm FINDINGS: There is significant chronic appearing deformity of the cervical spine with anterolisthesis of C3 on C4 measuring 6 mm, anterolisthesis of C4 on C5 measuring 5 mm, and trace retrolisthesis of C5 on C6. There is associated focal kyphosis. There is significant wedging of the C4 and C5 vertebral bodies and fusion across the disc spaces at C3-C4, C4-C5, and C5-C6. Severe disc height loss is seen across these levels in addition to the C6-C7 level. There is ankylosis of the facets on the right at C3-C4 and C4-C5 and on the left at C4-C5. No definite acute fracture is seen. There is significant distortion of the spinal canal related to the vertebral body abnormality with severe stenosis seen at the C4 level and mild to moderate stenosis seen at the C5 level. The neural foramina are significantly distorted and appears significantly narrowed on the left at C3-C4, and on the right at C4-C5. Left-sided pleural effusion and lower lung consolidation is noted. The imaged intracranial contents are unremarkable. There is paranasal sinus mucosal thickening/opacification. Atheromatous calcifications are seen within the arteries. CT/CT cervical spine wo con IMPRESSION: Significant chronic deformity of the cervical spine with anterolisthesis of C3 on C4 and C4 on C5 with significant wedging of the C4 and C5 vertebral bodies and fusion across multiple disc spaces in addition to facet ankylosis. Cervical spine evaluation is difficult in this setting however no fracture is noted. Spinal canal appears distorted and significantly narrowed at C4 and to a lesser extent at C5.
--- NOTE | 2022-03-21 11:34 | ED_ITS ---
HPI - General Adult General Chief complaint: Syncope <MELINA Landry Last Filed: 03/21/22 20:19> Stated complaint: near syncope <MELINA Landry Last Filed: 03/21/22 20:19> Time Seen by Provider: 03/21/22 11:08 <MELINA Landry Last Filed: 03/21/22 20:19> Source: EMS, old records reviewed and other ([facility]) <MELINA Landry Last Filed: 03/21/22 20:19> Mode of arrival: EMS <MELINA Landry Last Filed: 03/21/22 20:19> Limitations: altered mental status <MELINA Landry Last Filed: 03/21/22 20:19> History of Present Illness HPI narrative: 62-year-old female who lives at a nursing facility presents for unresponsiveness just prior to arrival. This morning patient was at her baseline state of health, responsive, talking, eating, when she had a bowel movement and became unresponsive. [facility] RN, the facility at which the patient resides, told me that her oxygen saturation went down to 79%, her respirations increased to 24, and her eyes rolled back. When EMS responded, patient became more responsive. RN at [facility] states that patient's baseline mental status is confused, and that she frequently will not follow commands. States that she has had abrasions on her arms and edema on her arms since she returned from her hospitalization Patient was discharged from a week at [facility] where she spent 3 days in the ICU for subacute hemorrhagic anemia due to a GI bleed. Patient initially had a hemoglobin of 5, had a duodenal ulcer. No visible bleed was seen on EGD, patient got 4 units of packed red blood cells over her stay in the hospital and needed vasopressor support. Her Lasix was decreased to 20 mg on discharge. Patient has a past medical history of schizophrenia, diabetes, GI bleed, lactic acidosis, congestive heart failure with an ejection fraction of 25-30%, COPD on baseline oxygen of 2 L, and schizophrenia <MELINA Landry Last Filed: 03/21/22 20:19> Related Data Home medications: Home Medications Medication Instructions Recorded Confirmed clopidogrel 75 mg tablet 75 mg PO DAILY 06/12/21 03/21/22 fluticasone furoate 200 1 ea INHALATION DAILY 06/12/21 03/21/22 mcg-vilanterol 25 mcg/dose inhalation powder (Breo Ellipta) lurasidone 40 mg tablet (Latuda) 40 mg PO BEDTIME 06/12/21 03/21/22 simvastatin 20 mg tablet 20 mg PO BEDTIME 06/12/21 03/21/22 lurasidone 60 mg tablet (Latuda) 60 mg PO BEDTIME 06/26/21 03/21/22 paliperidone palmitate 156 mg/mL 156 mg IM Q28D 06/26/21 03/21/22 intramuscular syringe ([facility] pramipexole 0.25 mg tablet 0.25 mg PO BEDTIME 06/26/21 03/21/22 trihexyphenidyl 5 mg tablet 5 mg PO TID 06/26/21 03/21/22 acetaminophen 325 mg tablet 650 mg PO Q4H PRN 01/15/22 03/21/22 albuterol sulfate 90 mcg/actuation 4 inh INHALATION Q4H PRN 01/15/22 03/21/22 breath activated powder inhaler,sensor aspirin 81 mg chewable tablet 81 mg PO DAILY 01/15/22 03/21/22 docusate sodium 100 mg tablet 100 mg PO BID 01/15/22 03/21/22 lactulose 10 gram/15 mL oral 20 g PO Q12H PRN 01/15/22 03/21/22 solution lanolin alcohols-mineral 1 appl TOPICAL BEDTIME 01/15/22 03/21/22 oil-w.petrolatum-ceresin topical cream (Minerin Creme) lithium carbonate 300 mg 300 mg PO BEDTIME 01/15/22 03/21/22 tablet,extended release menthol 5 % topical patch (Bengay 1 patch TOPICAL DAILY PRN 01/15/22 03/21/22 Ultra Strength (menthol)) metoprolol tartrate 25 mg tablet 25 mg PO BID 01/15/22 03/21/22 sennosides 8.6 mg tablet (senna) 17.2 mg PO BID 01/15/22 03/21/22 acetaminophen 325 mg tablet 325 mg PO QID 03/13/22 03/21/22 aluminum-mag hydroxide-simethicone 30 ml PO Q6H PRN 03/13/22 03/21/22 200 mg-200 mg-20 mg/5 mL oral susp bisacodyl 10 mg rectal suppository 10 mg OH DAILY PRN 03/13/22 03/21/22 glucagon HCl 1 mg solution for 1 mg SUBCUT Q20M PRN 03/13/22 03/21/22 injection (Glucagon (HCl) Emergency Kit) guaifenesin 100 mg/5 mL oral liquid 200 mg PO Q6H PRN 03/13/22 03/21/22 naloxone 4 mg/actuation nasal 4 mg INTRANASAL Q3M PRN 03/13/22 03/21/22 spray (Narcan) sodium phosphates 19 gram-7 118 ml OH DAILY PRN 03/13/22 03/21/22 gram/118 mL enema (Fleet Enema) ascorbic acid (vitamin C) 500 mg 500 mg PO DAILY 03/21/22 03/21/22 tablet benzocaine 15 mg-menthol 3.6 mg 1 carlos MUCOUS MEMBRANE Q4H PRN 03/21/22 03/21/22 lozenges sennosides 8.6 mg tablet (senna) 8.6 mg PO DAILY PRN 03/21/22 03/21/22 Previous Rx's Medication Instructions Recorded furosemide 20 mg tablet (Lasix) 20 mg PO DAILY #30 tab 03/18/22 omeprazole 40 mg capsule,delayed 40 mg PO BID@0630,1630 #60 cap 03/18/22 release <MELINA Landry - Last Filed: 03/21/22 20:19> Allergies/adverse reactions: Allergies Allergy/AdvReac Type Severity Reaction Status Date / Time codeine [CODEINE] Allergy Unknown UNKNOWN Verified 02/11/22 14:47 lactose [LACTOSE] Allergy Unknown UNKNOWN Verified 02/11/22 14:47 meloxicam [MELOXICAM] Allergy Unknown UNKNOWN Verified 02/11/22 14:47 penicillin V Allergy Unknown Unknown Verified 02/11/22 14:47 Penicillins [PENICILLINS] Allergy Unknown UNKNOWN Verified 02/11/22 14:47 tetracycline [TETRACYCLINE] Allergy Unknown UNKNOWN Verified 02/11/22 14:47 <MELINA Landry - Last Filed: 03/21/22 20:19> Review of Systems Review of Systems: Yes Unobtainable due to mental condition and Unobtainable due to mental status <MELINA Landry - Last Filed: 03/21/22 20:19> Neurologic: Reports Abnormal speech present and Reports confusion <MELINA Landry - Last Filed: 03/21/22 20:19> Psychiatric: Psychiatric: Reports confusion <MELINA Landry - Last Filed: 03/21/22 20:19> [facility] Past Medical History Medical History: 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 Bone disease Chronic pain Depressive disorder Diabetes mellitus, type II Edema GERD (gastroesophageal reflux disease) Hepatitis C Hernia HTN (hypertension) Hyperprolactinemia Hyponatremia Polydipsia Schizophrenia Urinary incontinence <MELINA Landry - Last Filed: 03/21/22 20:19> Surgical History: Surgical History History of surgery <MELINA Landry - Last Filed: 03/21/22 20:19> Social History Social History: Social History Household Members: Unknown / Unable to assess Housing: [facility] Other:: [facility] Do you presently have visiting nurse or other home services: No (from snf) Unable to assess alcohol history related to: Unknown Alcohol intake: unknown Patient Tobacco Use Status: Former Tobacco user service: No Current occupational status: disabled <MELINA Landry - Last Filed: 03/21/22 20:19> Physical Exam ED Vital Signs: Vital Signs - 24 hr 03/21/22 11:08 03/21/22 11:30 03/21/22 13:01 Temperature 98 F 98.6 F 98.4 F Pulse Rate 88 45 L Respiratory Rate 15 28 H Blood Pressure 102/62 103/54 L Pulse Oximetry 95 97 03/21/22 15:44 03/21/22 17:28 Temperature 97.5 F Pulse Rate 67 91 Respiratory Rate 17 20 Blood Pressure 85/61 L 104/79 Pulse Oximetry 95 BMI result Body Mass Index 21.5 <MELINA Landry - Last Filed: 03/21/22 20:19> Vital Signs - 24 hr 03/21/22 11:08 03/21/22 11:30 03/21/22 13:01 Temperature 98 F 98.6 F 98.4 F Pulse Rate 88 45 L Respiratory Rate 15 28 H Blood Pressure 102/62 103/54 L Pulse Oximetry 95 97 03/21/22 15:44 03/21/22 17:28 Temperature 97.5 F Pulse Rate 67 91 Respiratory Rate 17 20 Blood Pressure 85/61 L 104/79 Pulse Oximetry 95 BMI result Body Mass Index 21.5 <Jessica Mcleod MD - Last Filed: 03/22/22 02:44> Const General: alert, awake, confusion and ill appearing chronically <MELINA Landry - Last Filed: 03/21/22 20:19> Nutritional Appearance: cachectic <MELINA Landry - Last Filed: 03/21/22 20:19> Orientation/consciousness: oriented to person, No oriented to place, No oriented to time and confusion <MELINA Landry - Last Filed: 03/21/22 20:19> Limitations: altered mental status <MELINA Landry - Last Filed: 03/21/22 20:19> HENMT Head: Yes normocephalic and Yes atraumatic <MELINA Landry - Last Filed: 03/21/22 20:19> Ears: hearing grossly normal bilaterally <MELINA Landry - Last Filed: 05/07 20:19> General nose exam: Normal external nose present <MELINA Landry - Last Filed: 03/21/22 20:19> Face and sinus: Yes normal facial exam and Yes face symmetric <MELINA Landry Last Filed: 03/21/22 20:19> Mouth: Normal oral and palatal mucosa present and moist mucous membranes <MELINA Landry - Last Filed: 03/21/22 20:19> Throat: Yes posterior oropharynx normal <MELINA Landry - Last Filed: 03/21/22 20:19> Eyes Conjunctivae: conjunctivae normal <MELINA Landry - Last Filed: 03/21/22 20:19> Pupils: Equal, round and reactive pupils present <MELINA Landry Last Filed: 03/21/22 20:19> EOM: EOMs intact bilaterally <MELINA Landry - Last Filed: 03/21/22 20:19> Neck Neck: Yes torticollis (twisted to left side) and Yes JVD <Lesly Dawson [facility] Last Filed: 03/21/22 20:19> Resp Effort & Inspection: normal respiratory effort <Lesly Dawson [facility] Last Filed: 03/21/22 20:19> Auscultation: clear to auscultation bilaterally, no crackles, no rales, no rhonchi and no wheezes <Lesly Dawson [facility] Last Filed: 03/21/22 20:19> Cardio Rate: regular rate <Lesly Dawson [facility] Last Filed: 03/21/22 20:19> Rhythm: regular rhythm <Lesly Dawson [facility] Last Filed: 03/21/22 20:19> Heart sounds: S1 normal heart sound present and S2 normal heart sound present <Lesly Dawson [facility] Last Filed: 03/21/22 20:19> GI Inspection: Yes normal to inspection <Lesly Dawson [facility] Last Filed: 03/21/22 20:19> Palpation (GI): Soft to palpation, nontender, no guarding and not rigid <Lesly Dawson [facility] Last Filed: 03/21/22 20:19> Percussion: Yes normal to percussion <Lesly Dawson [facility] Last Filed: 03/21/22 20:19> Auscultation: normal bowel sounds <Lesly Dawson [facility] Last Filed: 03/21/22 20:19> Back/Spine/Pelvis Cervical Spine: cervical ROM normal, No Cervical spine tenderness and No step off deformity <Lesly Dawson [facility] Last Filed: 03/21/22 20:19> Thoracic/Lumbar Spine: No thoracic spinal tenderness and No lumbar spinal tenderness <Lesly Dawson [facility] Last Filed: 03/21/22 20:19> Skin Other: Bilateral blue bruising on patient's arms, abrasion right forearm, abrasion left lower extremity, bruising on right side of neck <Lesly Dawson [facility] Last Filed: 03/21/22 20:19> Neuro Other: Patient can smile and stick out her tongue, she can raise her eyebrows, and squeeze my hands. Whether she refuses to follow commands aura is unable to follow commands lifting her arms and her legs is unclear. <MELINA Landry Last Filed: 03/21/22 20:19> General: oriented to person, No oriented to place, No oriented to time, tone normal, moves all extremities, confusion and Unable to assess gait <MELINA Landry Last Filed: 03/21/22 20:19> Cranial nerves: Yes Facial sensation intact/muscles of mastication intact, Yes Equal, round and reactive pupils present, Yes Bilaterally intact EOM present, Yes Nystagmus not present, Yes Normal facial strength present, Yes Midline tongue present and Yes Ability to bilaterally rotate head present <MELINA Landry Last Filed: 03/21/22 20:19> Cognition (Neuro): abnormal cognition <MELINA Landry Last Filed: 03/21/22 20:19> Speech: Abnormal speech present <MELINA Landry Last Filed: 03/21/22 20:19> Gait exam (Neuro): Unable to assess gait <MELINA Landry Last Filed: 03/21/22 20:19> Motor exam (neuro): tone not normal throughout (Patient will not move her legs), no tremors and Other motor observations present (Patient can squeeze my hands, but is weak in her bilateral arms ) <MELINA Landry Last Filed: 03/21/22 20:19> Sensory Exam: other (Cannot perform, patient cannot follow commands) <MELINA Landry Last Filed: 03/21/22 20:19> Coordination: other (Cannot perform, patient will not follow commands) <MELINA Landry Last Filed: 03/21/22 20:19> Pupils: Normal pupillary reactivity/response: bilateral <MELINA Landry Last Filed: 03/21/22 20:19> Extrem Other: Cool upper extremities, patient will not move her legs <MELINA Landry Last Filed: 03/21/22 20:19> General: Yes capillary refill normal <MELINA Landry Last Filed: 03/21/22 20:19> Psych Appearance: disheveled <MELINA Landry Last Filed: 03/21/22 20:19> Mental Status: other <MELINA Landry - Last Filed: 03/21/22 20:19> Speech and movement: Other speech and movement exam findings present (Psych) (With spurring speech, hard to understand) <MELINA Landry - Last Filed: 03/21/22 20:19> Affect: Other affect and mood findings present <MELINA Landry - Last Filed: 03/21/22 20:19> Course Course Course Narrative: 62-year-old female who resides at a [place] presents for unresponsiveness after a bowel movement. Patient has a past medical history of GI bleed, subacute hemorrhagic anemia, diabetes, schizophrenia, myocardial infarction, hepatitis C, lactic acidosis, congestive heart failure with an ejection fraction of 25-30%, COPD on 2 L of oxygen, pressure ulcers, failure to thrive, pneumonia, hypertension, and urinary incontinence. On exam, patient is afebrile with a rectal temp of 98.8 degrees, she is alert and oriented only to person, she intermittently follows exams, is grossly neurologically intact. Patient is chronically ill-appearing, she has bilateral bruising and edema on her upper extremities, an abrasion to her right forearm and left lateral lower extremity, bruising to her neck, increased JVD. Lung sounds are coarse. Belly soft, nontender. Rectal exam shows what smells like melena. Discussed with Dr Kearney, differential diagnosis vasovagal versus melana versus GI bleed, less likely PE. Will get type and screen, EKG, troponin, lactic acid, blood cultures, urine, BNP, chest x-ray, head and neck CT, guaiac, coags. <MELINA Landry - Last Filed: 03/21/22 20:19> Reevaluation(s) Reevaluation #1: Patient has no leukocytosis, her EKG from today is not changed from 03/13/2022. EKG shows old inferior and lateral infarcts. Patient today has troponin of 155, a BNP of 16 14, she is guaiac positive. COVID negative. Her H&H is 10.1 and 33.1. Possible NSTEMI, however concern for giving Plavix or heparin in the face of a GI bleed. We will repeat troponin Lactic is 0.7 Patient's chest x-ray difficult to obtain, Radiology called me to bedside, patient has torticollis in her left neck and will not lift her head up to get good chest x-ray <MELINA Landry Last Filed: 03/21/22 20:19> Reevaluation #2: Chest x-ray shows bilateral pleural effusions and a questionable pneumonia and left lung base. Her urine shows 2+ leukocyte esterase. Will give IV Lasix, start antibiotics Called pharmacy, as patient has a known allergy to penicillins, and urine is positive for leukocyte esterase with possible left lower lobe pneumonia, could treat both with a fluoroquinolone, however patient is on Invega and that is a severe interaction warning. Pharmacist will get back to me on antibiotic choice CT head returns with no acute intracranial pathology, possible hemorrhage right maxillary sinus, however this could also be infection as patient has not had a known fall as the radiologist dictated CT/CT head/brain wo con IMPRESSION: 1. Interval development of small air-fluid level is noted within the right maxillary sinus, given the patient history of recent fall, most consistent with intrasinus hemorrhage. Mild mucoperiosteal thickening is also noted within the right frontal sinus, new since most recent prior study dated 01/15/2022. 3. No other significant interval change since the prior CT of the head dated 01/15/2022. Spoke with Pharmacy, the stated she has tolerated ceftriaxone in the past, will give ceftriaxone and doxycycline, for possible pneumonia, ceftriaxone will also treat UTI, doxycycline will also treat sinus infection <MELINA Landry Last Filed: 03/21/22 20:19> Reevaluation #3: Patient's pressures now 85/61 with a map of 69, patient does not have IV access, her IV blew Will hold Lasix, Elio PISANO will try for a peripheral line Discussed case with Dr Odom, who said that she can get more fluid to bring up her blood pressure. Albumin 3.5 Patient is a full code. Her HCP is Kavya Rios, cell is [phone] Dr Odom is at bedside, BP is 115/76, he does not think patient is a candidate for ICU at this time Elio tried for IV access on the right side with an EJ, but was unsuccessful. Due to patient's left-sided torticollis, cannot get access to left neck Called Kavya Gabriel, the phone number is her work phone, the voice mailbox was full and was not taking messages Sr Mcleod will place central line Repeat troponin is 158.2, initial troponin was 155 <MELINA Landry - Last Filed: 03/21/22 20:19> Patient's pressures now 85/61 with a map of 69, patient does not have IV access, her IV blew Will hold Lasix, Elio PISANO will try for a peripheral line Discussed case with Dr Odom, who said that she can get more fluid to bring up her blood pressure. Albumin 3.5 Patient is a full code. Her HCP is Kavya Gabriel, cell is [phone] Dr Odom is at bedside, BP is 115/76, he does not think patient is a candidate for ICU at this time Elio tried for IV access on the right side with an EJ, but was unsuccessful. Due to patient's left-sided torticollis, cannot get access to left neck Called Kavya Gabriel, the phone number is her work phone, the voice mailbox was full and was not taking messages Dr Mcleod will place central line Repeat troponin is 158.2, initial troponin was 155 Patient lost her IV access. I was asked to insert either an internal jugular catheter or a central line. I evaluated the patient. Patient has very poor access. Patient would benefit from a central line, patient would not have to be poked multiple times for lab work, and will have secure access. The right side of the neck has a large superficial ecchymoses from previous at times inserting an external jugular. I will go ahead and insert the central line on the left side of the neck <Jessica Mcleod MD - Last Filed: 03/22/22 02:44> Procedures Central Line Placement Left IJ: Time Out Performed: Yes <Jessica Mcleod MD - Last Filed: 03/22/22 02:44> Patient Placed on Monitor/Pulse Ox: Yes <Jessica Mcleod MD - Last Filed: 03/22/22 02:44> MD Prep: mask, gown and gloves <Jessica Mcleod MD - Last Filed: 03/22/22 02:44> Central Line Prep: Chlorhexidine scrub <Jessica Mcleod MD - Last Filed: 03/22/22 02:44> Local Anesthetic: lidocaine 1% <Jessica Mcleod MD - Last Filed: 03/22/22 02:44> Amount of anesthesia used (mL): 5 <Jessica Mcleod MD - Last Filed: 03/22/22 02:44> Ultrasound Used for Placement: Yes <MD Ryan Rutledge Last Filed: 03/22/22 02:44> Central Line Lumen Inserted: triple <Jessica Mcleod MD - Last Filed: 03/22/22 02:44> Post Procedure: sutured in place, good blood return, all ports aspirated, flushed, capped and sterile dressing applied <MD Ryan Rutledge Last Filed: 03/22/22 02:44> Post Procedure X-Ray: tip of catheter in good position and no pneumothorax seen <Jessica Mcleod MD - Last Filed: 03/22/22 02:44> Patient Tolerated Procedure: well and no complications <Jessica Mcleod MD - Last Filed: 03/22/22 02:44> Complications: arterial puncture/cannulation <MD Ryan Rutledge Last Filed: 03/22/22 02:44> Additional Comments: On the initial attempt to insert the needle, it went into the right carotid. The needle was removed immediately. Pressure was held for approximately 10 minutes. No hematoma formed. Due to the large ecchymosis forming on the right side of the neck, I re-attempted inserting the catheter on the left side again, the 2nd time was successful. Patient tolerated well the procedure. Chest x-ray obtained, catheter in good position <Jessica Mcleod MD - Last Filed: 03/22/22 02:44> Medical Decision Making Lab Data Result diagrams: : 03/21/22 12:42 03/21/22 12:41 <MELINA Landry - Last Filed: 03/21/22 20:19> Labs: Lab Results 03/21/22 03/21/22 03/21/22 Range/Units 12:40 12:41 12:41 WBC (4.8-10.8) X10*3/uL RBC (4.20-5.50) X10*6/uL Hgb (12.0-16.0) g/dl Hct (37.0-47.0) % MCV (80.0-98.0) fL MCH (27.0-33.0) pg MCHC (31.0-35.0) g/dl RDW (11.0-16.0) % Plt Count (160-400) X10*3/uL MPV (9.4-12.3) fL Immature Gran % (Auto) (0.0-0.4) % Neut % (Auto) (45-73) % Lymph % (Auto) (20-40) % Sutton % (Auto) (2-11) % Eos % (Auto) (0-4) % Baso % (Auto) (0-2) % Lymph # (Auto) (1.2-4.9) X10*3/uL Sutton # (Auto) (0.1-1.2) X10*3/uL Eos # (Auto) (0.0-0.4) X10*3/uL Baso # (Auto) (0.0-0.2) X10*3/uL Abs Immat Gran (auto) (0.00-0.03) X10*3/uL Absolute Neuts (auto) (2.0-8.3) x10*3/uL Absolute Nucleated RBC (0.0-0.012) X10*3/uL Nucleated RBC % (auto) (0.0-0.2) /100WBC PT (9.9-13.0) SEC INR (0.9-1.1) APTT (24.1-38.0) SEC Sodium (135-145) mmol/L Potassium (3.3-5.1) mmol/L Chloride (96-108) mmol/L Carbon Dioxide (22-29) mmol/L Anion Gap (12-20) BUN (9-16) mg/dL Creatinine (0.5-1.4) mg/dL Estim Creat Clear Calc Estimated GFR Random Glucose (60-115) mg/dL Lactic Acid 0.7 (0.5-2.0) mmol/L Calcium (8.4-10.2) mg/dL Magnesium (1.6-2.6) mg/dL Total Bilirubin (0.0-1.0) mg/dL AST (5-31) U/L ALT (0-31) U/L Alkaline Phosphatase (39-117) U/L Troponin I High Sens 155.0 H* D (<3.5-17.0) ng/L B-Natriuretic Peptide 1614 H (<100) pg/mL Total Protein (6.5-8.0) g/dL Albumin (3.5-5.0) g/dL Urine Color Urine Appearance Urine pH (5.0-8.0) Ur Specific Mitchells (1.005-1.025) Urine Protein (NEG-TRACE) MG/DL Urine Glucose (UA) (NEG) MG/DL Urine Ketones (NEG) MG/DL Urine Blood (NEG) Urine Nitrite (NEG) Ur Leukocyte Esterase (NEG) Urine RBC (0) /HPF Urine WBC (0-4) /HPF Ur Squamous Epith Cells /LPF Urine Bacteria /LPF Stool Occult Blood POSITIVE (NEGATIVE) COVID-19 (AI) (Negative) COVID-19 Clin Com Blood Type Antibody Screen 03/21/22 03/21/22 03/21/22 Range/Units 12:41 12:41 12:42 WBC (4.8-10.8) X10*3/uL RBC (4.20-5.50) X10*6/uL Hgb (12.0-16.0) g/dl Hct (37.0-47.0) % MCV (80.0-98.0) fL MCH (27.0-33.0) pg MCHC (31.0-35.0) g/dl RDW (11.0-16.0) % Plt Count (160-400) X10*3/uL MPV (9.4-12.3) fL Immature Gran % (Auto) (0.0-0.4) % Neut % (Auto) (45-73) % Lymph % (Auto) (20-40) % Sutton % (Auto) (2-11) % Eos % (Auto) (0-4) % Baso % (Auto) (0-2) % Lymph # (Auto) (1.2-4.9) X10*3/uL Sutton # (Auto) (0.1-1.2) X10*3/uL Eos # (Auto) (0.0-0.4) X10*3/uL Baso # (Auto) (0.0-0.2) X10*3/uL Abs Immat Gran (auto) (0.00-0.03) X10*3/uL Absolute Neuts (auto) (2.0-8.3) x10*3/uL Absolute Nucleated RBC (0.0-0.012) X10*3/uL Nucleated RBC % (auto) (0.0-0.2) /100WBC PT 11.9 (9.9-13.0) SEC INR 1.0 (0.9-1.1) APTT 28.4 D (24.1-38.0) SEC Sodium 136 (135-145) mmol/L Potassium 4.3 (3.3-5.1) mmol/L Chloride 95 L (96-108) mmol/L Carbon Dioxide 36 H (22-29) mmol/L Anion Gap 9 L (12-20) BUN 7 L (9-16) mg/dL Creatinine 0.55 (0.5-1.4) mg/dL Estim Creat Clear Calc 89.2 Estimated GFR > 60 Random Glucose 116 H (60-115) mg/dL Lactic Acid (0.5-2.0) mmol/L Calcium 9.6 D (8.4-10.2) mg/dL Magnesium 1.7 (1.6-2.6) mg/dL Total Bilirubin 0.5 (0.0-1.0) mg/dL AST 13 D (5-31) U/L ALT 8 (0-31) U/L Alkaline Phosphatase 35 L D (39-117) U/L Troponin I High Sens (<3.5-17.0) ng/L B-Natriuretic Peptide (<100) pg/mL Total Protein 5.6 L D (6.5-8.0) g/dL Albumin 3.5 (3.5-5.0) g/dL Urine Color Urine Appearance Urine pH (5.0-8.0) Ur Specific Mitchells (1.005-1.025) Urine Protein (NEG-TRACE) MG/DL Urine Glucose (UA) (NEG) MG/DL Urine Ketones (NEG) MG/DL Urine Blood (NEG) Urine Nitrite (NEG) Ur Leukocyte Esterase (NEG) Urine RBC (0) /HPF Urine WBC (0-4) /HPF Ur Squamous Epith Cells /LPF Urine Bacteria /LPF Stool Occult Blood (NEGATIVE) COVID-19 (AI) (Negative) COVID-19 Clin Com Blood Type A Positive Antibody Screen NEGATIVE 03/21/22 03/21/22 03/21/22 Range/Units 12:42 12:43 14:47 WBC 9.9 (4.8-10.8) X10*3/uL RBC 3.40 L (4.20-5.50) X10*6/uL Hgb 10.1 L (12.0-16.0) g/dl Hct 33.1 L (37.0-47.0) % MCV 97.4 (80.0-98.0) fL MCH 29.7 (27.0-33.0) pg MCHC 30.5 L (31.0-35.0) g/dl RDW 14.4 (11.0-16.0) % Plt Count 209 (160-400) X10*3/uL MPV 10.1 (9.4-12.3) fL Immature Gran % (Auto) 0.6 H (0.0-0.4) % Neut % (Auto) 87.3 H (45-73) % Lymph % (Auto) 8.4 L (20-40) % Sutton % (Auto) 3.6 (2-11) % Eos % (Auto) 0.0 (0-4) % Baso % (Auto) 0.1 (0-2) % Lymph # (Auto) 0.8 L (1.2-4.9) X10*3/uL [place] # (Auto) 0.4 (0.1-1.2) X10*3/uL Eos # (Auto) 0.0 (0.0-0.4) X10*3/uL Baso # (Auto) 0.0 (0.0-0.2) X10*3/uL Abs Immat Gran (auto) 0.06 H (0.00-0.03) X10*3/uL Absolute Neuts (auto) 8.6 H (2.0-8.3) x10*3/uL Absolute Nucleated RBC 0.000 (0.0-0.012) X10*3/uL Nucleated RBC % (auto) 0.0 (0.0-0.2) /100WBC PT (9.9-13.0) SEC INR (0.9-1.1) APTT (24.1-38.0) SEC Sodium (135-145) mmol/L Potassium (3.3-5.1) mmol/L Chloride (96-108) mmol/L Carbon Dioxide (22-29) mmol/L Anion Gap (12-20) BUN (9-16) mg/dL Creatinine (0.5-1.4) mg/dL Estim Creat Clear Calc Estimated GFR Random Glucose (60-115) mg/dL Lactic Acid (0.5-2.0) mmol/L Calcium (8.4-10.2) mg/dL Magnesium (1.6-2.6) mg/dL Total Bilirubin (0.0-1.0) mg/dL AST (5-31) U/L ALT (0-31) U/L Alkaline Phosphatase (39-117) U/L Troponin I High Sens (<3.5-17.0) ng/L B-Natriuretic Peptide (<100) pg/mL Total Protein (6.5-8.0) g/dL Albumin (3.5-5.0) g/dL Urine Color YELLOW Urine Appearance CLEAR Urine pH 6.5 (5.0-8.0) Ur Specific Mitchell[place] 1.010 (1.005-1.025) Urine Protein NEG (NEG-TRACE) MG/DL Urine Glucose (UA) NEG (NEG) MG/DL Urine Ketones NEG (NEG) MG/DL Urine Blood NEG (NEG) Urine Nitrite NEG (NEG) Ur Leukocyte Esterase 2+ H (NEG) Urine RBC 0-2 (0) /HPF Urine WBC 15-29 H (0-4) /HPF Ur Squamous Epith Cells NONE /LPF Urine Bacteria 1+ /LPF Stool Occult Blood (NEGATIVE) COVID-19 (AI) Negative (Negative) COVID-19 Clin Com See Note Blood Type Antibody Screen 03/21/22 Range/Units 16:10 WBC (4.8-10.8) X10*3/uL RBC (4.20-5.50) X10*6/uL Hgb (12.0-16.0) g/dl Hct (37.0-47.0) % MCV (80.0-98.0) fL MCH (27.0-33.0) pg MCHC (31.0-35.0) g/dl RDW (11.0-16.0) % Plt Count (160-400) X10*3/uL MPV (9.4-12.3) fL Immature Gran % (Auto) (0.0-0.4) % Neut % (Auto) (45-73) % Lymph % (Auto) (20-40) % Sutton % (Auto) (2-11) % Eos % (Auto) (0-4) % Baso % (Auto) (0-2) % Lymph # (Auto) (1.2-4.9) X10*3/uL Sutton # (Auto) (0.1-1.2) X10*3/uL Eos # (Auto) (0.0-0.4) X10*3/uL Baso # (Auto) (0.0-0.2) X10*3/uL Abs Immat Gran (auto) (0.00-0.03) X10*3/uL Absolute Neuts (auto) (2.0-8.3) x10*3/uL Absolute Nucleated RBC (0.0-0.012) X10*3/uL Nucleated RBC % (auto) (0.0-0.2) /100WBC PT (9.9-13.0) SEC INR (0.9-1.1) APTT (24.1-38.0) SEC Sodium (135-145) mmol/L Potassium (3.3-5.1) mmol/L Chloride (96-108) mmol/L Carbon Dioxide (22-29) mmol/L Anion Gap (12-20) BUN (9-16) mg/dL Creatinine (0.5-1.4) mg/dL Estim Creat Clear Calc Estimated GFR Random Glucose (60-115) mg/dL Lactic Acid (0.5-2.0) mmol/L Calcium (8.4-10.2) mg/dL Magnesium (1.6-2.6) mg/dL Total Bilirubin (0.0-1.0) mg/dL AST (5-31) U/L ALT (0-31) U/L Alkaline Phosphatase (39-117) U/L Troponin I High Sens 158.2 H* (<3.5-17.0) ng/L B-Natriuretic Peptide (<100) pg/mL Total Protein (6.5-8.0) g/dL Albumin (3.5-5.0) g/dL Urine Color Urine Appearance Urine pH (5.0-8.0) Ur Specific [place] (1.005-1.025) Urine Protein (NEG-TRACE) MG/DL Urine Glucose (UA) (NEG) MG/DL Urine Ketones (NEG) MG/DL Urine Blood (NEG) Urine Nitrite (NEG) Ur Leukocyte Esterase (NEG) Urine RBC (0) /HPF Urine WBC (0-4) /HPF Ur Squamous Epith Cells /LPF Urine Bacteria /LPF Stool Occult Blood (NEGATIVE) COVID-19 (AI) (Negative) COVID-19 Clin Com Blood Type Antibody Screen <MELINA Landry - Last Filed: 03/21/22 20:19> Lab Results 03/21/22 03/21/22 03/21/22 Range/Units 12:40 12:41 12:41 WBC (4.8-10.8) X10*3/uL RBC (4.20-5.50) X10*6/uL Hgb (12.0-16.0) g/dl Hct (37.0-47.0) % MCV (80.0-98.0) fL MCH (27.0-33.0) pg MCHC (31.0-35.0) g/dl RDW (11.0-16.0) % Plt Count (160-400) X10*3/uL MPV (9.4-12.3) fL Immature Gran % (Auto) (0.0-0.4) % Neut % (Auto) (45-73) % Lymph % (Auto) (20-40) % Sutton % (Auto) (2-11) % Eos % (Auto) (0-4) % Baso % (Auto) (0-2) % Lymph # (Auto) (1.2-4.9) X10*3/uL [place] # (Auto) (0.1-1.2) X10*3/uL Eos # (Auto) (0.0-0.4) X10*3/uL Baso # (Auto) (0.0-0.2) X10*3/uL Abs Immat Gran (auto) (0.00-0.03) X10*3/uL Absolute Neuts (auto) (2.0-8.3) x10*3/uL Absolute Nucleated RBC (0.0-0.012) X10*3/uL Nucleated RBC % (auto) (0.0-0.2) /100WBC PT (9.9-13.0) SEC INR (0.9-1.1) APTT (24.1-38.0) SEC Sodium (135-145) mmol/L Potassium (3.3-5.1) mmol/L Chloride (96-108) mmol/L Carbon Dioxide (22-29) mmol/L Anion Gap (12-20) BUN (9-16) mg/dL Creatinine (0.5-1.4) mg/dL Estim Creat Clear Calc Estimated GFR Random Glucose (60-115) mg/dL Lactic Acid 0.7 (0.5-2.0) mmol/L Calcium (8.4-10.2) mg/dL Magnesium (1.6-2.6) mg/dL Total Bilirubin (0.0-1.0) mg/dL AST (5-31) U/L ALT (0-31) U/L Alkaline Phosphatase (39-117) U/L Troponin I High Sens 155.0 H* D (<3.5-17.0) ng/L B-Natriuretic Peptide 1614 H (<100) pg/mL Total Protein (6.5-8.0) g/dL Albumin (3.5-5.0) g/dL Urine Color Urine Appearance Urine pH (5.0-8.0) Ur Specific [place] (1.005-1.025) Urine Protein (NEG-TRACE) MG/DL Urine Glucose (UA) (NEG) MG/DL Urine Ketones (NEG) MG/DL Urine Blood (NEG) Urine Nitrite (NEG) Ur Leukocyte Esterase (NEG) Urine RBC (0) /HPF Urine WBC (0-4) /HPF Ur Squamous Epith Cells /LPF Urine Bacteria /LPF Stool Occult Blood POSITIVE (NEGATIVE) COVID-19 (AI) (Negative) COVID-19 Clin Com Blood Type Antibody Screen 03/21/22 03/21/22 03/21/22 Range/Units 12:41 12:41 12:42 WBC (4.8-10.8) X10*3/uL RBC (4.20-5.50) X10*6/uL Hgb (12.0-16.0) g/dl Hct (37.0-47.0) % MCV (80.0-98.0) fL MCH (27.0-33.0) pg MCHC (31.0-35.0) g/dl RDW (11.0-16.0) % Plt Count (160-400) X10*3/uL MPV (9.4-12.3) fL Immature Gran % (Auto) (0.0-0.4) % Neut % (Auto) (45-73) % Lymph % (Auto) (20-40) % [place] % (Auto) (2-11) % Eos % (Auto) (0-4) % Baso % (Auto) (0-2) % Lymph # (Auto) (1.2-4.9) X10*3/uL [place] # (Auto) (0.1-1.2) X10*3/uL Eos # (Auto) (0.0-0.4) X10*3/uL Baso # (Auto) (0.0-0.2) X10*3/uL Abs Immat Gran (auto) (0.00-0.03) X10*3/uL Absolute Neuts (auto) (2.0-8.3) x10*3/uL Absolute Nucleated RBC (0.0-0.012) X10*3/uL Nucleated RBC % (auto) (0.0-0.2) /100WBC PT 11.9 (9.9-13.0) SEC INR 1.0 (0.9-1.1) APTT 28.4 D (24.1-38.0) SEC Sodium 136 (135-145) mmol/L Potassium 4.3 (3.3-5.1) mmol/L Chloride 95 L (96-108) mmol/L Carbon Dioxide 36 H (22-29) mmol/L Anion Gap 9 L (12-20) BUN 7 L (9-16) mg/dL Creatinine 0.55 (0.5-1.4) mg/dL Estim Creat Clear Calc 89.2 Estimated GFR > 60 Random Glucose 116 H (60-115) mg/dL Lactic Acid (0.5-2.0) mmol/L Calcium 9.6 D (8.4-10.2) mg/dL Magnesium 1.7 (1.6-2.6) mg/dL Total Bilirubin 0.5 (0.0-1.0) mg/dL AST 13 D (5-31) U/L ALT 8 (0-31) U/L Alkaline Phosphatase 35 L D (39-117) U/L Troponin I High Sens (<3.5-17.0) ng/L B-Natriuretic Peptide (<100) pg/mL Total Protein 5.6 L D (6.5-8.0) g/dL Albumin 3.5 (3.5-5.0) g/dL Urine Color Urine Appearance Urine pH (5.0-8.0) Ur Specific [place] (1.005-1.025) Urine Protein (NEG-TRACE) MG/DL Urine Glucose (UA) (NEG) MG/DL Urine Ketones (NEG) MG/DL Urine Blood (NEG) Urine Nitrite (NEG) Ur Leukocyte Esterase (NEG) Urine RBC (0) /HPF Urine WBC (0-4) /HPF Ur Squamous Epith Cells /LPF Urine Bacteria /LPF Stool Occult Blood (NEGATIVE) COVID-19 (AI) (Negative) COVID-19 Clin Com Blood Type A Positive Antibody Screen NEGATIVE 03/21/22 03/21/22 03/21/22 Range/Units 12:42 12:43 14:47 WBC 9.9 (4.8-10.8) X10*3/uL RBC 3.40 L (4.20-5.50) X10*6/uL Hgb 10.1 L (12.0-16.0) g/dl Hct 33.1 L (37.0-47.0) % MCV 97.4 (80.0-98.0) fL MCH 29.7 (27.0-33.0) pg MCHC 30.5 L (31.0-35.0) g/dl RDW 14.4 (11.0-16.0) % Plt Count 209 (160-400) X10*3/uL MPV 10.1 (9.4-12.3) fL Immature Gran % (Auto) 0.6 H (0.0-0.4) % Neut % (Auto) 87.3 H (45-73) % Lymph % (Auto) 8.4 L (20-40) % Sutton % (Auto) 3.6 (2-11) % Eos % (Auto) 0.0 (0-4) % Baso % (Auto) 0.1 (0-2) % Lymph # (Auto) 0.8 L (1.2-4.9) X10*3/uL [place] # (Auto) 0.4 (0.1-1.2) X10*3/uL Eos # (Auto) 0.0 (0.0-0.4) X10*3/uL Baso # (Auto) 0.0 (0.0-0.2) X10*3/uL Abs Immat Gran (auto) 0.06 H (0.00-0.03) X10*3/uL Absolute Neuts (auto) 8.6 H (2.0-8.3) x10*3/uL Absolute Nucleated RBC 0.000 (0.0-0.012) X10*3/uL Nucleated RBC % (auto) 0.0 (0.0-0.2) /100WBC PT (9.9-13.0) SEC INR (0.9-1.1) APTT (24.1-38.0) SEC Sodium (135-145) mmol/L Potassium (3.3-5.1) mmol/L Chloride (96-108) mmol/L Carbon Dioxide (22-29) mmol/L Anion Gap (12-20) BUN (9-16) mg/dL Creatinine (0.5-1.4) mg/dL Estim Creat Clear Calc Estimated GFR Random Glucose (60-115) mg/dL Lactic Acid (0.5-2.0) mmol/L Calcium (8.4-10.2) mg/dL Magnesium (1.6-2.6) mg/dL Total Bilirubin (0.0-1.0) mg/dL AST (5-31) U/L ALT (0-31) U/L Alkaline Phosphatase (39-117) U/L Troponin I High Sens (<3.5-17.0) ng/L B-Natriuretic Peptide (<100) pg/mL Total Protein (6.5-8.0) g/dL Albumin (3.5-5.0) g/dL Urine Color YELLOW Urine Appearance CLEAR Urine pH 6.5 (5.0-8.0) Ur Specific [place] 1.010 (1.005-1.025) Urine Protein NEG (NEG-TRACE) MG/DL Urine Glucose (UA) NEG (NEG) MG/DL Urine Ketones NEG (NEG) MG/DL Urine Blood NEG (NEG) Urine Nitrite NEG (NEG) Ur Leukocyte Esterase 2+ H (NEG) Urine RBC 0-2 (0) /HPF Urine WBC 15-29 H (0-4) /HPF Ur Squamous Epith Cells NONE /LPF Urine Bacteria 1+ /LPF Stool Occult Blood (NEGATIVE) COVID-19 (AI) Negative (Negative) COVID-19 Clin Com See Note Blood Type Antibody Screen 03/21/22 Range/Units 16:10 WBC (4.8-10.8) X10*3/uL RBC (4.20-5.50) X10*6/uL Hgb (12.0-16.0) g/dl Hct (37.0-47.0) % MCV (80.0-98.0) fL MCH (27.0-33.0) pg MCHC (31.0-35.0) g/dl RDW (11.0-16.0) % Plt Count (160-400) X10*3/uL MPV (9.4-12.3) fL Immature Gran % (Auto) (0.0-0.4) % Neut % (Auto) (45-73) % Lymph % (Auto) (20-40) % Sutton % (Auto) (2-11) % Eos % (Auto) (0-4) % Baso % (Auto) (0-2) % Lymph # (Auto) (1.2-4.9) X10*3/uL Sutton # (Auto) (0.1-1.2) X10*3/uL Eos # (Auto) (0.0-0.4) X10*3/uL Baso # (Auto) (0.0-0.2) X10*3/uL Abs Immat Gran (auto) (0.00-0.03) X10*3/uL Absolute Neuts (auto) (2.0-8.3) x10*3/uL Absolute Nucleated RBC (0.0-0.012) X10*3/uL Nucleated RBC % (auto) (0.0-0.2) /100WBC PT (9.9-13.0) SEC INR (0.9-1.1) APTT (24.1-38.0) SEC Sodium (135-145) mmol/L Potassium (3.3-5.1) mmol/L Chloride (96-108) mmol/L Carbon Dioxide (22-29) mmol/L Anion Gap (12-20) BUN (9-16) mg/dL Creatinine (0.5-1.4) mg/dL Estim Creat Clear Calc Estimated GFR Random Glucose (60-115) mg/dL Lactic Acid (0.5-2.0) mmol/L Calcium (8.4-10.2) mg/dL Magnesium (1.6-2.6) mg/dL Total Bilirubin (0.0-1.0) mg/dL AST (5-31) U/L ALT (0-31) U/L Alkaline Phosphatase (39-117) U/L Troponin I High Sens 158.2 H* (<3.5-17.0) ng/L B-Natriuretic Peptide (<100) pg/mL Total Protein (6.5-8.0) g/dL Albumin (3.5-5.0) g/dL Urine Color Urine Appearance Urine pH (5.0-8.0) Ur Specific [place] (1.005-1.025) Urine Protein (NEG-TRACE) MG/DL Urine Glucose (UA) (NEG) MG/DL Urine Ketones (NEG) MG/DL Urine Blood (NEG) Urine Nitrite (NEG) Ur Leukocyte Esterase (NEG) Urine RBC (0) /HPF Urine WBC (0-4) /HPF Ur Squamous Epith Cells /LPF Urine Bacteria /LPF Stool Occult Blood (NEGATIVE) COVID-19 (AI) (Negative) COVID-19 Clin Com Blood Type Antibody Screen <Jessica Mcleod MD - Last Filed: 03/22/22 02:44> Imaging Data Chest x-ray: Radiologist's impression: 1. Left IJ catheter tip near the junction of superior vena cava and the azygos vein. No pneumothorax. 2. Continued dense consolidation left lung base. 3. Mild blunting right costophrenic angle consistent with pleural effusion. 4. Cardiomegaly. Persistent central pulmonary vascular congestion. <Jessica Mcleod MD - Last Filed: 03/22/22 02:44> Critical Care Time Critical Care Time Critical Care Time: Yes <MELINA Landry - Last Filed: 03/21/22 20:19> Total Critical Care Time: 2 <MELINA Landry - Last Filed: 03/21/22 20:19> Attestation: pt hypotensive, needed central line <MELINA Landry - Last Filed: 03/21/22 20:19> Discharge Plan Discharge Clinical Impression: Acute GI bleeding, Acute exacerbation of congestive heart failure, Pneumonia, UTI (urinary tract infection), Closed dislocation of right shoulder <MELINA Landry - Last Filed: 03/21/22 20:19> Patient Disposition: Admitted As Inpatient <MELINA Landry - Last Filed: 03/21/22 20:19> Interventions: Admission Worksheet (ED) Last Done: 03/21/22 20:05 <MELINA Landry - Last Filed: 03/21/22 20:19> Discharge Date/Time: 03/21/22 20:06 <MELINA Landry Last Filed: 03/21/22 20:19>
--- NOTE | 2022-03-21 11:34 | ECG_ITS ---
Test Reason : syncope Blood Pressure : / mmHG Vent. Rate : 084 BPM Atrial Rate : 084 BPM P-R Int : 168 ms QRS Dur : 122 ms QT Int : 370 ms P-R-T Axes : 025 -24 251 degrees QTc Int : 437 ms Sinus rhythm with occasional Premature ventricular complexes Minimal voltage criteria for LVH, may be normal variant ( [place] product ) Inferior infarct (cited on or before 15-JAN-2022) Anterolateral infarct (cited on or before 15-JAN-2022) Abnormal ECG When compared with ECG of 13-MAR-2022 10:06, QRS duration has increased Referred By: Lesly Dawson Electronically Signed By:ANKIT SANTIAGO MD
[2022-03-21] MEDS: 0.9 % Sodium Chloride 1,000 ML 999 ML IV ×2 (12:44→19:25)
[2022-03-21 12:55] LABS: MANUAL DIFF FLAG NO
[2022-03-21 13:02] LABS: OBS Int Ctl Valid YES; OBS1 POSITIVE (NEGATIVE)
[2022-03-21 13:02] LABS: Basophils Percent Auto 0.1 % (0-2); Hematocrit 33.1 % (37.0-47.0); Hemoglobin 10.1 g/dl (12.0-16.0); Imm Gran Abs Auto 0.06 X10*3/uL (0.00-0.03); Imm Gran Pct Auto 0.6 % (0.0-0.4); Lymphocytes Absolute Auto 0.8 X10*3/uL (1.2-4.9); Lymphocytes Percent Auto 8.4 % (20-40); Mean Corpuscular HGB Conc 30.5 g/dl (31.0-35.0); Mean Corpuscular Hemoglobin 29.7 pg (27.0-33.0); Mean Corpuscular Volume 97.4 fL (80.0-98.0); Mean Platelet Volume 10.1 fL (9.4-12.3); Monocytes Absolute Auto 0.4 X10*3/uL (0.1-1.2); Monocytes Percent Auto 3.6 % (2-11); Neutrophils Absolute Auto 8.6 x10*3/uL (2.0-8.3); Neutrophils Percent Auto 87.3 % (45-73); Platelet Count 209 X10*3/uL (160-400); Red Cell Distribution Width 14.4 % (11.0-16.0); White Blood Count 9.9 X10*3/uL (4.8-10.8)
--- NOTE | 2022-03-21 13:07 | PC.NURSE ---
Provider D/C liter bag of NS, ordered 500 mL bag
[2022-03-21] MEDS: 0.9 % Sodium Chloride 500 ML 50 ML IV (13:08)
[2022-03-21 13:11] LABS: Lactic Acid 0.7 mmol/L (0.5-2.0)
[2022-03-21 13:12] LABS: Prothrombin Time 11.9 SEC (9.9-13.0)
[2022-03-21 13:14] LABS: Partial Thromboplastin Time 28.4 SEC (24.1-38.0)
[2022-03-21 13:14] LABS: COVID-19 Test Negative (Negative)
[2022-03-21 13:20] LABS: Alanine Aminotransferase 8 U/L (0-31); Albumin Level 3.5 g/dL (3.5-5.0); Alkaline Phosphatase 35 U/L (39-117); Anion Gap 9 (12-20); Aspartate Amino Transferase 13 U/L (5-31); Bilirubin Total 0.5 mg/dL (0.0-1.0); Blood Urea Nitrogen 7 mg/dL (9-16); Calcium 9.6 mg/dL (8.4-10.2); Carbon Dioxide 36 mmol/L (22-29); Chloride 95 mmol/L (96-108); Creatinine Clr Calc Pharmacy 89.2; Estimated Glomerular Filt Rate > 60; Glucose Random 116 mg/dL (60-115); Magnesium 1.7 mg/dL (1.6-2.6); Potassium 4.3 mmol/L (3.3-5.1); Sodium 136 mmol/L (135-145); Total Protein 5.6 g/dL (6.5-8.0)
[2022-03-21 13:23] LABS: B Type Natriuretic Peptide 1614 pg/mL (<100)
[2022-03-21 14:57] LABS: Appearance Urine CLEAR; Color Urine YELLOW; Glucose Urine UA NEG (NEG); Leukocyte Esterase Urine 2+ (NEG); Nitrite Urine NEG (NEG); PH 6.5 (5.0-8.0); UACC Culture Trigger YES; Urine Blood NEG (NEG); Urine Ketones NEG (NEG); Urine Protein NEG (NEG-TRACE)
[2022-03-21 15:29] LABS: Bacteria Urine 1+ /LPF; RBC Urine 0-2 /HPF (0)
--- NOTE | 2022-03-21 16:14 | P.PNCC_ITS ---
Critical Care Event Note Summary Date of Service: 03/21/22 Code activated: No Narrative: 62-year-old lady with underlying history of schizophrenia, [facility] resident, also hepatitis-C, peripheral vascular disease status post aorto-ileal bypass, systolic congestive heart failure with ejection fraction approximately 25% diabetes mellitus, COPD on 2 L, recent admission to [facility] for [id number] through 03/18/2022 for acute GI bleed, now being evaluated in the emergency room for episode of alteration of mental status and hypoxia. On initial ER evaluation patient noted to have positive urinalysis, laboratory evidence of decreased intravascular volume with increased creatinine, cell counts, and bicarbonate from prior baseline. Patient with an episode of hypotension to systolic blood pressure of 80s, that responded to 500 cc bolus of IV fluid with systolic blood pressure in 110's during this evaluation. Patient is also lethargic, but arousable and with O2 saturation 96-98% on 2 L. At this time Patient does not require intensive care level of care, please notify for re-evaluation, if patient's condition changes. Would suggest further IV fluid and colloidal resuscitation. Empiric coverage for urinary tract infection. Case discussed with ER provider. Critical Care Time (minutes): 0
[2022-03-21 16:38] LABS: Troponin-I High Sensitivity 158.2 ng/L (<3.5-17.0)
--- NOTE | 2022-03-21 16:59 | PHA.MEDREC ---
Pharmacy Consult ? Medication Reconciliation Pharmacy has completed the medication reconciliation. Confirmed list with Lina Montes. Rosalinda Montenegro, AnnalisaD
--- NOTE | 2022-03-21 17:04 | PC.NURSE ---
Antibiotic not started due to no IV access.
[2022-03-21] MEDS: LORazepam 2 MG/ML VIAL 1 MG IM ×2 (17:25→17:55)
--- NOTE | 2022-03-21 18:37 | PM.IMHP ---
History of Present Illness Date of Service: 03/21/22 Chief Complaint: AMS ?62-year-old lady with underlying history of schizophrenia, [facility] resident, also hepatitis-C, peripheral vascular disease status post aorto-ileal bypass, systolic congestive heart failure with ejection fraction approximately 25% diabetes mellitus, COPD on 2 L, recent admission to [facility] for [id number] through 03/18/2022 for acute GI bleed, now being evaluated in the emergency room for episode of alteration of mental status and hypoxia.? On initial ER evaluation patient noted to have positive urinalysis, laboratory evidence of decreased intravascular volume with increased creatinine, cell counts, and bicarbonate from prior baseline. Patient with an episode of hypotension to systolic blood pressure of 80s, that responded to 500 cc bolus of IV fluid with systolic blood pressure in 110's during this evaluation.? Patient is also lethargic, but arousable and with O2 saturation 96-98% on 2 L. 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 Bone disease Chronic pain Depressive disorder Diabetes mellitus, type II Edema GERD (gastroesophageal reflux disease) Hepatitis C Hernia HTN (hypertension) Hyperprolactinemia Hyponatremia Polydipsia Schizophrenia Urinary incontinence Surgical History History of surgery Social History Household Members: Unknown / Unable to assess Housing: Intermediate Housing Other:: [facility] Do you presently have visiting nurse or other home services: No (from snf) Unable to assess alcohol history related to: Unknown Alcohol intake: unknown Patient Tobacco Use Status: Former Tobacco user Advance Directives: No Advance Directives Information Provided: No service: No Current occupational status: disabled Meds Allergies Allergy/AdvReac Type Severity Reaction Status Date / Time codeine [CODEINE] Allergy Unknown UNKNOWN Verified 02/11/22 14:47 lactose [LACTOSE] Allergy Unknown UNKNOWN Verified 02/11/22 14:47 meloxicam [MELOXICAM] Allergy Unknown UNKNOWN Verified 02/11/22 14:47 penicillin V Allergy Unknown Unknown Verified 02/11/22 14:47 Penicillins [PENICILLINS] Allergy Unknown UNKNOWN Verified 02/11/22 14:47 tetracycline [TETRACYCLINE] Allergy Unknown UNKNOWN Verified 02/11/22 14:47 Active Medications: Current Medications Albuterol Sulfate (Albuterol Sulfate 90 Mcg 8 Gm Inhaler) 4 puff INHALE Q4H PRN PRN Reason: Wheezing Sodium Chloride (Ns) 500 mls @ 50 mls/hr IV .Q10H [facility] Stop: 03/21/22 22:59 Last Admin: 03/21/22 13:08 Dose: 50 mls/hr Documented by: Ceftriaxone Sodium 1 gm/ (Sodium Chloride) 50 mls @ 100 mls/hr IV DAILY BRENT Sodium Chloride (Ns) 1,000 mls @ 125 mls/hr IVCONT .Q8H [facility] Beatrice Carbonate (Beatrice Carbonate Er 300 Mg Tablet.Er) 300 mg PO BEDTIME BRENT Lorazepam (Lorazepam 2 Mg/Ml Vial) 1 mg IM ONCE PRN PRN Reason: Anxiety Last Admin: 03/21/22 17:55 Dose: 1 mg Documented by: Lurasidone HCl (Lurasidone Hcl 40 Mg Tablet) 40 mg PO BEDTIME [facility] Non-Formulary Medication (Lurasidone [Latuda]) 60 mg PO BEDTIME [facility] Non-Formulary Medication (Trihexyphenidyl) 5 mg PO TID [facility] Pharmacy Consult (Consult Rx Perform Med Rec) 1 each MISCELLANE ONCE PRN PRN Reason: Consult order Pramipexole Dihydrochloride (Pramipexole Di-Hcl 0.25 Mg Tablet) 0.25 mg PO BEDTIME [facility] Sodium Chloride (0.9 % Sodium Chloride Flush 3 Ml Syringe) 3 ml IVFLUSH QSHIFT [facility] Home Medications Medication Instructions Recorded Confirmed Last Taken Type clopidogrel 75 mg tablet 75 mg PO DAILY 06/12/21 03/21/22 Unknown History fluticasone furoate 200 1 ea INHALATION DAILY 06/12/21 03/21/22 Unknown History mcg-vilanterol 25 mcg/dose inhalation powder (Breo Ellipta) lurasidone 40 mg tablet (Latuda) 40 mg PO BEDTIME 06/12/21 03/21/22 Unknown History simvastatin 20 mg tablet 20 mg PO BEDTIME 06/12/21 03/21/22 Unknown History lurasidone 60 mg tablet (Latuda) 60 mg PO BEDTIME 06/26/21 03/21/22 Unknown History paliperidone palmitate 156 mg/mL 156 mg IM Q28D 06/26/21 03/21/22 03/19/22 History intramuscular syringe (Invega Sustenna) pramipexole 0.25 mg tablet 0.25 mg PO BEDTIME 06/26/21 03/21/22 Unknown History trihexyphenidyl 5 mg tablet 5 mg PO TID 06/26/21 03/21/22 Unknown History acetaminophen 325 mg tablet 650 mg PO Q4H PRN 01/15/22 03/21/22 Unknown History albuterol sulfate 90 mcg/actuation 4 inh INHALATION Q4H PRN 01/15/22 03/21/22 Unknown History breath activated powder inhaler,sensor aspirin 81 mg chewable tablet 81 mg PO DAILY 01/15/22 03/21/22 Unknown History docusate sodium 100 mg tablet 100 mg PO BID 01/15/22 03/21/22 Unknown History lactulose 10 gram/15 mL oral 20 g PO Q12H PRN 01/15/22 03/21/22 Unknown History solution lanolin alcohols-mineral 1 appl TOPICAL BEDTIME 01/15/22 03/21/22 Unknown History oil-w.petrolatum-ceresin topical cream (Minerin Creme) lithium carbonate 300 mg 300 mg PO BEDTIME 01/15/22 03/21/22 Unknown History tablet,extended release menthol 5 % topical patch (Bengay 1 patch TOPICAL DAILY PRN 01/15/22 03/21/22 Unknown History Ultra Strength (menthol)) metoprolol tartrate 25 mg tablet 25 mg PO BID 01/15/22 03/21/22 Unknown History sennosides 8.6 mg tablet (senna) 17.2 mg PO BID 01/15/22 03/21/22 Unknown History acetaminophen 325 mg tablet 325 mg PO QID 03/13/22 03/21/22 Unknown History aluminum-mag hydroxide-simethicone 30 ml PO Q6H PRN 03/13/22 03/21/22 Unknown History 200 mg-200 mg-20 mg/5 mL oral susp bisacodyl 10 mg rectal suppository 10 mg CO DAILY PRN 03/13/22 03/21/22 Unknown History glucagon HCl 1 mg solution for 1 mg SUBCUT Q20M PRN 03/13/22 03/21/22 Unknown History injection (Glucagon (HCl) Emergency Kit) guaifenesin 100 mg/5 mL oral liquid 200 mg PO Q6H PRN 03/13/22 03/21/22 Unknown History naloxone 4 mg/actuation nasal 4 mg INTRANASAL Q3M PRN 03/13/22 03/21/22 Unknown History spray (Narcan) sodium phosphates 19 gram-7 118 ml CO DAILY PRN 03/13/22 03/21/22 Unknown History gram/118 mL enema (Fleet Enema) ascorbic acid (vitamin C) 500 mg 500 mg PO DAILY 03/21/22 03/21/22 Unknown History tablet benzocaine 15 mg-menthol 3.6 mg 1 carlos MUCOUS MEMBRANE Q4H PRN 03/21/22 03/21/22 Unknown History lozenges sennosides 8.6 mg tablet (senna) 8.6 mg PO DAILY PRN 03/21/22 03/21/22 Unknown History Physical Exam Vital Signs and Narrative: Vital Signs: Last Vital Signs Temp 97.5 F 03/21/22 15:44 Pulse 91 03/21/22 17:28 Resp 20 03/21/22 17:28 BP 104/79 03/21/22 17:28 Pulse Ox 95 03/21/22 15:44 BMI result Body Mass Index 21.5 Const: Other: Awake confused HEENT: Other: Membranes dry Resp: Other: Diminished at bases rhonchorous throughout Cardio: Other: No S4; positive S1-S2; no S3 murmurs rubs or gallops GI: Other: Soft nontender nondistended normoactive bowel sounds Extrem: Other: No edema bilaterally Results Labs CBC and Chem 7: 03/21/22 12:42 03/21/22 12:41 Labs: Laboratory Results - last 24 hr 03/21/22 03/21/22 03/21/22 12:40 12:41 12:41 MCV MCH MCHC RDW Plt Count MPV Immature Gran % (Auto) Neut % (Auto) Lymph % (Auto) [place] % (Auto) Eos % (Auto) Baso % (Auto) Lymph # (Auto) [place] # (Auto) Eos # (Auto) Baso # (Auto) Abs Immat Gran (auto) Absolute Neuts (auto) Absolute Nucleated RBC Nucleated RBC % (auto) PT INR APTT Anion Gap Estim Creat Clear Calc Estimated GFR Random Glucose Lactic Acid 0.7 Calcium Magnesium Total Bilirubin AST ALT Alkaline Phosphatase Troponin I High Sens 155.0 H* D B-Natriuretic Peptide 1614 H Total Protein Albumin Urine Color Urine Appearance Urine pH Ur Specific [place] Urine Protein Urine Glucose (UA) Urine Ketones Urine Blood Urine Nitrite Ur Leukocyte Esterase Urine RBC Urine WBC Ur Squamous Epith Cells Urine Bacteria Stool Occult Blood POSITIVE COVID-19 (AI) COVID-19 Clin Com Blood Type Antibody Screen 03/21/22 03/21/22 03/21/22 12:41 12:41 12:42 MCV MCH MCHC RDW Plt Count MPV Immature Gran % (Auto) Neut % (Auto) Lymph % (Auto) [place] % (Auto) Eos % (Auto) Baso % (Auto) Lymph # (Auto) [place] # (Auto) Eos # (Auto) Baso # (Auto) Abs Immat Gran (auto) Absolute Neuts (auto) Absolute Nucleated RBC Nucleated RBC % (auto) PT 11.9 INR 1.0 APTT 28.4 D Anion Gap 9 L Estim Creat Clear Calc 89.2 Estimated GFR > 60 Random Glucose 116 H Lactic Acid Calcium 9.6 D Magnesium 1.7 Total Bilirubin 0.5 AST 13 D ALT 8 Alkaline Phosphatase 35 L D Troponin I High Sens B-Natriuretic Peptide Total Protein 5.6 L D Albumin 3.5 Urine Color Urine Appearance Urine pH Ur Specific [place] Urine Protein Urine Glucose (UA) Urine Ketones Urine Blood Urine Nitrite Ur Leukocyte Esterase Urine RBC Urine WBC Ur Squamous Epith Cells Urine Bacteria Stool Occult Blood COVID-19 (AI) COVID-19 Clin Com Blood Type A Positive Antibody Screen NEGATIVE 03/21/22 03/21/22 03/21/22 12:42 12:43 14:47 MCV 97.4 MCH 29.7 MCHC 30.5 L RDW 14.4 Plt Count 209 MPV 10.1 Immature Gran % (Auto) 0.6 H Neut % (Auto) 87.3 H Lymph % (Auto) 8.4 L [place] % (Auto) 3.6 Eos % (Auto) 0.0 Baso % (Auto) 0.1 Lymph # (Auto) 0.8 L [place] # (Auto) 0.4 Eos # (Auto) 0.0 Baso # (Auto) 0.0 Abs Immat Gran (auto) 0.06 H Absolute Neuts (auto) 8.6 H Absolute Nucleated RBC 0.000 Nucleated RBC % (auto) 0.0 PT INR APTT Anion Gap Estim Creat Clear Calc Estimated GFR Random Glucose Lactic Acid Calcium Magnesium Total Bilirubin AST ALT Alkaline Phosphatase Troponin I High Sens B-Natriuretic Peptide Total Protein Albumin Urine Color YELLOW Urine Appearance CLEAR Urine pH 6.5 Ur Specific [place] 1.010 Urine Protein NEG Urine Glucose (UA) NEG Urine Ketones NEG Urine Blood NEG Urine Nitrite NEG Ur Leukocyte Esterase 2+ H Urine RBC 0-2 Urine WBC 15-29 H Ur Squamous Epith Cells NONE Urine Bacteria 1+ Stool Occult Blood COVID-19 (AI) Negative COVID-19 Clin Com See Note Blood Type Antibody Screen 03/21/22 16:10 MCV MCH MCHC RDW Plt Count MPV Immature Gran % (Auto) Neut % (Auto) Lymph % (Auto) [place] % (Auto) Eos % (Auto) Baso % (Auto) Lymph # (Auto) [place] # (Auto) Eos # (Auto) Baso # (Auto) Abs Immat Gran (auto) Absolute Neuts (auto) Absolute Nucleated RBC Nucleated RBC % (auto) PT INR APTT Anion Gap Estim Creat Clear Calc Estimated GFR Random Glucose Lactic Acid Calcium Magnesium Total Bilirubin AST ALT Alkaline Phosphatase Troponin I High Sens 158.2 H* B-Natriuretic Peptide Total Protein Albumin Urine Color Urine Appearance Urine pH Ur Specific [place] Urine Protein Urine Glucose (UA) Urine Ketones Urine Blood Urine Nitrite Ur Leukocyte Esterase Urine RBC Urine WBC Ur Squamous Epith Cells Urine Bacteria Stool Occult Blood COVID-19 (AI) COVID-19 Clin Com Blood Type Antibody Screen Imaging Radiologist's Impressions: Impressions Cervical Spine CT 03/21/22 14:00 IMPRESSION: Significant chronic deformity of the cervical spine with anterolisthesis of C3 on C4 and C4 on C5 with significant wedging of the C4 and C5 vertebral bodies and fusion across multiple disc spaces in addition to facet ankylosis. Cervical spine evaluation is difficult in this setting however no fracture is noted. Spinal canal appears distorted and significantly narrowed at C4 and to a lesser extent at C5. Chest X-Ray 03/21/22 14:00 IMPRESSION: Abnormal chest radiograph showing features most consistent with CHF with or without superimposed pneumonia at left lung base. Head CT 03/21/22 14:00 IMPRESSION: 1. Interval development of small air-fluid level is noted within the right maxillary sinus, given the patient history of recent fall, most consistent with intrasinus hemorrhage. Mild mucoperiosteal thickening is also noted within the right frontal sinus, new since most recent prior study dated 01/15/2022. 3. No other significant interval change since the prior CT of the head dated 01/15/2022. Shoulder X-Ray 03/21/22 16:32 IMPRESSION: Abnormal radiographic appearance of both humeral heads. Shoulder X-Ray 03/21/22 16:32 IMPRESSION: Abnormal radiographic appearance of both humeral heads. Assessment and Plan (1) Acute exacerbation of congestive heart failure: Status: Acute (2) Diabetes mellitus, type II: Status: Acute (3) Pneumonia: Status: Acute Plan 62-year-old female with underlying history of schizophrenia, congestive heart failure with LVEF 25-30%, COPD diabetes and hepatitis-C admitted secondary to mental status changes. Initial workup demonstrated a chest x-ray consistent with mild failure, BNP of 16 14 and a troponin of 158. In the ER, no guaiac done but subjectively with melena. 1. Acute mental status changes (multifactorial) -will treat underlying causes 2. Elevated troponin in backdrop of known cardiac disease -question demand ischemia -serial troponins -repeat echo -card consult 3. Acute on chronic systolic heart failure -will hold Plavix secondary to her question of lower GI bleed -1 dose IV Lasix hold IV fluids -follow BNP in the morning 4.. Pneumonia -will cover with ceftriaxone -supplemental oxygen to maintain sats greater than equal to 90% Full code Boots Will require 2 nights of hospitalization to adequately treat CHF and underlying pneumonia. This cannot be done at a less acute facility Quality Stroke Does the patient have a stroke diagnosis?: No VTE Prior VTE?: No VTE Risk Level:: Medical - moderate - high VTE Device Contraindication: N/A - Device Ordered VTE Drug Contraindication: Treatment Not Indicated
[2022-03-21] MEDS: cefTRIAXone sodium 1 GM in 0.9 % Sodium Chloride 50 ML IV (19:29)
--- NOTE | 2022-03-21 19:34 | PC.NURSE ---
Spoke to hospitalist regarding patients pressure, history and if to run fluids. Hospitalist says to run fluids.
[2022-03-21] MEDS: Furosemide 40 MG/4 ML VIAL IVPUSH (20:40)
[2022-03-21 21:43] LABS: Troponin-I High Sensitivity 136.9 ng/L (<3.5-17.0)
--- NOTE | 2022-03-21 23:56 | PM.CCN ---
Critical Care Event Note Summary Date of Service: 03/21/22 <Margaux Mensah NP - Last Filed: 03/21/22 23:57> Code activated: Yes <Margaux Mensah NP - Last Filed: 03/21/22 23:57> Narrative: This case had a high probability of a clinically significant, sudden, or life threatening deterioration of this patient's condition which required my full and direct attention, intervention and personal management. <Margaux Mensah NP - Last Filed: 03/21/22 23:57> Critical Care Time (minutes): 15 <Margaux Mensah NP - Last Filed: 03/21/22 23:57> Comment: Patient noted to be in VFIB, when i enter the room patient noted to to be pulseless.? Code blue called overhead. ACLS initiated. Please see code sheet for complete list of medications. Patient was VFIB cardiac arrest,?After 14 min of CPR patient cont to be pulseless with VIFB rhythm despite medications and shocks.? Life saving measures stop at 2320. On my exam- no response to verbal or physical stimuli, no spontaneous respiration, absent heart sounds, pupils are fixed and dilated, no corneal or gag reflex. Official time of 2320. ? <Margaux Mensah NP - Last Filed: 03/21/22 23:57> Critical Care Time 15 <Margaux Mensah NP - Last Filed: 03/21/22 23:57>
--- NOTE | 2022-03-22 08:18 | P.DN_ITS ---
Discharge Sum: Prov Provider Primary care physician: Javier Torres DO Discharge Sum: Diag Contributing Factors (1) Acute exacerbation of congestive heart failure: (2) Diabetes mellitus, type II: (3) Pneumonia: Discharge Sum: Summary Date and Time Date of admission: 03/21/22 18:33 Date of : 03/22/22 Time of : 23:30 Summary Details: 62-year-old lady with underlying history of schizophrenia, [facility] resident, also hepatitis-C, peripheral vascular disease status post aorto-ileal bypass, systolic congestive heart failure with ejection fraction approximately 25% diabetes mellitus, COPD on 2 L, recent admission to [facility] for [id number] through 03/18/2022 for acute GI bleed, now being evaluated in the emergency room for episode of alteration of mental status and hypoxia.? Admitted with aspiration pneumonia/CHF. Pt developed VT and resuscitation was unsuccessful.Pronounced @[id number] Additional Data Attending physician: Javier Torres DO
--- NOTE | 2022-04-21 10:21 | P.CDIR_ITS ---
Documented by User: Petty Sam CCS, CDIS 04/21/22 10:26 Retrospective Query PHYSICIAN'S DOCUMENTATION REQUEST Date of Query: 04/21/22 1021 Patient Name: Radha Martinez Admit Date: 03/21/22 Dear Doctor, A review of the medical record indicates additional documentation may be needed. Please review below and update the documentation accordingly. Clinical Indicators: Risk Factors/Clinical Indicators/Treatments PN: 5/6 - COPD on baseline oxygen 2 liters. saturation went down to 79% respirations increased to 24/28 hypoxic, oxygen increased to 4 liters. Recognized standard criteria for respiratory failure includes: (Source: [facility] Hospitalist Sep 2013) ABGs (1 or more) Symptoms: ? PO2 <60 or RA SpO2 <91% ? Tachypnea, SOB, dyspnea ? PcO2 >50 and pH <7.35 ? Pallor or cyanosis ? pO2 decrease or pcO2 increase ? Anxiety or restlessness by 10 mm/Hg from baseline if known ? Use of accessory muscles ? Retractions (grunting in newborns) ? Unable to speak in complete sentences P/F ratio < 300 Supplemental O2 requirement of 40% or more Intubation is not required Clarify which of the following accurately represents the patient's respiratory status: * Acute respiratory failure * Acute on chronic hypoxic respiratory failure O2 dependent * Chronic respiratory failure O2 dependent * Other (please specify) * Unable to determine Please include type if known: * Hypoxic * Hypercapnic * Hypoxic and hypercapnic * Unable to determine Use of terms such as suspected, likely, concern for, or probable (associated with a specific diagnosis that is being evaluated, monitored, or treated as if it exists) are acceptable and can be coded in the inpatient setting, when documented at the time of discharge. Thank you, Petty Sam CCS, CDIS Extension: [id number] Please use your independent medical judgment in providing your response. THIS QUERY IS PART OF THE PERMANENT MEDICAL RECORD Documented by User: Javier Torres DO 05/15/22 08:09 Retrospective Query Provider Response: Other (Acute hypoxic respiratory failure secondary to aspiration pneumonia)
--- NOTE | 2022-04-21 10:36 | P.CDIR_ITS ---
Documented by User: Petty Sam CCS, CDIS 04/21/22 10:41 Retrospective Query PHYSICIAN'S DOCUMENTATION REQUEST Date of Query: 04/21/22 1036 Patient Name: Radha Martinez Admit Date: 03/21/22 Dear Doctor, A review of the medical record indicates additional documentation may be needed. Please review below and update the documentation accordingly. Clinical Indicators: Risk Factors/Clinical Indicators/Treatments ED: 03/21 - Altered mental status, confusion, not oriented to time and place. Patient cannot follow commands. ICU consult Giving more fluids due to hypotensive, central line needed, adding doxycycline for pneumonia, ceftriaxone for UTI. Based on the above, could you clarify in the Progress Notes which, if any of the following, is the most likely etiology of the confusion/altered mental status? Encephalopathy, metabolic, toxic, septic, metabolic/toxic combined or other * Acute or subacute confusional state due to (specify known or suspected etiology) * Other etiology (please specify) * Unable to determine Use of terms such as suspected, likely, concern for, or probable (associated with a specific diagnosis that is being evaluated, monitored, or treated as if it exists) are acceptable and can be coded in the inpatient setting, when documented at the time of discharge. Thank you, Petty Sam CCS, CDIS Extension: [id number] Please use your independent medical judgment in providing your response. THIS QUERY IS PART OF THE PERMANENT MEDICAL RECORD Documented by User: Javier Torres DO 05/15/22 08:05 Retrospective Query Provider Response: Other (Acute confusional state due to aspiration pneumonia)
--- NOTE | 2022-04-24 09:59 | P.CDIR_ITS ---
Documented by User: Petty Sam CCS, CDIS 04/24/22 10:14 Retrospective Query PHYSICIAN'S DOCUMENTATION REQUEST Date of Query: 04/24/22 1001 Patient Name: Radha Martinez Admit Date: 03/21/22 Dear Doctor, A review of the medical record indicates additional documentation may be needed. Please review below and update the documentation accordingly. Clinical Indicators: Risk Factors/Clinical Indicators/Treatments ED: Altered mental status, confusion, cachectic. HR 45 RR 28 Temp 98. 8 UA + BP dropped to 60/90 hypotensive BP improved w 500 cc bolus IV fluids. on oxygen sats 79%, pulse ox 90L - hypoxia. ICU - Urine positive for leukocyte esterase with possible pneumonia. Ceftriaxone for the UTI, Doxycycline for the pneumonia and sinus infection. D/S: 04/22 - Patient was admitted for aspiration pneumonia and CHF. Please clarify which, if any, of the following is the most likely etiology of the above symptoms and treatment rendered: Sepsis due to Aspiration pneumonia, POA, suspected, possible etc. or other etiology of infection * Sepsis * Systemic manifestations of infection, with 2 or more SIRS criteria which include: - Fever > 100.4F or hypothermia < 96.8 F - Leukocytosis - WBC > 12,000 or leukopenia, WBC < 4,000 or > 10% bands - Tachycardia > 90 beats/minute - Tachypnea - RR > 20 breaths/minute or PaCO2 < 32mmHg (Source: Merck Manual 2013) * Indicate the known or suspected organism * Indicate the known or suspected underlying infection, such as UTI, pneumonia, or cellulitis * Indicate if a suspected bacterial infection of unknown source * Severe Sepsis * Sepsis with associated acute organ dysfunction, such as renal or respiratory failure * Documentation should indicate the association between the sepsis and the organ dysfunction * Other (please specify) * Unable to determine Use of terms such as suspected, likely, concern for, or probable (associated with a specific diagnosis that is being evaluated, monitored, or treated as if it exists) are acceptable and can be coded in the inpatient setting, when documented at the time of discharge. Thank you, Petty Sam CCS, CDIS Extension:[id number] Please use your independent medical judgment in providing your response. THIS QUERY IS PART OF THE PERMANENT MEDICAL RECORD Documented by User: Javier Torres DO 05/15/22 08:07 Retrospective Query Provider Response: Other (This was acute exacerbation of CHF secondary to aspiration pneumonia. Sepsis was not present)
== END 2022-03-21 23:23 | disposition expired | DRG 177 ==
LOC: HO.ED 18:25 → HO.EDOVER 18:40 → HO.IMC 18:55
PROVIDERS: Physician Assistant; Admitting Provider Hospitalist; Emergency Provider Emergency Medicine Emergency Medical Services; PCP Hospitalist; Visit Provider Hospitalist
DX: J69.0 Pneumonitis due to inhalation of food and vomit (principal); I46.9 Cardiac arrest, cause unspecified; I50.23 Acute on chronic systolic (congestive) heart failure; N39.0 Urinary tract infection, site not specified; K92.2 Gastrointestinal hemorrhage, unspecified; I11.0 Hypertensive heart disease with heart failure; M43.6 Torticollis; I95.9 Hypotension, unspecified; E11.51 Type 2 diabetes mellitus with diabetic peripheral angiopathy without gangrene; F20.9 Schizophrenia, unspecified; J44.9 Chronic obstructive pulmonary disease, unspecified; B19.20 Unspecified viral hepatitis C without hepatic coma; Z20.822 Contact with and (suspected) exposure to COVID-19; Z87.891 Personal history of nicotine dependence; Z88.0 Allergy status to penicillin; Z88.5 Allergy status to narcotic agent; Z88.6 Allergy status to analgesic agent; Z88.1 Allergy status to other antibiotic agents; Z79.02 Long term (current) use of antithrombotics/antiplatelets; Z79.51 Long term (current) use of inhaled steroids; Z79.82 Long term (current) use of aspirin; Z79.899 Other long term (current) drug therapy
CPT/HCPCS: 36415; 70450; 71045; 72125; 73020; 80053; 81001; 82272; 83605; 83735; 83880; 84484; 85025; 85610; 85730; 86850; 86900; 86901; 87040; 87086; 87088; 87186; 87635; 93005; 96361; 96365; 96372; 96375; 99285; C1758; J0171; J0282; J0696; J1940; J2060